=== PATIENT | female | born 1955 | race Caucasian/White ===

== ENCOUNTER 2016-08-13 11:53 | Inpatient (IN) | payer MEDICARE ==
[~2016-08-13] VITALS: Ht 160 cm; Wt 49.9 kg
[~2016-08-13 11:53] MED LIST: ASPI325T4 PO; AZIT250T PO; BUPR100T11 PO; BUPR150T15 PO; CARV3.12 PO; CHLO25TA PO; CLOR3.75 PO; FENT1PAT17 TD; HYDR-971 PO; HYDR50CA2 PO; HYDR50TA PO; LISI-338 PO; LISI40TA PO; METO25TA2 PO; METO50TA10 PO; OLAN20TA3 PO; OLAN20TA7 PO; PRED50TA PO; PROAIR HFA8.5 GM INH; SIMV20TA3 PO; SIMV5TAB5 PO; ZOLP10TA PO
--- NOTE | 2016-08-13 12:55 | PHYS DOC ---
Past Medical History Past Medical History: Anxiety, Asthma, COPD, Depression, High Cholesterol, Hypertension, Stroke Past Surgical History: Hysterectomy, Tonsillectomy, Other Additional Past Surgical Histo: bilat. breast surgery, removed fibroids Additional Information: 1 PPD Alcohol Use: None Drug Use: None Adult General Chief Complaint Chief Complaint: BACK INJURY HPI HPI Patient is a 61 year old female who presents with back pain following a fall. Patient states she was going upstairs with her oxygen and got tripped up by the oxygen tubing and fell down the stairs backwards. Patient states she fell down approximately 2 steps and struck a door with her back. She denies striking her head or losing consciousness. Denies pain anywhere other than her back. She does have a superficial skin scrape of her right distal elbow. states he heard the fall and went to check on the patient immediately. She's been acting normal neurologically since the fall per . Patient does have a history of a stroke causing left sided facial droop. Patient is not on any other blood thinners other than aspirin at this time. Patient denies any neck pain or weakness or numbness in her hands. Patient denies any new weakness or numbness in her legs or pain going into her legs. Patient is not currently on steroids. Review of Systems Review of Systems Constitutional: Denies fever or chills Eyes: Denies change in visual acuity, redness, or eye pain HENT: Denies nasal congestion or sore throat Respiratory: Denies cough or shortness of breath Cardiovascular: No chest pain or palpitations GI: Denies abdominal pain, nausea, vomiting, bloody stools or diarrhea : Denies dysuria or hematuria Musculoskeletal: Lumbar back pain in the midline from L1-L5. Integument: Denies rash or skin lesions other than abrasions right elbow Neurologic: Denies headache, focal weakness or sensory changes Endocrine: Denies polyuria or polydipsia Current Medications Current Medications Current Medications Medications (Trade) Dose Ordered Sig/Marianne Start Time Stop Time Status Last Admin Dose Admin Acetaminophen/ Hydrocodone Bitart (Lortab 5/325) 1 tab 1X ONCE 08/13/16 13:00 08/13/16 13:01 DC 08/13/16 13:32 1 TAB Allergies Allergies Allergies Coded Allergies Type Severity Reaction Last Updated Verified Haloperidol Lactate Allergy Intermediate makes neck tighten so she can't move head 02/05/14 Yes haloperidol Allergy Intermediate makes neck tighten so she can't move head Yes Physical Exam Physical Exam Constitutional: Well developed, well nourished, mild acute distress, non-toxic appearance. HENT: Normocephalic, atraumatic, oropharynx moist, no oral exudates, nose normal. Eyes: PERRLA, EOMI, conjunctiva normal, no discharge. Neck: Normal range of motion, no tenderness, supple, no stridor. Cardiovascular:Heart rate regular rhythm, no murmur Lungs & Thorax: Bilateral breath sounds clear to auscultation Abdomen: Bowel sounds normal, soft, no tenderness, no masses, no pulsatile masses. Skin: Warm, dry, no erythema, no rash. Abrasion left distal elbow Back: No thoracic spine discomfort with palpation. No obvious step-offs with palpation of the spines. Pelvis is stable to rocking and compression. Right elbow joint normal to exam. Extremities: No tenderness, no cyanosis, no clubbing, no edema. Neurologic: Alert and oriented X 3, normal sensory function, no new focal deficits noted(patient had prior stroke affecting left side). Psychologic: Affect normal, judgement normal, mood normal. Current Patient Data Vital Signs Vital Signs Date Time Temp Pulse Resp B/P Pulse Ox O2 Delivery O2 Flow Rate FiO2 08/13/16 13:32 18 94 Room Air 2.0 08/13/16 12:03 98.6 80 89/57 98.6 EKG EKG [] Radiology/Procedures Radiology/Procedures [] Course & Med Decision Making Course & Med Decision Making Pertinent Labs and Imaging studies reviewed. (See chart for details) Dr. Key came to emergency department to evaluate patient agrees to accept patient is an patient. Dragon Disclaimer Dragon Disclaimer This electronic medical record was generated, in whole or in part, using a voice recognition dictation system. Departure Departure Impression: Primary Impression: Lumbar compression fracture Disposition: ADMITTED INPATIENT Admitting Physician: Ariana Key Condition: STABLE Referrals: MALLIKA HOLLY (PCP) Problem Qualifiers Primary Impression: Lumbar compression fracture Encounter type: initial encounter Fracture type: closed Qualified Code: S32.000A - Wedge compression fracture of unspecified lumbar vertebra, initial encounter for closed fracture KYRIE WILLIS MD Aug 13, 2016 12:55
[2016-08-13] MEDS ORDERED: HYDROCODONE/APAP 5/325MG TABLET. PO ONE (13:00)
--- NOTE | 2016-08-13 13:18 | RAD ---
Lumbar spine, 3 views, 08/13/2016: History: Fall, pain The bony structures are demineralized. There is a moderate vertebral compression fracture at L3. This was not present on a CT abdomen study from 07/04/2012. The other lumbar vertebral heights are well-maintained. The intervertebral disc spaces are fairly well preserved. There are mild scattered marginal spurs. There is a mild thoracolumbar scoliosis. Moderate aortoiliac calcific plaquing is present. IMPRESSION: 1. Demineralization. 2. Moderate L3 vertebral compression fracture which has developed since 2012. 3. Mild scattered degenerative change.
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
[2016-08-13] MEDS: CHLORTHALIDONE 25 MG TABLET. PO SCH (16:00)
[2016-08-13] MEDS ORDERED: METOPROLOL SUCC 24HR ER 50 MG TAB.ER.24H. PO SCH (16:00)
[2016-08-13] MEDS ORDERED: OLANZAPINE 5 MG TABLET. PO SCH (16:00)
[2016-08-13 16:25] VITALS: BP 123/84
[2016-08-13] MEDS: NICOTINE 21MG PATCH. TD SCH (16:45)
[2016-08-13] MEDS: MORPHINE SULFATE 2 MG/ML DISP.SYRIN. IV PRN ×3 (16:46→22:42)
--- NOTE | 2016-08-13 18:28 | ACF ---
Admission Forms Criteria MUSCULOSKELETAL DISEASE GRG Clinical Indications for Admission to Inpatient Care (Place 'X' for any and all applicable criteria): Hospital admission is needed for appropriate care of the patient because of ANY ONE of the following: [X]I. Fracture, dislocation, or other musculoskeletal injury requiring inpatient care(medical) as indicated by ANY ONE of the following(4)(5)(6)(7) [ ]a) Vertebral fracture requiring observation for instability or neurologic compromise (8) [ ]b) Compartment syndrome (proven or cannot be ruled out during observation level of care) (9) [ ]c) Limb-threatening injury [ ]d) Major injury requiring inpatient stabilization such as traction initiation or external fixation before internal fixation or closure of complex or open fracture [ ]e) Major injury requiring inpatient treatment after emergency or observation level care (as appropriate) [X]f) Severe pain requiring acute inpatient management [ ]II. Newly diagnosed or suspected bone, joint, or orthopedic device infection (e.g., osteomyelitis, septic arthritis) needing ANY ONE of the following(1)(2)(3) [ ]a) IV antibiotics that cannot be initiated in other than inpatient setting (e.g., patient too unstable or home infusion not available) [ ]b) Device removal or replacement [ ]c) Bone or soft tissue debridement [ ]d) Joint drainage (drain placement or repetitive aspirations) [ ]III. Severe rheumatologic disease (e.g., systemic lupus erythematosus, rheumatoid arthritis) with complications or comorbidities (Also use Optimal Recovery Care Criteria or General Recovery Criteria as appropriate on the basis of predominant condition), including ANY ONE of the following(10 )(11)(12)(13) [ ]a) Severe infection (e.g., FIRST AID DIRECTOR infection, sepsis) (14) [ ]b) Respiratory complications, including ANY ONE of the following: [ ]i) Pleural effusion with respiratory compromise [ ]ii) Pulmonary hypertension with congestive failure [ ]iii) Respiratory failure [ ]iv) Pulmonary hemorrhage (15) [ ]c) Hematologic disease, including ANY ONE of the following: [ ]i) Coagulopathy with bleeding [ ]ii) Thrombosis with hypercoagulable state [ ]iii) Thrombotic thrombocytopenic purpura [ ]d) Cerebritis with seizures, psychosis, or other severe abnormalities [ ]e) Vertebral destruction with monitoring needed for cervical myelopathy& possible respiratory compromise [ ]f) Exacerbation that requires inpatient treatment (e.g., intravenous immunosuppression) (16) [ ]g) Acute renal failure [ ]IV. Severe vasculitis with complications or comorbidities (Also use Optimal Recovery Care Criteria or General Recovery Criteria as appropriate on the basis of predominant condition), including ANY ONE of the following(11)(12)(17)(18)(19)(20) [ ]a) FIRST AID DIRECTOR vasculitis with seizures, psychosis, or other severe abnormalities (22) [ ]b) Renal failure (16) [ ]c) Pulmonary hemorrhage (15) [ ]d) Cerebral infarction [ ]e) Gastrointestinal ischemia [ ]f) Gangrene or threatened amputation [ ]g) Exacerbation that requires inpatient treatment (e.g., intravenous immunosuppression) (19)(21) [ ]V. Severe myopathy as indicated by ANY ONE of the following (28)(29) [ ]a) New onset of airway compromise or inability to swallow [ ]b) Respiratory deterioration with observation needed for impending respiratory failure [ ]c) Exacerbation that requires inpatient treatment (e.g., intravenous immunosuppression) [ ]. Severe gout (crystal arthropathy) as indicated by ANY ONE of the following (23)(24) [ ]a) Severe pain requiring acute inpatient management [ ]b) Exacerbation that requires inpatient treatment (e.g., intravenous treatment) [ ]VII.Rhabdomyolysis and ANY ONE of the following (25)(26)(27) [ ]a) Acute renal failure [ ]b) Need for intravenous hydration after emergency or observation level care (as appropriate) [ ]c) Inability to maintain oral hydration [ ]d) Change in mental status [ ]e) Electrolyte abnormality that remains after emergency or observation level care (as appropriate) [ ]VIII Post amputation complication, as indicated by ANY ONE of the following [ ]a) Infection [ ]b) Dehiscence [ ]c) Myodesis failure [ ]IX. Severe pain requiring acute inpatient management as indicated by ALL of the following (30)(31)(32) [ ]a) Continuous or frequent (e.g., every 2 to 4 hrs) parenteral analgesics required [A] [ ]b) Rapid improvement expected from treatment or acute intervention ( e.g., surgery, anesthesia procedure[B] [ ]X. Musculoskeletal Disease and ALL of the following: [ ]a) Symptom or finding for which emergency and observation care have failed or are not considered appropriate (Use General Criteria: Observation Care as appropriate) [ ]b) Presence of ANY ONE of the following [ ]i) A General Admission Criteria [ ]ii) A Pediatric General Admission Criteria The original [facility] content created by [facility] has been revised. The portions of the content which have been revised are identified through the use of italic text or in bold, and [facility] has neither reviewed nor approved the modified material. All other unmodified content is copyright [facility]. Please see references footnoted in the original [facility] edition 2016 Admission Criteria Met?: Yes MONCHO MOTA Aug 13, 2016 18:28
[2016-08-13 19:00] VITALS: BP 93/63
[2016-08-13] MEDS: LISINOPRIL 40 MG TABLET. PO SCH (21:00)
[2016-08-13] MEDS: HYDROXYZINE PAMOATE 25 MG CAPSULE PO SCH (21:00)
[2016-08-13] MEDS: LORAZEPAM 0.5 MG TABLET. PO SCH (21:00)
[2016-08-13] MEDS: SIMVASTATIN 20 MG TABLET PO SCH (22:03)
[2016-08-13] MEDS: buPROPion 100 MG TABLET PO SCH (22:03)
[2016-08-13] MEDS: OLANZAPINE 5 MG TABLET. PO SCH (22:03)
[2016-08-13 23:00] VITALS: BP 97/61
[2016-08-14 01:30] LABS: BILIRUBIN,URINE NEGATIVE (NEG); GLUCOSE,URINE NEGATIVE (NEG); NITRITE,URINE NEGATIVE (NEG); PROTEIN,URINE NEGATIVE (NEG-TRACE); UROBILINOGEN,URINE 0.2 mg/dL (0.2 mg/dL)
[2016-08-14 01:44] LABS: BACTERIA,URINE FEW /HPF (0-FEW); RBC,URINE OCC /HPF (0-2); SQUAMOUS EPITHELIAL CELL,UR MOD /LPF
[2016-08-14 03:00] VITALS: BP 90/58
[2016-08-14] MEDS: MORPHINE SULFATE 2 MG/ML DISP.SYRIN. IV PRN ×6 (05:57→22:17)
[2016-08-14 07:00] VITALS: BP 93/56
[2016-08-14] MEDS: METOPROLOL SUCC 24HR ER 100 MG TAB.ER.24H. PO SCH (09:00)
[2016-08-14] MEDS: CHLORTHALIDONE 25 MG TABLET. PO SCH (09:00)
[2016-08-14] MEDS: LISINOPRIL 40 MG TABLET. PO SCH ×2 (09:00→21:00)
[2016-08-14] MEDS: NICOTINE 21MG PATCH. TD SCH (09:27)
[2016-08-14] MEDS: HYDROXYZINE PAMOATE 25 MG CAPSULE PO SCH ×3 (09:27→21:00)
[2016-08-14] MEDS: buPROPion 100 MG TABLET PO SCH ×2 (09:27→22:16)
[2016-08-14] MEDS: LORAZEPAM 0.5 MG TABLET. PO SCH ×2 (09:27→21:00)
[2016-08-14 11:00] VITALS: BP 104/64
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
--- NOTE | 2016-08-14 11:40 | PDOC ---
SUBJECTIVE Subjective Pt seen and examined. S/p fall yesterday with new onset low back pain. Denies leg pain/paresthesias, focal weakness, or bowel/bladder changes. Low back pain is isolated and began immediately after the fall. Full strength and sensation on exam. Plain films with new L3 compression deformity compared to prior imaging. Recommend MRI lumbar spine to better characterize. TLSO brace for now. May potentially benefit from vertebral augmentation pending MR findings. OBJECTIVE Vital Signs Vital Signs Date Time Temp Pulse Resp B/P Pulse Ox O2 Delivery O2 Flow Rate FiO2 08/14/16 11:00 98.3 78 16 104/64 92 Nasal Cannula 2.0 98.3 08/14/16 09:58 Nasal Cannula 2.0 08/14/16 09:27 Nasal Cannula 2.0 08/14/16 07:55 Nasal Cannula 2.0 08/14/16 07:00 98.2 100 20 93/56 92 Nasal Cannula 2.0 98.2 08/14/16 05:57 20 93 Nasal Cannula 2.0 08/14/16 03:00 99.5 78 18 90/58 93 Nasal Cannula 2.0 99.5 08/13/16 23:12 20 96 08/13/16 23:00 98.1 76 18 97/61 94 Nasal Cannula 2.0 98.1 08/13/16 22:42 18 98 Nasal Cannula 2.0 08/13/16 21:00 76 93/63 08/13/16 20:00 Nasal Cannula 2.0 08/13/16 19:34 20 98 Nasal Cannula 2.0 08/13/16 19:00 99.0 76 18 93/63 97 Nasal Cannula 2.0 99.0 08/13/16 17:22 Nasal Cannula 2.0 08/13/16 16:25 97.9 73 20 123/84 98 Nasal Cannula 2.0 97.9 08/13/16 15:10 72 22 130/74 98 Nasal Cannula 2 08/13/16 13:32 18 94 Room Air 2.0 08/13/16 12:03 98.6 80 22 89/57 99 Nasal Cannula 2 98.6 I & O Intake and Output 08/14/16 07:00 Output Total 400 ml Balance -400 ml Output Urine Total 400 ml # Voids 1 COMMENT Lab Laboratory Tests Test 08/14/16 01:10 Urine Collection Type Unknown Urine Color Yellow Urine Clarity Cloudy Urine pH 7.0 Urine Specific [place] 1.010 Urine Protein Negativemg/dL (NEG-TRACE) Urine Glucose (UA) Negativemg/dL (NEG) Urine Ketones (Stick) Negativemg/dL (NEG) Urine Blood Negative (NEG) Urine Nitrite Negative (NEG) Urine Bilirubin Negative (NEG) Urine Urobilinogen Dipstick 0.2mg/dL (0.2 mg/dL) Urine Leukocyte Esterase Moderate (NEG) Urine RBC Occ/HPF (0-2) Urine WBC 5-10/HPF (0-4) Urine Squamous Epithelial Cells Mod/LPF Urine Amorphous Sediment Present/HPF Urine Bacteria Few/HPF (0-FEW) Urine Hyaline Casts Moderate/HPF Urine Mucus Mod/LPF DAMIAN YANCEY MD Aug 14, 2016 11:40
--- NOTE | 2016-08-14 13:45 | RAD ---
PROCEDURE MRI lumbar spine without contrast. HISTORY New compression fracture. Back pain. TECHNIQUE Sagittal T1, sagittal T2, sagittal STIR, axial T1, and axial T2 sequences are provided. COMPARISON March 24, 2012. FINDINGS New compression deformity is noted at L3 with edema. Collapse is 40 percent. Retropulsion measures 5 millimeters. Minimal edema in the anterior inferior corner of L2 is noted, may be reactive. There is a Schmorl's node in the superior endplate of L5. There is no worrisome marrow lesion. There is no malalignment. Conus medullaris is normal in signal intensity and in position. There is no epidural hematoma. There is subcutaneous edema. Numbering system assumes 5 lumbar type vertebral bodies. Findings by individual level are as follows: L1-L2: There is no canal or foraminal compromise. L2-L3: There is minimal facet and ligamentum flavum hypertrophy. There is no canal or foraminal compromise at the level of retropulsion of L3, thecal sac is mildly narrowed, midline AP diameter of the thecal sac 10 millimeters. This is compared to a midline AP diameter of the thecal sac measurement of 13 millimeters at the level of L2-L3. L3-L4: Minimal disc bulge and mild facet and ligamentum flavum hypertrophy are noted. There is a shallow left paracentral protrusion. There is no canal stenosis or foraminal compromise. L4-L5: Mild disc bulge and minimal facet and ligamentum flavum hypertrophy are noted. There is a shallow left paracentral protrusion as well. This does not result in canal stenosis. There is minimal left foraminal narrowing. L5-S1: There is no canal or foraminal compromise. IMPRESSION - Acute L3 compression fracture with retropulsion and collapse. - Mild degenerative changes in the lumbar spine, no high-grade canal stenosis. Electronically signed by: Luis Spangler MD (Aug 14, 2016 13:44:24)
[2016-08-14 15:00] VITALS: BP 105/75
[2016-08-14 19:00] VITALS: BP 114/82
[2016-08-14] MEDS: SIMVASTATIN 20 MG TABLET PO SCH (22:14)
[2016-08-14] MEDS: OLANZAPINE 5 MG TABLET. PO SCH (22:14)
[2016-08-14 23:00] VITALS: BP 109/79
[2016-08-15 03:00] VITALS: BP 100/75
--- NOTE | 2016-08-15 04:19 | CONS ---
DATE OF CONSULTATION: LOCATION: She is in room 408. ATTENDING PHYSICIAN: Dr. Key. The patient was seen at the request of Dr. Key for rehab evaluation. HISTORY OF PRESENT ILLNESS: This is a 61-year-old female who has been using oxygen by nasal cannula at home. She fell tripped over oxygen tank on 08/13/2016 and she complained of back pain, admitted through the Emergency Room where x-rays revealed L3 vertebral body compression fractures. She had MRI scan of her lumbar vertebrae done this afternoon which revealed acute L3 vertebral body compression fracture with retropulsion and collapse, mild degenerative changes in the lumbar spine without any high grade canal stenosis. The patient denies any radiation of pain to the extremities or any numbness, tingling sensation in the extremities. The patient denies any trouble with her bowel or bladder control. The patient lives at home with her . She does not use any assistive device yet to get around prior to the present hospitalization. The patient lives in [facility]. PHYSICAL EXAMINATION: Today revealed a middle-aged female. She is alert, oriented to time, place, person and circumstance and follows commands appropriately, moves all 4 extremities voluntarily where she had 4+/5 grade muscle strength, deep tendon reflexes are decreased over all with absent ankle and right knee jerk. She had equal perception of touch and pinprick sensation bilaterally. She had thoracolumbar corset in place. I have not tested her transfers or ambulation skills at present time as neurosurgeon wants her to have vertebral body augmentation before getting up, she had overgrown toenails. ASSESSMENT: A middle-aged female with chronic obstructive pulmonary disease, chronic tobacco abuse, posttraumatic stress disorder, anxiety, asthmatic bronchitis, depression, hyperlipidemia, hypertension, stroke, hysterectomy, tonsillectomy, fibrocystic breast disease with surgery, known allergic to Haldol. The patient with recent fall and L3 vertebral body compression fracture with associated degenerative disk disease and degenerative joint disease of lumbar vertebrae without any clinical evidence of ongoing lumbar radiculopathy and clinical evidence of peripheral neuropathy. RECOMMENDATIONS: Agree with the plans for kyphoplasty lumbar spine fusion, whatever the neurosurgeon feel comfortable to get her up afterwards as she can tolerate. Dr. Key, I appreciate asking me to participate in the care of this interesting patient. I will be glad to follow her with you as needed for her rehabilitation. MONIQUE COLE MD DR: Yumiko JOB#: [id number] / [id number]
[2016-08-15 04:49] LABS: BASO % 0 % (0-3); EOS % 1 % (0-3); HEMOGLOBIN 13.1 g/dL (12.0-15.5); LYMPH # 1.6 x10^3/uL (1.0-4.8); LYMPH % 13 % (24-48); MEAN CORPUSCULAR HEMOGLOBIN 30 pg (25-35); MEAN CORPUSCULAR HGB CONC 33 g/dL (31-37); MEAN CORPUSCULAR VOLUME 90 fL (79-100); MONO % 12 % (0-9); NEUT % 74 % (31-73); PLATELET COUNT 270 x10^3/uL (140-400); RED BLOOD COUNT 4.43 x10^6/uL (3.50-5.40); RED CELL DISTRIBUTION WIDTH 14.3 % (11.5-14.5); WHITE BLOOD COUNT 12.9 x10^3/uL (4.0-11.0)
[2016-08-15 05:08] LABS: CALCIUM 9.2 mg/dL (8.5-10.1); CREATININE 0.6 mg/dL (0.6-1.0); GFR 101.6; POTASSIUM 3.2 mmol/L (3.5-5.1)
[2016-08-15 07:00] VITALS: BP 108/75
[2016-08-15] MEDS: MORPHINE SULFATE 2 MG/ML DISP.SYRIN. IV PRN ×5 (07:52→20:41)
[2016-08-15] MEDS: ALBUTEROL SULFATE 2.5 MG/3 ML NEBU. NEB PRN (08:51)
[2016-08-15] MEDS: CHLORTHALIDONE 25 MG TABLET. PO SCH (09:00)
[2016-08-15] MEDS: LISINOPRIL 40 MG TABLET. PO SCH ×2 (09:00→20:40)
[2016-08-15] MEDS: METOPROLOL SUCC 24HR ER 100 MG TAB.ER.24H. PO SCH (09:00)
[2016-08-15] MEDS ORDERED: LORAZEPAM 0.5 MG TABLET. ONE (09:13)
[2016-08-15] MEDS: NICOTINE 21MG PATCH. TD SCH (10:08)
[2016-08-15] MEDS: LORAZEPAM 0.5 MG TABLET. PO SCH ×2 (10:09→20:40)
[2016-08-15] MEDS: HYDROXYZINE PAMOATE 25 MG CAPSULE PO SCH ×3 (10:09→20:40)
[2016-08-15] MEDS: buPROPion 100 MG TABLET PO SCH ×2 (10:09→20:39)
[2016-08-15 11:00] VITALS: BP 105/69
--- NOTE | 2016-08-15 11:29 | PDOC ---
PROGRESS NOTES Subjective Subjective She admits continued low back pain. Objective Objective Vital Signs Date Time Temp Pulse Resp B/P Pulse Ox O2 Delivery O2 Flow Rate FiO2 08/15/16 11:00 99.0 94 20 105/69 93 Nasal Cannula 2.0 99.0 Intake and Output 08/15/16 06:59 Intake Total 200 ml Balance 200 ml Intake Oral 200 ml # Voids 4 Physical Exam Physical Exam She is supine in bed and had TL brace in place and her at bedside. Assessment Assessment Problems Medical Problems: (1) Lumbar compression fracture Status: Acute Plan Plan of Care Awaiting kyphoplasty. Comment Review of Relevant I have reviewed the following items luis angel (where applicable) has been applied. Labs Laboratory Tests Test 08/14/16 01:10 08/15/16 03:40 Urine Collection Type Unknown Urine Color Yellow Urine Clarity Cloudy Urine pH 7.0 Urine Specific [place] 1.010 Urine Protein Negativemg/dL (NEG-TRACE) Urine Glucose (UA) Negativemg/dL (NEG) Urine Ketones (Stick) Negativemg/dL (NEG) Urine Blood Negative (NEG) Urine Nitrite Negative (NEG) Urine Bilirubin Negative (NEG) Urine Urobilinogen Dipstick 0.2mg/dL (0.2 mg/dL) Urine Leukocyte Esterase Moderate (NEG) Urine RBC Occ/HPF (0-2) Urine WBC 5-10/HPF (0-4) Urine Squamous Epithelial Cells Mod/LPF Urine Amorphous Sediment Present/HPF Urine Bacteria Few/HPF (0-FEW) Urine Hyaline Casts Moderate/HPF Urine Mucus Mod/LPF White Blood Count 12.9x10^3/uL (4.0-11.0) Red Blood Count 4.43x10^6/uL (3.50-5.40) Hemoglobin 13.1g/dL (12.0-15.5) Hematocrit 40.0% (36.0-47.0) Mean Corpuscular Volume 90fL (79-100) Mean Corpuscular Hemoglobin 30pg (25-35) Mean Corpuscular Hemoglobin Concent 33g/dL (31-37) Red Cell Distribution Width 14.3% (11.5-14.5) Platelet Count 270x10^3/uL (140-400) Neutrophils (%) (Auto) 74% (31-73) Lymphocytes (%) (Auto) 13% (24-48) Monocytes (%) (Auto) 12% (0-9) Eosinophils (%) (Auto) 1% (0-3) Basophils (%) (Auto) 0% (0-3) Neutrophils # (Auto) 9.6x10^3uL (1.8-7.7) Lymphocytes # (Auto) 1.6x10^3/uL (1.0-4.8) Monocytes # (Auto) 1.6x10^3/uL (0.0-1.1) Eosinophils # (Auto) 0.1x10^3/uL (0.0-0.7) Basophils # (Auto) 0.0x10^3/uL (0.0-0.2) Sodium Level 130mmol/L (136-145) Potassium Level 3.2mmol/L (3.5-5.1) Chloride Level 90mmol/L (98-107) Carbon Dioxide Level 29mmol/L (21-32) Anion Gap 11 (6-14) Blood Urea Nitrogen 6mg/dL (7-20) Creatinine 0.6mg/dL (0.6-1.0) Estimated GFR (Cockcroft-Gault) 101.6 Glucose Level 124mg/dL (70-99) Calcium Level 9.2mg/dL (8.5-10.1) Laboratory Tests Test 08/15/16 03:40 White Blood Count 12.9x10^3/uL (4.0-11.0) Red Blood Count 4.43x10^6/uL (3.50-5.40) Hemoglobin 13.1g/dL (12.0-15.5) Hematocrit 40.0% (36.0-47.0) Mean Corpuscular Volume 90fL (79-100) Mean Corpuscular Hemoglobin 30pg (25-35) Mean Corpuscular Hemoglobin Concent 33g/dL (31-37) Red Cell Distribution Width 14.3% (11.5-14.5) Platelet Count 270x10^3/uL (140-400) Neutrophils (%) (Auto) 74% (31-73) Lymphocytes (%) (Auto) 13% (24-48) Monocytes (%) (Auto) 12% (0-9) Eosinophils (%) (Auto) 1% (0-3) Basophils (%) (Auto) 0% (0-3) Neutrophils # (Auto) 9.6x10^3uL (1.8-7.7) Lymphocytes # (Auto) 1.6x10^3/uL (1.0-4.8) Monocytes # (Auto) 1.6x10^3/uL (0.0-1.1) Eosinophils # (Auto) 0.1x10^3/uL (0.0-0.7) Basophils # (Auto) 0.0x10^3/uL (0.0-0.2) Sodium Level 130mmol/L (136-145) Potassium Level 3.2mmol/L (3.5-5.1) Chloride Level 90mmol/L (98-107) Carbon Dioxide Level 29mmol/L (21-32) Anion Gap 11 (6-14) Blood Urea Nitrogen 6mg/dL (7-20) Creatinine 0.6mg/dL (0.6-1.0) Estimated GFR (Cockcroft-Gault) 101.6 Glucose Level 124mg/dL (70-99) Calcium Level 9.2mg/dL (8.5-10.1) Medications Current Medications Acetaminophen/ Hydrocodone Bitart (Lortab 5/325) 1 tab 1X ONCE PO Last administered on 08/13/16 13:32; Start 08/13/16 at 13:00; Stop 08/13/16 at 13:01 ; Status DC Bupropion HCl (Wellbutrin) 100 mg BID PO Last administered on 08/15/16 10:09; Start 08/13/16 at 21:00 Chlorthalidone (Thalitone) 25 mg DAILY PO ; Start 08/13/16 at 16:00 Lisinopril (Prinivil) 40 mg BID PO ; Start 08/13/16 at 21:00 Metoprolol Succinate (Toprol Xl) 200 mg DAILY PO ; Start 08/13/16 at 16:00; Stop 08/14/16 at 05:07; Status DC Simvastatin (Zocor) 20 mg QHS PO Last administered on 08/14/16 22:14; Start at 21:00 Lorazepam (Ativan) 0.5 mg BID PO Last administered on 08/15/16 10:09; Start at 21:00 Hydroxyzine Pamoate (Vistaril) 50 mg TID PO Last administered on 08/15/16 10:09 ; Start 08/13/16 at 21:00 Olanzapine (Zyprexa) 20 mg DAILY PO ; Start 08/13/16 at 16:00; Stop 08/13/16 at 17:09; Status DC Morphine Sulfate 2 mg PRN Q2HR PRN IV PAIN Last administered on 08/15/16 10:21 ; Start 08/13/16 at 16:45 Nicotine (Nicoderm Cq 21mg) 1 patch DAILY TD Last administered on 08/15/16 10: 08; Start 08/13/16 at 17:00 Olanzapine (Zyprexa) 20 mg QHS PO Last administered on 08/14/16 22:14; Start 08/13/16 at 21:00 Metoprolol Succinate (Toprol Xl) 200 mg DAILY PO ; Start 08/14/16 at 09:00 Albuterol Sulfate (Ventolin Neb Soln) 2.5 mg PRN Q4HRS PRN NEB SOA Last administered on 08/15/16 08:51; Start 08/15/16 at 08:45 Lorazepam (Ativan) 0.5 mg STK-MED ONCE .ROUTE ; Start 08/15/16 at 09:13; Stop 08/15/16 at 09:14; Status DC Active Scripts Active Reported Clorazepate Dipotassium 3.75 Mg Tablet 3.75 Mg PO BID Simvastatin 20 Mg Tablet 20 Mg PO DAILY Olanzapine 20 Mg Tablet 20 Mg PO DAILY Bupropion Hcl 100 Mg Tablet 100 Mg PO BID Metoprolol Succinate 50 Mg Tab.er.24h 200 Mg PO Lisinopril 40 Mg Tablet 1 Tab PO BID Vitals/I & O Vital Sign - Last 24 Hours 08/14/16 08/14/16 08/14/16 08/14/16 13:43 15:00 16:13 18:46 Temp 98.5 98.5 Pulse 80 Resp 16 B/P 105/75 Pulse Ox 93 O2 Delivery Nasal Cannula Nasal Cannula Nasal Cannula Nasal Cannula O2 Flow Rate 2.0 2.0 2.0 2.0 08/14/16 08/14/16 08/14/16 08/14/16 19:00 20:00 21:00 22:17 Temp 100.2 100.2 Pulse 85 85 Resp 16 20 B/P 114/82 114/82 Pulse Ox 90 90 O2 Delivery Nasal Cannula Nasal Cannula Nasal Cannula O2 Flow Rate 2.0 2.0 2.0 08/14/16 08/14/16 08/15/16 08/15/16 22:47 23:00 03:00 07:00 Temp 98.0 98.8 98.6 98.0 98.8 98.6 Pulse 89 101 94 Resp 20 16 16 16 B/P 109/79 100/75 108/75 Pulse Ox 90 90 90 88 O2 Delivery Nasal Cannula Nasal Cannula Nasal Cannula Nasal Cannula O2 Flow Rate 2.0 2.0 2.0 2.0 08/15/16 08/15/16 08/15/16 08/15/16 08:00 08:58 09:00 09:00 Pulse 94 94 B/P 108/75 108/75 Pulse Ox 96 O2 Delivery Nasal Cannula Nasal Cannula O2 Flow Rate 2.0 2.0 08/15/16 11:00 Temp 99.0 99.0 Pulse 94 Resp 20 B/P 105/69 Pulse Ox 93 O2 Delivery Nasal Cannula O2 Flow Rate 2.0 Intake and Output 08/14/16 08/14/16 08/15/16 14:59 22:59 06:59 Intake Total 200 ml Balance 200 ml MONIQUE COLE MD Aug 15, 2016 11:29
--- NOTE | 2016-08-15 11:40 | PDOC ---
SUBJECTIVE Subjective Reports back pain slightly improved with brace on. Denies lower extremity symptoms. Denies acute complaints otherwise this AM. OBJECTIVE Objective MRI lumbar shows acute L3 compression fracture with approx 40% height loss, no significant angulation, there is some minimal retropulsion without significant stenosis, no hemorrhage Vital Signs Vital Signs Date Time Temp Pulse Resp B/P Pulse Ox O2 Delivery O2 Flow Rate FiO2 08/15/16 11:00 99.0 94 20 105/69 93 Nasal Cannula 2.0 99.0 08/15/16 09:00 94 108/75 08/15/16 09:00 94 108/75 08/15/16 08:58 96 Nasal Cannula 2.0 08/15/16 08:00 Nasal Cannula 2.0 08/15/16 07:00 98.6 94 16 108/75 88 Nasal Cannula 2.0 98.6 08/15/16 03:00 98.8 101 16 100/75 90 Nasal Cannula 2.0 98.8 08/14/16 23:00 98.0 89 16 109/79 90 Nasal Cannula 2.0 98.0 08/14/16 22:47 20 90 Nasal Cannula 2.0 08/14/16 22:17 20 90 Nasal Cannula 2.0 08/14/16 21:00 85 114/82 08/14/16 20:00 Nasal Cannula 2.0 08/14/16 19:00 100.2 85 16 114/82 90 Nasal Cannula 2.0 100.2 08/14/16 18:46 Nasal Cannula 2.0 08/14/16 16:13 Nasal Cannula 2.0 08/14/16 15:00 98.5 80 16 105/75 93 Nasal Cannula 2.0 98.5 08/14/16 13:43 Nasal Cannula 2.0 I & O Intake and Output 08/15/16 06:59 Intake Total 200 ml Balance 200 ml Intake Oral 200 ml # Voids 4 PHYSICAL EXAM Physical Exam AAOx4, NAD, RICO 5/5, sensation intact LT, TLSO brace on ASSESSMENT/PLAN Assessment/Plan 61 F with L3 compression fracture s/p fall -neuro intact with back pain -brace on when upright 30 degrees or more at this time -IR consulted for vertebral augmentation -monitor for changes otherwise Problems: COMMENT Lab Laboratory Tests Test 08/15/16 03:40 White Blood Count 12.9x10^3/uL (4.0-11.0) Red Blood Count 4.43x10^6/uL (3.50-5.40) Hemoglobin 13.1g/dL (12.0-15.5) Hematocrit 40.0% (36.0-47.0) Mean Corpuscular Volume 90fL (79-100) Mean Corpuscular Hemoglobin 30pg (25-35) Mean Corpuscular Hemoglobin Concent 33g/dL (31-37) Red Cell Distribution Width 14.3% (11.5-14.5) Platelet Count 270x10^3/uL (140-400) Neutrophils (%) (Auto) 74% (31-73) Lymphocytes (%) (Auto) 13% (24-48) Monocytes (%) (Auto) 12% (0-9) Eosinophils (%) (Auto) 1% (0-3) Basophils (%) (Auto) 0% (0-3) Neutrophils # (Auto) 9.6x10^3uL (1.8-7.7) Lymphocytes # (Auto) 1.6x10^3/uL (1.0-4.8) Monocytes # (Auto) 1.6x10^3/uL (0.0-1.1) Eosinophils # (Auto) 0.1x10^3/uL (0.0-0.7) Basophils # (Auto) 0.0x10^3/uL (0.0-0.2) Sodium Level 130mmol/L (136-145) Potassium Level 3.2mmol/L (3.5-5.1) Chloride Level 90mmol/L (98-107) Carbon Dioxide Level 29mmol/L (21-32) Anion Gap 11 (6-14) Blood Urea Nitrogen 6mg/dL (7-20) Creatinine 0.6mg/dL (0.6-1.0) Estimated GFR (Cockcroft-Gault) 101.6 Glucose Level 124mg/dL (70-99) Calcium Level 9.2mg/dL (8.5-10.1) DAMIAN YANCEY MD Aug 15, 2016 11:40
[2016-08-15 15:00] VITALS: BP 114/74
--- NOTE | 2016-08-15 15:05 | PDOC ---
Provider Note Provider Note IR Note: IR asked to consider vertebral augmentation---thank you. Sonali is a pleasant 61 YO female smoker with O2 dependent COPD. She reports she has been diagnosed with osteoporosis in the past. She has bee admitted with severe LBP, precipitated by a recent fall. Her pain is centered midline low back, without radiculopathy or myelopathy. Sonali is tender to palpation over mid L-spine. PMC MRI from 08/14/16 revealed acute L3 compression, with mild retropulsion, but without epidural hematoma and without significant spinal stenosis. By history, imaging and physical exam, I would consider Sonali a good candidate for L3 vertebral augmentation. That procedure, with benefits and risks, was discussed at length with her. She understood and is anxious to proceed. She has been tentatively scheduled for L3 kyphoplasty in IR Wednesday. Due to respiratory insufficiency, I will ask anesthesia for assistance. Will check INR. NPO post MN Wednesday. Thanks again---call for questions. MARA RAYMOND MD Aug 15, 2016 15:05
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
[2016-08-15 16:56] LABS: INR 1.1 (0.8-1.1); PROTHROMBIN TIME PATIENT 13.8 SEC (11.7-14.0)
[2016-08-15 19:15] VITALS: BP 116/78
[2016-08-15] MEDS: OLANZAPINE 5 MG TABLET. PO SCH (20:40)
[2016-08-15] MEDS: SIMVASTATIN 20 MG TABLET PO SCH (20:40)
[2016-08-15 23:09] VITALS: BP 91/58
[2016-08-16] MEDS: MORPHINE SULFATE 2 MG/ML DISP.SYRIN. IV PRN ×5 (03:03→23:01)
[2016-08-16 03:18] VITALS: BP 86/52
[2016-08-16 05:40] LABS: BASO # 0.1 x10^3/uL (0.0-0.2); BASO % 1 % (0-3); EOS % 1 % (0-3); HEMATOCRIT 35.3 % (36.0-47.0); LYMPH # 1.4 x10^3/uL (1.0-4.8); LYMPH % 9 % (24-48); MEAN CORPUSCULAR HEMOGLOBIN 30 pg (25-35); MEAN CORPUSCULAR HGB CONC 34 g/dL (31-37); MEAN CORPUSCULAR VOLUME 88 fL (79-100); MONO % 14 % (0-9); NEUT % 76 % (31-73); PLATELET COUNT 255 x10^3/uL (140-400); RED BLOOD COUNT 4.03 x10^6/uL (3.50-5.40); RED CELL DISTRIBUTION WIDTH 13.8 % (11.5-14.5); WHITE BLOOD COUNT 14.9 x10^3/uL (4.0-11.0)
[2016-08-16 05:53] LABS: CALCIUM 9.2 mg/dL (8.5-10.1); CREATININE 0.7 mg/dL (0.6-1.0); GFR 85.1; POTASSIUM 3.5 mmol/L (3.5-5.1)
[2016-08-16 06:36] LABS: % BASOS 3 % (0-3)
[2016-08-16 06:37] LABS: PLT ESTIMATE ADEQUATE (ADEQUATE); TOXIC GRANULATION PRESENT
[2016-08-16 07:00] VITALS: BP 82/56
[2016-08-16] MEDS: buPROPion 100 MG TABLET PO SCH ×2 (08:33→21:03)
[2016-08-16] MEDS: LORAZEPAM 0.5 MG TABLET. PO SCH ×2 (08:34→21:00)
[2016-08-16] MEDS: HYDROXYZINE PAMOATE 25 MG CAPSULE PO SCH ×3 (08:34→21:04)
[2016-08-16] MEDS: NICOTINE 21MG PATCH. TD SCH (08:35)
[2016-08-16] MEDS: LISINOPRIL 40 MG TABLET. PO SCH ×2 (09:00→21:04)
[2016-08-16] MEDS: METOPROLOL SUCC 24HR ER 100 MG TAB.ER.24H. PO SCH (09:00)
[2016-08-16] MEDS: CHLORTHALIDONE 25 MG TABLET. PO SCH (09:00)
[2016-08-16] MEDS ORDERED: IV NORMAL SALINE 500ML BAG 500 ML IV ONE (10:45)
[2016-08-16 11:00] VITALS: BP 103/64
[2016-08-16] MEDS: IV NORMAL SALINE 1000ML BAG 1,000 ML IV SCH (12:00)
--- NOTE | 2016-08-16 12:16 | PDOC ---
SUBJECTIVE Subjective Denies acute complaints. Denies pain lying in bed. Denies lower extremity pain, weakness, or paresthesias. OBJECTIVE Vital Signs Vital Signs Date Time Temp Pulse Resp B/P Pulse Ox O2 Delivery O2 Flow Rate FiO2 08/16/16 11:00 98.2 104 20 103/64 93 Nasal Cannula 2.0 98.2 08/16/16 09:00 82/56 08/16/16 09:00 82/56 08/16/16 08:00 Nasal Cannula 2.0 08/16/16 07:00 98.1 96 16 82/56 90 Nasal Cannula 2.0 98.1 08/16/16 06:05 18 Nasal Cannula 2.0 08/16/16 05:35 18 Nasal Cannula 2.0 08/16/16 03:18 98.5 109 18 86/52 95 Nasal Cannula 2.0 98.5 08/16/16 03:03 18 Nasal Cannula 2.0 08/15/16 23:09 98.4 62 22 91/58 95 Nasal Cannula 2.0 98.4 08/15/16 20:41 18 Nasal Cannula 2.0 08/15/16 20:40 98 116/78 08/15/16 19:55 Nasal Cannula 2.0 08/15/16 19:15 98.7 98 18 116/78 98 Nasal Cannula 2.0 98.7 08/15/16 15:00 98.8 97 16 114/74 88 Nasal Cannula 2.0 98.8 08/15/16 14:16 16 Nasal Cannula 2.0 I & O Intake and Output 08/16/16 06:59 Intake Total 120 ml Output Total 300 ml Balance -180 ml Intake Oral 120 ml Output Urine Total 300 ml # Voids 3 PHYSICAL EXAM Physical Exam AAOx4, NAD, RICO, sensation intact LT ASSESSMENT/PLAN Assessment/Plan L3 compression fracture -neurologically stable -brace on when >30 degrees for now -tentatively for vertebral augmentation tomorrow by IR Problems: COMMENT Lab Laboratory Tests Test 08/15/16 16:30 08/16/16 04:58 Prothrombin Time 13.8SEC (11.7-14.0) Prothromb Time International Ratio 1.1 (0.8-1.1) White Blood Count 14.9x10^3/uL (4.0-11.0) Red Blood Count 4.03x10^6/uL (3.50-5.40) Hemoglobin 12.0g/dL (12.0-15.5) Hematocrit 35.3% (36.0-47.0) Mean Corpuscular Volume 88fL (79-100) Mean Corpuscular Hemoglobin 30pg (25-35) Mean Corpuscular Hemoglobin Concent 34g/dL (31-37) Red Cell Distribution Width 13.8% (11.5-14.5) Platelet Count 255x10^3/uL (140-400) Neutrophils (%) (Auto) 76% (31-73) Lymphocytes (%) (Auto) 9% (24-48) Monocytes (%) (Auto) 14% (0-9) Eosinophils (%) (Auto) 1% (0-3) Basophils (%) (Auto) 1% (0-3) Neutrophils # (Auto) 11.2x10^3uL (1.8-7.7) Lymphocytes # (Auto) 1.4x10^3/uL (1.0-4.8) Monocytes # (Auto) 2.0x10^3/uL (0.0-1.1) Eosinophils # (Auto) 0.1x10^3/uL (0.0-0.7) Basophils # (Auto) 0.1x10^3/uL (0.0-0.2) Segmented Neutrophils % 71% (35-66) Band Neutrophils % 3% (0-9) Lymphocytes % 9% (24-48) Monocytes % 14% (0-10) Basophils % 3% (0-3) Toxic Granulation Present Platelet Estimate Adequate (ADEQUATE) Sodium Level 130mmol/L (136-145) Potassium Level 3.5mmol/L (3.5-5.1) Chloride Level 92mmol/L (98-107) Carbon Dioxide Level 29mmol/L (21-32) Anion Gap 9 (6-14) Blood Urea Nitrogen 13mg/dL (7-20) Creatinine 0.7mg/dL (0.6-1.0) Estimated GFR (Cockcroft-Gault) 85.1 Glucose Level 116mg/dL (70-99) Calcium Level 9.2mg/dL (8.5-10.1) DAMIAN YANCEY MD Aug 16, 2016 12:16
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
[2016-08-16 15:00] VITALS: BP 93/61
[2016-08-16 19:15] VITALS: BP 104/68
[2016-08-16] MEDS: SIMVASTATIN 20 MG TABLET PO SCH (21:04)
[2016-08-16] MEDS: OLANZAPINE 5 MG TABLET. PO SCH (21:04)
[2016-08-16 22:50] VITALS: BP 92/54
[2016-08-17] VITALS (9 sets, daily range): BP systolic 88–175; BP diastolic 55–95
[2016-08-17] MEDS: IV NORMAL SALINE 1000ML BAG 1,000 ML IV SCH ×2 (02:50→14:40)
[2016-08-17 03:56] LABS: BASO % 0 % (0-3); EOS % 1 % (0-3); HEMATOCRIT 34.6 % (36.0-47.0); HEMOGLOBIN 11.4 g/dL (12.0-15.5); LYMPH % 6 % (24-48); MEAN CORPUSCULAR HEMOGLOBIN 30 pg (25-35); MEAN CORPUSCULAR HGB CONC 33 g/dL (31-37); MEAN CORPUSCULAR VOLUME 91 fL (79-100); MONO % 10 % (0-9); NEUT % 82 % (31-73); PLATELET COUNT 248 x10^3/uL (140-400); RED BLOOD COUNT 3.79 x10^6/uL (3.50-5.40); RED CELL DISTRIBUTION WIDTH 13.7 % (11.5-14.5); WHITE BLOOD COUNT 15.6 x10^3/uL (4.0-11.0)
[2016-08-17 04:13] LABS: CALCIUM 8.6 mg/dL (8.5-10.1); CREATININE 0.5 mg/dL (0.6-1.0); GFR 125.4
[2016-08-17 04:33] LABS: POTASSIUM 2.8 mmol/L (3.5-5.1)
[2016-08-17] MEDS: POTASSIUM CHLORIDE 10MEQ 100 ML IV SCH ×4 (05:44→16:59)
[2016-08-17] MEDS ORDERED: PROPOFOL 80 ML IV ONE (08:42)
[2016-08-17] MEDS ORDERED: LIDOCAINE 2% 100 MG/5 ML DISP.SYRIN. ONE (08:42)
[2016-08-17] MEDS ORDERED: MIDAZOLAM HCL/PF 2 MG/2 ML VIAL. ONE (08:44)
[2016-08-17] MEDS ORDERED: KETAMINE HCL 500 MG/10 ML VIAL. ONE (08:45)
[2016-08-17] MEDS ORDERED: PROPOFOL 100 ML IV ONE (08:47)
[2016-08-17] MEDS: buPROPion 100 MG TABLET PO SCH ×2 (09:00→22:07)
[2016-08-17] MEDS: HYDROXYZINE PAMOATE 25 MG CAPSULE PO SCH ×3 (09:00→22:07)
[2016-08-17] MEDS: CHLORTHALIDONE 25 MG TABLET. PO SCH (09:00)
[2016-08-17] MEDS: METOPROLOL SUCC 24HR ER 100 MG TAB.ER.24H. PO SCH (09:00)
[2016-08-17] MEDS: LORAZEPAM 0.5 MG TABLET. PO SCH ×2 (09:00→22:07)
[2016-08-17] MEDS: LISINOPRIL 40 MG TABLET. PO SCH ×2 (09:00→21:00)
[2016-08-17] MEDS: NICOTINE 21MG PATCH. TD SCH (09:00)
[2016-08-17] MEDS: MORPHINE SULFATE 2 MG/ML DISP.SYRIN. IV PRN ×2 (09:30→16:59)
--- NOTE | 2016-08-17 09:30 | PDOC ---
PULMONARY PROGRESS NOTES Vitals Vital Signs Date Time Temp Pulse Resp B/P Pulse Ox O2 Delivery O2 Flow Rate FiO2 08/17/16 07:50 Nasal Cannula 2.0 08/17/16 07:00 98.6 121 20 132/85 91 98.6 Lungs: Other (Symmetrical chest excursion, coarse breath sounds bilaterally, negative accessory muscle use) Cardiovascular: S1 Abdomen: Soft Extremities: No Edema Labs Laboratory Tests Test 08/15/16 16:30 08/16/16 04:58 08/17/16 03:00 Prothrombin Time 13.8SEC (11.7-14.0) Prothromb Time International Ratio 1.1 (0.8-1.1) White Blood Count 14.9x10^3/uL (4.0-11.0) 15.6x10^3/uL (4.0-11.0) Red Blood Count 4.03x10^6/uL (3.50-5.40) 3.79x10^6/uL (3.50-5.40) Hemoglobin 12.0g/dL (12.0-15.5) 11.4g/dL (12.0-15.5) Hematocrit 35.3% (36.0-47.0) 34.6% (36.0-47.0) Mean Corpuscular Volume 88fL (79-100) 91fL (79-100) Mean Corpuscular Hemoglobin 30pg (25-35) 30pg (25-35) Mean Corpuscular Hemoglobin Concent 34g/dL (31-37) 33g/dL (31-37) Red Cell Distribution Width 13.8% (11.5-14.5) 13.7% (11.5-14.5) Platelet Count 255x10^3/uL (140-400) 248x10^3/uL (140-400) Neutrophils (%) (Auto) 76% (31-73) 82% (31-73) Lymphocytes (%) (Auto) 9% (24-48) 6% (24-48) Monocytes (%) (Auto) 14% (0-9) 10% (0-9) Eosinophils (%) (Auto) 1% (0-3) 1% (0-3) Basophils (%) (Auto) 1% (0-3) 0% (0-3) Neutrophils # (Auto) 11.2x10^3uL (1.8-7.7) 12.7x10^3uL (1.8-7.7) Lymphocytes # (Auto) 1.4x10^3/uL (1.0-4.8) 1.0x10^3/uL (1.0-4.8) Monocytes # (Auto) 2.0x10^3/uL (0.0-1.1) 1.6x10^3/uL (0.0-1.1) Eosinophils # (Auto) 0.1x10^3/uL (0.0-0.7) 0.2x10^3/uL (0.0-0.7) Basophils # (Auto) 0.1x10^3/uL (0.0-0.2) 0.0x10^3/uL (0.0-0.2) Segmented Neutrophils % 71% (35-66) Band Neutrophils % 3% (0-9) Lymphocytes % 9% (24-48) Monocytes % 14% (0-10) Basophils % 3% (0-3) Toxic Granulation Present Platelet Estimate Adequate (ADEQUATE) Sodium Level 130mmol/L (136-145) 137mmol/L (136-145) Potassium Level 3.5mmol/L (3.5-5.1) 2.8mmol/L (3.5-5.1) Chloride Level 92mmol/L (98-107) 100mmol/L (98-107) Carbon Dioxide Level 29mmol/L (21-32) 30mmol/L (21-32) Anion Gap 9 (6-14) 7 (6-14) Blood Urea Nitrogen 13mg/dL (7-20) 9mg/dL (7-20) Creatinine 0.7mg/dL (0.6-1.0) 0.5mg/dL (0.6-1.0) Estimated GFR (Cockcroft-Gault) 85.1 125.4 Glucose Level 116mg/dL (70-99) 113mg/dL (70-99) Calcium Level 9.2mg/dL (8.5-10.1) 8.6mg/dL (8.5-10.1) Laboratory Tests Test 08/17/16 03:00 White Blood Count 15.6x10^3/uL (4.0-11.0) Red Blood Count 3.79x10^6/uL (3.50-5.40) Hemoglobin 11.4g/dL (12.0-15.5) Hematocrit 34.6% (36.0-47.0) Mean Corpuscular Volume 91fL (79-100) Mean Corpuscular Hemoglobin 30pg (25-35) Mean Corpuscular Hemoglobin Concent 33g/dL (31-37) Red Cell Distribution Width 13.7% (11.5-14.5) Platelet Count 248x10^3/uL (140-400) Neutrophils (%) (Auto) 82% (31-73) Lymphocytes (%) (Auto) 6% (24-48) Monocytes (%) (Auto) 10% (0-9) Eosinophils (%) (Auto) 1% (0-3) Basophils (%) (Auto) 0% (0-3) Neutrophils # (Auto) 12.7x10^3uL (1.8-7.7) Lymphocytes # (Auto) 1.0x10^3/uL (1.0-4.8) Monocytes # (Auto) 1.6x10^3/uL (0.0-1.1) Eosinophils # (Auto) 0.2x10^3/uL (0.0-0.7) Basophils # (Auto) 0.0x10^3/uL (0.0-0.2) Sodium Level 137mmol/L (136-145) Potassium Level 2.8mmol/L (3.5-5.1) Chloride Level 100mmol/L (98-107) Carbon Dioxide Level 30mmol/L (21-32) Anion Gap 7 (6-14) Blood Urea Nitrogen 9mg/dL (7-20) Creatinine 0.5mg/dL (0.6-1.0) Estimated GFR (Cockcroft-Gault) 125.4 Glucose Level 113mg/dL (70-99) Calcium Level 8.6mg/dL (8.5-10.1) Medications Active Scripts Medications Dose Route/Sig Days Date Category Clorazepate Dipotassium 3.75 Mg Tablet 3.75 Mg PO BID 05/19/16 Reported Simvastatin 20 Mg Tablet 20 Mg PO DAILY 05/19/16 Reported Olanzapine 20 Mg Tablet 20 Mg PO DAILY 05/19/16 Reported Bupropion Hcl 100 Mg Tablet 100 Mg PO BID 05/19/16 Reported Metoprolol Succinate 50 Mg Tab.er.24h 200 Mg PO 05/19/16 Reported Lisinopril 40 Mg Tablet 1 Tab PO BID 05/19/16 Reported Impression . AECOPD CHECK XRAY AND ADD PULMICORT JEWEL FLANAGAN MD Aug 17, 2016 09:30
[2016-08-17] MEDS: ALBUTEROL SULFATE 2.5 MG/3 ML NEBU. NEB PRN (09:40)
[2016-08-17] MEDS ORDERED: LIDOCAINE 1% / SOD BICARB 8.4% 20 ML VIAL. IJ ONE ×2 (10:39→11:45)
[2016-08-17] MEDS ORDERED: IOHEXOL 300 MG/ML 50 ML VIAL. ONE (10:39)
[2016-08-17] MEDS ORDERED: CEFAZOLIN 1GM IVPB FOR OMNI 50 ML IV ONE ×2 (11:08→11:45)
[2016-08-17] MEDS ORDERED: IOHEXOL 300 MG/ML 50 ML VIAL. IJ ONE (11:45)
--- NOTE | 2016-08-17 12:26 | PDOC ---
Exam Weather Forcaster Weather Forcaster Juan J Credit And Collections Analyst Credit And Collections Analyst Ketan Jarrett Pre-Procedure Diagnosis Pre-Procedure Diagnosis Acute osteoporotic L3 fracture with severe LBP. Post-Procedure Diagnosis Post-Procedure Diagnosis Same Procedure Performed Procedure Performed Fluoro guided L3 Kyphoplasty Type of Anesthesia Type of Anesthesia MAC by anesthesia Estimated Blood Loss EBL: Minimal Condition of Patient Condition of Patient Hemodynamically stable. No apparent complication. Disposition Disposition From IR to PACU for recovery, then return to 408 if no problems. F/u with [facility] , NS, and Dr Aldridge. Full report to follow. MARA RAYMOND MD Aug 17, 2016 12:26
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
[2016-08-17] MEDS ORDERED: IV RINGERS,LACTATED 1000ML 1,000 ML IV SCH (12:44)
[2016-08-17] MEDS ORDERED: PROCHLORPERAZINE 10 MG/2 ML VIAL. IV PRN (12:45)
[2016-08-17] MEDS ORDERED: MORPHINE SULFATE 2 MG/ML DISP.SYRIN. IV PRN (12:45)
[2016-08-17] MEDS ORDERED: ONDANSETRON PF 4 MG/2 ML VIAL. IV PRN (12:45)
[2016-08-17] MEDS ORDERED: LIDOCAINE 1% 1 ML SYRINGE. ID PRN (12:45)
[2016-08-17] MEDS ORDERED: HYDROMORPHONE 2 MG/ML VIAL. IV PRN (12:45)
[2016-08-17] MEDS ORDERED: FENTANYL PF 100 MCG/2 ML VIAL. IV PRN ×2 (12:45)
--- NOTE | 2016-08-17 14:30 | PDOC ---
SUBJECTIVE Subjective Received vertebral augmentation today. Denies significant back pain. Reports some right groin pain. Denies radicular type pain, paresthesias, or focal weakness. OBJECTIVE Vital Signs Vital Signs Date Time Temp Pulse Resp B/P Pulse Ox O2 Delivery O2 Flow Rate FiO2 08/17/16 13:52 98.8 110 22 124/74 92 Nasal Cannula 2.0 98.8 08/17/16 13:20 Nasal Cannula 3 08/17/16 13:05 98 110 19 117/64 93 Nasal Cannula 3 98.0 08/17/16 12:53 22 95 Nasal Cannula 2.0 08/17/16 12:50 97.8 110 22 131/75 92 Nasal Cannula 3 97.8 08/17/16 12:35 97.8 113 20 131/79 95 Nasal Cannula 2 97.8 08/17/16 12:20 98.6 112 24 138/80 96 Nasal Cannula 2 98.6 08/17/16 12:05 Nasal Cannula 2 08/17/16 12:05 97.8 124 20 135/85 96 Nasal Cannula 2 97.8 08/17/16 11:55 112 14 Nasal Cannula 3.0 08/17/16 09:40 92 Nasal Cannula 2.0 08/17/16 09:30 16 Nasal Cannula 1.5 08/17/16 07:50 Nasal Cannula 2.0 08/17/16 07:00 98.6 121 20 132/85 91 Nasal Cannula 2.0 98.6 08/17/16 03:17 98.4 111 20 143/95 92 Nasal Cannula 2.0 98.4 08/16/16 23:31 18 Nasal Cannula 2.0 08/16/16 23:01 18 Nasal Cannula 2.0 08/16/16 22:50 98.0 92 18 92/54 92 Nasal Cannula 2.0 98.0 08/16/16 21:04 96 104/68 08/16/16 19:35 Nasal Cannula 2.0 08/16/16 19:15 98.0 96 18 104/68 91 Room Air 98.0 08/16/16 18:10 Nasal Cannula 2.0 08/16/16 15:00 98.1 99 20 93/61 90 Nasal Cannula 2.0 98.1 I & O Intake and Output 08/17/16 07:00 Intake Total 1890 ml Output Total 400 ml Balance 1490 ml Intake Oral 240 ml IV Total 825 ml Other 825 ml Output Urine Total 400 ml # Voids 6 PHYSICAL EXAM Physical Exam AA, NAD, RICO 5/5, sensation intact LT ASSESSMENT/PLAN Assessment/Plan L3 compression fracture s/p kyphoplasty -brace on when OOB -if groin pain persists, may need further evaluation of right hip -upon d/c, recommend repeat upright lumbar AP/LAT plain films with brace on in couple weeks with follow-up appointment [phone] Problems: COMMENT Lab Laboratory Tests Test 08/17/16 03:00 White Blood Count 15.6x10^3/uL (4.0-11.0) Red Blood Count 3.79x10^6/uL (3.50-5.40) Hemoglobin 11.4g/dL (12.0-15.5) Hematocrit 34.6% (36.0-47.0) Mean Corpuscular Volume 91fL (79-100) Mean Corpuscular Hemoglobin 30pg (25-35) Mean Corpuscular Hemoglobin Concent 33g/dL (31-37) Red Cell Distribution Width 13.7% (11.5-14.5) Platelet Count 248x10^3/uL (140-400) Neutrophils (%) (Auto) 82% (31-73) Lymphocytes (%) (Auto) 6% (24-48) Monocytes (%) (Auto) 10% (0-9) Eosinophils (%) (Auto) 1% (0-3) Basophils (%) (Auto) 0% (0-3) Neutrophils # (Auto) 12.7x10^3uL (1.8-7.7) Lymphocytes # (Auto) 1.0x10^3/uL (1.0-4.8) Monocytes # (Auto) 1.6x10^3/uL (0.0-1.1) Eosinophils # (Auto) 0.2x10^3/uL (0.0-0.7) Basophils # (Auto) 0.0x10^3/uL (0.0-0.2) Sodium Level 137mmol/L (136-145) Potassium Level 2.8mmol/L (3.5-5.1) Chloride Level 100mmol/L (98-107) Carbon Dioxide Level 30mmol/L (21-32) Anion Gap 7 (6-14) Blood Urea Nitrogen 9mg/dL (7-20) Creatinine 0.5mg/dL (0.6-1.0) Estimated GFR (Cockcroft-Gault) 125.4 Glucose Level 113mg/dL (70-99) Calcium Level 8.6mg/dL (8.5-10.1) DAMIAN YANCEY MD Aug 17, 2016 14:30
--- NOTE | 2016-08-17 16:03 | RAD ---
Pelvis and right hip radiographs History: Right groin pain. Recent fall. Comparison: None. Findings: AP view of the pelvis. AP and frog-leg views of the right hip. No acute fracture or dislocation is identified. No hip degeneration is seen. Impression: No acute osseous abnormality identified.
[2016-08-17] MEDS ORDERED: BUDESONIDE 0.5 MG/2 ML NEBU. NEB SCH (20:00)
[2016-08-17] MEDS: OLANZAPINE 5 MG TABLET. PO SCH (22:06)
[2016-08-17] MEDS: SIMVASTATIN 20 MG TABLET PO SCH (22:07)
[2016-08-17] MEDS: OXYCODONE/APAP 5/325 TABLET. PO PRN (22:07)
[2016-08-18 03:00] VITALS: BP 87/58
[2016-08-18] MEDS: IV NORMAL SALINE 1000ML BAG 1,000 ML IV SCH (03:25)
--- NOTE | 2016-08-18 03:41 | CONS ---
DATE OF CONSULTATION: 08/16/2016 ATTENDING PHYSICIAN: Dr. Key. REASON FOR CONSULTATION: The patient is seen in pulmonary consultation at the request of Dr. Key for hypoxemia. HISTORY OF PRESENT ILLNESS: The patient is a 61-year-old female that was initially admitted with back pain. She had compression fracture after a fall. She since then has undergone evaluation and treated with vertebral augmentation. The patient was slightly more short of breath. I was asked to see her in consultation for further evaluation and management. She has a prior history of COPD. She normally uses oxygen at home. She has a cough, mostly nonproductive. She states that she smoked right until the day of admission. She denies fever, chills or hemoptysis. PAST MEDICAL HISTORY: Tobacco abuse, COPD, coronary artery disease, previous catheterization with no stenting, CVA, anxiety. PAST SURGICAL HISTORY: Status post hysterectomy, breast biopsy. FAMILY HISTORY: No history of early lung disorder. SOCIAL HISTORY: She smokes up to 2 packs of cigarettes a day. ALLERGIES: ALLOPURINOL. REVIEW OF SYSTEMS: As indicated above, otherwise, a 10-point system was reviewed and negative. PHYSICAL EXAMINATION: VITAL SIGNS: Stable. O2 saturation was greater than 92%. HEENT: Eyes, the sclerae were nonicteric. NECK: Jugular venous distention was not elevated. No lymphadenopathy. CHEST: Full expansion. LUNGS: She had poor airway flow with no wheezes. CARDIOVASCULAR: Regular rate and rhythm with S1, S2, no S3. ABDOMEN: Soft, nontender, nondistended. EXTREMITIES: No clubbing, cyanosis or edema. NEUROLOGIC: The patient was awake, alert, following commands. A detailed neuro exam was not performed. LABORATORY DATA: White count was elevated. Electrolytes were noted. Potassium is low. INR was noted. UA was noted. Chest x-ray was not performed during this admission. IMPRESSION: 1. Acute exacerbation of chronic obstructive pulmonary disease. 2. Acute respiratory failure secondary to above, present upon admission. 3. Status post fall requiring kyphoplasty to the L3 fracture. 4. Ongoing tobacco use. 5. Fever, suspect secondary to kyphoplasty. PLAN: 1. Continue current nebulizer treatments, oxygen supplementation. We will add nebulized steroids. Avoid oral steroids. 2. Chest x-ray. 3. The patient instructed on the importance of discontinuing her tobacco use. JEWEL FLANAGAN MD DR: [place]o JOB#: [id number] / [id number]
[2016-08-18] MEDS: OXYCODONE/APAP 5/325 TABLET. PO PRN (06:34)
--- NOTE | 2016-08-18 06:55 | RAD ---
Fluoro guided L3 kyphoplasty Indication: 61-year-old female with osteoporotic L3 vertebral body compression fracture, precipitated by a fall. She has severe associated low back pain. Vertebral augmentation has been requested. Fluoro time: 19.6 minutes Kerma-Area Product: 35 Gycm2 Anesthesia: Mac anesthesia was provided by the department of anesthesiology. Antibiotic: A single dose of Ancef was administered within 1 hour of the procedure start time. Consent: The procedure was explained in its entirety to the patient and/or the patient's designated in store marketing representative by a member of the treatment team. This included a discussion of risks and benefits and commonly accepted alternatives to the procedure, as well as expected consequences of no treatment at all. Discussion of risks included, but was not limited to, those that are most frequent and those that are rare, but possibly severe or life-threatening, as well as the possibility of unforeseen complications. Sterility: All elements of maximal sterile barrier technique, including the use of a cap, mask, sterile gown, sterile gloves, large sterile sheet, appropriate hand hygiene, and 2% chlorhexidine for cutaneous antisepsis (or acceptable alternative antiseptic per current guidelines) were utilized. Procedure: Informed was obtained from the patient. She was placed prone on the angiography table. Midline low back was prepped and draped in the usual sterile fashion, utilizing all elements of maximal sterile barrier technique, as described above. Mac anesthesia was provided by the department of anesthesiology. 1 gram Ancef was given IV, prophylactically. Using aseptic technique, local anesthesia, and direct fluoroscopic guidance a 10 gauge vertebral augmentation needle was successfully introduced into anterior midline of the L3 vertebral body, via unilateral right transpedicular approach. A 15 mm vertebral augmentation balloon was then coaxially introduced through the needle, and was gently inflated under fluoroscopic control, creating a pocket suitable to accept vertebral augmentation cement. The balloon was then deflated and removed. Contrast opacified polymethylmethacrylate was then very slowly and carefully introduced through the vertebral augmentation needle, using strict fluoroscopic control. There was resulting good filling of the L3 vertebral body, without significant extraosseous extravasation of opacified cement. The needle was then removed and a sterile dressing was applied. Patient tolerated the procedure well, without apparent complication. Impression: Successful, uneventful fluoro guided L3 kyphoplasty , performed via unilateral right transpedicular approach, as described.
[2016-08-18 07:00] VITALS: BP 99/69
--- NOTE | 2016-08-18 07:18 | RAD ---
Portable chest, 08/17/2016: History: Shortness of breath Comparison is made to a study from 05/18/2016. The heart size and pulmonary vascularity are within normal limits. There is calcific plaquing and tortuosity of the thoracic aorta. There is mild parenchymal scarring. Mild streaky basilar opacities have developed, left greater than right, compatible with atelectasis. There is obscuration of the left lateral costophrenic angle. A tiny amount pleural fluid cannot be excluded. There is a mild thoracolumbar scoliosis. IMPRESSION: Mild bibasilar atelectasis. A component of pneumonia cannot be excluded.
[2016-08-18 07:40] LABS: BASO # 0.1 x10^3/uL (0.0-0.2); BASO % 1 % (0-3); EOS % 2 % (0-3); HEMATOCRIT 32.9 % (36.0-47.0); HEMOGLOBIN 10.9 g/dL (12.0-15.5); LYMPH # 1.7 x10^3/uL (1.0-4.8); LYMPH % 20 % (24-48); MEAN CORPUSCULAR HEMOGLOBIN 30 pg (25-35); MEAN CORPUSCULAR HGB CONC 33 g/dL (31-37); MEAN CORPUSCULAR VOLUME 91 fL (79-100); MONO % 14 % (0-9); NEUT % 63 % (31-73); PLATELET COUNT 213 x10^3/uL (140-400); RED BLOOD COUNT 3.61 x10^6/uL (3.50-5.40); RED CELL DISTRIBUTION WIDTH 14.1 % (11.5-14.5); WHITE BLOOD COUNT 8.6 x10^3/uL (4.0-11.0)
[2016-08-18 08:00] LABS: CALCIUM 8.7 mg/dL (8.5-10.1); CREATININE 0.5 mg/dL (0.6-1.0); GFR 125.4; POTASSIUM 3.2 mmol/L (3.5-5.1)
[2016-08-18] MEDS: LISINOPRIL 40 MG TABLET. PO SCH (09:00)
[2016-08-18] MEDS: METOPROLOL SUCC 24HR ER 100 MG TAB.ER.24H. PO SCH (09:00)
[2016-08-18] MEDS: CHLORTHALIDONE 25 MG TABLET. PO SCH (09:00)
[2016-08-18] MEDS: HYDROXYZINE PAMOATE 25 MG CAPSULE PO SCH ×2 (09:16→14:29)
[2016-08-18] MEDS: LORAZEPAM 0.5 MG TABLET. PO SCH (09:16)
[2016-08-18] MEDS: NICOTINE 21MG PATCH. TD SCH (09:16)
[2016-08-18] MEDS: buPROPion 100 MG TABLET PO SCH (09:16)
[2016-08-18 11:00] VITALS: BP 96/65
[2016-08-18] MEDS: OXYCODONE/APAP 10/325 TABLET. PO PRN ×2 (11:10→15:20)
[2016-08-18] MEDS ORDERED: GUAIFENESIN ER 600 MG TABLET.ER PO SCH (13:00)
--- NOTE | 2016-08-18 13:57 | PDOC ---
SUBJECTIVE Subjective Reports improvement of low back pain and groin pain. Sitting in chair. Denies acute complaints at this time. OBJECTIVE Vital Signs Vital Signs Date Time Temp Pulse Resp B/P Pulse Ox O2 Delivery O2 Flow Rate FiO2 08/18/16 12:30 16 Room Air 08/18/16 11:10 16 Nasal Cannula 2.0 08/18/16 11:00 99.4 95 14 96/65 97 Nasal Cannula 2.0 99.4 08/18/16 09:00 85/64 08/18/16 09:00 85/64 08/18/16 08:00 Nasal Cannula 2.0 08/18/16 07:40 18 Nasal Cannula 2.0 08/18/16 07:00 97.4 91 14 99/69 98 Nasal Cannula 2.0 97.4 08/18/16 06:34 Nasal Cannula 2.0 08/18/16 03:00 98.0 84 18 87/58 95 Nasal Cannula 2.0 98.0 08/17/16 23:00 98.5 90 18 88/55 90 Nasal Cannula 2.0 98.5 08/17/16 22:07 Nasal Cannula 3.0 08/17/16 20:00 Nasal Cannula 2.0 08/17/16 19:00 98.4 104 18 105/64 91 Nasal Cannula 2.0 98.4 08/17/16 17:30 18 Nasal Cannula 1.5 08/17/16 17:02 94 2.0 08/17/16 16:59 16 Nasal Cannula 2.0 08/17/16 15:00 100.2 120 20 109/76 95 Nasal Cannula 2.0 100.2 08/17/16 14:19 113 22 123/77 Nasal Cannula 2.0 08/17/16 14:04 112 22 126/77 Nasal Cannula 2.0 I & O Intake and Output 08/18/16 07:00 Intake Total 0 ml Output Total 200 ml Balance -200 ml Intake Oral 0 ml Output Urine Total 200 ml Estimated Blood Loss 0 ml # Voids 2 PHYSICAL EXAM Physical Exam AA, NAD, RICO 5/5, sensation intact LT ASSESSMENT/PLAN Assessment/Plan s/p vertebral augmentation for L3 comp fxr -neuro stable/intact -TLSO brace on when OOB -follow-up couple weeks with upright AP/LAT plain films lumbar spine just prior to appt [phone] Problems: COMMENT Lab Laboratory Tests Test 08/18/16 07:20 White Blood Count 8.6x10^3/uL (4.0-11.0) Red Blood Count 3.61x10^6/uL (3.50-5.40) Hemoglobin 10.9g/dL (12.0-15.5) Hematocrit 32.9% (36.0-47.0) Mean Corpuscular Volume 91fL (79-100) Mean Corpuscular Hemoglobin 30pg (25-35) Mean Corpuscular Hemoglobin Concent 33g/dL (31-37) Red Cell Distribution Width 14.1% (11.5-14.5) Platelet Count 213x10^3/uL (140-400) Neutrophils (%) (Auto) 63% (31-73) Lymphocytes (%) (Auto) 20% (24-48) Monocytes (%) (Auto) 14% (0-9) Eosinophils (%) (Auto) 2% (0-3) Basophils (%) (Auto) 1% (0-3) Neutrophils # (Auto) 5.4x10^3uL (1.8-7.7) Lymphocytes # (Auto) 1.7x10^3/uL (1.0-4.8) Monocytes # (Auto) 1.2x10^3/uL (0.0-1.1) Eosinophils # (Auto) 0.2x10^3/uL (0.0-0.7) Basophils # (Auto) 0.1x10^3/uL (0.0-0.2) Sodium Level 139mmol/L (136-145) Potassium Level 3.2mmol/L (3.5-5.1) Chloride Level 102mmol/L (98-107) Carbon Dioxide Level 28mmol/L (21-32) Anion Gap 9 (6-14) Blood Urea Nitrogen 8mg/dL (7-20) Creatinine 0.5mg/dL (0.6-1.0) Estimated GFR (Cockcroft-Gault) 125.4 Glucose Level 98mg/dL (70-99) Calcium Level 8.7mg/dL (8.5-10.1) DAMIAN YANCEY MD Aug 18, 2016 13:57
[2016-08-18] MEDS ORDERED: ALBU8.5H5 IH (14:11)
[2016-08-18] MEDS ORDERED: BUDE180A IH (14:11)
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
[2016-08-18 15:00] VITALS: BP 99/68
--- NOTE | 2016-08-18 18:33 | PDOC ---
PROGRESS NOTES Subjective Subjective She feels better. Objective Objective Vital Signs Date Time Temp Pulse Resp B/P Pulse Ox O2 Delivery O2 Flow Rate FiO2 08/18/16 15:20 18 Nasal Cannula 2.0 08/18/16 15:00 97.4 97 99/68 98 97.4 Intake and Output 08/18/16 07:00 Intake Total 0 ml Output Total 200 ml Balance -200 ml Intake Oral 0 ml Output Urine Total 200 ml Estimated Blood Loss 0 ml # Voids 2 Physical Exam Physical Exam She is feeling less pain after kyphoplasty and eager to go home. Assessment Assessment Problems Medical Problems: (1) Lumbar compression fracture Status: Acute Plan Plan of Care Agree with home with home health follow up. Comment Review of Relevant I have reviewed the following items luis angel (where applicable) has been applied. Labs Laboratory Tests Test 08/17/16 03:00 08/18/16 07:20 White Blood Count 15.6x10^3/uL (4.0-11.0) 8.6x10^3/uL (4.0-11.0) Red Blood Count 3.79x10^6/uL (3.50-5.40) 3.61x10^6/uL (3.50-5.40) Hemoglobin 11.4g/dL (12.0-15.5) 10.9g/dL (12.0-15.5) Hematocrit 34.6% (36.0-47.0) 32.9% (36.0-47.0) Mean Corpuscular Volume 91fL (79-100) 91fL (79-100) Mean Corpuscular Hemoglobin 30pg (25-35) 30pg (25-35) Mean Corpuscular Hemoglobin Concent 33g/dL (31-37) 33g/dL (31-37) Red Cell Distribution Width 13.7% (11.5-14.5) 14.1% (11.5-14.5) Platelet Count 248x10^3/uL (140-400) 213x10^3/uL (140-400) Neutrophils (%) (Auto) 82% (31-73) 63% (31-73) Lymphocytes (%) (Auto) 6% (24-48) 20% (24-48) Monocytes (%) (Auto) 10% (0-9) 14% (0-9) Eosinophils (%) (Auto) 1% (0-3) 2% (0-3) Basophils (%) (Auto) 0% (0-3) 1% (0-3) Neutrophils # (Auto) 12.7x10^3uL (1.8-7.7) 5.4x10^3uL (1.8-7.7) Lymphocytes # (Auto) 1.0x10^3/uL (1.0-4.8) 1.7x10^3/uL (1.0-4.8) Monocytes # (Auto) 1.6x10^3/uL (0.0-1.1) 1.2x10^3/uL (0.0-1.1) Eosinophils # (Auto) 0.2x10^3/uL (0.0-0.7) 0.2x10^3/uL (0.0-0.7) Basophils # (Auto) 0.0x10^3/uL (0.0-0.2) 0.1x10^3/uL (0.0-0.2) Sodium Level 137mmol/L (136-145) 139mmol/L (136-145) Potassium Level 2.8mmol/L (3.5-5.1) 3.2mmol/L (3.5-5.1) Chloride Level 100mmol/L (98-107) 102mmol/L (98-107) Carbon Dioxide Level 30mmol/L (21-32) 28mmol/L (21-32) Anion Gap 7 (6-14) 9 (6-14) Blood Urea Nitrogen 9mg/dL (7-20) 8mg/dL (7-20) Creatinine 0.5mg/dL (0.6-1.0) 0.5mg/dL (0.6-1.0) Estimated GFR (Cockcroft-Gault) 125.4 125.4 Glucose Level 113mg/dL (70-99) 98mg/dL (70-99) Calcium Level 8.6mg/dL (8.5-10.1) 8.7mg/dL (8.5-10.1) Laboratory Tests Test 08/18/16 07:20 White Blood Count 8.6x10^3/uL (4.0-11.0) Red Blood Count 3.61x10^6/uL (3.50-5.40) Hemoglobin 10.9g/dL (12.0-15.5) Hematocrit 32.9% (36.0-47.0) Mean Corpuscular Volume 91fL (79-100) Mean Corpuscular Hemoglobin 30pg (25-35) Mean Corpuscular Hemoglobin Concent 33g/dL (31-37) Red Cell Distribution Width 14.1% (11.5-14.5) Platelet Count 213x10^3/uL (140-400) Neutrophils (%) (Auto) 63% (31-73) Lymphocytes (%) (Auto) 20% (24-48) Monocytes (%) (Auto) 14% (0-9) Eosinophils (%) (Auto) 2% (0-3) Basophils (%) (Auto) 1% (0-3) Neutrophils # (Auto) 5.4x10^3uL (1.8-7.7) Lymphocytes # (Auto) 1.7x10^3/uL (1.0-4.8) Monocytes # (Auto) 1.2x10^3/uL (0.0-1.1) Eosinophils # (Auto) 0.2x10^3/uL (0.0-0.7) Basophils # (Auto) 0.1x10^3/uL (0.0-0.2) Sodium Level 139mmol/L (136-145) Potassium Level 3.2mmol/L (3.5-5.1) Chloride Level 102mmol/L (98-107) Carbon Dioxide Level 28mmol/L (21-32) Anion Gap 9 (6-14) Blood Urea Nitrogen 8mg/dL (7-20) Creatinine 0.5mg/dL (0.6-1.0) Estimated GFR (Cockcroft-Gault) 125.4 Glucose Level 98mg/dL (70-99) Calcium Level 8.7mg/dL (8.5-10.1) Microbiology 08/14/16 Urine Culture - Final, Complete 08/14/16 Urine Culture Result 1 (HIRA) - Final, Complete Medications Current Medications Acetaminophen/ Hydrocodone Bitart (Lortab 5/325) 1 tab 1X ONCE PO Last administered on 3/30/17at 13:32; Start 08/13/16 at 13:00; Stop 08/13/16 at 13:01 ; Status DC Bupropion HCl (Wellbutrin) 100 mg BID PO Last administered on 08/18/16 09:16; Start 08/13/16 at 21:00; Stop 08/18/16 at 15:43; Status DC Chlorthalidone (Thalitone) 25 mg DAILY PO ; Start 08/13/16 at 16:00; Stop at 12:31; Status DC Lisinopril (Prinivil) 40 mg BID PO Last administered on 08/16/16 21:04; Start 08/13/16 at 21:00; Stop 08/18/16 at 12:31; Status DC Metoprolol Succinate (Toprol Xl) 200 mg DAILY PO ; Start 08/13/16 at 16:00; Stop 08/14/16 at 05:07; Status DC Simvastatin (Zocor) 20 mg QHS PO Last administered on 08/17/16 22:07; Start at 21:00; Stop 08/18/16 at 15:43; Status DC Lorazepam (Ativan) 0.5 mg BID PO Last administered on 08/15/16 10:09; Start at 21:00; Stop 08/15/16 at 13:23; Status DC Hydroxyzine Pamoate (Vistaril) 50 mg TID PO Last administered on 08/18/16 14:29 ; Start 08/13/16 at 21:00; Stop 08/18/16 at 15:44; Status DC Olanzapine (Zyprexa) 20 mg DAILY PO ; Start 08/13/16 at 16:00; Stop 08/13/16 at 17:09; Status DC Morphine Sulfate 2 mg PRN Q2HR PRN IV PAIN Last administered on 08/17/16 16:59 ; Start 08/13/16 at 16:45; Stop 08/18/16 at 15:44; Status DC Nicotine (Nicoderm Cq 21mg) 1 patch DAILY TD Last administered on 08/18/16 09: 16; Start 08/13/16 at 17:00; Stop 08/18/16 at 15:44; Status DC Olanzapine (Zyprexa) 20 mg QHS PO Last administered on 08/17/16 22:06; Start at 21:00; Stop 08/18/16 at 15:44; Status DC Metoprolol Succinate (Toprol Xl) 200 mg DAILY PO ; Start 08/14/16 at 09:00; Stop 08/18/16 at 12:31; Status DC Albuterol Sulfate (Ventolin Neb Soln) 2.5 mg PRN Q4HRS PRN NEB SOA Last administered on 08/17/16 09:40; Start 08/15/16 at 08:45; Stop 08/18/16 at 15:44; Status DC Lorazepam (Ativan) 0.5 mg STK-MED ONCE .ROUTE ; Start 08/15/16 at 09:13; Stop 08/15/16 at 09:14; Status DC Lorazepam 0.5 mg 0.5 mg BID PO Last administered on 08/18/16 09:16; Start at 21:00; Stop 08/18/16 at 15:44; Status DC Sodium Chloride 500 ml @ 500 mls/hr 1X ONCE IV Last administered on 08/16/16 10:59; Start 08/16/16 at 10:45; Stop 08/16/16 at 11:44; Status DC Sodium Chloride 1,000 ml @ 100 mls/hr Q10H IV Last administered on 08/18/16 03 :25; Start 08/16/16 at 12:00; Stop 08/18/16 at 15:44; Status DC Potassium Chloride 100 ml @ 100 mls/hr Q1H IV Last administered on 08/17/16 16 :59; Start 08/17/16 at 06:00; Stop 08/17/16 at 09:59; Status DC Propofol (Diprivan) 80 ml @ As Directed STK-MED ONCE IV ; Start 08/17/16 at 08:42 ; Stop 08/17/16 at 08:43; Status DC Lidocaine HCl 100 mg STK-MED ONCE .ROUTE ; Start 08/17/16 at 08:42; Stop 08/17/16 at 08:43; Status DC Midazolam HCl (Versed) 2 mg STK-MED ONCE .ROUTE ; Start 08/17/16 at 08:44; Stop 08/17/16 at 08:45; Status DC Ketamine HCl 500 mg 500 mg STK-MED ONCE .ROUTE ; Start 08/17/16 at 08:45; Stop at 08:46; Status DC Propofol (Diprivan) 100 ml @ As Directed STK-MED ONCE IV ; Start 08/17/16 at 08: 47; Stop 08/17/16 at 08:48; Status Cancel Iohexol (Omnipaque 300 Mg/ml) 50 ml STK-MED ONCE .ROUTE ; Start 08/17/16 at 10:39 ; Stop 08/17/16 at 10:40; Status DC Lidocaine/Sodium Bicarbonate 20 ml 20 ml STK-MED ONCE IJ ; Start 08/17/16 at 10: 39; Stop 08/17/16 at 10:40; Status DC Cefazolin Sodium (Ancef 1gm Ivpb For Omni) 50 ml @ As Directed STK-MED ONCE IV ; Start 08/17/16 at 11:08; Stop 08/17/16 at 11:09; Status DC Lidocaine/Sodium Bicarbonate (Buffered Lidocaine 1%) 20 ml 1X ONCE IJ Last administered on 08/17/16 11:52; Start 08/17/16 at 11:45; Stop 08/17/16 at 11:46; Status DC Iohexol 50 ml 50 ml 1X ONCE IJ Last administered on 08/17/16 11:52; Start 08/17 at 11:45; Stop 08/17/16 at 11:46; Status DC Cefazolin Sodium (Ancef 1gm Ivpb For Omni) 50 ml @ 100 mls/hr 1X ONCE IV Last administered on 08/17/16 11:19; Start 08/17/16 at 11:45; Stop 08/17/16 at 12: 14; Status DC Oxycodone/ Acetaminophen (Percocet 5/325) 1 tab PRN Q4HRS PRN PO PAIN Last administered on 08/18/16 06:34; Start 08/17/16 at 12:15; Stop 08/18/16 at 15:44; Status DC Oxycodone/ Acetaminophen (Percocet 10/325) 1 tab PRN Q4HRS PRN PO pain Last administered on 08/18/16 15:20; Start 08/17/16 at 12:15; Stop 08/18/16 at 15:44; Status DC Ondansetron HCl (Zofran) 0.4 mg PRN Q6HRS PRN IV NAUSEA/VOMITING; Start at 12:45; Stop 08/17/16 at 16:35; Status DC Fentanyl Citrate (Fentanyl 2ml Vial) 25 mcg PRN Q5MIN PRN IV MILD PAIN Last administered on 08/17/16 12:53; Start 08/17/16 at 12:45; Stop 08/17/16 at 16:36; Status DC Fentanyl Citrate (Fentanyl 2ml Vial) 50 mcg PRN Q5MIN PRN IV MODERATE PAIN; Start 08/17/16 at 12:45; Stop 08/18/16 at 12:44; Status DC Morphine Sulfate 1 mg 1 mg PRN Q10MIN PRN IV SEVERE PAIN; Start 08/17/16 at 12: 45; Stop 08/17/16 at 16:36; Status DC Lactated Ringer's (Iv Lactated Ringers) 1,000 ml @ 0 mls/hr Q0M IV ; Start 08/17 at 12:44; Stop 08/17/16 at 16:37; Status DC Lidocaine HCl 2 ml PRN 1X PRN ID PRIOR TO IV START; Start 08/17/16 at 12:45; Stop 08/17/16 at 16:37; Status DC Hydromorphone HCl (Dilaudid) 0.5 mg PRN Q10MIN PRN IV SEV PAIN, Second choice; Start 08/17/16 at 12:45; Stop 08/17/16 at 16:37; Status DC Prochlorperazine Edisylate (Compazine) 5 mg PACU PRN PRN IV NAUSEA, MRX1; Start 08/17/16 at 12:45; Stop 08/17/16 at 16:37; Status DC Budesonide (Pulmicort) 0.5 mg RTBID NEB ; Start 08/17/16 at 20:00; Stop 08/18/16 at 15:44; Status DC Guaifenesin (Mucinex) 600 mg BID PO Last administered on 08/18/16 14:29; Start 08/18/16 at 13:00; Stop 08/18/16 at 15:44; Status DC Active Scripts Active Proair Hfa (Albuterol Sulfate) 8.5 Gm Hfa.aer.ad 8.5 Gm IH [id number] Pulmicort Flexhaler (Budesonide) 180 Mcg Aer.pow.ba 2 Puff IH BID Reported Clorazepate Dipotassium 3.75 Mg Tablet 3.75 Mg PO BID Simvastatin 20 Mg Tablet 20 Mg PO DAILY Olanzapine 20 Mg Tablet 20 Mg PO DAILY Bupropion Hcl 100 Mg Tablet 100 Mg PO BID Vitals/I & O Vital Sign - Last 24 Hours 08/17/16 08/17/16 08/17/16 08/17/16 19:00 20:00 22:07 23:00 Temp 98.4 98.5 98.4 98.5 Pulse 104 90 Resp 18 B/P 105/64 88/55 Pulse Ox 91 90 O2 Delivery Nasal Cannula Nasal Cannula Nasal Cannula Nasal Cannula O2 Flow Rate 2.0 2.0 3.0 2.0 08/18/16 08/18/16 08/18/16 08/18/16 03:00 06:34 07:00 07:40 Temp 98.0 97.4 98.0 97.4 Pulse 84 91 Resp B/P 87/58 99/69 Pulse Ox 95 98 O2 Delivery Nasal Cannula Nasal Cannula Nasal Cannula Nasal Cannula O2 Flow Rate 2.0 2.0 2.0 2.0 08/18/16 08/18/16 08/18/16 08/18/16 08:00 09:00 09:00 11:00 Temp 99.4 99.4 Pulse 95 Resp 14 B/P 85/64 85/64 96/65 Pulse Ox 97 O2 Delivery Nasal Cannula Nasal Cannula O2 Flow Rate 2.0 2.0 08/18/16 08/18/16 08/18/16 08/18/16 11:10 12:30 15:00 15:20 Temp 97.4 97.4 Pulse 97 Resp 16 18 B/P 99/68 Pulse Ox 98 O2 Delivery Nasal Cannula Room Air Nasal Cannula Nasal Cannula O2 Flow Rate 2.0 2.0 2.0 Intake and Output 08/17/16 08/17/16 08/18/16 15:00 23:00 07:00 Intake Total 0 ml Output Total 0 ml 200 ml Balance 0 ml -200 ml MONIQUE COLE MD Aug 18, 2016 18:33
== END 2016-08-18 15:43 | disposition home health service (06) | DRG 515 ==
LOC: ER 11:53 → 4 NORTH 13:33
PROVIDERS: ADMIT Internal Medicine; ATTEND Internal Medicine
PROC: 0QU03JZ Supplement Lumbar Vertebra with Synthetic Substitute, Percutaneous Approach (ICD-10-PCS; 2016-08-17)
PROC: 0QS03ZZ Reposition Lumbar Vertebra, Percutaneous Approach (ICD-10-PCS; principal; 2016-08-17 11:00)
DX: S32.039A Unspecified fracture of third lumbar vertebra, initial encounter for closed fracture (principal); J96.01 Acute respiratory failure with hypoxia; Z68.1 Body mass index [BMI] 19.9 or less, adult; J44.1 Chronic obstructive pulmonary disease with (acute) exacerbation; N39.0 Urinary tract infection, site not specified; E78.00 Pure hypercholesterolemia, unspecified; E78.5 Hyperlipidemia, unspecified; F17.210 Nicotine dependence, cigarettes, uncomplicated; F32.9 Major depressive disorder, single episode, unspecified; F43.10 Post-traumatic stress disorder, unspecified; I10 Essential (primary) hypertension; I25.10 Atherosclerotic heart disease of native coronary artery without angina pectoris; J45.909 Unspecified asthma, uncomplicated; M81.0 Age-related osteoporosis without current pathological fracture; W10.9XXA Fall (on) (from) unspecified stairs and steps, initial encounter; W22.09XA Striking against other stationary object, initial encounter; Z82.49 Family history of ischemic heart disease and other diseases of the circulatory system; Z86.73 Personal history of transient ischemic attack (TIA), and cerebral infarction without residual deficits; Z88.8 Allergy status to other drugs, medicaments and biological substances; Z90.710 Acquired absence of both cervix and uterus; Z99.81 Dependence on supplemental oxygen; Z79.899 Other long term (current) drug therapy; Y93.89 Activity, other specified; Y92.89 Other specified places as the place of occurrence of the external cause
CPT/HCPCS: 22514; 36415; 71010; 72100; 72148; 73502; 80048; 81001; 85007; 85027; 85610; 87086; 94250; 94640; 94760; C1758; C1892; J0690; J2250; J2270; J2704; J3010; J3480; J3490; J7030; J7040; Q0177; Q9967; 99285-25

== ENCOUNTER → 2016-09-03 | Outpatient (CLI) | payer MEDICARE ==
[2016-08-18 15:00] VITALS: BP 99/68
[~2016-09-03] MED LIST changes: +ALBU8.5H5 IH; +BUDE180A IH
--- NOTE | 2016-09-03 11:44 | RAD ---
Indication compression fracture. Pain. AP and lateral views of the lumbar spine were obtained. Note is made of a previous exam 08/13/2016. There has been interval kyphoplasty at L3. There is probable bony demineralization. An acute or unexpected finding is not seen. IMPRESSION: Interval kyphoplasty at L3. No acute finding. Bony demineralization
== END | disposition home or self-care (01) ==
LOC: LAB 11:06
PROVIDERS: ATTEND Neurological Surgery
DX: T14.8 Other injury of unspecified body region (principal)
CPT/HCPCS: 72100

== ENCOUNTER 2016-09-18 12:05 | Inpatient (IN) | payer MEDICARE ==
[~2016-09-18] VITALS: Ht 157.5 cm; Wt 57.7 kg
[2016-09-18] VITALS (11 sets, daily range): BP systolic 85–133; BP diastolic 55–88
[2016-09-18] MEDS ORDERED: ONDANSETRON PF 4 MG/2 ML VIAL. IV ONE (12:45)
[2016-09-18] MEDS ORDERED: fentaNYL PF VIAL 100 MCG/2 ML VIAL IV PRN ×3 (12:45→13:30)
[2016-09-18] MEDS ORDERED: IV NORMAL SALINE 500ML BAG 500 ML IV ONE (12:45)
--- NOTE | 2016-09-18 12:45 | PHYS DOC ---
Past Medical History Past Medical History: Anxiety, Asthma, COPD, Depression, High Cholesterol, Hypertension, Stroke Past Surgical History: Hysterectomy, Tonsillectomy, Other Additional Past Surgical Histo: bilat. breast surgery, removed fibroids; concrete on spine Alcohol Use: None Additional Information: sober for 23 years Drug Use: None Adult General Chief Complaint Chief Complaint: MECHANICAL FALL HPI HPI 61-year-old female with a history of COPD status post lumbar kyphoplasty of the third lumbar spine on 08.17.16 presenting to the emergency department after sustaining a mechanical fall and injuring her right hip. She was walking on some rocks today when she slipped and had a mechanical fall and fell. She also hit her head and sustained a bruise to the right back part of her head. Her right hip pain is sharp moderate worse with movement and without alleviating factors. She denies any other injuries. review of systems is negative for chest pain shortness of breath abdominal pain nausea vomiting. All other review of systems is negative unless otherwise noted in history of present illness. Review of Systems Review of Systems SEE ABOVE. Current Medications Current Medications Current Medications Medications (Trade) Dose Ordered Sig/Marianne Start Time Stop Time Status Last Admin Dose Admin Fentanyl Citrate (Fentanyl 2ml Vial) 50 mcg PRN Q5MIN PRN 09/18/16 13:30 09/19/16 13:29 Hydromorphone HCl (Dilaudid) 0.5 mg PRN Q10MIN PRN 09/18/16 13:30 09/19/16 13:29 Lidocaine HCl 2 ml PRN 1X PRN 09/18/16 13:30 09/19/16 13:29 Morphine Sulfate 1 mg PRN Q10MIN PRN 09/18/16 13:30 09/19/16 13:29 Ondansetron HCl (Zofran) 4 mg PRN Q6HRS PRN 09/18/16 13:30 09/19/16 13:29 Prochlorperazine Edisylate (Compazine) 5 mg PACU PRN PRN 09/18/16 13:30 09/19/16 13:29 Ringer's Solution 1,000 ml @ 0 mls/hr Q0M 09/18/16 13:22 09/19/16 01:21 Sodium Chloride 1,000 ml @ 100 mls/hr 1X ONCE 09/18/16 13:15 09/18/16 23:14 Allergies Allergies Allergies Coded Allergies Type Severity Reaction Last Updated Verified Haloperidol Lactate Allergy Intermediate makes neck tighten so she can't move head 02/05/14 Yes haloperidol Allergy Intermediate makes neck tighten so she can't move head Yes Physical Exam Physical Exam Constitutional: Well developed, well nourished, no acute distress, non-toxic appearance. HENT: Normocephalic, hematoma to the right occiput, bilateral external ears normal, oropharynx moist, no oral exudates, nose normal. [] Eyes: PERRLA, EOMI, conjunctiva normal, no discharge. Neck: Normal range of motion, no tenderness, supple, no stridor. [] Cardiovascular:Heart rate regular rhythm, no murmur [] Lungs & Thorax: Bilateral breath sounds clear to auscultation Abdomen: Bowel sounds normal, soft, no tenderness, no masses, no pulsatile masses. [] Skin: Warm, dry, no erythema, no rash. Back: No tenderness, no CVA tenderness. [] Extremities: The patient has pain in her right hip on passive range of motion of the hip. She is able to wiggle her toes. Capillary refill is 3 seconds. Neurologic: Alert and oriented X 3, normal motor function, normal sensory function, no focal deficits noted. Psychologic: Affect normal, judgement normal, mood normal. [] Current Patient Data Vital Signs Vital Signs Date Time Temp Pulse Resp B/P (MAP) Pulse Ox O2 Delivery O2 Flow Rate FiO2 09/18/16 13:10 Room Air 09/18/16 12:08 98.1 77 18 153/90 (111) 98 98.1 Lab Values Laboratory Tests Test 09/18/16 13:05 09/18/16 13:10 White Blood Count 8.5 x10^3/uL (4.0-11.0) Red Blood Count 4.05 x10^6/uL (3.50-5.40) Hemoglobin 12.4 g/dL (12.0-15.5) Hematocrit 35.9 % (36.0-47.0) L Mean Corpuscular Volume 89 fL (79-100) Mean Corpuscular Hemoglobin 31 pg (25-35) Mean Corpuscular Hemoglobin Concent 35 g/dL (31-37) Red Cell Distribution Width 14.1 % (11.5-14.5) Platelet Count 192 x10^3/uL (140-400) Neutrophils (%) (Auto) 59 % (31-73) Lymphocytes (%) (Auto) 25 % (24-48) Monocytes (%) (Auto) 13 % (0-9) H Eosinophils (%) (Auto) 3 % (0-3) Basophils (%) (Auto) 1 % (0-3) Neutrophils # (Auto) 5.0 x10^3uL (1.8-7.7) Lymphocytes # (Auto) 2.1 x10^3/uL (1.0-4.8) Monocytes # (Auto) 1.1 x10^3/uL (0.0-1.1) Eosinophils # (Auto) 0.3 x10^3/uL (0.0-0.7) Basophils # (Auto) 0.1 x10^3/uL (0.0-0.2) Sodium Level 120 mmol/L (136-145) *L Potassium Level 3.7 mmol/L (3.5-5.1) Chloride Level 85 mmol/L (98-107) L Carbon Dioxide Level 28 mmol/L (21-32) Anion Gap 7 (6-14) Blood Urea Nitrogen 8 mg/dL (7-20) Creatinine 0.5 mg/dL (0.6-1.0) L Estimated GFR (Cockcroft-Gault) 125.4 Glucose Level 118 mg/dL (70-99) H Calcium Level 8.0 mg/dL (8.5-10.1) L Total Bilirubin 0.4 mg/dL (0.2-1.0) Direct Bilirubin 0.2 mg/dL (0.0-0.2) Aspartate Amino Transferase (AST) 25 U/L (15-37) Alanine Aminotransferase (ALT) 20 U/L (14-59) Alkaline Phosphatase 75 U/L (46-116) Total Protein 6.6 g/dL (6.4-8.2) Albumin 3.2 g/dL (3.4-5.0) L Lipase 100 U/L (73-393) Prothrombin Time 13.2 SEC (11.7-14.0) Prothrombin Time INR 1.1 (0.8-1.1) PTT 30 SEC (24-38) Laboratory Tests 5/5/17 13:05 Laboratory Tests 09/18/16 13:05 EKG EKG [] Radiology/Procedures Radiology/Procedures [] Course & Med Decision Making Course & Med Decision Making Pertinent Labs and Imaging studies reviewed. (See chart for details) 61-year-old female presenting to the emergency department after sustaining a mechanical fall and injuring her right hip. X-rays were obtained. Patient had right intertrochanteric fracture. The patient had delayed cap refill in both feet. We attempted to get a dopplerable pulse, however unfortunately were unable. I communicated this to Dr. Donaldson. I obtained a vascular duplex study of the patient's right lower extremity which showed normal triphasic flow distal to the injury. CT of the head neck was obtained as well. The patient was given IV pain medications and nausea medications. I discussed the case with Dr. Donaldson our orthopedic surgeon who recommended ORIF. Type and screen along with coags were obtained. The patient was placed nothing by mouth. The patient was then admitted to our hospital for further evaluation workup and care. Dragon Disclaimer Dragon Disclaimer This electronic medical record was generated, in whole or in part, using a voice recognition dictation system. Departure Departure Impression: Primary Impression: Fall Additional Impressions: Right hip pain Head injury Disposition: ADMITTED INPATIENT Admitting Physician: Lynnette Allison Condition: STABLE Referrals: MALLIKA HOLLY (PCP) Problem Qualifiers DRE SAHU MD September 18, 2016 12:45
--- NOTE | 2016-09-18 13:09 | RAD ---
Indication fall, right hip fracture. Anticipated operative intervention. A single view of the chest was obtained. Comparison is made to an examination 08/17/2016. The heart and pulmonary vessels are unremarkable. The lungs are clear of acute infiltrates. Significant pleural fluid is not seen. There is no pneumothorax. . Breast implants are noted. IMPRESSION: No acute finding apparent in the chest
--- NOTE | 2016-09-18 13:11 | RAD ---
Indication fall, pain. An AP view of the pelvis was obtained as well as AP and lateral views targeted to the right hip. There is an acute, traumatic, comminuted right intertrochanteric hip fracture. Mild impaction and angulation is noted at the fracture site. Kyphoplasty changes are noted at L3. IMPRESSION: Right intertrochanteric hip fracture
[2016-09-18 13:14] LABS: BASO # 0.1 x10^3/uL (0.0-0.2); BASO % 1 % (0-3); EOS % 3 % (0-3); HEMATOCRIT 35.9 % (36.0-47.0); HEMOGLOBIN 12.4 g/dL (12.0-15.5); LYMPH # 2.1 x10^3/uL (1.0-4.8); LYMPH % 25 % (24-48); MEAN CORPUSCULAR HEMOGLOBIN 31 pg (25-35); MEAN CORPUSCULAR HGB CONC 35 g/dL (31-37); MEAN CORPUSCULAR VOLUME 89 fL (79-100); MONO % 13 % (0-9); NEUT % 59 % (31-73); PLATELET COUNT 192 x10^3/uL (140-400); RED BLOOD COUNT 4.05 x10^6/uL (3.50-5.40); RED CELL DISTRIBUTION WIDTH 14.1 % (11.5-14.5); WHITE BLOOD COUNT 8.5 x10^3/uL (4.0-11.0)
[2016-09-18] MEDS ORDERED: MORPHINE SULFATE 2 MG/ML DISP.SYRIN. IV PRN ×2 (13:15→13:30)
[2016-09-18] MEDS ORDERED: ONDANSETRON PF 4 MG/2 ML VIAL. IV PRN ×3 (13:15→17:30)
[2016-09-18] MEDS ORDERED: IV NORMAL SALINE 1000ML BAG 1,000 ML IV ONE (13:15)
[2016-09-18] MEDS ORDERED: IV RINGERS,LACTATED 1000ML 1,000 ML IV SCH (13:22)
[2016-09-18] MEDS ORDERED: PROCHLORPERAZINE 10 MG/2 ML VIAL. IV PRN (13:30)
[2016-09-18] MEDS ORDERED: LIDOCAINE 1% 1 ML SYRINGE. ID PRN (13:30)
[2016-09-18 13:34] LABS: ALBUMIN 3.2 g/dL (3.4-5.0); CREATININE 0.5 mg/dL (0.6-1.0); DIRECT BILIRUBIN 0.2 mg/dL (0.0-0.2); GFR 125.4; POTASSIUM 3.7 mmol/L (3.5-5.1); TOTAL BILIRUBIN 0.4 mg/dL (0.2-1.0); TOTAL PROTEIN 6.6 g/dL (6.4-8.2)
[2016-09-18 13:34] LABS: INR 1.1 (0.8-1.1); PROTHROMBIN TIME PATIENT 13.2 SEC (11.7-14.0)
--- NOTE | 2016-09-18 13:53 | RAD ---
Indication delayed capillary refill. Suspect underlying arterial disease. Grayscale color Doppler and spectral imaging was performed. Examination was targeted to the arteries of the right lower extremity. Some plaquing was noted associated with the superficial femoral artery. The common femoral artery has a normal triphasic waveform. A biphasic to triphasic waveform is seen in the deep femoral. A normal triphasic waveform is seen throughout the course of the superficial femoral artery. A biphasic waveform is seen in the popliteal artery. The posterior tibial artery, peroneal artery, anterior tibial and dorsal pedal arteries demonstrate biphasic to triphasic waveforms. IMPRESSION: No evidence of high-grade arterial stenosis in the major vessels of the right lower extremity
--- NOTE | 2016-09-18 14:04 | RAD ---
Indication fall. Head trauma. Injury to the neck. Neck pain. The head and cervical spine were evaluated. The cervical spine images were reformatted in the coronal and sagittal planes. The head is compared to an examination [address] head: Findings Known ossified mass in the left posterior fossa, compatible with a meningioma, is reproduced. It measures approximately 2.1 x 1.3 cm representing no significant change relative to the previous exam. An additional finding in the posterior fossa is not seen. An acute or significant calvarial finding is not seen. Soft tissue swelling over the right posterior calvarium is noted. The visualized paranasal sinuses appear normal. There is no subdural or epidural hematoma. There are occasional lucencies in the basal ganglia compatible with prior microvascular disease similar to the previous exam. There is no hemorrhage. Acute finding in the head is not seen. A significant change, intracranially, relative to the previous study is not seen. CT cervical spine: Findings. In acute finding in the visualized lung apices is not seen. There are some underlying emphysematous changes. There are occasional calcified nodules seen associated with the thyroid. If clinically warranted additional evaluation of the thyroid could be obtained with ultrasound. A definite significant soft tissue finding in the neck is not seen. Review of axial images shows no acute finding. Best demonstrated on the reformatted images are mild spondylitic changes. No acute finding is seen. IMPRESSION: Mild spondylitic changes in the cervical spine. No acute finding seen. Chronic changes in the head. No acute finding seen PQRS Compliance Statement: One or more of the following individualized dose reduction techniques were utilized for this examination: 1. Automated exposure control 2. Adjustment of the mA and/or kV according to patient size 3. Use of iterative reconstruction technique
[2016-09-18] MEDS: HYDROmorphone 2 MG/ML VIAL IV PRN ×2 (14:10→14:35)
--- NOTE | 2016-09-18 14:43 | RAD ---
CT of the lumbar spine without contrast, 09/18/2016: History: Fall, lumbar pain Noncontrast scans were obtained. Comparison is made to lumbar spine radiographs from 09/03/2016. There is a moderate vertebral compression fracture at L3 which appears to be unchanged. Cement is present within that vertebral body from a kyphoplasty. There is moderate posterior protrusion of the posterior superior corner of the L3 vertebral body into the anterior aspect of the spinal canal, similar to that seen on the MR exam of 08/14/2016. This results in mild narrowing of the AP dimension of the thecal sac at this level which measures 8-9 mm. No significant disc protrusion is evident at L2-3. The neural foramina are well maintained at that level. No other fracture or dislocation is identified. A small Schmorl's node is noted along the superior endplate at L5. At L1-2 there is no significant disc bulge. The central spinal canal and neural foramina are well maintained. At L3-4 there is minimal posterior disc bulging. There are mild degenerative changes involving the facet joints with posterior ligamentous thickening. There is no significant central spinal or foraminal stenosis. At L4-5 there there is moderate posterior disc bulging and marginal spurring, centered just left of midline. There is mild posterior ligamentous thickening due to facet joint arthropathy. No significant central spinal stenosis is evident. There is mild inferior foraminal encroachment on the left. At L5-S1 there is mild posterior disc bulging. There are mild degenerative changes involving the facet joints the central spinal canal and neural foramina are well maintained. Moderate aortic calcific plaquing is present. IMPRESSION: 1. Old moderate L3 vertebral compression fracture with kyphoplasty change, with mild unchanged retropulsion of a fracture fragment and mild associated central spinal stenosis. 2. Mild scattered degenerative changes at the other levels as described above. 3. No acute bony abnormality is detected. PQRS Compliance Statement: One or more of the following individualized dose reduction techniques were utilized for this examination: 1. Automated exposure control 2. Adjustment of the mA and/or kV according to patient size 3. Use of iterative reconstruction technique
[2016-09-18 14:57] LABS: BILIRUBIN,URINE NEGATIVE (NEG); GLUCOSE,URINE NEGATIVE (NEG); NITRITE,URINE NEGATIVE (NEG); PH,URINE 7.5; PROTEIN,URINE NEGATIVE (NEG-TRACE); UROBILINOGEN,URINE 0.2 mg/dL (0.2 mg/dL)
[2016-09-18 15:03] LABS: BACTERIA,URINE 0 /HPF (0-FEW); RBC,URINE OCC /HPF (0-2); SQUAMOUS EPITHELIAL CELL,UR FEW /LPF; WBC,URINE OCC /HPF (0-4)
--- NOTE | 2016-09-18 15:09 | ACF ---
Admission Forms Criteria MUSCULOSKELETAL DISEASE GRG Clinical Indications for Admission to Inpatient Care (Place 'X' for any and all applicable criteria): Hospital admission is needed for appropriate care of the patient because of 1 or more of the following: [X]I. Fracture, dislocation, or other musculoskeletal injury requiring inpatient care(medical) as indicated by 1 or more of the following(4)(5)(6)(7) [ ]a) Vertebral fracture requiring observation for instability or neurologic compromise (8) [ ]b) Compartment syndrome (proven or cannot be ruled out during observation level of care) (9) [ ]c) Limb-threatening injury [ ]d) Major injury requiring inpatient stabilization such as traction initiation or external fixation before internal fixation or closure of complex or open fracture [X]e) Major injury requiring inpatient treatment after emergency or observation level care (as appropriate) [ ]f) Severe pain requiring acute inpatient management [ ]g) Injury with suspicion of abuse or neglect (eg., child, dependent elderly) [ ]II. Newly diagnosed or suspected bone, joint, or orthopedic device infection (e.g., osteomyelitis, septic arthritis) needing 1 or more of the following(1)(2)(3) [ ]a) IV antibiotics that cannot be initiated in other than inpatient setting (e.g., patient too unstable or home infusion not available) [ ]b) Device removal or replacement [ ]c) Bone or soft tissue debridement [ ]d) Joint drainage (drain placement or repetitive aspirations) [ ]III. Severe rheumatologic disease (e.g., systemic lupus erythematosus, rheumatoid arthritis) with complications or comorbidities (Also use Optimal Recovery Care Criteria or General Recovery Criteria as appropriate on the basis of predominant condition), including 1 or more of the following( 10)(11)(12)(13) [ ]a) Severe infection (e.g., OPERATIONS ASSISTANT infection, sepsis) (14) [ ]b) Respiratory complications, including 1 or more of the following : [ ]i) Pleural effusion with respiratory compromise [ ]ii) Pulmonary hypertension with congestive failure [ ]iii) Respiratory failure [ ]iv) Pulmonary hemorrhage (15) [ ]c) Hematologic disease, including 1 or more of the following: [ ]i) Coagulopathy with bleeding [ ]ii) Thrombosis with hypercoagulable state [ ]iii) Thrombotic thrombocytopenic purpura [ ]d) Cerebritis with seizures, psychosis, or other severe abnormalities [ ]e) Vertebral destruction with monitoring needed for cervical myelopathy& possible respiratory compromise [ ]f) Exacerbation that requires inpatient treatment (e.g., intravenous immunosuppression) (16) [ ]g) Acute renal failure [ ]h) Cerebritis with seizures, psychosis, Altered mental status, or other neurologic abnormalities [ ]i) Pericardial effusion with tamponade [ ]j) Vertebral destruction, with monitoring needed for cervical myelopathy and possible respiratory compromise [ ]IV. Severe vasculitis with complications or comorbidities (Also use Optimal Recovery Care Criteria General Recovery Criteria as appropriate on the basis of predominant condition), including 1 or more of the following(11)(12)(17)(18)(19)(20) [ ]a) Exacerbation that requires inpatient treatment (e.g., intravenous immunosuppression) (19)(21) [ ]b) Pulmonary hemorrhage (15) [ ]c) OPERATIONS ASSISTANT vasculitis with seizures, psychosis, Altered mental status that is severe or persistent, or other severe abnormalities (22) [ ]d) Cerebral infarction [ ]e) Gastrointestinal ischemia [ ]f) Gangrene or threatened amputation [ ]g) Renal failure (16) [ ]h) Other significant complications of vasculitis ( eg., tissue or organ ischemia, organ dysfunction ) [ ]V. Severe myopathy as indicated by 1 or more of the following (28)(29) [ ]a) New onset of airway compromise or inability to swallow [ ]b) Respiratory deterioration with observation needed for impending respiratory failure [ ]c) Exacerbation that requires inpatient treatment (e.g., intravenous immunosuppression) [ ]. Severe crystal gout (arthropathy) indicated by 1 or more of the following (23)(24) [ ]a) Severe pain requiring acute inpatient management [ ]b) Exacerbation that requires inpatient treatment (e.g., intravenous treatment) [ ]VII.Rhabdomyolysis and 1 or more of the following (25)(26)(27) [ ]a) Acute renal failure [ ]b) Need for intravenous hydration after emergency or observation level care (as appropriate) [ ]c) Inability to maintain oral hydration [ ]d) Change in mental status [ ]e) Electrolyte abnormality that remains after emergency or observation level care (as appropriate) [ ]VIII Post amputation complication, as indicated by ANY ONE of the following [ ]a) Infection [ ]b) Dehiscence [ ]c) Myodesis failure [ ]IX. Severe pain requiring acute inpatient management due to musculoskeletal condition [ ]X. Musculoskeletal Disease and ALL of the following: [ ]a) Symptom or finding for which emergency and observation care have failed or are not considered appropriate (Use General Criteria: Observation Care as appropriate) [ ]b) Presence of ANY ONE of the following [ ]i) A General Admission Criteria [ ]ii) A Pediatric General Admission Criteria The original [facility] [employer] content created by [facility] has been revised. The portions of the content which have been revised are identified through the use of italic text or in bold, and [facility] has neither reviewed nor approved the modified material. All other unmodified content is copyright [facility]. Please see references footnoted in the original [facility] edition 2016 Admission Criteria Met?: Yes NELLIE KIRBY September 18, 2016 15:08
[2016-09-18] MEDS ORDERED: LIDOCAINE 2% 100 MG/5 ML SYRINGE. ONE ×2 (15:10→16:06)
[2016-09-18] MEDS ORDERED: PROPOFOL 20 ML IV ONE (15:10)
[2016-09-18] MEDS ORDERED: MIDAZOLAM HCL/PF 2 MG/2 ML VIAL. ONE (15:10)
--- NOTE | 2016-09-18 15:18 | PDOC1 ---
History and Physical Date of Admission Date of Admission DATE: 09/18/16 TIME: 15:12 Identification/Chief Complaint Chief Complaint fall today Problems: Source Source: Caregiver, Chart review, Patient History of Present Illness History of Present Illness 61 y.o female, COPD, continues to smoke, sees our pulmo group as OP, bent over today to smell haddad and she fell hitting her R side and now sustained a R intertrochanteric fx and is for OR tonight, NO known coronary dse or heart probs, but does smoke, 1 ppday, O2 2 LNC /, can still climb a flight of stairs though without SOA. Sats ok, non wheezy. Seen by ortho now, I am seeing at ER, for OR tonight - dw pt and \ past medical: htn, copd, emphysema, HTN Fam Hx HTNSocial 1 ppday smoking, no etoh, street drugs PAst surgical, tonsillectomy, kyphoplasty, hsterrectomy,breast sx augmentation, cholecystiectomy Allergies: to haldol ROS: all 14 pt reviewed, neg she is comfortable today Na 120- on labs - incidental Past Medical History Cardiovascular: HTN, Hyperlipidemia Pulmonary: Asthma, COPD CENTRAL NERVOUS SYSTEM: CVA Psych: Depression Past Surgical History Past Surgical History: Tonsillectomy, Hysterectomy, Other Current Problem List Problem List Problems Medical Problems: (1) Fall Status: Acute (2) Head injury Status: Acute (3) Right hip pain Status: Acute Problems: Current Medications Current Medications Current Medications Sodium Chloride 500 ml @ 500 mls/hr 1X ONCE IV Last administered on 09/18/16 13:56; Start 09/18/16 at 12:45; Stop 09/18/16 at 13:44; Status DC Fentanyl Citrate (Fentanyl 2ml Vial) 25 mcg 1X PRN PRN IV SEVERE PAIN Last administered on 09/18/16 13:10; Start 09/18/16 at 12:45 Ondansetron HCl (Zofran) 4 mg 1X ONCE IV Last administered on 09/18/16 13:10; Start 09/18/16 at 12:45; Stop 09/18/16 at 12:54; Status DC Sodium Chloride 1,000 ml @ 100 mls/hr 1X ONCE IV Last administered on 14:35; Start 09/18/16 at 13:15; Stop 09/18/16 at 23:14 Ondansetron HCl (Zofran) 4 mg PRN Q8HRS PRN IV NAUSEA/VOMITING; Start 09/18/16 at 13:15; Stop 09/19/16 at 13:14 Morphine Sulfate 2 mg PRN Q2HR PRN IV PAIN; Start 09/18/16 at 13:15; Stop at 13:14 Ondansetron HCl (Zofran) 4 mg PRN Q6HRS PRN IV NAUSEA/VOMITING; Start 09/18/16 at 13:30; Stop 09/19/16 at 13:29 Fentanyl Citrate (Fentanyl 2ml Vial) 25 mcg PRN Q5MIN PRN IV MILD PAIN; Start 09/18/16 at 13:30; Stop 09/19/16 at 13:29 Fentanyl Citrate (Fentanyl 2ml Vial) 50 mcg PRN Q5MIN PRN IV MODERATE PAIN; Start 09/18/16 at 13:30; Stop 09/19/16 at 13:29 Morphine Sulfate 1 mg PRN Q10MIN PRN IV SEVERE PAIN; Start 09/18/16 at 13:30; Stop 09/19/16 at 13:29 Ringer's Solution 1,000 ml @ 0 mls/hr Q0M IV ; Start 09/18/16 at 13:22; Stop 09/19/16 at 01:21 Lidocaine HCl 2 ml PRN 1X PRN ID PRIOR TO IV START; Start 09/18/16 at 13:30; Stop 09/19/16 at 13:29 Hydromorphone HCl (Dilaudid) 0.5 mg PRN Q10MIN PRN IV SEV PAIN, Second choice Last administered on 09/18/16t 14:35; Start 09/18/16 at 13:30; Stop 09/19/16 at 13: 29 Prochlorperazine Edisylate (Compazine) 5 mg PACU PRN PRN IV NAUSEA, MRX1; Start 09/18/16 at 13:30; Stop 09/19/16 at 13:29 Propofol 20 ml @ As Directed STK-MED ONCE IV ; Start 09/18/16 at 15:10; Stop 09/18 at 15:11; Status DC Lidocaine HCl (Lidocaine HCl 2% Abboject) 100 mg STK-MED ONCE .ROUTE ; Start 09/18/16 at 15:10; Stop 09/18/16 at 15:11; Status DC Midazolam HCl (Versed) 2 mg STK-MED ONCE .ROUTE ; Start 09/18/16 at 15:10; Stop 09/18/16 at 15:11; Status DC Active Scripts Active Proair Hfa (Albuterol Sulfate) 8.5 Gm Hfa.aer.ad 8.5 Gm IH [id number] Pulmicort Flexhaler (Budesonide) 180 Mcg Aer.pow.ba 2 Puff IH BID Reported Clorazepate Dipotassium 3.75 Mg Tablet 3.75 Mg PO BID Simvastatin 20 Mg Tablet 20 Mg PO DAILY Olanzapine 20 Mg Tablet 20 Mg PO DAILY Bupropion Hcl 100 Mg Tablet 100 Mg PO BID Allergies Allergies: Coded Allergies: Haloperidol Lactate (Verified Allergy, Intermediate, makes neck tighten so she can't move head, 02/05/14) haloperidol (Verified Allergy, Intermediate, makes neck tighten so she can 't move head, 02/05/14) Physical Exam General: Alert, Oriented X3, Cooperative, No acute distress HEENT: Atraumatic, PERRLA Lungs: Clear to auscultation, Normal air movement Heart: S1S2, RRR, no thrills, no rubs, no gallops, no murmurs Cardiovascular: S1, S2 Breasts: Normal Abdomen: Normal bowel sounds, Soft, No tenderness, No hepatosplenomegaly, No masses Rectal Exam: not examined PELVIC: Nml ext genitalia Extremities: No clubbing, No cyanosis, No edema, Normal pulses, No tenderness/ swelling Skin: No rashes, No breakdown, No significant lesion Neuro: Normal gait, Normal speech, Strength at 09/18 X4 ext, Normal tone, Sensation intact, Cranial nerves 3-12 NL, Reflexes 2+ Psych/Mental Status: Mental status NL, Mood NL Vitals Vitals Vital Signs Date Time Temp Pulse Resp B/P (MAP) Pulse Ox O2 Delivery O2 Flow Rate FiO2 09/18/16 14:35 Room Air 09/18/16 12:08 98.1 77 18 153/90 (111) 98 98.1 Labs Labs Laboratory Tests Test 09/18/16 13:05 09/18/16 13:10 09/18/16 14:50 White Blood Count 8.5 x10^3/uL (4.0-11.0) Red Blood Count 4.05 x10^6/uL (3.50-5.40) Hemoglobin 12.4 g/dL (12.0-15.5) Hematocrit 35.9 % (36.0-47.0) Mean Corpuscular Volume 89 fL (79-100) Mean Corpuscular Hemoglobin 31 pg (25-35) Mean Corpuscular Hemoglobin Concent 35 g/dL (31-37) Red Cell Distribution Width 14.1 % (11.5-14.5) Platelet Count 192 x10^3/uL (140-400) Neutrophils (%) (Auto) 59 % (31-73) Lymphocytes (%) (Auto) 25 % (24-48) Monocytes (%) (Auto) 13 % (0-9) Eosinophils (%) (Auto) 3 % (0-3) Basophils (%) (Auto) 1 % (0-3) Neutrophils # (Auto) 5.0 x10^3uL (1.8-7.7) Lymphocytes # (Auto) 2.1 x10^3/uL (1.0-4.8) Monocytes # (Auto) 1.1 x10^3/uL (0.0-1.1) Eosinophils # (Auto) 0.3 x10^3/uL (0.0-0.7) Basophils # (Auto) 0.1 x10^3/uL (0.0-0.2) Sodium Level 120 mmol/L (136-145) Potassium Level 3.7 mmol/L (3.5-5.1) Chloride Level 85 mmol/L (98-107) Carbon Dioxide Level 28 mmol/L (21-32) Anion Gap 7 (6-14) Blood Urea Nitrogen 8 mg/dL (7-20) Creatinine 0.5 mg/dL (0.6-1.0) Estimated GFR (Cockcroft-Gault) 125.4 Glucose Level 118 mg/dL (70-99) Calcium Level 8.0 mg/dL (8.5-10.1) Total Bilirubin 0.4 mg/dL (0.2-1.0) Direct Bilirubin 0.2 mg/dL (0.0-0.2) Aspartate Amino Transf (AST/SGOT) 25 U/L (15-37) Alanine Aminotransferase (ALT/SGPT) 20 U/L (14-59) Alkaline Phosphatase 75 U/L (46-116) Total Protein 6.6 g/dL (6.4-8.2) Albumin 3.2 g/dL (3.4-5.0) Lipase 100 U/L (73-393) Prothrombin Time 13.2 SEC (11.7-14.0) Prothromb Time International Ratio 1.1 (0.8-1.1) Activated Partial Thromboplast Time 30 SEC (24-38) Urine Collection Type Unknown Urine Color Yellow Urine Clarity Clear Urine pH 7.5 Urine Specific [place] <=1.005 Urine Protein Negative mg/dL (NEG-TRACE) Urine Glucose (UA) Negative mg/dL (NEG) Urine Ketones (Stick) Negative mg/dL (NEG) Urine Blood Trace (NEG) Urine Nitrite Negative (NEG) Urine Bilirubin Negative (NEG) Urine Urobilinogen Dipstick 0.2 mg/dL (0.2 mg/dL) Urine Leukocyte Esterase Trace (NEG) Urine RBC Occ /HPF (0-2) Urine WBC Occ /HPF (0-4) Urine Squamous Epithelial Cells Few /LPF Urine Bacteria 0 /HPF (0-FEW) Urine Hyaline Casts Few /HPF Laboratory Tests Test 09/18/16 13:05 09/18/16 13:10 09/18/16 14:50 White Blood Count 8.5 x10^3/uL (4.0-11.0) Red Blood Count 4.05 x10^6/uL (3.50-5.40) Hemoglobin 12.4 g/dL (12.0-15.5) Hematocrit 35.9 % (36.0-47.0) Mean Corpuscular Volume 89 fL (79-100) Mean Corpuscular Hemoglobin 31 pg (25-35) Mean Corpuscular Hemoglobin Concent 35 g/dL (31-37) Red Cell Distribution Width 14.1 % (11.5-14.5) Platelet Count 192 x10^3/uL (140-400) Neutrophils (%) (Auto) 59 % (31-73) Lymphocytes (%) (Auto) 25 % (24-48) Monocytes (%) (Auto) 13 % (0-9) Eosinophils (%) (Auto) 3 % (0-3) Basophils (%) (Auto) 1 % (0-3) Neutrophils # (Auto) 5.0 x10^3uL (1.8-7.7) Lymphocytes # (Auto) 2.1 x10^3/uL (1.0-4.8) Monocytes # (Auto) 1.1 x10^3/uL (0.0-1.1) Eosinophils # (Auto) 0.3 x10^3/uL (0.0-0.7) Basophils # (Auto) 0.1 x10^3/uL (0.0-0.2) Sodium Level 120 mmol/L (136-145) Potassium Level 3.7 mmol/L (3.5-5.1) Chloride Level 85 mmol/L (98-107) Carbon Dioxide Level 28 mmol/L (21-32) Anion Gap 7 (6-14) Blood Urea Nitrogen 8 mg/dL (7-20) Creatinine 0.5 mg/dL (0.6-1.0) Estimated GFR (Cockcroft-Gault) 125.4 Glucose Level 118 mg/dL (70-99) Calcium Level 8.0 mg/dL (8.5-10.1) Total Bilirubin 0.4 mg/dL (0.2-1.0) Direct Bilirubin 0.2 mg/dL (0.0-0.2) Aspartate Amino Transf (AST/SGOT) 25 U/L (15-37) Alanine Aminotransferase (ALT/SGPT) 20 U/L (14-59) Alkaline Phosphatase 75 U/L (46-116) Total Protein 6.6 g/dL (6.4-8.2) Albumin 3.2 g/dL (3.4-5.0) Lipase 100 U/L (73-393) Prothrombin Time 13.2 SEC (11.7-14.0) Prothromb Time International Ratio 1.1 (0.8-1.1) Activated Partial Thromboplast Time 30 SEC (24-38) Urine Collection Type Unknown Urine Color Yellow Urine Clarity Clear Urine pH 7.5 Urine Specific [place] <=1.005 Urine Protein Negative mg/dL (NEG-TRACE) Urine Glucose (UA) Negative mg/dL (NEG) Urine Ketones (Stick) Negative mg/dL (NEG) Urine Blood Trace (NEG) Urine Nitrite Negative (NEG) Urine Bilirubin Negative (NEG) Urine Urobilinogen Dipstick 0.2 mg/dL (0.2 mg/dL) Urine Leukocyte Esterase Trace (NEG) Urine RBC Occ /HPF (0-2) Urine WBC Occ /HPF (0-4) Urine Squamous Epithelial Cells Few /LPF Urine Bacteria 0 /HPF (0-FEW) Urine Hyaline Casts Few /HPF VTE Prophylaxis Ordered VTE Prophylaxis Devices: Yes VTE Pharmacological Prophylaxi: Yes Assessment/Plan Assessment/Plan 1. R intertrochanteric fx after a mechanical fall 2. Hx COPD (emphysematous type), O2 dependent, active smoker 3. HTN, stable 4. Critical Hyponatremia 120 - NS 100cc.cont, check TSH - sometimes not unusual in a chronic smoker get an SIADH picture hence the hyponatremia PLAn: OR NPO IVF NEbs Labs post op\Check vit D levels BMp ambika for Na levels Dw UDAY BROWN MD September 18, 2016 15:18
[2016-09-18] MEDS ORDERED: WARFARIN 7.5 MG TABLET. PO ONE (16:00)
[2016-09-18] MEDS ORDERED: PHENYLEPHRINE in 0.9% NACL PF 1 MG/10 ML DISP.SYRIN. IV ONE ×2 (16:06→17:15)
[2016-09-18] MEDS ORDERED: ePHEDrine PF IN SALINE 50 MG/5 ML DISP.SYRIN IV ONE (16:07)
[2016-09-18] MEDS ORDERED: DEXAMETHASONE SOD PHOS 20 MG/5 ML VIAL. ONE (16:36)
[2016-09-18] MEDS ORDERED: ONDANSETRON PF 4 MG/2 ML VIAL. ONE (16:36)
[2016-09-18] MEDS ORDERED: SEVOFLURANE 31 TO 60 MINUTES. IH ONE (17:01)
[2016-09-18] MEDS ORDERED: SEVOFLURANE 61 TO 120 MINUTES. IH ONE (17:01)
[2016-09-18] MEDS ORDERED: fentaNYL PF VIAL 100 MCG/2 ML VIAL ONE (17:02)
--- NOTE | 2016-09-18 17:21 | PDOC ---
BRIEF OPERATIVE NOTE Date: September 18, 2016 Pre-Op Diagnosis right intertroch hip fx Post-Op Diagnosis same Procedure Performed ORIF right intertrochanteric hip fx Surgeon Anika Anesthesia Type: General Blood Loss 100cc Findings above Complications none ALFONZO PAUL MD September 18, 2016 17:21
[2016-09-18] MEDS ORDERED: HYDROcodone/APAP 7.5/325MG 1 TAB TABLET PO PRN (17:30)
[2016-09-18] MEDS ORDERED: POLYETHYLENE GLYCOL 3350 17 GM PACKET. PO PRN (17:30)
[2016-09-18] MEDS ORDERED: DEXTROSE 50% 25 GM / 50ML DISP.SYRIN. IV PRN (17:30)
[2016-09-18] MEDS: IV NORMAL SALINE 1000ML BAG 1,000 ML IV SCH (18:00)
[2016-09-18] MEDS ORDERED: WARFARIN 5 MG TABLET. PO ONE (18:00)
[2016-09-18] MEDS ORDERED: NICOTINE 21MG PATCH. TD PRN (18:00)
[2016-09-18] MEDS ORDERED: ALBUTEROL SULFATE 8GM INHALER. IH SCH (18:00)
[2016-09-18] MEDS: ALBUTEROL SULFATE 2.5 MG/3 ML NEBU. NEB SCH (18:17)
[2016-09-18] MEDS: MORPHINE SULFATE 4 MG/ML DISP.SYRIN. IV PRN (18:53)
--- NOTE | 2016-09-18 19:14 | OP ---
DATE OF SURGERY: 09/18/2016 PREOPERATIVE DIAGNOSIS: Displaced right intertrochanteric hip fracture. POSTOPERATIVE DIAGNOSIS: Displaced right intertrochanteric hip fracture. PROCEDURE: Operative reduction and internal fixation of right intertrochanteric hip fracture with InterTan nail. SURGEON: Rufino Donaldson MD. ANESTHESIA: General endotracheal. ESTIMATED BLOOD LOSS: 100 mL. COMPLICATIONS: None. OPERATIVE INDICATIONS: The patient is a 61-year-old female who had a fall on her right hip, sustaining the above injury. We had previously gone over the risks, benefits, postoperative course of the recommended operative treatment, nonoperative treatment. All options less desirable due to immobility related complications. All her questions were answered. Consent was obtained and she agrees to proceed with operative evaluation and treatment. OPERATIVE TECHNIQUE: The patient was identified, procedure verified, patient placed in the supine position on the Protem fracture table and all bony prominences were well padded. The right lower extremity was placed in traction and evaluated by x-ray under fluoroscopy with reduction. After timeout was performed, the patient and procedure identified and verified, the right hip was prepped and draped in the standard sterile fashion. Incision was made just proximal to the greater trochanteric entry point. Guidewire was placed, the entry drill bit was carried out, reaming carried out to a size 14 and a size 13 x 130 x 18 mm long nail was placed. Guidewire was advanced up to the center of the femoral neck. The compression screw hole was drilled and anti-rotation bar placed and lag screw was then drilled for to size 100. A size 95 lag screw was then placed and excellent compression was carried out with near anatomic reduction with compression of the compression screw. Solid fixation was obtained throughout. Distal locking screw was placed to control rotation. Irrigation carried out with normal saline solution. The reduction was evaluated through using fluoroscopic guidance. Fascia was closed with #1 Vicryl suture, subcutaneous closure with buried 2-0 Vicryl and skin closure with laz. Sterile dressings were applied. The patient was extubated and transferred to postop holding in stable condition having tolerated the procedure well. RUFINO DONALDSON MD DR: [id number]/blu JOB#: [id number] / [id number] MALLIKA Mckinney
[2016-09-18] MEDS: BUDESONIDE 0.5 MG/2 ML NEBU. NEB SCH (20:00)
[2016-09-18] MEDS ORDERED: NON FORMULARY ITEM (Budesonide (Pulmicort Flexhaler) 2 PUFF) IH SCH (21:00)
[2016-09-18] MEDS: LORazepam 0.5 MG TABLET PO SCH (21:12)
[2016-09-18] MEDS: SIMVASTATIN 20 MG TABLET PO SCH (21:13)
[2016-09-18] MEDS: buPROPion 100 MG TABLET PO SCH (21:13)
[2016-09-19] MEDS: IV NORMAL SALINE 1000ML BAG 1,000 ML IV SCH ×3 (00:30→16:08)
[2016-09-19] MEDS: MORPHINE SULFATE 4 MG/ML DISP.SYRIN. IV PRN (02:56)
[2016-09-19 03:08] VITALS: BP 108/65
--- NOTE | 2016-09-19 03:50 | CONS ---
DATE OF CONSULTATION: 09/18/2016 REQUESTING PHYSICIAN: Dr. Sanchez. REASON FOR CONSULTATION: Right hip fracture. HISTORY OF PRESENT ILLNESS: The patient is a 61-year-old female who lost her balance when she bent over to smell some [place]. She landed on her right side and had immediate onset of pain, inability to bear weight and deformity in her right hip. She indicates that she does have some breathing problems and has had recent kyphoplasty surgery on her back for which she is still wearing a back brace and was recommended by Dr. Car that she really does not do significant twisting. PAST MEDICAL HISTORY: Significant for some emphysema, COPD, hypertension, hyperlipidemia, also some asthma, previous stroke and some depression. PAST SURGICAL HISTORY: Significant for the kyphoplasty mentioned above as well as tonsillectomy and hysterectomy. Additional past surgical history including tonsillectomy, hysterectomy, breast augmentation, and cholecystectomy. ALLERGIES: INCLUDE HALDOL. MEDICATIONS: List is reviewed. REVIEW OF SYSTEMS: She indicates that her pulmonary problems are followed and pretty much stable. She continues long smoking history. Denies any chest pain and although she is on oxygen, can climb stairs and other activities without significant limiting difficulties. She denies any current chest pain, abnormal shortness of breath, change in bowel or bladder habits. She did hit her head. She said her droopy eye on the left side is due to a chronic condition from medication. No neck pain or other extremity pain or weakness, change in bowel or bladder. SOCIAL HISTORY: She is accompanied by her today. She is a 1 pack per day smoker. Denies alcohol or drug use. FAMILY HISTORY: Noncontributory. PHYSICAL EXAMINATION: VITAL SIGNS: Temperature 98.1, pulse 77, respirations 18, blood pressure 153/90, 98% saturation on room air. HEENT: Atraumatic, normocephalic. EXTREMITIES: She can raise both shoulders. She has good stability of the shoulder, elbow and wrists bilaterally. Right hip is very painful on any palpation or movement. The right lower extremity is short and internally rotated. She has good knee alignment, stability bilaterally. Normal examination of the contralateral hip and bilateral ankles with overall intact motor function, distal pulses, sensation, reflexes, skin in both upper and lower extremities throughout. IMAGING: X-rays show a comminuted displaced intertrochanteric right hip fracture. TREATMENT PLAN: I went over with the patient and her family the typical operative treatment of the hip fracture and the possibility of nonoperative treatment, but the immobility related problems with that, especially related to her pulmonary disease. I talked about surgical risks, possibility of infection, nonhealing, nerve or blood vessel damage, medical or other anesthetic complications among others and the advantages of surgical treatment of getting her up and around and more mobile to minimize immobility related complications. I described the surgery, reviewed the x-rays with the patient and family. All their questions were answered, consent was obtained and they want to proceed with operative evaluation and treatment, which will occur today following medical workup as she appears stable. ALFONZO PAUL MD DR: [id number]/blu JOB#: [id number] / [id number]
[2016-09-19] MEDS ORDERED: MAGNESIUM HYDROXIDE 2,400 MG/30 ML ORAL.SUSP. PO PRN (06:00)
[2016-09-19 06:15] LABS: BASO % 0 % (0-3); EOS % 0 % (0-3); HEMATOCRIT 26.2 % (36.0-47.0); HEMOGLOBIN 8.6 g/dL (12.0-15.5); LYMPH # 0.6 x10^3/uL (1.0-4.8); LYMPH % 5 % (24-48); MEAN CORPUSCULAR HEMOGLOBIN 30 pg (25-35); MEAN CORPUSCULAR HGB CONC 33 g/dL (31-37); MEAN CORPUSCULAR VOLUME 91 fL (79-100); MONO % 8 % (0-9); NEUT % 87 % (31-73); PLATELET COUNT 123 x10^3/uL (140-400); RED CELL DISTRIBUTION WIDTH 14.1 % (11.5-14.5); WHITE BLOOD COUNT 13.9 x10^3/uL (4.0-11.0)
[2016-09-19 06:35] LABS: CALCIUM 7.9 mg/dL (8.5-10.1); CREATININE 0.6 mg/dL (0.6-1.0); GFR 101.6; POTASSIUM 4.2 mmol/L (3.5-5.1)
[2016-09-19 06:42] LABS: INR 1.2 (0.8-1.1)
[2016-09-19 07:00] VITALS: BP 84/48
[2016-09-19] MEDS: ALBUTEROL SULFATE 2.5 MG/3 ML NEBU. NEB SCH ×2 (07:34→20:00)
[2016-09-19] MEDS: BUDESONIDE 0.5 MG/2 ML NEBU. NEB SCH ×2 (07:34→20:00)
[2016-09-19] MEDS: fentaNYL PF VIAL 100 MCG/2 ML VIAL IV PRN ×2 (08:28→11:55)
[2016-09-19] MEDS: SENNOSIDES/DOCUSATE 8.6/50MG TABLET. PO SCH (08:30)
[2016-09-19] MEDS: LORazepam 0.5 MG TABLET PO SCH ×2 (08:30→22:06)
[2016-09-19] MEDS: buPROPion 100 MG TABLET PO SCH ×2 (08:30→22:06)
[2016-09-19] MEDS ORDERED: OLANZapine 5 MG TABLET PO SCH (09:00)
[2016-09-19 09:24] LABS: PLT ESTIMATE ADEQUATE (ADEQUATE)
[2016-09-19] MEDS: HYDROcodone/APAP 7.5/325MG 1 TAB TABLET PO PRN ×4 (09:39→22:05)
[2016-09-19 11:00] VITALS: BP 94/61
[2016-09-19] MEDS ORDERED: POLYETHYLENE GLYCOL 3350 17 GM PACKET. PO PRN (13:45)
--- NOTE | 2016-09-19 13:47 | PDOC ---
PROGRESS NOTES Chief Complaint Chief Complaint 1. R intertrochanteric fx after a mechanical fall 2. Hx COPD (emphysematous type), O2 dependent, smoker 3. HTN, stable 4. Hyponatremia 120 - improved with fluid 5. vit D def, osteoporosis 6, Post-op anemia, dilutional and expected, 100ml loss reported intraop History of Present Illness History of Present Illness post op day 1 up to chair, feels OK, pain 8/10, right hip no event Vitals Vitals Vital Signs Date Time Temp Pulse Resp B/P (MAP) Pulse Ox O2 Delivery O2 Flow Rate FiO2 09/19/16 13:39 18 Nasal Cannula 09/19/16 11:00 98.2 70 94/61 (72) 97 2.0 98.2 Physical Exam General: Alert, Oriented X3, Cooperative, No acute distress Heart: Regular rate, No murmurs Lungs: Clear, Other Abdomen: Normal bowel sounds, Soft, No tenderness, No hepatosplenomegaly, No masses Extremities: No clubbing, No cyanosis, No edema, Normal pulses, No tenderness/ swelling Skin: No rashes, No breakdown, No significant lesion Labs LABS Laboratory Tests Test 09/18/16 14:50 09/19/16 05:40 Urine Collection Type Unknown Urine Color Yellow Urine Clarity Clear Urine pH 7.5 Urine Specific [place] <=1.005 Urine Protein Negative mg/dL (NEG-TRACE) Urine Glucose (UA) Negative mg/dL (NEG) Urine Ketones (Stick) Negative mg/dL (NEG) Urine Blood Trace (NEG) Urine Nitrite Negative (NEG) Urine Bilirubin Negative (NEG) Urine Urobilinogen Dipstick 0.2 mg/dL (0.2 mg/dL) Urine Leukocyte Esterase Trace (NEG) Urine RBC Occ /HPF (0-2) Urine WBC Occ /HPF (0-4) Urine Squamous Epithelial Cells Few /LPF Urine Bacteria 0 /HPF (0-FEW) Urine Hyaline Casts Few /HPF White Blood Count 13.9 x10^3/uL (4.0-11.0) Red Blood Count 2.90 x10^6/uL (3.50-5.40) Hemoglobin 8.6 g/dL (12.0-15.5) Hematocrit 26.2 % (36.0-47.0) Mean Corpuscular Volume 91 fL (79-100) Mean Corpuscular Hemoglobin 30 pg (25-35) Mean Corpuscular Hemoglobin Concent 33 g/dL (31-37) Red Cell Distribution Width 14.1 % (11.5-14.5) Platelet Count 123 x10^3/uL (140-400) Neutrophils (%) (Auto) 87 % (31-73) Lymphocytes (%) (Auto) 5 % (24-48) Monocytes (%) (Auto) 8 % (0-9) Eosinophils (%) (Auto) 0 % (0-3) Basophils (%) (Auto) 0 % (0-3) Neutrophils # (Auto) 12.1 x10^3uL (1.8-7.7) Lymphocytes # (Auto) 0.6 x10^3/uL (1.0-4.8) Monocytes # (Auto) 1.1 x10^3/uL (0.0-1.1) Eosinophils # (Auto) 0.0 x10^3/uL (0.0-0.7) Basophils # (Auto) 0.0 x10^3/uL (0.0-0.2) Segmented Neutrophils % 82 % (35-66) Band Neutrophils % 7 % (0-9) Lymphocytes % 6 % (24-48) Monocytes % 5 % (0-10) Platelet Estimate Adequate (ADEQUATE) Prothrombin Time 14.0 SEC (11.7-14.0) Prothromb Time International Ratio 1.2 (0.8-1.1) Sodium Level 128 mmol/L (136-145) Potassium Level 4.2 mmol/L (3.5-5.1) Chloride Level 96 mmol/L (98-107) Carbon Dioxide Level 26 mmol/L (21-32) Anion Gap 6 (6-14) Blood Urea Nitrogen 9 mg/dL (7-20) Creatinine 0.6 mg/dL (0.6-1.0) Estimated GFR (Cockcroft-Gault) 101.6 Glucose Level 138 mg/dL (70-99) Calcium Level 7.9 mg/dL (8.5-10.1) Review of Systems Review of Systems no stool no n//.v Assessment and Plan Assessmemt and Plan Problems Medical Problems: (1) Fall Status: Acute (2) Head injury Status: Acute (3) Right hip pain Status: Acute Problems: Comment Review of Relevant I have reviewed the following items luis angel (where applicable) has been applied. Labs Laboratory Tests Test 09/18/16 13:05 09/18/16 13:10 09/18/16 14:50 09/19/16 05:40 White Blood Count 8.5 x10^3/uL (4.0-11.0) 13.9 x10^3/uL (4.0-11.0) Red Blood Count 4.05 x10^6/uL (3.50-5.40) 2.90 x10^6/uL (3.50-5.40) Hemoglobin 12.4 g/dL (12.0-15.5) 8.6 g/dL (12.0-15.5) Hematocrit 35.9 % (36.0-47.0) 26.2 % (36.0-47.0) Mean Corpuscular Volume 89 fL (79-100) 91 fL (79-100) Mean Corpuscular Hemoglobin 31 pg (25-35) 30 pg (25-35) Mean Corpuscular Hemoglobin Concent 35 g/dL (31-37) 33 g/dL (31-37) Red Cell Distribution Width 14.1 % (11.5-14.5) 14.1 % (11.5-14.5) Platelet Count 192 x10^3/uL (140-400) 123 x10^3/uL (140-400) Neutrophils (%) (Auto) 59 % (31-73) 87 % (31-73) Lymphocytes (%) (Auto) 25 % (24-48) 5 % (24-48) Monocytes (%) (Auto) 13 % (0-9) 8 % (0-9) Eosinophils (%) (Auto) 3 % (0-3) 0 % (0-3) Basophils (%) (Auto) 1 % (0-3) 0 % (0-3) Neutrophils # (Auto) 5.0 x10^3uL (1.8-7.7) 12.1 x10^3uL (1.8-7.7) Lymphocytes # (Auto) 2.1 x10^3/uL (1.0-4.8) 0.6 x10^3/uL (1.0-4.8) Monocytes # (Auto) 1.1 x10^3/uL (0.0-1.1) 1.1 x10^3/uL (0.0-1.1) Eosinophils # (Auto) 0.3 x10^3/uL (0.0-0.7) 0.0 x10^3/uL (0.0-0.7) Basophils # (Auto) 0.1 x10^3/uL (0.0-0.2) 0.0 x10^3/uL (0.0-0.2) Sodium Level 120 mmol/L (136-145) 128 mmol/L (136-145) Potassium Level 3.7 mmol/L (3.5-5.1) 4.2 mmol/L (3.5-5.1) Chloride Level 85 mmol/L (98-107) 96 mmol/L (98-107) Carbon Dioxide Level 28 mmol/L (21-32) 26 mmol/L (21-32) Anion Gap 7 (6-14) 6 (6-14) Blood Urea Nitrogen 8 mg/dL (7-20) 9 mg/dL (7-20) Creatinine 0.5 mg/dL (0.6-1.0) 0.6 mg/dL (0.6-1.0) Estimated GFR (Cockcroft-Gault) 125.4 101.6 Glucose Level 118 mg/dL (70-99) 138 mg/dL (70-99) Calcium Level 8.0 mg/dL (8.5-10.1) 7.9 mg/dL (8.5-10.1) Total Bilirubin 0.4 mg/dL (0.2-1.0) Direct Bilirubin 0.2 mg/dL (0.0-0.2) Aspartate Amino Transf (AST/SGOT) 25 U/L (15-37) Alanine Aminotransferase (ALT/SGPT) 20 U/L (14-59) Alkaline Phosphatase 75 U/L (46-116) Total Protein 6.6 g/dL (6.4-8.2) Albumin 3.2 g/dL (3.4-5.0) Lipase 100 U/L (73-393) Thyroid Stimulating Hormone (TSH) 3.787 uIU/mL (0.358-3.74) Prothrombin Time 13.2 SEC (11.7-14.0) 14.0 SEC (11.7-14.0) Prothromb Time International Ratio 1.1 (0.8-1.1) 1.2 (0.8-1.1) Activated Partial Thromboplast Time 30 SEC (24-38) Urine Collection Type Unknown Urine Color Yellow Urine Clarity Clear Urine pH 7.5 Urine Specific [place] <=1.005 Urine Protein Negative mg/dL (NEG-TRACE) Urine Glucose (UA) Negative mg/dL (NEG) Urine Ketones (Stick) Negative mg/dL (NEG) Urine Blood Trace (NEG) Urine Nitrite Negative (NEG) Urine Bilirubin Negative (NEG) Urine Urobilinogen Dipstick 0.2 mg/dL (0.2 mg/dL) Urine Leukocyte Esterase Trace (NEG) Urine RBC Occ /HPF (0-2) Urine WBC Occ /HPF (0-4) Urine Squamous Epithelial Cells Few /LPF Urine Bacteria 0 /HPF (0-FEW) Urine Hyaline Casts Few /HPF Segmented Neutrophils % 82 % (35-66) Band Neutrophils % 7 % (0-9) Lymphocytes % 6 % (24-48) Monocytes % 5 % (0-10) Platelet Estimate Adequate (ADEQUATE) Laboratory Tests Test 09/18/16 14:50 09/19/16 05:40 Urine Collection Type Unknown Urine Color Yellow Urine Clarity Clear Urine pH 7.5 Urine Specific [place] <=1.005 Urine Protein Negative mg/dL (NEG-TRACE) Urine Glucose (UA) Negative mg/dL (NEG) Urine Ketones (Stick) Negative mg/dL (NEG) Urine Blood Trace (NEG) Urine Nitrite Negative (NEG) Urine Bilirubin Negative (NEG) Urine Urobilinogen Dipstick 0.2 mg/dL (0.2 mg/dL) Urine Leukocyte Esterase Trace (NEG) Urine RBC Occ /HPF (0-2) Urine WBC Occ /HPF (0-4) Urine Squamous Epithelial Cells Few /LPF Urine Bacteria 0 /HPF (0-FEW) Urine Hyaline Casts Few /HPF White Blood Count 13.9 x10^3/uL (4.0-11.0) Red Blood Count 2.90 x10^6/uL (3.50-5.40) Hemoglobin 8.6 g/dL (12.0-15.5) Hematocrit 26.2 % (36.0-47.0) Mean Corpuscular Volume 91 fL (79-100) Mean Corpuscular Hemoglobin 30 pg (25-35) Mean Corpuscular Hemoglobin Concent 33 g/dL (31-37) Red Cell Distribution Width 14.1 % (11.5-14.5) Platelet Count 123 x10^3/uL (140-400) Neutrophils (%) (Auto) 87 % (31-73) Lymphocytes (%) (Auto) 5 % (24-48) Monocytes (%) (Auto) 8 % (0-9) Eosinophils (%) (Auto) 0 % (0-3) Basophils (%) (Auto) 0 % (0-3) Neutrophils # (Auto) 12.1 x10^3uL (1.8-7.7) Lymphocytes # (Auto) 0.6 x10^3/uL (1.0-4.8) Monocytes # (Auto) 1.1 x10^3/uL (0.0-1.1) Eosinophils # (Auto) 0.0 x10^3/uL (0.0-0.7) Basophils # (Auto) 0.0 x10^3/uL (0.0-0.2) Segmented Neutrophils % 82 % (35-66) Band Neutrophils % 7 % (0-9) Lymphocytes % 6 % (24-48) Monocytes % 5 % (0-10) Platelet Estimate Adequate (ADEQUATE) Prothrombin Time 14.0 SEC (11.7-14.0) Prothromb Time International Ratio 1.2 (0.8-1.1) Sodium Level 128 mmol/L (136-145) Potassium Level 4.2 mmol/L (3.5-5.1) Chloride Level 96 mmol/L (98-107) Carbon Dioxide Level 26 mmol/L (21-32) Anion Gap 6 (6-14) Blood Urea Nitrogen 9 mg/dL (7-20) Creatinine 0.6 mg/dL (0.6-1.0) Estimated GFR (Cockcroft-Gault) 101.6 Glucose Level 138 mg/dL (70-99) Calcium Level 7.9 mg/dL (8.5-10.1) Medications Current Medications Sodium Chloride 500 ml @ 500 mls/hr 1X ONCE IV Last administered on 09/18/16t 13:56; Start 09/18/16 at 12:45; Stop 09/18/16 at 13:44; Status DC Fentanyl Citrate (Fentanyl 2ml Vial) 25 mcg 1X PRN PRN IV SEVERE PAIN Last administered on 09/18/16 13:10; Start 09/18/16 at 12:45; Stop 09/19/16 at 11:57; Status DC Ondansetron HCl (Zofran) 4 mg 1X ONCE IV Last administered on 09/18/16 13:10; Start 09/18/16 at 12:45; Stop 09/18/16 at 12:54; Status DC Sodium Chloride 1,000 ml @ 100 mls/hr 1X ONCE IV Last administered on 14:35; Start 09/18/16 at 13:15; Stop 09/18/16 at 23:14; Status DC Ondansetron HCl (Zofran) 4 mg PRN Q8HRS PRN IV NAUSEA/VOMITING; Start 09/18/16 at 13:15; Stop 09/19/16 at 13:14; Status DC Morphine Sulfate 2 mg PRN Q2HR PRN IV PAIN Last administered on 09/18/16 21:12 ; Start 09/18/16 at 13:15; Stop 09/19/16 at 13:14; Status DC Ondansetron HCl (Zofran) 4 mg PRN Q6HRS PRN IV NAUSEA/VOMITING; Start 09/18/16 at 13:30; Stop 09/19/16 at 13:29; Status DC Fentanyl Citrate (Fentanyl 2ml Vial) 25 mcg PRN Q5MIN PRN IV MILD PAIN; Start 09/18/16 at 13:30; Stop 09/19/16 at 13:29; Status DC Fentanyl Citrate (Fentanyl 2ml Vial) 50 mcg PRN Q5MIN PRN IV MODERATE PAIN; Start 09/18/16 at 13:30; Stop 09/19/16 at 13:29; Status DC Morphine Sulfate 1 mg PRN Q10MIN PRN IV SEVERE PAIN Last administered on 18:07; Start 09/18/16 at 13:30; Stop 09/19/16 at 13:29; Status DC Ringer's Solution 1,000 ml @ 0 mls/hr Q0M IV ; Start 09/18/16 at 13:22; Stop 09/19/16 at 01:21; Status DC Lidocaine HCl 2 ml PRN 1X PRN ID PRIOR TO IV START; Start 09/18/16 at 13:30; Stop 09/19/16 at 13:29; Status DC Hydromorphone HCl (Dilaudid) 0.5 mg PRN Q10MIN PRN IV SEV PAIN, Second choice Last administered on 09/18/16 14:35; Start 09/18/16 at 13:30; Stop 09/19/16 at 13: 29; Status DC Prochlorperazine Edisylate (Compazine) 5 mg PACU PRN PRN IV NAUSEA, MRX1; Start 09/18/16 at 13:30; Stop 09/19/16 at 13:29; Status DC Propofol 20 ml @ As Directed STK-MED ONCE IV ; Start 09/18/16 at 15:10; Stop 09/18 at 15:11; Status DC Lidocaine HCl (Lidocaine HCl 2% Abboject) 100 mg STK-MED ONCE .ROUTE ; Start 09/18/16 at 15:10; Stop 09/18/16 at 15:11; Status DC Midazolam HCl (Versed) 2 mg STK-MED ONCE .ROUTE ; Start 09/18/16 at 15:10; Stop 09/18/16 at 15:11; Status DC Albuterol Sulfate (Ventolin Hfa) 1 puff [id number] IH ; Start 09/18/16 at 18:00; Status UNV Bupropion HCl (Wellbutrin) 100 mg BID PO Last administered on 09/19/16 08:30; Start 09/18/16 at 21:00 Simvastatin (Zocor) 20 mg QHS PO Last administered on 09/18/16 21:13; Start 09/18/16 at 21:00 Non-Formulary Medication 2 puff BID IH ; Start 09/18/16 at 21:00; Status UNV Lorazepam (Ativan) 0.5 mg BID PO Last administered on 09/19/16 08:30; Start 09/18/16 at 21:00 Olanzapine (Zyprexa) 20 mg DAILY PO ; Start 09/19/16 at 09:00 Budesonide (Pulmicort) 0.5 mg RTBID NEB Last administered on 09/19/16 07:34; Start 09/18/16 at 20:00 Albuterol Sulfate (Ventolin Neb Soln) 2.5 mg [id number] NEB Last administered on 09/19 07:34; Start 09/18/16 at 18:00 Sodium Chloride 1,000 ml @ 100 mls/hr Q10H IV Last administered on 09/18/16 18 :00; Start 09/18/16 at 15:30 Cefazolin Sodium 50 ml @ As Directed STK-MED ONCE IV ; Start 09/18/16 at 15:20; Stop 09/18/16 at 15:21; Status DC Lidocaine HCl (Lidocaine HCl 2% Abboject) 100 mg STK-MED ONCE .ROUTE ; Start 09/18/16 at 16:06; Stop 09/18/16 at 16:07; Status DC Phenylephrine HCl 1 mg STK-MED ONCE IV ; Start 09/18/16 at 16:06; Stop 09/18/16 at 16:07; Status DC Ephedrine Sulfate 50 mg STK-MED ONCE IV ; Start 09/18/16 at 16:07; Stop 09/18/16 at 16:08; Status DC Dexamethasone Sodium Phosphate (Decadron) 20 mg STK-MED ONCE .ROUTE ; Start 09/18 at 16:36; Stop 09/18/16 at 16:37; Status DC Ondansetron HCl (Zofran) 4 mg STK-MED ONCE .ROUTE ; Start 09/18/16 at 16:36; Stop 09/18/16 at 16:37; Status DC Sevoflurane (Ultane) 30 ml STK-MED ONCE IH ; Start 09/18/16 at 17:01; Stop at 17:02; Status DC Sevoflurane (Ultane) 60 ml STK-MED ONCE IH ; Start 09/18/16 at 17:01; Stop at 17:02; Status DC Fentanyl Citrate (Fentanyl 2ml Vial) 100 mcg STK-MED ONCE .ROUTE ; Start at 17:02; Stop 09/18/16 at 17:03; Status DC Phenylephrine HCl 1 mg STK-MED ONCE IV ; Start 09/18/16 at 17:15; Stop 09/18/16 at 17:16; Status DC Oxycodone HCl (Roxicodone) 5 mg PRN Q3HRS PRN PO PAIN; Start 09/18/16 at 17:30 Morphine Sulfate 2 mg PRN Q1HR PRN IV PAIN; Start 09/18/16 at 17:30 Fentanyl Citrate (Fentanyl 2ml Vial) 25 mcg PRN Q1HR PRN IV PAIN Last administered on 09/19/16 11:55; Start 09/18/16 at 17:30; Stop 09/19/16 at 13:44; Status DC Senna/Docusate Sodium (Senna Plus) 1 tab DAILY PO Last administered on 08:30; Start 09/19/16 at 09:00 Polyethylene Glycol (miraLAX PACKET) 17 gm PRN DAILY PRN PO CONSTIPATION; Start 09/18/16 at 17:30 Ondansetron HCl (Zofran) 4 mg PRN Q4HRS PRN IV NAUSEA/VOMITING; Start 09/18/16 at 17:30 Warfarin Sodium (Coumadin) 7.5 mg 1X ONCE PO ; Start 09/18/16 at 16:00; Stop 09/18/16 at 16:01; Status UNV Warfarin Sodium (Coumadin Per Pharmacy) 1 each PRN DAILY PRN MC SEE COMMENTS Last administered on 09/19/16 12:00; Start 09/19/16 at 17:30 Magnesium Hydroxide (Milk Of Magnesia) 2,400 mg 1X PRN PRN PO CONSTIPATION; Start 09/19/16 at 06:00; Stop 09/20/16 at 05:59 Bisacodyl (Dulcolax Supp) 10 mg 1X PRN PRN [place] CONSTIPATION; Start 09/19/16 at 16 :00; Stop 09/20/16 at 15:59 Acetaminophen/ Hydrocodone Bitart (Lortab 7.5/325) 1 tab PRN Q4HRS PRN PO PAIN Last administered on 09/19/16 06:04; Start 09/18/16 at 17:30 Morphine Sulfate 4 mg PRN Q2HR PRN IV PAIN Last administered on 09/19/16 02:56 ; Start 09/18/16 at 17:30 Acetaminophen/ Hydrocodone Bitart (Lortab 7.5/325) 2 tab PRN Q4HRS PRN PO PAIN Last administered on 09/19/16 13:39; Start 09/18/16 at 17:30 Dextrose (Dextrose 50%-Water Syringe) 12.5 gm PRN Q15MIN PRN IV SEE COMMENTS; Start 09/18/16 at 17:30 Cefazolin Sodium 1 gm/Sodium Chloride 50 ml @ 100 mls/hr Q6H IV Last administered on 09/19/16 09:40; Start 09/18/16 at 22:00; Stop 09/19/16 at 10:29; Status DC Warfarin Sodium (Coumadin) 5 mg 1X WARF ONCE PO Last administered on 09/18/16 18:00; Start 09/18/16 at 18:00; Stop 09/18/16 at 18:01; Status DC Nicotine (Nicoderm Cq 21mg) 1 patch PRN DAILY PRN TD SMOKING CESSATION Last administered on 09/19/16 08:29; Start 09/18/16 at 18:00 Warfarin Sodium (Coumadin) 4 mg 1X WARF ONCE PO ; Start 09/19/16 at 16:00; Stop 09/19/16 at 16:01 Fentanyl Citrate (Fentanyl 2ml Vial) 50 mcg PRN Q2HR PRN IV PAIN; Start at 17:30; Status UNV Active Scripts Active Proair Hfa (Albuterol Sulfate) 8.5 Gm Hfa.aer.ad 8.5 Gm IH [id number] Pulmicort Flexhaler (Budesonide) 180 Mcg Aer.pow.ba 2 Puff IH BID Reported Clorazepate Dipotassium 3.75 Mg Tablet 3.75 Mg PO BID Simvastatin 20 Mg Tablet 20 Mg PO DAILY Olanzapine 20 Mg Tablet 20 Mg PO DAILY Bupropion Hcl 100 Mg Tablet 100 Mg PO BID Vitals/I & O Vital Sign - Last 24 Hours 09/18/16 09/18/16 09/18/16 09/18/16 13:54 14:10 14:10 14:18 Pulse 60 68 B/P (MAP) 182/93 (122) 148/83 (104) Pulse Ox 93 99 O2 Delivery Nasal Cannula Room Air O2 Flow Rate 2.0 09/18/16 09/18/16 09/18/16 09/18/16 14:35 14:45 14:48 15:23 Temp 97.9 97.9 Pulse 64 66 Resp 20 B/P (MAP) 155/89 (111) 138/78 Pulse Ox 2 93 99 O2 Delivery Room Air Nasal Cannula Room Air 09/18/16 09/18/16 09/18/16 09/18/16 17:17 17:17 17:32 17:47 Temp 97.2 97.2 Pulse 92 84 80 Resp 20 20 20 B/P (MAP) 114/76 81/59 84/69 Pulse Ox 100 100 99 O2 Delivery Mask Simple Mask Simple Mask Nasal Cannula O2 Flow Rate 10 10 10 2 09/18/16 09/18/16 09/18/16 09/18/16 18:02 18:07 18:10 18:15 Temp 97.2 97.2 Pulse 81 82 Resp 20 20 B/P (MAP) 84/69 117/78 (91) Pulse Ox 99 96 100 O2 Delivery Nasal Cannula Nasal Cannula Nasal Cannula Room Air O2 Flow Rate 2 2.0 2 09/18/16 09/18/16 09/18/16 09/18/16 18:43 18:53 19:45 20:00 Temp 97.7 97.7 97.7 97.7 Pulse 84 78 73 Resp 18 17 B/P (MAP) 117/78 (91) 108/73 (85) 105/67 (80) Pulse Ox 100 100 99 99 O2 Delivery Nasal Cannula Nasal Cannula Nasal Cannula Nasal Cannula O2 Flow Rate 2.0 2.0 2.0 09/18/16 09/18/16 09/18/16 09/18/16 20:15 20:25 20:25 20:28 Pulse 79 B/P (MAP) 100/64 (76) Pulse Ox 98 99 O2 Delivery Nasal Cannula Nasal Cannula Nasal Cannula Nasal Cannula O2 Flow Rate 2.0 2.0 2.0 09/18/16 09/18/16 09/18/16 09/18/16 20:45 21:12 21:45 21:45 Pulse 81 79 B/P (MAP) 115/88 (97) 97/72 (80) Pulse Ox 95 99 100 95 O2 Delivery Room Air Nasal Cannula Nasal Cannula Nasal Cannula O2 Flow Rate 2.0 2.0 09/18/16 09/18/16 09/19/16 09/19/16 22:15 23:15 02:56 03:08 Temp 97.4 96.7 97.4 96.7 Pulse 75 61 75 Resp 16 18 B/P (MAP) 98/68 (78) 85/55 (65) 108/65 (79) Pulse Ox 97 95 95 96 O2 Delivery Nasal Cannula Nasal Cannula Nasal Cannula Nasal Cannula O2 Flow Rate 2.0 2.0 2.0 2.0 09/19/16 09/19/16 09/19/16 09/19/16 03:30 06:04 07:00 07:36 Temp 98.1 98.1 Pulse 67 Resp 16 B/P (MAP) 84/48 (60) Pulse Ox 96 96 92 98 O2 Delivery Nasal Cannula Nasal Cannula Nasal Cannula Nasal Cannula O2 Flow Rate 2.0 2.0 2.0 2.0 09/19/16 09/19/16 09/19/16 09/19/16 07:39 08:28 09:39 11:00 Temp 98.2 98.2 Pulse 70 Resp 16 18 20 B/P (MAP) 94/61 (72) Pulse Ox 98 97 O2 Delivery Nasal Cannula Nasal Cannula O2 Flow Rate 2.0 2.0 09/19/16 09/19/16 11:55 13:39 Resp 18 O2 Delivery Nasal Cannula Intake and Output 09/18/16 09/18/16 09/19/16 14:59 22:59 06:59 Intake Total 1500 ml 1220 ml Output Total 1100 ml 1950 ml Balance 400 ml -730 ml AIME WALKER MD September 19, 2016 13:47
[2016-09-19 15:00] VITALS: BP 126/61
[2016-09-19] MEDS: MORPHINE SULFATE 2 MG/ML DISP.SYRIN. IV PRN ×2 (15:24→19:51)
[2016-09-19] MEDS ORDERED: BISACODYL 10 MG SUPP.RECT. PR PRN (16:00)
[2016-09-19] MEDS ORDERED: WARFARIN 4 MG TABLET. PO ONE (16:00)
[2016-09-19] MEDS: DOCUSATE SODIUM 100 MG CAPSULE. PO SCH (16:08)
[2016-09-19 17:40] LABS: HEMATOCRIT 22.9 % (36.0-47.0); HEMOGLOBIN 7.9 g/dL (12.0-15.5)
[2016-09-19 19:00] VITALS: BP 108/62
[2016-09-19] MEDS: SIMVASTATIN 20 MG TABLET PO SCH (22:06)
[2016-09-19] MEDS: OLANZapine 5 MG TABLET PO SCH (22:06)
[2016-09-19 23:21] VITALS: BP 99/55
[2016-09-20 03:25] VITALS: BP 90/50
[2016-09-20] MEDS: MORPHINE SULFATE 2 MG/ML DISP.SYRIN. IV PRN (05:28)
[2016-09-20 06:11] LABS: BASO % 0 % (0-3); EOS % 1 % (0-3); HEMOGLOBIN 7.9 g/dL (12.0-15.5); LYMPH # 2.2 x10^3/uL (1.0-4.8); LYMPH % 20 % (24-48); MEAN CORPUSCULAR HEMOGLOBIN 30 pg (25-35); MEAN CORPUSCULAR HGB CONC 34 g/dL (31-37); MEAN CORPUSCULAR VOLUME 89 fL (79-100); MONO % 12 % (0-9); NEUT % 67 % (31-73); PLATELET COUNT 135 x10^3/uL (140-400); RED BLOOD COUNT 2.58 x10^6/uL (3.50-5.40); RED CELL DISTRIBUTION WIDTH 14.5 % (11.5-14.5); WHITE BLOOD COUNT 11.1 x10^3/uL (4.0-11.0)
[2016-09-20] MEDS: HYDROcodone/APAP 7.5/325MG 1 TAB TABLET PO PRN ×4 (06:21→22:15)
[2016-09-20 06:28] LABS: INR 2.1 (0.8-1.1); PROTHROMBIN TIME PATIENT 22.2 SEC (11.7-14.0)
[2016-09-20 06:35] LABS: ALBUMIN 2.6 g/dL (3.4-5.0); ALBUMIN/GLOBULIN RATIO 0.9 (1.0-1.7); CALCIUM 7.6 mg/dL (8.5-10.1); CREATININE 0.4 mg/dL (0.6-1.0); GFR 162.3; POTASSIUM 3.7 mmol/L (3.5-5.1); TOTAL BILIRUBIN 0.3 mg/dL (0.2-1.0); TOTAL PROTEIN 5.6 g/dL (6.4-8.2)
[2016-09-20 07:00] VITALS: BP 111/67
[2016-09-20] MEDS: ALBUTEROL SULFATE 2.5 MG/3 ML NEBU. NEB SCH ×2 (07:14→18:01)
[2016-09-20] MEDS: BUDESONIDE 0.5 MG/2 ML NEBU. NEB SCH ×2 (07:15→18:01)
[2016-09-20] MEDS: SENNOSIDES/DOCUSATE 8.6/50MG TABLET. PO SCH (09:39)
[2016-09-20] MEDS: DOCUSATE SODIUM 100 MG CAPSULE. PO SCH (09:39)
[2016-09-20] MEDS: MORPHINE SULFATE 4 MG/ML DISP.SYRIN. IV PRN ×5 (09:39→21:26)
[2016-09-20] MEDS: buPROPion 100 MG TABLET PO SCH ×2 (09:39→21:06)
[2016-09-20] MEDS: LORazepam 0.5 MG TABLET PO SCH ×2 (09:40→21:06)
[2016-09-20] MEDS: IV NORMAL SALINE 1000ML BAG 1,000 ML IV SCH ×2 (09:43→21:26)
[2016-09-20 10:52] VITALS: BP 125/69
[2016-09-20 14:44] VITALS: BP 113/64
[2016-09-20] MEDS ORDERED: POLYETHYLENE GLYCOL 3350 17 GM PACKET. PO ONE (15:15)
--- NOTE | 2016-09-20 15:21 | PDOC ---
PROGRESS NOTES Chief Complaint Chief Complaint 1. R intertrochanteric fx after a mechanical fall 2. Hx COPD (emphysematous type), O2 dependent, smoker 3. HTN, stable 4. Hyponatremia 120 - improved with fluid 5. vit D def, osteoporosis 6, Post-op anemia, dilutional and expected, 100ml loss reported intraop History of Present Illness History of Present Illness post op day 2 up to chair, feels OK, pain 7/10, right hip no event needs pt and ot skilled placement this week Vitals Vitals Vital Signs Date Time Temp Pulse Resp B/P (MAP) Pulse Ox O2 Delivery O2 Flow Rate FiO2 09/20/16 14:44 98.8 93 20 113/64 (80) 100 Nasal Cannula 2.0 98.8 Physical Exam General: Alert, Oriented X3, Cooperative, No acute distress Heart: Regular rate, No murmurs Lungs: Clear, Other Abdomen: Normal bowel sounds, Soft, No tenderness, No hepatosplenomegaly, No masses Extremities: No clubbing, No cyanosis, No edema, Normal pulses, No tenderness/ swelling Skin: No rashes, No breakdown, No significant lesion Labs LABS Laboratory Tests Test 09/19/16 17:20 09/20/16 05:50 Hemoglobin 7.9 g/dL (12.0-15.5) 7.9 g/dL (12.0-15.5) Hematocrit 22.9 % (36.0-47.0) 23.0 % (36.0-47.0) Mean Corpuscular Hemoglobin Concent 35 g/dL (31-37) 34 g/dL (31-37) White Blood Count 11.1 x10^3/uL (4.0-11.0) Red Blood Count 2.58 x10^6/uL (3.50-5.40) Mean Corpuscular Volume 89 fL (79-100) Mean Corpuscular Hemoglobin 30 pg (25-35) Red Cell Distribution Width 14.5 % (11.5-14.5) Platelet Count 135 x10^3/uL (140-400) Neutrophils (%) (Auto) 67 % (31-73) Lymphocytes (%) (Auto) 20 % (24-48) Monocytes (%) (Auto) 12 % (0-9) Eosinophils (%) (Auto) 1 % (0-3) Basophils (%) (Auto) 0 % (0-3) Neutrophils # (Auto) 7.5 x10^3uL (1.8-7.7) Lymphocytes # (Auto) 2.2 x10^3/uL (1.0-4.8) Monocytes # (Auto) 1.3 x10^3/uL (0.0-1.1) Eosinophils # (Auto) 0.1 x10^3/uL (0.0-0.7) Basophils # (Auto) 0.0 x10^3/uL (0.0-0.2) Prothrombin Time 22.2 SEC (11.7-14.0) Prothromb Time International Ratio 2.1 (0.8-1.1) Sodium Level 136 mmol/L (136-145) Potassium Level 3.7 mmol/L (3.5-5.1) Chloride Level 103 mmol/L (98-107) Carbon Dioxide Level 29 mmol/L (21-32) Anion Gap 4 (6-14) Blood Urea Nitrogen 6 mg/dL (7-20) Creatinine 0.4 mg/dL (0.6-1.0) Estimated GFR (Cockcroft-Gault) 162.3 BUN/Creatinine Ratio 15 (6-20) Glucose Level 90 mg/dL (70-99) Calcium Level 7.6 mg/dL (8.5-10.1) Total Bilirubin 0.3 mg/dL (0.2-1.0) Aspartate Amino Transf (AST/SGOT) 42 U/L (15-37) Alanine Aminotransferase (ALT/SGPT) 55 U/L (14-59) Alkaline Phosphatase 68 U/L (46-116) Total Protein 5.6 g/dL (6.4-8.2) Albumin 2.6 g/dL (3.4-5.0) Albumin/Globulin Ratio 0.9 (1.0-1.7) Review of Systems Review of Systems hip pain, 11/23, still req. IV morphine no n.v.d unable to get to shower today Assessment and Plan Assessmemt and Plan Problems Medical Problems: (1) Fall Status: Acute (2) Head injury Status: Acute (3) Right hip pain Status: Acute Problems: Comment Review of Relevant I have reviewed the following items luis angel (where applicable) has been applied. Labs Laboratory Tests Test 09/19/16 05:40 09/19/16 17:20 09/20/16 05:50 White Blood Count 13.9 x10^3/uL (4.0-11.0) 11.1 x10^3/uL (4.0-11.0) Red Blood Count 2.90 x10^6/uL (3.50-5.40) 2.58 x10^6/uL (3.50-5.40) Hemoglobin 8.6 g/dL (12.0-15.5) 7.9 g/dL (12.0-15.5) 7.9 g/dL (12.0-15.5) Hematocrit 26.2 % (36.0-47.0) 22.9 % (36.0-47.0) 23.0 % (36.0-47.0) Mean Corpuscular Volume 91 fL (79-100) 89 fL (79-100) Mean Corpuscular Hemoglobin 30 pg (25-35) 30 pg (25-35) Mean Corpuscular Hemoglobin Concent 33 g/dL (31-37) 35 g/dL (31-37) 34 g/dL (31-37) Red Cell Distribution Width 14.1 % (11.5-14.5) 14.5 % (11.5-14.5) Platelet Count 123 x10^3/uL (140-400) 135 x10^3/uL (140-400) Neutrophils (%) (Auto) 87 % (31-73) 67 % (31-73) Lymphocytes (%) (Auto) 5 % (24-48) 20 % (24-48) Monocytes (%) (Auto) 8 % (0-9) 12 % (0-9) Eosinophils (%) (Auto) 0 % (0-3) 1 % (0-3) Basophils (%) (Auto) 0 % (0-3) 0 % (0-3) Neutrophils # (Auto) 12.1 x10^3uL (1.8-7.7) 7.5 x10^3uL (1.8-7.7) Lymphocytes # (Auto) 0.6 x10^3/uL (1.0-4.8) 2.2 x10^3/uL (1.0-4.8) Monocytes # (Auto) 1.1 x10^3/uL (0.0-1.1) 1.3 x10^3/uL (0.0-1.1) Eosinophils # (Auto) 0.0 x10^3/uL (0.0-0.7) 0.1 x10^3/uL (0.0-0.7) Basophils # (Auto) 0.0 x10^3/uL (0.0-0.2) 0.0 x10^3/uL (0.0-0.2) Segmented Neutrophils % 82 % (35-66) Band Neutrophils % 7 % (0-9) Lymphocytes % 6 % (24-48) Monocytes % 5 % (0-10) Platelet Estimate Adequate (ADEQUATE) Prothrombin Time 14.0 SEC (11.7-14.0) 22.2 SEC (11.7-14.0) Prothromb Time International Ratio 1.2 (0.8-1.1) 2.1 (0.8-1.1) Sodium Level 128 mmol/L (136-145) 136 mmol/L (136-145) Potassium Level 4.2 mmol/L (3.5-5.1) 3.7 mmol/L (3.5-5.1) Chloride Level 96 mmol/L (98-107) 103 mmol/L (98-107) Carbon Dioxide Level 26 mmol/L (21-32) 29 mmol/L (21-32) Anion Gap 6 (6-14) 4 (6-14) Blood Urea Nitrogen 9 mg/dL (7-20) 6 mg/dL (7-20) Creatinine 0.6 mg/dL (0.6-1.0) 0.4 mg/dL (0.6-1.0) Estimated GFR (Cockcroft-Gault) 101.6 162.3 Glucose Level 138 mg/dL (70-99) 90 mg/dL (70-99) Calcium Level 7.9 mg/dL (8.5-10.1) 7.6 mg/dL (8.5-10.1) BUN/Creatinine Ratio 15 (6-20) Total Bilirubin 0.3 mg/dL (0.2-1.0) Aspartate Amino Transf (AST/SGOT) 42 U/L (15-37) Alanine Aminotransferase (ALT/SGPT) 55 U/L (14-59) Alkaline Phosphatase 68 U/L (46-116) Total Protein 5.6 g/dL (6.4-8.2) Albumin 2.6 g/dL (3.4-5.0) Albumin/Globulin Ratio 0.9 (1.0-1.7) Laboratory Tests Test 09/19/16 17:20 09/20/16 05:50 Hemoglobin 7.9 g/dL (12.0-15.5) 7.9 g/dL (12.0-15.5) Hematocrit 22.9 % (36.0-47.0) 23.0 % (36.0-47.0) Mean Corpuscular Hemoglobin Concent 35 g/dL (31-37) 34 g/dL (31-37) White Blood Count 11.1 x10^3/uL (4.0-11.0) Red Blood Count 2.58 x10^6/uL (3.50-5.40) Mean Corpuscular Volume 89 fL (79-100) Mean Corpuscular Hemoglobin 30 pg (25-35) Red Cell Distribution Width 14.5 % (11.5-14.5) Platelet Count 135 x10^3/uL (140-400) Neutrophils (%) (Auto) 67 % (31-73) Lymphocytes (%) (Auto) 20 % (24-48) Monocytes (%) (Auto) 12 % (0-9) Eosinophils (%) (Auto) 1 % (0-3) Basophils (%) (Auto) 0 % (0-3) Neutrophils # (Auto) 7.5 x10^3uL (1.8-7.7) Lymphocytes # (Auto) 2.2 x10^3/uL (1.0-4.8) Monocytes # (Auto) 1.3 x10^3/uL (0.0-1.1) Eosinophils # (Auto) 0.1 x10^3/uL (0.0-0.7) Basophils # (Auto) 0.0 x10^3/uL (0.0-0.2) Prothrombin Time 22.2 SEC (11.7-14.0) Prothromb Time International Ratio 2.1 (0.8-1.1) Sodium Level 136 mmol/L (136-145) Potassium Level 3.7 mmol/L (3.5-5.1) Chloride Level 103 mmol/L (98-107) Carbon Dioxide Level 29 mmol/L (21-32) Anion Gap 4 (6-14) Blood Urea Nitrogen 6 mg/dL (7-20) Creatinine 0.4 mg/dL (0.6-1.0) Estimated GFR (Cockcroft-Gault) 162.3 BUN/Creatinine Ratio 15 (6-20) Glucose Level 90 mg/dL (70-99) Calcium Level 7.6 mg/dL (8.5-10.1) Total Bilirubin 0.3 mg/dL (0.2-1.0) Aspartate Amino Transf (AST/SGOT) 42 U/L (15-37) Alanine Aminotransferase (ALT/SGPT) 55 U/L (14-59) Alkaline Phosphatase 68 U/L (46-116) Total Protein 5.6 g/dL (6.4-8.2) Albumin 2.6 g/dL (3.4-5.0) Albumin/Globulin Ratio 0.9 (1.0-1.7) Microbiology 09/18/16 Urine Culture - Preliminary, Resulted 09/18/16 Urine Culture Result 1 (HIRA) - Preliminary, Resulted Medications Current Medications Sodium Chloride 500 ml @ 500 mls/hr 1X ONCE IV Last administered on 09/18/16 13:56; Start 09/18/16 at 12:45; Stop 09/18/16 at 13:44; Status DC Fentanyl Citrate (Fentanyl 2ml Vial) 25 mcg 1X PRN PRN IV SEVERE PAIN Last administered on 09/18/16 13:10; Start 09/18/16 at 12:45; Stop 09/19/16 at 11:57; Status DC Ondansetron HCl (Zofran) 4 mg 1X ONCE IV Last administered on 09/18/16 13:10; Start 09/18/16 at 12:45; Stop 09/18/16 at 12:54; Status DC Sodium Chloride 1,000 ml @ 100 mls/hr 1X ONCE IV Last administered on 14:35; Start 09/18/16 at 13:15; Stop 09/18/16 at 23:14; Status DC Ondansetron HCl (Zofran) 4 mg PRN Q8HRS PRN IV NAUSEA/VOMITING; Start 09/18/16 at 13:15; Stop 09/19/16 at 13:14; Status DC Morphine Sulfate 2 mg PRN Q2HR PRN IV PAIN Last administered on 09/18/16 21:12 ; Start 09/18/16 at 13:15; Stop 09/19/16 at 13:14; Status DC Ondansetron HCl (Zofran) 4 mg PRN Q6HRS PRN IV NAUSEA/VOMITING; Start 09/18/16 at 13:30; Stop 09/19/16 at 13:29; Status DC Fentanyl Citrate (Fentanyl 2ml Vial) 25 mcg PRN Q5MIN PRN IV MILD PAIN; Start 09/18/16 at 13:30; Stop 09/19/16 at 13:29; Status DC Fentanyl Citrate (Fentanyl 2ml Vial) 50 mcg PRN Q5MIN PRN IV MODERATE PAIN; Start 09/18/16 at 13:30; Stop 09/19/16 at 13:29; Status DC Morphine Sulfate 1 mg PRN Q10MIN PRN IV SEVERE PAIN Last administered on 18:07; Start 09/18/16 at 13:30; Stop 09/19/16 at 13:29; Status DC Ringer's Solution 1,000 ml @ 0 mls/hr Q0M IV ; Start 09/18/16 at 13:22; Stop 09/19/16 at 01:21; Status DC Lidocaine HCl 2 ml PRN 1X PRN ID PRIOR TO IV START; Start 09/18/16 at 13:30; Stop 09/19/16 at 13:29; Status DC Hydromorphone HCl (Dilaudid) 0.5 mg PRN Q10MIN PRN IV SEV PAIN, Second choice Last administered on 09/18/16 14:35; Start 09/18/16 at 13:30; Stop 09/19/16 at 13: 29; Status DC Prochlorperazine Edisylate (Compazine) 5 mg PACU PRN PRN IV NAUSEA, MRX1; Start 09/18/16 at 13:30; Stop 09/19/16 at 13:29; Status DC Propofol 20 ml @ As Directed STK-MED ONCE IV ; Start 09/18/16 at 15:10; Stop 09/18 at 15:11; Status DC Lidocaine HCl (Lidocaine HCl 2% Abboject) 100 mg STK-MED ONCE .ROUTE ; Start 09/18/16 at 15:10; Stop 09/18/16 at 15:11; Status DC Midazolam HCl (Versed) 2 mg STK-MED ONCE .ROUTE ; Start 09/18/16 at 15:10; Stop 09/18/16 at 15:11; Status DC Albuterol Sulfate (Ventolin Hfa) 1 puff [id number] IH ; Start 09/18/16 at 18:00; Status UNV Bupropion HCl (Wellbutrin) 100 mg BID PO Last administered on 09/20/16 09:39; Start 09/18/16 at 21:00 Simvastatin (Zocor) 20 mg QHS PO Last administered on 09/19/16 22:06; Start 09/18/16 at 21:00 Non-Formulary Medication 2 puff BID IH ; Start 09/18/16 at 21:00; Status UNV Lorazepam (Ativan) 0.5 mg BID PO Last administered on 09/20/16 09:40; Start 09/18/16 at 21:00 Olanzapine (Zyprexa) 20 mg DAILY PO ; Start 09/19/16 at 09:00; Stop 09/19/16 at 19 :50; Status DC Budesonide (Pulmicort) 0.5 mg RTBID NEB Last administered on 09/20/16 07:15; Start 09/18/16 at 20:00 Albuterol Sulfate (Ventolin Neb Soln) 2.5 mg [id number] NEB Last administered on 09/20 07:14; Start 09/18/16 at 18:00 Sodium Chloride 1,000 ml @ 100 mls/hr Q10H IV Last administered on 09/20/16 09 :43; Start 09/18/16 at 15:30 Cefazolin Sodium 50 ml @ As Directed STK-MED ONCE IV ; Start 09/18/16 at 15:20; Stop 09/18/16 at 15:21; Status DC Lidocaine HCl (Lidocaine HCl 2% Abboject) 100 mg STK-MED ONCE .ROUTE ; Start 09/18/16 at 16:06; Stop 09/18/16 at 16:07; Status DC Phenylephrine HCl 1 mg STK-MED ONCE IV ; Start 09/18/16 at 16:06; Stop 09/18/16 at 16:07; Status DC Ephedrine Sulfate 50 mg STK-MED ONCE IV ; Start 09/18/16 at 16:07; Stop 09/18/16 at 16:08; Status DC Dexamethasone Sodium Phosphate (Decadron) 20 mg STK-MED ONCE .ROUTE ; Start 09/18 at 16:36; Stop 09/18/16 at 16:37; Status DC Ondansetron HCl (Zofran) 4 mg STK-MED ONCE .ROUTE ; Start 09/18/16 at 16:36; Stop 09/18/16 at 16:37; Status DC Sevoflurane (Ultane) 30 ml STK-MED ONCE IH ; Start 09/18/16 at 17:01; Stop at 17:02; Status DC Sevoflurane (Ultane) 60 ml STK-MED ONCE IH ; Start 09/18/16 at 17:01; Stop at 17:02; Status DC Fentanyl Citrate (Fentanyl 2ml Vial) 100 mcg STK-MED ONCE .ROUTE ; Start at 17:02; Stop 09/18/16 at 17:03; Status DC Phenylephrine HCl 1 mg STK-MED ONCE IV ; Start 09/18/16 at 17:15; Stop 09/18/16 at 17:16; Status DC Oxycodone HCl (Roxicodone) 5 mg PRN Q3HRS PRN PO PAIN; Start 09/18/16 at 17:30 Morphine Sulfate 2 mg PRN Q1HR PRN IV PAIN Last administered on 09/20/16 05:28 ; Start 09/18/16 at 17:30 Fentanyl Citrate (Fentanyl 2ml Vial) 25 mcg PRN Q1HR PRN IV PAIN Last administered on 09/19/16 11:55; Start 09/18/16 at 17:30; Stop 09/19/16 at 13:44; Status DC Senna/Docusate Sodium (Senna Plus) 1 tab DAILY PO Last administered on 09:39; Start 09/19/16 at 09:00 Polyethylene Glycol (miraLAX PACKET) 17 gm PRN DAILY PRN PO CONSTIPATION; Start 09/18/16 at 17:30 Ondansetron HCl (Zofran) 4 mg PRN Q4HRS PRN IV NAUSEA/VOMITING; Start 09/18/16 at 17:30 Warfarin Sodium (Coumadin) 7.5 mg 1X ONCE PO ; Start 09/18/16 at 16:00; Stop 09/18/16 at 16:01; Status UNV Warfarin Sodium (Coumadin Per Pharmacy) 1 each PRN DAILY PRN MC SEE COMMENTS Last administered on 09/20/16 12:55; Start 09/19/16 at 17:30 Magnesium Hydroxide (Milk Of Magnesia) 2,400 mg 1X PRN PRN PO CONSTIPATION; Start 09/19/16 at 06:00; Stop 09/20/16 at 05:59; Status DC Bisacodyl (Dulcolax Supp) 10 mg 1X PRN PRN IA CONSTIPATION; Start 09/19/16 at 16 :00; Stop 09/20/16 at 15:59 Acetaminophen/ Hydrocodone Bitart (Lortab 7.5/325) 1 tab PRN Q4HRS PRN PO PAIN Last administered on 09/19/16 06:04; Start 09/18/16 at 17:30 Morphine Sulfate 4 mg PRN Q2HR PRN IV PAIN Last administered on 09/20/16 13:50 ; Start 09/18/16 at 17:30 Acetaminophen/ Hydrocodone Bitart (Lortab 7.5/325) 2 tab PRN Q4HRS PRN PO PAIN Last administered on 09/20/16 11:18; Start 09/18/16 at 17:30 Dextrose (Dextrose 50%-Water Syringe) 12.5 gm PRN Q15MIN PRN IV SEE COMMENTS; Start 09/18/16 at 17:30 Cefazolin Sodium 1 gm/Sodium Chloride 50 ml @ 100 mls/hr Q6H IV Last administered on 09/19/16 09:40; Start 09/18/16 at 22:00; Stop 09/19/16 at 10:29; Status DC Warfarin Sodium (Coumadin) 5 mg 1X WARF ONCE PO Last administered on 09/18/16 18:00; Start 09/18/16 at 18:00; Stop 09/18/16 at 18:01; Status DC Nicotine (Nicoderm Cq 21mg) 1 patch PRN DAILY PRN TD SMOKING CESSATION Last administered on 09/19/16 08:29; Start 09/18/16 at 18:00 Warfarin Sodium (Coumadin) 4 mg 1X WARF ONCE PO Last administered on 09/19/16 16:12; Start 09/19/16 at 16:00; Stop 09/19/16 at 16:01; Status DC Fentanyl Citrate (Fentanyl 2ml Vial) 50 mcg PRN Q2HR PRN IV PAIN; Start at 17:30 Docusate Sodium (Colace) 100 mg DAILY PO Last administered on 09/20/16 09:39; Start 09/19/16 at 14:00 Polyethylene Glycol (miraLAX PACKET) 17 gm PRN DAILY PRN PO CONSTIPATION; Start 09/19/16 at 13:45; Stop 09/20/16 at 12:52; Status DC Olanzapine (Zyprexa) 20 mg HS PO Last administered on 09/19/16 22:06; Start 09/19/16 at 21:00 Warfarin Sodium (Coumadin) 1 mg 1X WARF ONCE PO ; Start 09/20/16 at 16:00; Stop 09/20/16 at 16:01 Active Scripts Active Proair Hfa (Albuterol Sulfate) 8.5 Gm Hfa.aer.ad 8.5 Gm IH [id number] Pulmicort Flexhaler (Budesonide) 180 Mcg Aer.pow.ba 2 Puff IH BID Reported Clorazepate Dipotassium 3.75 Mg Tablet 3.75 Mg PO BID Simvastatin 20 Mg Tablet 20 Mg PO DAILY Olanzapine 20 Mg Tablet 20 Mg PO DAILY Bupropion Hcl 100 Mg Tablet 100 Mg PO BID Vitals/I & O Vital Sign - Last 24 Hours 09/19/16 09/19/16 09/19/16 09/19/16 15:24 17:29 19:00 19:50 Temp 98.1 98.1 Pulse 86 Resp 18 18 18 B/P (MAP) 108/62 (77) Pulse Ox 96 96 O2 Delivery Nasal Cannula Nasal Cannula Nasal Cannula O2 Flow Rate 2.0 2.0 09/19/16 09/19/16 09/20/16 09/20/16 20:00 23:21 03:25 07:00 Temp 98.4 98.3 100.4 98.4 98.3 100.4 Pulse 90 84 92 Resp 18 18 18 B/P (MAP) 99/55 (70) 90/50 (63) 111/67 (82) Pulse Ox 97 96 98 O2 Delivery Nasal Cannula Nasal Cannula Nasal Cannula Room Air O2 Flow Rate 2.0 2.0 2.0 09/20/16 09/20/16 09/20/16 09/20/16 07:15 07:30 07:30 07:30 Resp 18 18 Pulse Ox 98 O2 Delivery Nasal Cannula Nasal Cannula Nasal Cannula O2 Flow Rate 2.0 2.0 2.0 2.0 09/20/16 09/20/16 09/20/16 09/20/16 08:10 09:39 10:52 11:18 Temp 98.6 98.6 Pulse 88 Resp 18 20 20 B/P (MAP) 125/69 (87) Pulse Ox 98 98 O2 Delivery Nasal Cannula Nasal Cannula Room Air Nasal Cannula O2 Flow Rate 2.0 2.0 2.0 09/20/16 09/20/16 09/20/16 09/20/16 12:20 13:50 14:30 14:44 Temp 98.8 98.8 Pulse 93 Resp 18 18 18 20 B/P (MAP) 113/64 (80) Pulse Ox 100 O2 Delivery Room Air Nasal Cannula Nasal Cannula Nasal Cannula O2 Flow Rate 2.0 2.0 2.0 Intake and Output 09/19/16 09/19/16 09/20/16 15:00 23:00 07:00 Intake Total 1226 ml 200 ml Output Total 1700 ml 1625 ml Balance -474 ml -1425 ml AIME WALKER MD September 20, 2016 15:21
[2016-09-20] MEDS: CHOLECALCIFEROL (VITAMIN D3) 5,000 UNIT CAPSULE PO SCH (15:52)
[2016-09-20] MEDS ORDERED: WARFARIN 1 MG TABLET. PO ONE (16:00)
[2016-09-20 19:25] VITALS: BP 106/62
[2016-09-20] MEDS: OLANZapine 5 MG TABLET PO SCH (21:06)
[2016-09-20] MEDS: SIMVASTATIN 20 MG TABLET PO SCH (21:06)
[2016-09-20 23:21] VITALS: BP 108/66
[2016-09-21] MEDS: IV NORMAL SALINE 1000ML BAG 1,000 ML IV SCH ×3 (01:40→15:39)
[2016-09-21] MEDS: HYDROcodone/APAP 7.5/325MG 1 TAB TABLET PO PRN ×4 (03:22→21:18)
[2016-09-21 03:30] VITALS: BP 117/72
[2016-09-21 04:35] LABS: BASO % 0 % (0-3); EOS % 2 % (0-3); HEMATOCRIT 21.7 % (36.0-47.0); HEMOGLOBIN 7.3 g/dL (12.0-15.5); LYMPH # 2.2 x10^3/uL (1.0-4.8); LYMPH % 24 % (24-48); MEAN CORPUSCULAR HEMOGLOBIN 31 pg (25-35); MEAN CORPUSCULAR HGB CONC 34 g/dL (31-37); MEAN CORPUSCULAR VOLUME 91 fL (79-100); MONO % 12 % (0-9); NEUT % 62 % (31-73); PLATELET COUNT 150 x10^3/uL (140-400); RED BLOOD COUNT 2.39 x10^6/uL (3.50-5.40); RED CELL DISTRIBUTION WIDTH 14.6 % (11.5-14.5); WHITE BLOOD COUNT 9.3 x10^3/uL (4.0-11.0)
[2016-09-21 04:54] LABS: CALCIUM 8.1 mg/dL (8.5-10.1); CREATININE 0.5 mg/dL (0.6-1.0); GFR 125.4; POTASSIUM 3.4 mmol/L (3.5-5.1)
[2016-09-21 05:18] LABS: PROTHROMBIN TIME PATIENT 21.8 SEC (11.7-14.0)
[2016-09-21] MEDS: MORPHINE SULFATE 4 MG/ML DISP.SYRIN. IV PRN ×4 (06:22→17:59)
[2016-09-21 07:00] VITALS: BP 118/71
[2016-09-21] MEDS: BUDESONIDE 0.5 MG/2 ML NEBU. NEB SCH ×2 (07:32→19:23)
[2016-09-21] MEDS: ALBUTEROL SULFATE 2.5 MG/3 ML NEBU. NEB SCH ×2 (07:32→19:23)
[2016-09-21] MEDS: buPROPion 100 MG TABLET PO SCH ×2 (08:09→21:16)
[2016-09-21] MEDS: DOCUSATE SODIUM 100 MG CAPSULE. PO SCH (08:09)
[2016-09-21] MEDS: SENNOSIDES/DOCUSATE 8.6/50MG TABLET. PO SCH (08:09)
[2016-09-21] MEDS: POLYETHYLENE GLYCOL 3350 17 GM PACKET. PO SCH (08:09)
[2016-09-21] MEDS: LORazepam 0.5 MG TABLET PO SCH ×2 (08:09→21:16)
[2016-09-21] MEDS: CHOLECALCIFEROL (VITAMIN D3) 5,000 UNIT CAPSULE PO SCH (08:34)
--- NOTE | 2016-09-21 09:32 | PDOC ---
PROGRESS NOTES Chief Complaint Chief Complaint 1. R intertrochanteric fx after a mechanical fall, S/P ORIF: On warfarin for DVT prophylaxis, PT/OT, pain not controlled, requiring IV fentanyl, limit narcotics. D/W SW, SNU Placement pending. 2. Hx COPD (emphysematous type), O2 dependent, smoker: sable, continue current management. 3. HTN, stable 4. Hyponatremia resolved, 5. vit D def, osteoporosis 6, Post-op anemia, dilutional and expected: Monitor hemoglobin. stable, no active bleeding, History of Present Illness History of Present Illness no fever. pain not controlled Vitals Vitals Vital Signs Date Time Temp Pulse Resp B/P (MAP) Pulse Ox O2 Delivery O2 Flow Rate FiO2 09/21/16 07:33 Nasal Cannula 2.0 09/21/16 07:00 98.2 97 16 118/71 (87) 97 98.2 Physical Exam General: Alert, Oriented X3, Cooperative, No acute distress Heart: Regular rate, No murmurs Lungs: Clear, Other Abdomen: Normal bowel sounds, Soft, No tenderness, No hepatosplenomegaly, No masses Extremities: No clubbing, No cyanosis, No edema, Normal pulses, No tenderness/ swelling Skin: No rashes, No breakdown, No significant lesion Labs LABS Laboratory Tests Test 09/21/16 04:10 White Blood Count 9.3 x10^3/uL (4.0-11.0) Red Blood Count 2.39 x10^6/uL (3.50-5.40) Hemoglobin 7.3 g/dL (12.0-15.5) Hematocrit 21.7 % (36.0-47.0) Mean Corpuscular Volume 91 fL (79-100) Mean Corpuscular Hemoglobin 31 pg (25-35) Mean Corpuscular Hemoglobin Concent 34 g/dL (31-37) Red Cell Distribution Width 14.6 % (11.5-14.5) Platelet Count 150 x10^3/uL (140-400) Neutrophils (%) (Auto) 62 % (31-73) Lymphocytes (%) (Auto) 24 % (24-48) Monocytes (%) (Auto) 12 % (0-9) Eosinophils (%) (Auto) 2 % (0-3) Basophils (%) (Auto) 0 % (0-3) Neutrophils # (Auto) 5.8 x10^3uL (1.8-7.7) Lymphocytes # (Auto) 2.2 x10^3/uL (1.0-4.8) Monocytes # (Auto) 1.1 x10^3/uL (0.0-1.1) Eosinophils # (Auto) 0.2 x10^3/uL (0.0-0.7) Basophils # (Auto) 0.0 x10^3/uL (0.0-0.2) Prothrombin Time 21.8 SEC (11.7-14.0) Prothromb Time International Ratio 2.0 (0.8-1.1) Sodium Level 138 mmol/L (136-145) Potassium Level 3.4 mmol/L (3.5-5.1) Chloride Level 104 mmol/L (98-107) Carbon Dioxide Level 28 mmol/L (21-32) Anion Gap 6 (6-14) Blood Urea Nitrogen 5 mg/dL (7-20) Creatinine 0.5 mg/dL (0.6-1.0) Estimated GFR (Cockcroft-Gault) 125.4 Glucose Level 94 mg/dL (70-99) Calcium Level 8.1 mg/dL (8.5-10.1) Assessment and Plan Assessmemt and Plan Problems Medical Problems: (1) Fall Status: Acute (2) Head injury Status: Acute (3) Right hip pain Status: Acute Problems: Comment Review of Relevant I have reviewed the following items luis angel (where applicable) has been applied. Labs Laboratory Tests Test 09/19/16 17:20 09/20/16 05:50 09/21/16 04:10 Hemoglobin 7.9 g/dL (12.0-15.5) 7.9 g/dL (12.0-15.5) 7.3 g/dL (12.0-15.5) Hematocrit 22.9 % (36.0-47.0) 23.0 % (36.0-47.0) 21.7 % (36.0-47.0) Mean Corpuscular Hemoglobin Concent 35 g/dL (31-37) 34 g/dL (31-37) 34 g/dL (31-37) White Blood Count 11.1 x10^3/uL (4.0-11.0) 9.3 x10^3/uL (4.0-11.0) Red Blood Count 2.58 x10^6/uL (3.50-5.40) 2.39 x10^6/uL (3.50-5.40) Mean Corpuscular Volume 89 fL (79-100) 91 fL (79-100) Mean Corpuscular Hemoglobin 30 pg (25-35) 31 pg (25-35) Red Cell Distribution Width 14.5 % (11.5-14.5) 14.6 % (11.5-14.5) Platelet Count 135 x10^3/uL (140-400) 150 x10^3/uL (140-400) Neutrophils (%) (Auto) 67 % (31-73) 62 % (31-73) Lymphocytes (%) (Auto) 20 % (24-48) 24 % (24-48) Monocytes (%) (Auto) 12 % (0-9) 12 % (0-9) Eosinophils (%) (Auto) 1 % (0-3) 2 % (0-3) Basophils (%) (Auto) 0 % (0-3) 0 % (0-3) Neutrophils # (Auto) 7.5 x10^3uL (1.8-7.7) 5.8 x10^3uL (1.8-7.7) Lymphocytes # (Auto) 2.2 x10^3/uL (1.0-4.8) 2.2 x10^3/uL (1.0-4.8) Monocytes # (Auto) 1.3 x10^3/uL (0.0-1.1) 1.1 x10^3/uL (0.0-1.1) Eosinophils # (Auto) 0.1 x10^3/uL (0.0-0.7) 0.2 x10^3/uL (0.0-0.7) Basophils # (Auto) 0.0 x10^3/uL (0.0-0.2) 0.0 x10^3/uL (0.0-0.2) Prothrombin Time 22.2 SEC (11.7-14.0) 21.8 SEC (11.7-14.0) Prothromb Time International Ratio 2.1 (0.8-1.1) 2.0 (0.8-1.1) Sodium Level 136 mmol/L (136-145) 138 mmol/L (136-145) Potassium Level 3.7 mmol/L (3.5-5.1) 3.4 mmol/L (3.5-5.1) Chloride Level 103 mmol/L (98-107) 104 mmol/L (98-107) Carbon Dioxide Level 29 mmol/L (21-32) 28 mmol/L (21-32) Anion Gap 4 (6-14) 6 (6-14) Blood Urea Nitrogen 6 mg/dL (7-20) 5 mg/dL (7-20) Creatinine 0.4 mg/dL (0.6-1.0) 0.5 mg/dL (0.6-1.0) Estimated GFR (Cockcroft-Gault) 162.3 125.4 BUN/Creatinine Ratio 15 (6-20) Glucose Level 90 mg/dL (70-99) 94 mg/dL (70-99) Calcium Level 7.6 mg/dL (8.5-10.1) 8.1 mg/dL (8.5-10.1) Total Bilirubin 0.3 mg/dL (0.2-1.0) Aspartate Amino Transf (AST/SGOT) 42 U/L (15-37) Alanine Aminotransferase (ALT/SGPT) 55 U/L (14-59) Alkaline Phosphatase 68 U/L (46-116) Total Protein 5.6 g/dL (6.4-8.2) Albumin 2.6 g/dL (3.4-5.0) Albumin/Globulin Ratio 0.9 (1.0-1.7) Laboratory Tests Test 09/21/16 04:10 White Blood Count 9.3 x10^3/uL (4.0-11.0) Red Blood Count 2.39 x10^6/uL (3.50-5.40) Hemoglobin 7.3 g/dL (12.0-15.5) Hematocrit 21.7 % (36.0-47.0) Mean Corpuscular Volume 91 fL (79-100) Mean Corpuscular Hemoglobin 31 pg (25-35) Mean Corpuscular Hemoglobin Concent 34 g/dL (31-37) Red Cell Distribution Width 14.6 % (11.5-14.5) Platelet Count 150 x10^3/uL (140-400) Neutrophils (%) (Auto) 62 % (31-73) Lymphocytes (%) (Auto) 24 % (24-48) Monocytes (%) (Auto) 12 % (0-9) Eosinophils (%) (Auto) 2 % (0-3) Basophils (%) (Auto) 0 % (0-3) Neutrophils # (Auto) 5.8 x10^3uL (1.8-7.7) Lymphocytes # (Auto) 2.2 x10^3/uL (1.0-4.8) Monocytes # (Auto) 1.1 x10^3/uL (0.0-1.1) Eosinophils # (Auto) 0.2 x10^3/uL (0.0-0.7) Basophils # (Auto) 0.0 x10^3/uL (0.0-0.2) Prothrombin Time 21.8 SEC (11.7-14.0) Prothromb Time International Ratio 2.0 (0.8-1.1) Sodium Level 138 mmol/L (136-145) Potassium Level 3.4 mmol/L (3.5-5.1) Chloride Level 104 mmol/L (98-107) Carbon Dioxide Level 28 mmol/L (21-32) Anion Gap 6 (6-14) Blood Urea Nitrogen 5 mg/dL (7-20) Creatinine 0.5 mg/dL (0.6-1.0) Estimated GFR (Cockcroft-Gault) 125.4 Glucose Level 94 mg/dL (70-99) Calcium Level 8.1 mg/dL (8.5-10.1) Microbiology 09/18/16 Urine Culture - Final, Complete 09/18/16 Urine Culture Result 1 (HIRA) - Final, Complete Medications Current Medications Sodium Chloride 500 ml @ 500 mls/hr 1X ONCE IV Last administered on 09/18/16 13:56; Start 09/18/16 at 12:45; Stop 09/18/16 at 13:44; Status DC Fentanyl Citrate (Fentanyl 2ml Vial) 25 mcg 1X PRN PRN IV SEVERE PAIN Last administered on 09/18/16 13:10; Start 09/18/16 at 12:45; Stop 09/19/16 at 11:57; Status DC Ondansetron HCl (Zofran) 4 mg 1X ONCE IV Last administered on 09/18/16 13:10; Start 09/18/16 at 12:45; Stop 09/18/16 at 12:54; Status DC Sodium Chloride 1,000 ml @ 100 mls/hr 1X ONCE IV Last administered on 14:35; Start 09/18/16 at 13:15; Stop 09/18/16 at 23:14; Status DC Ondansetron HCl (Zofran) 4 mg PRN Q8HRS PRN IV NAUSEA/VOMITING; Start 09/18/16 at 13:15; Stop 09/19/16 at 13:14; Status DC Morphine Sulfate 2 mg PRN Q2HR PRN IV PAIN Last administered on 09/18/16 21:12 ; Start 09/18/16 at 13:15; Stop 09/19/16 at 13:14; Status DC Ondansetron HCl (Zofran) 4 mg PRN Q6HRS PRN IV NAUSEA/VOMITING; Start 09/18/16 at 13:30; Stop 09/19/16 at 13:29; Status DC Fentanyl Citrate (Fentanyl 2ml Vial) 25 mcg PRN Q5MIN PRN IV MILD PAIN; Start 09/18/16 at 13:30; Stop 09/19/16 at 13:29; Status DC Fentanyl Citrate (Fentanyl 2ml Vial) 50 mcg PRN Q5MIN PRN IV MODERATE PAIN; Start 09/18/16 at 13:30; Stop 09/19/16 at 13:29; Status DC Morphine Sulfate 1 mg PRN Q10MIN PRN IV SEVERE PAIN Last administered on 18:07; Start 09/18/16 at 13:30; Stop 09/19/16 at 13:29; Status DC Ringer's Solution 1,000 ml @ 0 mls/hr Q0M IV ; Start 09/18/16 at 13:22; Stop 09/19/16 at 01:21; Status DC Lidocaine HCl 2 ml PRN 1X PRN ID PRIOR TO IV START; Start 09/18/16 at 13:30; Stop 09/19/16 at 13:29; Status DC Hydromorphone HCl (Dilaudid) 0.5 mg PRN Q10MIN PRN IV SEV PAIN, Second choice Last administered on 09/18/16 14:35; Start 09/18/16 at 13:30; Stop 09/19/16 at 13: 29; Status DC Prochlorperazine Edisylate (Compazine) 5 mg PACU PRN PRN IV NAUSEA, MRX1; Start 09/18/16 at 13:30; Stop 09/19/16 at 13:29; Status DC Propofol 20 ml @ As Directed STK-MED ONCE IV ; Start 09/18/16 at 15:10; Stop 09/18 at 15:11; Status DC Lidocaine HCl (Lidocaine HCl 2% Abboject) 100 mg STK-MED ONCE .ROUTE ; Start 09/18/16 at 15:10; Stop 09/18/16 at 15:11; Status DC Midazolam HCl (Versed) 2 mg STK-MED ONCE .ROUTE ; Start 09/18/16 at 15:10; Stop 09/18/16 at 15:11; Status DC Albuterol Sulfate (Ventolin Hfa) 1 puff [id number] IH ; Start 09/18/16 at 18:00; Status UNV Bupropion HCl (Wellbutrin) 100 mg BID PO Last administered on 09/21/16 08:09; Start 09/18/16 at 21:00 Simvastatin (Zocor) 20 mg QHS PO Last administered on 09/20/16 21:06; Start 09/18/16 at 21:00 Non-Formulary Medication 2 puff BID IH ; Start 09/18/16 at 21:00; Status UNV Lorazepam (Ativan) 0.5 mg BID PO Last administered on 09/21/16 08:09; Start 09/18/16 at 21:00 Olanzapine (Zyprexa) 20 mg DAILY PO ; Start 09/19/16 at 09:00; Stop 09/19/16 at 19 :50; Status DC Budesonide (Pulmicort) 0.5 mg RTBID NEB Last administered on 09/21/16 07:32; Start 09/18/16 at 20:00 Albuterol Sulfate (Ventolin Neb Soln) 2.5 mg [id number] NEB Last administered on 09/21 07:32; Start 09/18/16 at 18:00 Sodium Chloride 1,000 ml @ 100 mls/hr Q10H IV Last administered on 09/21/16t 06 :21; Start 09/18/16 at 15:30 Cefazolin Sodium 50 ml @ As Directed STK-MED ONCE IV ; Start 09/18/16 at 15:20; Stop 09/18/16 at 15:21; Status DC Lidocaine HCl (Lidocaine HCl 2% Abboject) 100 mg STK-MED ONCE .ROUTE ; Start 09/18/16 at 16:06; Stop 09/18/16 at 16:07; Status DC Phenylephrine HCl 1 mg STK-MED ONCE IV ; Start 09/18/16 at 16:06; Stop 09/18/16 at 16:07; Status DC Ephedrine Sulfate 50 mg STK-MED ONCE IV ; Start 09/18/16 at 16:07; Stop 09/18/16 at 16:08; Status DC Dexamethasone Sodium Phosphate (Decadron) 20 mg STK-MED ONCE .ROUTE ; Start 09/18 at 16:36; Stop 09/18/16 at 16:37; Status DC Ondansetron HCl (Zofran) 4 mg STK-MED ONCE .ROUTE ; Start 09/18/16 at 16:36; Stop 09/18/16 at 16:37; Status DC Sevoflurane (Ultane) 30 ml STK-MED ONCE IH ; Start 09/18/16 at 17:01; Stop at 17:02; Status DC Sevoflurane (Ultane) 60 ml STK-MED ONCE IH ; Start 09/18/16 at 17:01; Stop at 17:02; Status DC Fentanyl Citrate (Fentanyl 2ml Vial) 100 mcg STK-MED ONCE .ROUTE ; Start at 17:02; Stop 09/18/16 at 17:03; Status DC Phenylephrine HCl 1 mg STK-MED ONCE IV ; Start 09/18/16 at 17:15; Stop 09/18/16 at 17:16; Status DC Oxycodone HCl (Roxicodone) 5 mg PRN Q3HRS PRN PO PAIN; Start 09/18/16 at 17:30 Morphine Sulfate 2 mg PRN Q1HR PRN IV PAIN Last administered on 09/20/16t 05:28 ; Start 09/18/16 at 17:30 Fentanyl Citrate (Fentanyl 2ml Vial) 25 mcg PRN Q1HR PRN IV PAIN Last administered on 09/19/16 11:55; Start 09/18/16 at 17:30; Stop 09/19/16 at 13:44; Status DC Senna/Docusate Sodium (Senna Plus) 1 tab DAILY PO Last administered on 08:09; Start 09/19/16 at 09:00 Polyethylene Glycol (miraLAX PACKET) 17 gm PRN DAILY PRN PO CONSTIPATION; Start 09/18/16 at 17:30 Ondansetron HCl (Zofran) 4 mg PRN Q4HRS PRN IV NAUSEA/VOMITING; Start 09/18/16 at 17:30 Warfarin Sodium (Coumadin) 7.5 mg 1X ONCE PO ; Start 09/18/16 at 16:00; Stop 09/18/16 at 16:01; Status UNV Warfarin Sodium (Coumadin Per Pharmacy) 1 each PRN DAILY PRN MC SEE COMMENTS Last administered on 09/20/16 12:55; Start 09/19/16 at 17:30 Magnesium Hydroxide (Milk Of Magnesia) 2,400 mg 1X PRN PRN PO CONSTIPATION; Start 09/19/16 at 06:00; Stop 09/20/16 at 05:59; Status DC Bisacodyl (Dulcolax Supp) 10 mg 1X PRN PRN NM CONSTIPATION; Start 09/19/16 at 16 :00; Stop 09/20/16 at 15:59; Status DC Acetaminophen/ Hydrocodone Bitart (Lortab 7.5/325) 1 tab PRN Q4HRS PRN PO PAIN Last administered on 09/19/16 06:04; Start 09/18/16 at 17:30 Morphine Sulfate 4 mg PRN Q2HR PRN IV PAIN Last administered on 09/21/16 06:22 ; Start 09/18/16 at 17:30 Acetaminophen/ Hydrocodone Bitart (Lortab 7.5/325) 2 tab PRN Q4HRS PRN PO PAIN Last administered on 09/21/16 08:09; Start 09/18/16 at 17:30 Dextrose (Dextrose 50%-Water Syringe) 12.5 gm PRN Q15MIN PRN IV SEE COMMENTS; Start 09/18/16 at 17:30 Cefazolin Sodium 1 gm/Sodium Chloride 50 ml @ 100 mls/hr Q6H IV Last administered on 09/19/16 09:40; Start 09/18/16 at 22:00; Stop 09/19/16 at 10:29; Status DC Warfarin Sodium (Coumadin) 5 mg 1X WARF ONCE PO Last administered on 09/18/16 18:00; Start 09/18/16 at 18:00; Stop 09/18/16 at 18:01; Status DC Nicotine (Nicoderm Cq 21mg) 1 patch PRN DAILY PRN TD SMOKING CESSATION Last administered on 09/19/16 08:29; Start 09/18/16 at 18:00 Warfarin Sodium (Coumadin) 4 mg 1X WARF ONCE PO Last administered on 09/19/16 16:12; Start 09/19/16 at 16:00; Stop 09/19/16 at 16:01; Status DC Fentanyl Citrate (Fentanyl 2ml Vial) 50 mcg PRN Q2HR PRN IV PAIN; Start at 17:30 Docusate Sodium (Colace) 100 mg DAILY PO Last administered on 09/21/16 08:09; Start 09/19/16 at 14:00 Polyethylene Glycol (miraLAX PACKET) 17 gm PRN DAILY PRN PO CONSTIPATION; Start 09/19/16 at 13:45; Stop 09/20/16 at 12:52; Status DC Olanzapine (Zyprexa) 20 mg HS PO Last administered on 09/20/16 21:06; Start 09/19/16 at 21:00 Warfarin Sodium (Coumadin) 1 mg 1X WARF ONCE PO Last administered on 09/20/16 15:53; Start 09/20/16 at 16:00; Stop 09/20/16 at 16:01; Status DC Polyethylene Glycol (miraLAX PACKET) 17 gm 1X ONCE PO Last administered on 09/20 15:52; Start 09/20/16 at 15:15; Stop 09/20/16 at 15:17; Status DC Polyethylene Glycol (miraLAX PACKET) 17 gm DAILY PO Last administered on 08:09; Start 09/21/16 at 09:00 Vitamin D (Vitamin D3) 5,000 unit DAILY PO Last administered on 5/8/17at 08:34 ; Start 09/20/16 at 15:15 Active Scripts Active Proair Hfa (Albuterol Sulfate) 8.5 Gm Hfa.aer.ad 8.5 Gm IH [id number] Pulmicort Flexhaler (Budesonide) 180 Mcg Aer.pow.ba 2 Puff IH BID Reported Clorazepate Dipotassium 3.75 Mg Tablet 3.75 Mg PO BID Simvastatin 20 Mg Tablet 20 Mg PO DAILY Olanzapine 20 Mg Tablet 20 Mg PO DAILY Bupropion Hcl 100 Mg Tablet 100 Mg PO BID Vitals/I & O Vital Sign - Last 24 Hours 09/20/16 09/20/16 09/20/16 09/20/16 09:39 10:52 11:18 13:50 Temp 98.6 98.6 Pulse 88 Resp 18 20 20 18 B/P (MAP) 125/69 (87) Pulse Ox 98 98 O2 Delivery Nasal Cannula Room Air Nasal Cannula Nasal Cannula O2 Flow Rate 2.0 2.0 2.0 09/20/16 09/20/16 09/20/16 09/20/16 14:44 15:19 16:56 18:02 Temp 98.8 98.8 Pulse 93 Resp 20 20 B/P (MAP) 113/64 (80) Pulse Ox 100 100 O2 Delivery Nasal Cannula Nasal Cannula Nasal Cannula Nasal Cannula O2 Flow Rate 2.0 2.0 2.0 2.0 09/20/16 09/20/16 09/20/16 09/20/16 19:15 19:19 19:25 21:26 Temp 99.5 99.5 Pulse 112 Resp 20 18 20 B/P (MAP) 106/62 (77) Pulse Ox 96 O2 Delivery Nasal Cannula Nasal Cannula Nasal Cannula O2 Flow Rate 2.0 2.0 2.0 09/20/16 09/20/16 09/20/16 09/20/16 22:14 22:15 23:17 23:21 Temp 98.2 98.2 Pulse 107 Resp 20 20 16 B/P (MAP) 108/66 (80) Pulse Ox 97 O2 Delivery Nasal Cannula Nasal Cannula O2 Flow Rate 2.0 2.0 2.0 2.0 09/21/16 09/21/16 09/21/16 09/21/16 03:22 03:30 04:25 06:22 Temp 98.2 98.2 Pulse 93 Resp 20 16 20 20 B/P (MAP) 117/72 (87) Pulse Ox 97 O2 Delivery Nasal Cannula Nasal Cannula Nasal Cannula Nasal Cannula O2 Flow Rate 2.0 2.0 2.0 09/21/16 09/21/16 09/21/16 06:52 07:00 07:33 Temp 98.2 98.2 Pulse 97 Resp 16 B/P (MAP) 118/71 (87) Pulse Ox 97 O2 Delivery Nasal Cannula Nasal Cannula Nasal Cannula O2 Flow Rate 2.0 2.0 Intake and Output 09/20/16 09/20/16 09/21/16 14:59 22:59 06:59 Intake Total 540 ml 560 ml 875 ml Output Total 900 ml 2000 ml 1210 ml Balance -360 ml -1440 ml -335 ml FAHEEM DOUGHERTY MD September 21, 2016 09:32
[2016-09-21 11:00] VITALS: BP 135/75
[2016-09-21] MEDS: fentaNYL PF VIAL 100 MCG/2 ML VIAL IV PRN ×2 (12:04→19:47)
[2016-09-21 15:00] VITALS: BP 128/79
[2016-09-21] MEDS ORDERED: WARFARIN 2 MG TABLET. PO ONE (16:00)
[2016-09-21 19:00] VITALS: BP 106/70
[2016-09-21] MEDS ORDERED: fentaNYL PF VIAL 100 MCG/2 ML VIAL IV PRN (20:00)
[2016-09-21] MEDS: SIMVASTATIN 20 MG TABLET PO SCH (21:16)
[2016-09-21] MEDS: OLANZapine 5 MG TABLET PO SCH (21:16)
[2016-09-21 23:38] VITALS: BP 119/72
[2016-09-22] MEDS: HYDROcodone/APAP 7.5/325MG 1 TAB TABLET PO PRN ×4 (03:07→15:37)
[2016-09-22 03:34] VITALS: BP 149/87
[2016-09-22 04:05] LABS: INR 1.9 (0.8-1.1); PROTHROMBIN TIME PATIENT 20.3 SEC (11.7-14.0)
[2016-09-22] MEDS: MORPHINE SULFATE 4 MG/ML DISP.SYRIN. IV PRN (05:04)
[2016-09-22 07:00] VITALS: BP 147/84
[2016-09-22] MEDS: BUDESONIDE 0.5 MG/2 ML NEBU. NEB SCH (07:22)
[2016-09-22] MEDS: ALBUTEROL SULFATE 2.5 MG/3 ML NEBU. NEB SCH (07:22)
[2016-09-22] MEDS: LORazepam 0.5 MG TABLET PO SCH (09:07)
[2016-09-22] MEDS: DOCUSATE SODIUM 100 MG CAPSULE. PO SCH (09:07)
[2016-09-22] MEDS: buPROPion 100 MG TABLET PO SCH (09:07)
[2016-09-22] MEDS: CHOLECALCIFEROL (VITAMIN D3) 5,000 UNIT CAPSULE PO SCH (09:07)
[2016-09-22] MEDS: SENNOSIDES/DOCUSATE 8.6/50MG TABLET. PO SCH (09:07)
[2016-09-22] MEDS: POLYETHYLENE GLYCOL 3350 17 GM PACKET. PO SCH (09:07)
[2016-09-22] MEDS: IV NORMAL SALINE 1000ML BAG 1,000 ML IV SCH (09:08)
--- NOTE | 2016-09-22 09:28 | PDOC ---
PROGRESS NOTES Chief Complaint Chief Complaint 1. R intertrochanteric fx after a mechanical fall, S/P ORIF: On warfarin for DVT prophylaxis, PT/OT, pain not controlled, requiring IV fentanyl, limit narcotics. D/W SW, SNU Placement today. 2. Hx COPD (emphysematous type), O2 dependent, smoker: sable, continue current management. 3. HTN, stable 4. Hyponatremia resolved, 5. vit D def, osteoporosis 6, Post-op anemia, dilutional and expected: Monitor hemoglobin. stable, no active bleeding, History of Present Illness History of Present Illness no fever. pain not controlled Vitals Vitals Vital Signs Date Time Temp Pulse Resp B/P (MAP) Pulse Ox O2 Delivery O2 Flow Rate FiO2 09/22/16 09:14 Nasal Cannula 2.0 09/22/16 07:29 100 09/22/16 07:00 98.2 92 14 147/84 (105) 98.2 Physical Exam General: Alert, Oriented X3, Cooperative, No acute distress Heart: Regular rate, No murmurs Lungs: Clear, Other Abdomen: Normal bowel sounds, Soft, No tenderness, No hepatosplenomegaly, No masses Extremities: No clubbing, No cyanosis, No edema, Normal pulses, No tenderness/ swelling Skin: No rashes, No breakdown, No significant lesion Labs LABS Laboratory Tests Test 09/22/16 03:30 Prothrombin Time 20.3 SEC (11.7-14.0) Prothromb Time International Ratio 1.9 (0.8-1.1) Assessment and Plan Assessmemt and Plan Problems Medical Problems: (1) Fall Status: Acute (2) Head injury Status: Acute (3) Right hip pain Status: Acute Problems: Comment Review of Relevant I have reviewed the following items luis angel (where applicable) has been applied. Labs Laboratory Tests Test 09/21/16 04:10 09/22/16 03:30 White Blood Count 9.3 x10^3/uL (4.0-11.0) Red Blood Count 2.39 x10^6/uL (3.50-5.40) Hemoglobin 7.3 g/dL (12.0-15.5) Hematocrit 21.7 % (36.0-47.0) Mean Corpuscular Volume 91 fL (79-100) Mean Corpuscular Hemoglobin 31 pg (25-35) Mean Corpuscular Hemoglobin Concent 34 g/dL (31-37) Red Cell Distribution Width 14.6 % (11.5-14.5) Platelet Count 150 x10^3/uL (140-400) Neutrophils (%) (Auto) 62 % (31-73) Lymphocytes (%) (Auto) 24 % (24-48) Monocytes (%) (Auto) 12 % (0-9) Eosinophils (%) (Auto) 2 % (0-3) Basophils (%) (Auto) 0 % (0-3) Neutrophils # (Auto) 5.8 x10^3uL (1.8-7.7) Lymphocytes # (Auto) 2.2 x10^3/uL (1.0-4.8) Monocytes # (Auto) 1.1 x10^3/uL (0.0-1.1) Eosinophils # (Auto) 0.2 x10^3/uL (0.0-0.7) Basophils # (Auto) 0.0 x10^3/uL (0.0-0.2) Prothrombin Time 21.8 SEC (11.7-14.0) 20.3 SEC (11.7-14.0) Prothromb Time International Ratio 2.0 (0.8-1.1) 1.9 (0.8-1.1) Sodium Level 138 mmol/L (136-145) Potassium Level 3.4 mmol/L (3.5-5.1) Chloride Level 104 mmol/L (98-107) Carbon Dioxide Level 28 mmol/L (21-32) Anion Gap 6 (6-14) Blood Urea Nitrogen 5 mg/dL (7-20) Creatinine 0.5 mg/dL (0.6-1.0) Estimated GFR (Cockcroft-Gault) 125.4 Glucose Level 94 mg/dL (70-99) Calcium Level 8.1 mg/dL (8.5-10.1) Laboratory Tests Test 09/22/16 03:30 Prothrombin Time 20.3 SEC (11.7-14.0) Prothromb Time International Ratio 1.9 (0.8-1.1) Microbiology 09/18/16 Urine Culture - Final, Complete 09/18/16 Urine Culture Result 1 (HIRA) - Final, Complete Medications Current Medications Sodium Chloride 500 ml @ 500 mls/hr 1X ONCE IV Last administered on 09/18/16 13:56; Start 09/18/16 at 12:45; Stop 09/18/16 at 13:44; Status DC Fentanyl Citrate (Fentanyl 2ml Vial) 25 mcg 1X PRN PRN IV SEVERE PAIN Last administered on 09/18/16 13:10; Start 09/18/16 at 12:45; Stop 09/19/16 at 11:57; Status DC Ondansetron HCl (Zofran) 4 mg 1X ONCE IV Last administered on 09/18/16 13:10; Start 09/18/16 at 12:45; Stop 09/18/16 at 12:54; Status DC Sodium Chloride 1,000 ml @ 100 mls/hr 1X ONCE IV Last administered on 14:35; Start 09/18/16 at 13:15; Stop 09/18/16 at 23:14; Status DC Ondansetron HCl (Zofran) 4 mg PRN Q8HRS PRN IV NAUSEA/VOMITING; Start 09/18/16 at 13:15; Stop 09/19/16 at 13:14; Status DC Morphine Sulfate 2 mg PRN Q2HR PRN IV PAIN Last administered on 09/18/16 21:12 ; Start 09/18/16 at 13:15; Stop 09/19/16 at 13:14; Status DC Ondansetron HCl (Zofran) 4 mg PRN Q6HRS PRN IV NAUSEA/VOMITING; Start 09/18/16 at 13:30; Stop 09/19/16 at 13:29; Status DC Fentanyl Citrate (Fentanyl 2ml Vial) 25 mcg PRN Q5MIN PRN IV MILD PAIN; Start 09/18/16 at 13:30; Stop 09/19/16 at 13:29; Status DC Fentanyl Citrate (Fentanyl 2ml Vial) 50 mcg PRN Q5MIN PRN IV MODERATE PAIN; Start 09/18/16 at 13:30; Stop 09/19/16 at 13:29; Status DC Morphine Sulfate 1 mg PRN Q10MIN PRN IV SEVERE PAIN Last administered on 18:07; Start 09/18/16 at 13:30; Stop 09/19/16 at 13:29; Status DC Ringer's Solution 1,000 ml @ 0 mls/hr Q0M IV ; Start 09/18/16 at 13:22; Stop 09/19/16 at 01:21; Status DC Lidocaine HCl 2 ml PRN 1X PRN ID PRIOR TO IV START; Start 09/18/16 at 13:30; Stop 09/19/16 at 13:29; Status DC Hydromorphone HCl (Dilaudid) 0.5 mg PRN Q10MIN PRN IV SEV PAIN, Second choice Last administered on 09/18/16 14:35; Start 09/18/16 at 13:30; Stop 09/19/16 at 13: 29; Status DC Prochlorperazine Edisylate (Compazine) 5 mg PACU PRN PRN IV NAUSEA, MRX1; Start 09/18/16 at 13:30; Stop 09/19/16 at 13:29; Status DC Propofol 20 ml @ As Directed STK-MED ONCE IV ; Start 09/18/16 at 15:10; Stop 09/18 at 15:11; Status DC Lidocaine HCl (Lidocaine HCl 2% Abboject) 100 mg STK-MED ONCE .ROUTE ; Start 09/18/16 at 15:10; Stop 09/18/16 at 15:11; Status DC Midazolam HCl (Versed) 2 mg STK-MED ONCE .ROUTE ; Start 09/18/16 at 15:10; Stop 09/18/16 at 15:11; Status DC Albuterol Sulfate (Ventolin Hfa) 1 puff [id number] IH ; Start 09/18/16 at 18:00; Status UNV Bupropion HCl (Wellbutrin) 100 mg BID PO Last administered on 09/22/16 09:07; Start 09/18/16 at 21:00 Simvastatin (Zocor) 20 mg QHS PO Last administered on 09/21/16 21:16; Start 09/18/16 at 21:00 Non-Formulary Medication 2 puff BID IH ; Start 09/18/16 at 21:00; Status UNV Lorazepam (Ativan) 0.5 mg BID PO Last administered on 09/22/16 09:07; Start 09/18/16 at 21:00 Olanzapine (Zyprexa) 20 mg DAILY PO ; Start 09/19/16 at 09:00; Stop 09/19/16 at 19 :50; Status DC Budesonide (Pulmicort) 0.5 mg RTBID NEB Last administered on 09/22/16 07:22; Start 09/18/16 at 20:00 Albuterol Sulfate (Ventolin Neb Soln) 2.5 mg [id number] NEB Last administered on 09/22 07:22; Start 09/18/16 at 18:00 Sodium Chloride 1,000 ml @ 100 mls/hr Q10H IV Last administered on 09/22/16 09 :08; Start 09/18/16 at 15:30 Cefazolin Sodium 50 ml @ As Directed STK-MED ONCE IV ; Start 09/18/16 at 15:20; Stop 09/18/16 at 15:21; Status DC Lidocaine HCl (Lidocaine HCl 2% Abboject) 100 mg STK-MED ONCE .ROUTE ; Start 09/18/16 at 16:06; Stop 09/18/16 at 16:07; Status DC Phenylephrine HCl 1 mg STK-MED ONCE IV ; Start 09/18/16 at 16:06; Stop 09/18/16 at 16:07; Status DC Ephedrine Sulfate 50 mg STK-MED ONCE IV ; Start 09/18/16 at 16:07; Stop 09/18/16 at 16:08; Status DC Dexamethasone Sodium Phosphate (Decadron) 20 mg STK-MED ONCE .ROUTE ; Start 09/18 at 16:36; Stop 09/18/16 at 16:37; Status DC Ondansetron HCl (Zofran) 4 mg STK-MED ONCE .ROUTE ; Start 09/18/16 at 16:36; Stop 09/18/16 at 16:37; Status DC Sevoflurane (Ultane) 30 ml STK-MED ONCE IH ; Start 09/18/16 at 17:01; Stop at 17:02; Status DC Sevoflurane (Ultane) 60 ml STK-MED ONCE IH ; Start 09/18/16 at 17:01; Stop at 17:02; Status DC Fentanyl Citrate (Fentanyl 2ml Vial) 100 mcg STK-MED ONCE .ROUTE ; Start at 17:02; Stop 09/18/16 at 17:03; Status DC Phenylephrine HCl 1 mg STK-MED ONCE IV ; Start 09/18/16 at 17:15; Stop 09/18/16 at 17:16; Status DC Oxycodone HCl (Roxicodone) 5 mg PRN Q3HRS PRN PO PAIN; Start 09/18/16 at 17:30 Morphine Sulfate 2 mg PRN Q1HR PRN IV PAIN Last administered on 09/20/16 05:28 ; Start 09/18/16 at 17:30 Fentanyl Citrate (Fentanyl 2ml Vial) 25 mcg PRN Q1HR PRN IV PAIN Last administered on 09/19/16 11:55; Start 09/18/16 at 17:30; Stop 09/19/16 at 13:44; Status DC Senna/Docusate Sodium (Senna Plus) 1 tab DAILY PO Last administered on 09:07; Start 09/19/16 at 09:00 Polyethylene Glycol (miraLAX PACKET) 17 gm PRN DAILY PRN PO CONSTIPATION; Start 09/18/16 at 17:30 Ondansetron HCl (Zofran) 4 mg PRN Q4HRS PRN IV NAUSEA/VOMITING; Start 09/18/16 at 17:30 Warfarin Sodium (Coumadin) 7.5 mg 1X ONCE PO ; Start 09/18/16 at 16:00; Stop 09/18/16 at 16:01; Status UNV Warfarin Sodium (Coumadin Per Pharmacy) 1 each PRN DAILY PRN MC SEE COMMENTS Last administered on 09/21/16 11:28; Start 09/19/16 at 17:30 Magnesium Hydroxide (Milk Of Magnesia) 2,400 mg 1X PRN PRN PO CONSTIPATION; Start 09/19/16 at 06:00; Stop 09/20/16 at 05:59; Status DC Bisacodyl (Dulcolax Supp) 10 mg 1X PRN PRN GA CONSTIPATION; Start 09/19/16 at 16 :00; Stop 09/20/16 at 15:59; Status DC Acetaminophen/ Hydrocodone Bitart (Lortab 7.5/325) 1 tab PRN Q4HRS PRN PO PAIN Last administered on 09/19/16 06:04; Start 09/18/16 at 17:30 Morphine Sulfate 4 mg PRN Q2HR PRN IV PAIN Last administered on 09/22/16 05:04 ; Start 09/18/16 at 17:30 Acetaminophen/ Hydrocodone Bitart (Lortab 7.5/325) 2 tab PRN Q4HRS PRN PO PAIN Last administered on 09/22/16 07:44; Start 09/18/16 at 17:30 Dextrose (Dextrose 50%-Water Syringe) 12.5 gm PRN Q15MIN PRN IV SEE COMMENTS; Start 09/18/16 at 17:30 Cefazolin Sodium 1 gm/Sodium Chloride 50 ml @ 100 mls/hr Q6H IV Last administered on 09/19/16 09:40; Start 09/18/16 at 22:00; Stop 09/19/16 at 10:29; Status DC Warfarin Sodium (Coumadin) 5 mg 1X WARF ONCE PO Last administered on 09/18/16 18:00; Start 09/18/16 at 18:00; Stop 09/18/16 at 18:01; Status DC Nicotine (Nicoderm Cq 21mg) 1 patch PRN DAILY PRN TD SMOKING CESSATION Last administered on 09/19/16 08:29; Start 09/18/16 at 18:00 Warfarin Sodium (Coumadin) 4 mg 1X WARF ONCE PO Last administered on 09/19/16 16:12; Start 09/19/16 at 16:00; Stop 09/19/16 at 16:01; Status DC Fentanyl Citrate (Fentanyl 2ml Vial) 50 mcg PRN Q2HR PRN IV PAIN Last administered on 09/21/16 19:47; Start 09/19/16 at 17:30; Stop 09/21/16 at 19:57; Status DC Docusate Sodium (Colace) 100 mg DAILY PO Last administered on 09/22/16 09:07; Start 09/19/16 at 14:00 Polyethylene Glycol (miraLAX PACKET) 17 gm PRN DAILY PRN PO CONSTIPATION; Start 09/19/16 at 13:45; Stop 09/20/16 at 12:52; Status DC Olanzapine (Zyprexa) 20 mg HS PO Last administered on 09/21/16 21:16; Start 09/19/16 at 21:00 Warfarin Sodium (Coumadin) 1 mg 1X WARF ONCE PO Last administered on 09/20/16 15:53; Start 09/20/16 at 16:00; Stop 09/20/16 at 16:01; Status DC Polyethylene Glycol (miraLAX PACKET) 17 gm 1X ONCE PO Last administered on 09/20 15:52; Start 09/20/16 at 15:15; Stop 09/20/16 at 15:17; Status DC Polyethylene Glycol (miraLAX PACKET) 17 gm DAILY PO Last administered on 09:07; Start 09/21/16 at 09:00 Vitamin D (Vitamin D3) 5,000 unit DAILY PO Last administered on 09/22/16 09:07 ; Start 09/20/16 at 15:15 Warfarin Sodium (Coumadin) 2 mg 1X WARF ONCE PO Last administered on 09/21/16 15:38; Start 09/21/16 at 16:00; Stop 09/21/16 at 16:01; Status DC Fentanyl Citrate (Fentanyl 2ml Vial) 25 mcg PRN Q2HR PRN IV PAIN; Start at 20:00 Active Scripts Active Proair Hfa (Albuterol Sulfate) 8.5 Gm Hfa.aer.ad 8.5 Gm IH [id number] Pulmicort Flexhaler (Budesonide) 180 Mcg Aer.pow.ba 2 Puff IH BID Reported Clorazepate Dipotassium 3.75 Mg Tablet 3.75 Mg PO BID Simvastatin 20 Mg Tablet 20 Mg PO DAILY Olanzapine 20 Mg Tablet 20 Mg PO DAILY Bupropion Hcl 100 Mg Tablet 100 Mg PO BID Vitals/I & O Vital Sign - Last 24 Hours 09/21/16 09/21/16 09/21/16 09/21/16 10:29 11:00 12:04 12:34 Temp 98.4 98.4 Pulse 96 Resp 16 B/P (MAP) 135/75 (95) Pulse Ox 98 O2 Delivery Nasal Cannula Nasal Cannula Nasal Cannula Nasal Cannula O2 Flow Rate 2.0 09/21/16 09/21/16 09/21/16 09/21/16 14:55 15:00 17:59 19:00 Temp 98.2 98.6 98.2 98.6 Pulse 104 117 Resp 16 18 B/P (MAP) 128/79 (95) 106/70 (82) Pulse Ox 98 98 O2 Delivery Nasal Cannula Nasal Cannula Nasal Cannula Nasal Cannula O2 Flow Rate 2.0 2.0 09/21/16 09/21/16 09/21/16 09/21/16 19:24 19:47 19:50 21:18 Resp 18 O2 Delivery Nasal Cannula Nasal Cannula Nasal Cannula Nasal Cannula O2 Flow Rate 2.0 2.0 2.0 2.0 09/21/16 09/22/16 09/22/16 09/22/16 23:38 03:07 03:34 04:07 Temp 98.8 98.9 98.8 98.9 Pulse 91 96 Resp 18 B/P (MAP) 119/72 (88) 149/87 (107) Pulse Ox 98 96 O2 Delivery Nasal Cannula Nasal Cannula Nasal Cannula O2 Flow Rate 2.0 2.0 09/22/16 09/22/16 09/22/16 09/22/16 05:04 05:34 07:00 07:25 Temp 98.2 98.2 Pulse 92 Resp B/P (MAP) 147/84 (105) Pulse Ox 99 100 O2 Delivery Nasal Cannula Nasal Cannula Nasal Cannula Nasal Cannula O2 Flow Rate 2.0 2.0 2.0 2.0 09/22/16 09/22/16 09/22/16 07:29 07:44 09:14 Pulse Ox 100 O2 Delivery Nasal Cannula Nasal Cannula Nasal Cannula O2 Flow Rate 2.0 2.0 2.0 Intake and Output 09/21/16 09/21/16 09/22/16 15:00 23:00 07:00 Intake Total 2880 ml Output Total 1100 ml Balance 1780 ml FAHEEM DOUGHERTY MD September 22, 2016 09:28
[2016-09-22] MEDS: oxyCODONE IR 5 MG TABLET PO PRN ×2 (10:04→13:49)
[2016-09-22 11:00] VITALS: BP 131/76
[2016-09-22] MEDS ORDERED: WARFARIN 2.5 MG TABLET. PO ONE (16:00)
--- NOTE | 2016-09-23 01:27 | DS ---
DATE OF DISCHARGE: 09/22/2016 DISCHARGE DIAGNOSES: 1. Right intratrochanteric fracture after a mechanical fall, status post open reduction and internal fixation. 2. History of chronic obstructive pulmonary disease, chronic respiratory failure, currently on 2 liters of oxygen. 3. Hypertension, stable. 4. Hyponatremia. 5. Vitamin D deficiency, osteoporosis. 6. Postoperative anemia, likely dilutional; monitor hemoglobin. BRIEF HOSPITAL COURSE: This 61-year-old female patient admitted to the hospital for intertrochanteric fracture. She had an ORIF by Dr. Donaldson on 09/18/2016. Post surgery, the patient tolerated the procedure very well and pain is getting controlled currently on oral medications and she has been working with physical therapy and deemed stable enough to go to assisted facility for continued management. DISCHARGE EXAMINATION: Please see my progress note. DISCHARGE CONDITION: Stable. MEDICATIONS: Reviewed and reconciled. Please see MRAD. DIET: Regular. FOLLOWUP: With Dr. Donaldson in 2 weeks. Total time spent for discharge is 31 minutes for patient education, counseling, and coordination of care. FAHEEM DOUGHERTY MD DR: CORNELL/blu JOB#: [id number] / [id number] BETTYE
== END 2016-09-22 15:45 | DRG 481 ==
LOC: SURG 14:25 → 4 NORTH 14:27
PROVIDERS: ADMIT Internal Medicine; ATTEND Internal Medicine
PROC: 0QS604Z Reposition Right Upper Femur with Internal Fixation Device, Open Approach (ICD-10-PCS; principal; 2016-09-18 15:00)
DX: S72.141A Displaced intertrochanteric fracture of right femur, initial encounter for closed fracture (principal); E87.1 Hypo-osmolality and hyponatremia; J96.10 Chronic respiratory failure, unspecified whether with hypoxia or hypercapnia; D64.9 Anemia, unspecified; E55.9 Vitamin D deficiency, unspecified; E78.00 Pure hypercholesterolemia, unspecified; E78.5 Hyperlipidemia, unspecified; F17.210 Nicotine dependence, cigarettes, uncomplicated; F32.9 Major depressive disorder, single episode, unspecified; F41.9 Anxiety disorder, unspecified; I10 Essential (primary) hypertension; S09.90XA Unspecified injury of head, initial encounter; W01.0XXA Fall on same level from slipping, tripping and stumbling without subsequent striking against object, initial encounter; J44.9 Chronic obstructive pulmonary disease, unspecified; M81.0 Age-related osteoporosis without current pathological fracture; Z86.73 Personal history of transient ischemic attack (TIA), and cerebral infarction without residual deficits; Z90.710 Acquired absence of both cervix and uterus; Z99.81 Dependence on supplemental oxygen; Z88.8 Allergy status to other drugs, medicaments and biological substances; Y93.89 Activity, other specified; Y92.89 Other specified places as the place of occurrence of the external cause; Y99.8 Other external cause status
CPT/HCPCS: 36415; 51702; 70450; 71010; 72125; 72131; 73502; 76000; 80048; 80053; 80076; 81001; 82306; 83690; 84443; 85007; 85014; 85018; 85027; 85610; 85730; 86850; 86900; 86901; 87086; 93926; 94250; 94640; 94760; 96361; 96374; 96375; A4314; C1713; C1887; J0690; J1100; J1170; J2250; J2270; J2370; J2405; J2704; J3010; J7030; 97110; 97116; 97535; 99285-25

== ENCOUNTER 2016-11-11 19:46 | Inpatient (IN) | payer MEDICARE ==
[~2016-11-11] VITALS: Ht 160 cm; Wt 51.3 kg
[~2016-11-11 19:46] MED LIST changes: -ALBU8.5H5 IH; +ALBU8.5H8 IH; -ASPI325T4 PO; +ASPI325T8 PO
[2016-11-11 20:22] LABS: BASO # 0.1 x10^3/uL (0.0-0.2); BASO % 1 % (0-3); EOS % 1 % (0-3); HEMOGLOBIN 12.3 g/dL (12.0-15.5); LYMPH # 2.2 x10^3/uL (1.0-4.8); LYMPH % 16 % (24-48); MEAN CORPUSCULAR HEMOGLOBIN 29 pg (25-35); MEAN CORPUSCULAR HGB CONC 33 g/dL (31-37); MEAN CORPUSCULAR VOLUME 88 fL (79-100); MONO % 9 % (0-9); NEUT % 73 % (31-73); PLATELET COUNT 411 x10^3/uL (140-400); RED CELL DISTRIBUTION WIDTH 14.6 % (11.5-14.5); WHITE BLOOD COUNT 14.3 x10^3/uL (4.0-11.0)
[2016-11-11 20:33] LABS: ALBUMIN 3.9 g/dL (3.4-5.0); ALBUMIN/GLOBULIN RATIO 1.1 (1.0-1.7); CALCIUM 9.4 mg/dL (8.5-10.1); CREATININE 0.8 mg/dL (0.6-1.0); GFR 72.9; POTASSIUM 3.7 mmol/L (3.5-5.1); TOTAL BILIRUBIN 0.5 mg/dL (0.2-1.0); TOTAL PROTEIN 7.6 g/dL (6.4-8.2)
--- NOTE | 2016-11-11 20:50 | PHYS DOC ---
Past Medical History Past Medical History: Anxiety, Asthma, COPD, Depression, High Cholesterol, Hypertension, Stroke, Other Additional Past Medical Histor: R HIP FX Past Surgical History: Hysterectomy, Tonsillectomy, Other Additional Past Surgical Histo: bilat. breast surgery, removed fibroids; concrete on spine Alcohol Use: None Drug Use: None Adult General Chief Complaint Chief Complaint: COUGH HPI HPI Patient is a 61 year old female presents emergency department stating that she has had a one-week history of cough and congestion. She states that she's been coughing up yellow sputum. Patient states that she wears 2 L of oxygen at home for COPD. She states that she does still continue to smoke at home. Family member at the bedside states that they have been seen her primary care physician for slightly low sodium in which she was told to drink Gatorade to help bring that up. Patient denies any lightheadedness dizziness. She denies fever, chills or nausea or vomiting. Review of Systems Review of Systems Constitutional: Denies fever or chills [] Eyes: Denies change in visual acuity, redness, or eye pain [] HENT: Denies nasal congestion or sore throat [] Respiratory: Cough and shortness of air Cardiovascular: No additional information not addressed in HPI [] GI: Denies abdominal pain, nausea, vomiting, bloody stools or diarrhea [] : Denies dysuria or hematuria [] Musculoskeletal: Denies back pain or joint pain [] Integument: Denies rash or skin lesions [] Neurologic: Denies headache, focal weakness or sensory changes [] Endocrine: Denies polyuria or polydipsia [] Allergies Allergies Allergies Coded Allergies Type Severity Reaction Last Updated Verified haloperidol Allergy Intermediate makes neck tighten so she can't move head Yes Physical Exam Physical Exam Constitutional: Well developed, well nourished, no acute distress, non-toxic appearance. [] HENT: Normocephalic, atraumatic, bilateral external ears normal, oropharynx moist, no oral exudates, nose normal. [] Eyes: PERRLA, EOMI, conjunctiva normal, no discharge. [] Neck: Normal range of motion, no tenderness, supple, no stridor. [] Cardiovascular:Heart rate regular rhythm, no murmur [] Lungs & Thorax: Bilateral breath sounds coarse throughout bilateral lower lobes Skin: Warm, dry, no erythema, no rash. [] Back: No tenderness Extremities: No tenderness, no cyanosis, no clubbing, ROM intact, no edema. [] Neurologic: Alert and oriented X 3, normal motor function, normal sensory function, no focal deficits noted. [] Psychologic: Affect normal, judgement normal, mood normal. [] Current Patient Data Vital Signs Vital Signs Date Time Temp Pulse Resp B/P (MAP) Pulse Ox O2 Delivery O2 Flow Rate FiO2 11/11/16 20:47 81 16 184/97 (126) 99 Room Air 11/11/16 19:50 97.8 2.0 97.8 Lab Values Laboratory Tests Test 11/11/16 20:10 White Blood Count 14.3 x10^3/uL (4.0-11.0) H Red Blood Count 4.20 x10^6/uL (3.50-5.40) Hemoglobin 12.3 g/dL (12.0-15.5) Hematocrit 37.0 % (36.0-47.0) Mean Corpuscular Volume 88 fL (79-100) Mean Corpuscular Hemoglobin 29 pg (25-35) Mean Corpuscular Hemoglobin Concent 33 g/dL (31-37) Red Cell Distribution Width 14.6 % (11.5-14.5) H Platelet Count 411 x10^3/uL (140-400) H Neutrophils (%) (Auto) 73 % (31-73) Lymphocytes (%) (Auto) 16 % (24-48) L Monocytes (%) (Auto) 9 % (0-9) Eosinophils (%) (Auto) 1 % (0-3) Basophils (%) (Auto) 1 % (0-3) Neutrophils # (Auto) 10.4 x10^3uL (1.8-7.7) H Lymphocytes # (Auto) 2.2 x10^3/uL (1.0-4.8) Monocytes # (Auto) 1.3 x10^3/uL (0.0-1.1) H Eosinophils # (Auto) 0.2 x10^3/uL (0.0-0.7) Basophils # (Auto) 0.1 x10^3/uL (0.0-0.2) Sodium Level 119 mmol/L (136-145) *L Potassium Level 3.7 mmol/L (3.5-5.1) Chloride Level 82 mmol/L (98-107) L Carbon Dioxide Level 29 mmol/L (21-32) Anion Gap 8 (6-14) Blood Urea Nitrogen 6 mg/dL (7-20) L Creatinine 0.8 mg/dL (0.6-1.0) Estimated GFR (Cockcroft-Gault) 72.9 BUN/Creatinine Ratio 8 (6-20) Glucose Level 133 mg/dL (70-99) H Calcium Level 9.4 mg/dL (8.5-10.1) Total Bilirubin 0.5 mg/dL (0.2-1.0) Aspartate Amino Transferase (AST) 20 U/L (15-37) Alanine Aminotransferase (ALT) 19 U/L (14-59) Alkaline Phosphatase 113 U/L (46-116) ZG-Ter-L-Type Natriuretic Peptide 543 pg/mL (0-124) H Total Protein 7.6 g/dL (6.4-8.2) Albumin 3.9 g/dL (3.4-5.0) Albumin/Globulin Ratio 1.1 (1.0-1.7) Laboratory Tests 11/11/16 20:10 Laboratory Tests 11/11/16 20:10 EKG EKG [] Radiology/Procedures Radiology/Procedures [] Course & Med Decision Making Course & Med Decision Making Pertinent Labs and Imaging studies reviewed. (See chart for details) Patient's sodium was 119. Chest x-ray was read by Dr. Hayes is a possible right lower lobe pneumonia. Patient was informed that she will be admitted into the hospital. The hospitalist was notified for admission. [address] Napoles in regards to admission for this patient. She recommended patient be admitted into admit telemetry with a normal saline IV at 100 mL/h with a regular diet she had also recommended a random urine sodium. so recommendations was needed at this time. orders were completed. [] Dragon Disclaimer Dragon Disclaimer This electronic medical record was generated, in whole or in part, using a voice recognition dictation system. Departure Departure Impression: Primary Impression: Hyponatremia Disposition: ADMITTED INPATIENT Admitting Physician: Other (Dr Napoles) Referrals: MALLIKA HOLLY (PCP) DONTE BARRETO [employer] D[employer] IN Nov 11, 2016 20:50
[2016-11-11] MEDS ORDERED: AZITHROMYCIN 250 MG TABLET. PO ONE (21:00)
[2016-11-11] MEDS: IV NORMAL SALINE 1000ML BAG 1,000 ML IV SCH (21:24)
[2016-11-11 21:51] LABS: BILIRUBIN,URINE NEGATIVE (NEG); GLUCOSE,URINE NEGATIVE (NEG); NITRITE,URINE NEGATIVE (NEG); PH,URINE 7.5; PROTEIN,URINE NEGATIVE (NEG-TRACE); UROBILINOGEN,URINE 0.2 mg/dL (0.2 mg/dL)
[2016-11-11 21:56] LABS: RBC,URINE 0 /HPF (0-2)
[2016-11-11 21:57] LABS: BACTERIA,URINE FEW /HPF (0-FEW); SQUAMOUS EPITHELIAL CELL,UR OCC /LPF
[2016-11-11] MEDS ORDERED: OLAN20TA3 PO (22:23)
[2016-11-11] MEDS ORDERED: HYDR-2758 PO (22:23)
[2016-11-11 22:55] VITALS: BP 111/71
--- NOTE | 2016-11-11 23:16 | PDOC1 ---
History and Physical Date of Admission Date of Admission DATE: 11/11/16 TIME: 23:15 Identification/Chief Complaint Chief Complaint Productive cough SOB Problems: Source Source: Patient History of Present Illness History of Present Illness Patient is a 61 y/o woman with PMH of O2-dependent COPD, who presented o the ER with a one-week history of cough and congestion. She describes the sputum as thick-yellowish. She has some worsening of her respiratory status in form of increased shortness of breath/ dyspnea on exertion. She has not increased her home O2 of 2L. She has significantly cut down on her 1ppd cigarette habit. She denies any dizziness, feveres or chills. no sick contacts. In the ER, she was found with sever hyponatremia. According to family members preent in te ER, she had been found with hyponatremia by her PCP and advised to drink plenty of gatorade Past Medical History Cardiovascular: HTN, Hyperlipidemia Pulmonary: Asthma, COPD CENTRAL NERVOUS SYSTEM: CVA Psych: Depression Past Surgical History Past Surgical History: Tonsillectomy, Hysterectomy, Other (ORIF L hip) Current Problem List Problem List Problems Medical Problems: (1) Hyponatremia Status: Acute Problems: Current Medications Current Medications Current Medications Sodium Chloride 1,000 ml @ 100 mls/hr Q10H IV Last administered on 11/11/16 21:24; Start 11/11/16 at 20:57; Stop 11/12/16 at 20:56 Azithromycin (Zithromax) 500 mg 1X ONCE PO Last administered on 11/11/16 21: 24; Start 11/11/16 at 21:00; Stop 11/11/16 at 21:04; Status DC Azithromycin (Zithromax) 250 mg DAILY PO ; Start 11/12/16 at 09:00; Stop at 21:00 Active Scripts Active Proair Hfa (Albuterol Sulfate) 8.5 Gm Hfa.aer.ad 8.5 Gm IH BID66 Pulmicort Flexhaler (Budesonide) 180 Mcg Aer.pow.ba 2 Puff IH BID Reported Hydrocodone-Apap 5-325 (Hydrocodone Bit/Acetaminophen) 1 Each Tablet 1 Tab PO PRN Q6HRS PRN Zyprexa (Olanzapine) 20 Mg Tablet 1 Tab PO QHS Clorazepate Dipotassium 3.75 Mg Tablet 3.75 Mg PO BID Simvastatin 20 Mg Tablet 20 Mg PO DAILY Olanzapine 20 Mg Tablet 20 Mg PO DAILY Bupropion Hcl 100 Mg Tablet 100 Mg PO BID Allergies Allergies: Coded Allergies: haloperidol (Verified Allergy, Intermediate, makes neck tighten so she can 't move head, 02/05/14) Vitals Vitals Vital Signs Date Time Temp Pulse Resp B/P (MAP) Pulse Ox O2 Delivery O2 Flow Rate FiO2 11/11/16 21:22 70 16 147/81 (103) 100 Nasal Cannula 2.0 11/11/16 19:50 97.8 97.8 Labs Labs Laboratory Tests Test 11/11/16 20:10 11/11/16 21:42 White Blood Count 14.3 x10^3/uL (4.0-11.0) Red Blood Count 4.20 x10^6/uL (3.50-5.40) Hemoglobin 12.3 g/dL (12.0-15.5) Hematocrit 37.0 % (36.0-47.0) Mean Corpuscular Volume 88 fL (79-100) Mean Corpuscular Hemoglobin 29 pg (25-35) Mean Corpuscular Hemoglobin Concent 33 g/dL (31-37) Red Cell Distribution Width 14.6 % (11.5-14.5) Platelet Count 411 x10^3/uL (140-400) Neutrophils (%) (Auto) 73 % (31-73) Lymphocytes (%) (Auto) 16 % (24-48) Monocytes (%) (Auto) 9 % (0-9) Eosinophils (%) (Auto) 1 % (0-3) Basophils (%) (Auto) 1 % (0-3) Neutrophils # (Auto) 10.4 x10^3uL (1.8-7.7) Lymphocytes # (Auto) 2.2 x10^3/uL (1.0-4.8) Monocytes # (Auto) 1.3 x10^3/uL (0.0-1.1) Eosinophils # (Auto) 0.2 x10^3/uL (0.0-0.7) Basophils # (Auto) 0.1 x10^3/uL (0.0-0.2) Sodium Level 119 mmol/L (136-145) Potassium Level 3.7 mmol/L (3.5-5.1) Chloride Level 82 mmol/L (98-107) Carbon Dioxide Level 29 mmol/L (21-32) Anion Gap 8 (6-14) Blood Urea Nitrogen 6 mg/dL (7-20) Creatinine 0.8 mg/dL (0.6-1.0) Estimated GFR (Cockcroft-Gault) 72.9 BUN/Creatinine Ratio 8 (6-20) Glucose Level 133 mg/dL (70-99) Calcium Level 9.4 mg/dL (8.5-10.1) Total Bilirubin 0.5 mg/dL (0.2-1.0) Aspartate Amino Transf (AST/SGOT) 20 U/L (15-37) Alanine Aminotransferase (ALT/SGPT) 19 U/L (14-59) Alkaline Phosphatase 113 U/L (46-116) DJ-Rsq-D-Type Natriuretic Peptide 543 pg/mL (0-124) Total Protein 7.6 g/dL (6.4-8.2) Albumin 3.9 g/dL (3.4-5.0) Albumin/Globulin Ratio 1.1 (1.0-1.7) Urine Collection Type Void Urine Color Yellow Urine Clarity Clear Urine pH 7.5 Urine Specific [place] <=1.005 Urine Protein Negative mg/dL (NEG-TRACE) Urine Glucose (UA) Negative mg/dL (NEG) Urine Ketones (Stick) Negative mg/dL (NEG) Urine Blood Negative (NEG) Urine Nitrite Negative (NEG) Urine Bilirubin Negative (NEG) Urine Urobilinogen Dipstick 0.2 mg/dL (0.2 mg/dL) Urine Leukocyte Esterase Small (NEG) Urine RBC 0 /HPF (0-2) Urine WBC 5-10 /HPF (0-4) Urine Squamous Epithelial Cells Occ /LPF Urine Bacteria Few /HPF (0-FEW) Laboratory Tests Test 11/11/16 20:10 11/11/16 21:42 White Blood Count 14.3 x10^3/uL (4.0-11.0) Red Blood Count 4.20 x10^6/uL (3.50-5.40) Hemoglobin 12.3 g/dL (12.0-15.5) Hematocrit 37.0 % (36.0-47.0) Mean Corpuscular Volume 88 fL (79-100) Mean Corpuscular Hemoglobin 29 pg (25-35) Mean Corpuscular Hemoglobin Concent 33 g/dL (31-37) Red Cell Distribution Width 14.6 % (11.5-14.5) Platelet Count 411 x10^3/uL (140-400) Neutrophils (%) (Auto) 73 % (31-73) Lymphocytes (%) (Auto) 16 % (24-48) Monocytes (%) (Auto) 9 % (0-9) Eosinophils (%) (Auto) 1 % (0-3) Basophils (%) (Auto) 1 % (0-3) Neutrophils # (Auto) 10.4 x10^3uL (1.8-7.7) Lymphocytes # (Auto) 2.2 x10^3/uL (1.0-4.8) Monocytes # (Auto) 1.3 x10^3/uL (0.0-1.1) Eosinophils # (Auto) 0.2 x10^3/uL (0.0-0.7) Basophils # (Auto) 0.1 x10^3/uL (0.0-0.2) Sodium Level 119 mmol/L (136-145) Potassium Level 3.7 mmol/L (3.5-5.1) Chloride Level 82 mmol/L (98-107) Carbon Dioxide Level 29 mmol/L (21-32) Anion Gap 8 (6-14) Blood Urea Nitrogen 6 mg/dL (7-20) Creatinine 0.8 mg/dL (0.6-1.0) Estimated GFR (Cockcroft-Gault) 72.9 BUN/Creatinine Ratio 8 (6-20) Glucose Level 133 mg/dL (70-99) Calcium Level 9.4 mg/dL (8.5-10.1) Total Bilirubin 0.5 mg/dL (0.2-1.0) Aspartate Amino Transf (AST/SGOT) 20 U/L (15-37) Alanine Aminotransferase (ALT/SGPT) 19 U/L (14-59) Alkaline Phosphatase 113 U/L (46-116) SV-Urs-D-Type Natriuretic Peptide 543 pg/mL (0-124) Total Protein 7.6 g/dL (6.4-8.2) Albumin 3.9 g/dL (3.4-5.0) Albumin/Globulin Ratio 1.1 (1.0-1.7) Urine Collection Type Void Urine Color Yellow Urine Clarity Clear Urine pH 7.5 Urine Specific [place] <=1.005 Urine Protein Negative mg/dL (NEG-TRACE) Urine Glucose (UA) Negative mg/dL (NEG) Urine Ketones (Stick) Negative mg/dL (NEG) Urine Blood Negative (NEG) Urine Nitrite Negative (NEG) Urine Bilirubin Negative (NEG) Urine Urobilinogen Dipstick 0.2 mg/dL (0.2 mg/dL) Urine Leukocyte Esterase Small (NEG) Urine RBC 0 /HPF (0-2) Urine WBC 5-10 /HPF (0-4) Urine Squamous Epithelial Cells Occ /LPF Urine Bacteria Few /HPF (0-FEW) Images Images CXR in the ER was reviewed by myself: no infiltrate or effusion noted. normal cardiac silhouette VTE Prophylaxis Ordered VTE Prophylaxis Devices: No VTE Pharmacological Prophylaxi: Yes Assessment/Plan Assessment/Plan Mrs Brandon is a 61 y/o woman with O2 dependent COPD and recent hip ORIF, who presented with 1 week history of cough productive of yellowish sputum. CXR does not indicate pneumonia, but she clearly has acute bronchitis, COPD exacerbation. start her on oral steroids, nebs, continue O2 to keep sats in the low 90s; mucinex for sputum, and azithromycin. Hyponatremia is severe, but she has had same presentation 1 month ago, and she is asymptomatic. She will receive NS IV for now. Reevaluate fluid status in AM. urine sodium pending to evaluate for SIADH. may need formal evaluation. She is now 1 month out from hip fracture. She still requires occasional Stuart, which has been ordered PRN. She is off warferin for post op DVT risk. Prophylaxis will be obtained with lovenox. MILENA LAWRENCE MD Nov 11, 2016 23:16
[2016-11-12] VITALS (7 sets, daily range): BP systolic 108–125; BP diastolic 62–78
[2016-11-12] MEDS: HYDROcodone/APAP 5/325MG 1 TAB TABLET PO PRN ×4 (01:18→20:07)
--- NOTE | 2016-11-12 03:07 | ACF ---
Admission Forms Criteria HYPONATREMIA; HYPERNATREMIA; HYPOKALEMIA; HYPERKALEMIA; HYPOCALCEMIA; HYPERCALCEMIA Clinical Indications for Inpatient Care (Place 'X' for any and all applicable criteria): Ongoing inpatient care may be indicated for ANY ONE of the following [G](1)(2)(3 )(5): [X]I. Hyponatremia with ANY ONE of the following: [X]a) Sodium less than 130 mEq/L (mmol/L) (new) (6)(22) [ ]b) Sodium less than 135 mEq/L (mmol/L) with ANY ONE of the following: [ ]i) Severe medical etiology requiring inpatient management (eg, heart failure, hypovolemia) [ ]ii) Altered mental status [ ]iii) Seizures [ ]II. Hypernatremia with ANY ONE of the following: [ ]a) Sodium greater than 155 mEq/L (mmol/L) [ ]b) Sodium greater than 150 mEq/L (mmol/L) with ANY ONE of the following: [ ] i) Altered mental status [ ]ii) Seizures [ ]iii) Severe medical etiology (eg, hypovolemia, diabetes insipidus) [ ]iv) Severe weakness [ ]v) Severe medical etiology (eg, hemolysis, infection, drug overdose) [ ]III. Hypokalemia with ANY ONE of the following: [ ]a) Potassium less than 2.5 mEq/L (mmol/L) despite outpatient and emergency treatment [ ]b) Potassium less than 3.0 mEq/L (mmol/L) with ANY ONE of the following: [ ]i) Weakness [ ]ii) Cardiac abnormality (eg, arrhythmia, conduction disturbance) [ ]iii) Cardiac ischemia [ ]iv) Ileus [ ]v) Ongoing medical cause requiring inpatient management. ( e.g., acute renal wasting, SIADH) [ ]vi) Other severe symptoms [ ] IV. Hyperkalemia with ANY ONE of the following: [ ]a) Potassium greater than 6.5 mEq/L (mmol/L) [ ]b) Potassium greater than 5 mEq/L (mmol/L) with ANY ONE of the following: [ ]i) Severe ECG findings [H] [ ]ii) Acute worsening of renal failure (creatinine greater than 2.5 mg/dL (221 micromoles/L) or significant elevation for age and size) [ ] V. Hypocalcemia with ANY ONE of the following: [ ]a) Calcium less than 7 mg/dL (1.75 mmol/L) despite outpatient and emergency treatment(19) [ ]b) Calcium less than 8 mg/dL (2 mmol/L) with significant symptoms or findings; examples include: [ ]i) Cardiac abnormality (eg, arrhythmia or conduction disturbance) [ ]ii) Altered mental status [ ]iii) Seizures [ ]iv) Breathing difficulty [ ]v) Muscle spasms [ ]. Hypercalcemia with ANY ONE of the following: [ ]a) Calcium greater than 14 mg/dL (3.5 mmol/L) [ ]b) Calcium greater than 12 mg/dL (3 mmol/L) with ANY ONE of the following: [ ]i) Significant dehydration or hypovolemia as indicated by ANY ONE of the following(2): [ ]1. Clinically significant dehydration as indicated by ANY ONE of the following: [ ]A. Acute loss of weight from baseline (5% of body weight in adults, 9% in pediatric patients) [ ]B. Hemodynamic instability [ ]C. Acute renal failure [ ]D. Serum sodium greater than 150 mEq/L (mmol/L) [ ]2) Dehydration that is persistent indicated by ALL of the following: [ ]A. Oral rehydration therapy not tolerated or insufficient to adequately correct dehydration [ ]B. Appropriate intravenous treatment (eg, fluids ) does not readily correct dehydration ie, after 12 to 24 hours of treatment) [ ]ii) Significant symptoms or findings; examples include: [ ]1) Altered mental status [ ]2) Cardiac abnormality (eg, arrhythmia, conduction disturbance) [ ]3) Cardiac abnormality (eg, arrhythmia, conduction disturbance) The original [facility] content created by [facility] has been revised. The portions of the content which have been revised are identified through the use of italic text or in bold, and [facility] has neither reviewed nor approved the modified material. All other unmodified content is copyright [facility] Please see references footnoted in the original [facility] [employer] edition 2016 Admission Criteria Met?: Yes HALEY ALLEN Nov 12, 2016 03:07
[2016-11-12] MEDS ORDERED: ALBUTEROL SULFATE 8GM INHALER. IH SCH (06:00)
--- NOTE | 2016-11-12 07:35 | RAD ---
2 view CXR: Clinical indications: Shortness of breath today. Productive cough with yellow sputum. Comparison: September 18, 2016.. Findings: No acute lung infiltrate or pleural effusion or pulmonary edema or lung mass or pneumothorax is seen. The heart size, pulmonary vasculature, mediastinum and both amanda are unremarkable. A vertebroplasty of the upper lumbar spine is evident Impression: No acute radiographic abnormality is seen.
[2016-11-12] MEDS: IV NORMAL SALINE 1000ML BAG 1,000 ML IV SCH ×2 (07:39→16:47)
[2016-11-12] MEDS: ALBUTEROL SULFATE 2.5 MG/3 ML NEBU. NEB SCH ×2 (08:11→19:50)
[2016-11-12] MEDS: BUDESONIDE 0.5 MG/2 ML NEBU. NEB SCH ×2 (08:11→19:48)
[2016-11-12] MEDS: OLANZapine 5 MG TABLET PO SCH (08:36)
[2016-11-12] MEDS: NICOTINE 21MG PATCH. TD SCH (08:36)
[2016-11-12] MEDS: predniSONE 20 MG TABLET PO SCH (08:36)
[2016-11-12] MEDS: buPROPion 100 MG TABLET PO SCH ×2 (08:36→20:07)
[2016-11-12] MEDS: AZITHROMYCIN 250 MG TABLET. PO SCH (08:36)
[2016-11-12] MEDS ORDERED: NICOTINE 14MG PATCH. TD PRN (09:00)
[2016-11-12] MEDS ORDERED: NICOTINE POLACRILEX 2MG GUM PACKAGE of 12. BC PRN (09:00)
[2016-11-12] MEDS ORDERED: NON FORMULARY ITEM (Budesonide (Pulmicort Flexhaler) 2 PUFF) IH SCH (09:00)
--- NOTE | 2016-11-12 09:10 | PDOC ---
PROGRESS NOTES Chief Complaint Chief Complaint cough, dyspnea COPD, acute bronchitis, chronic combined respiratory failure Hyponatremia, appears hypovolemic recent hip ORIF, History of Present Illness History of Present Illness on NS 100, labs pending cont current increase nebs she feels better start PT and OT, recent hip surg, mult prior fractures Vitals Vitals Vital Signs Date Time Temp Pulse Resp B/P (MAP) Pulse Ox O2 Delivery O2 Flow Rate FiO2 11/12/16 08:40 16 94 Nasal Cannula 2.0 11/12/16 07:00 98.1 70 125/63 (83) 98.1 Physical Exam Physical Exam poor skin turgor, wrinkled, appears dry General: Alert, Cooperative, No acute distress Heart: Normal S1, No murmurs Lungs: Other (dull bases, minimal rales, no wheeze, vol is limited, ) Abdomen: Normal bowel sounds Extremities: No clubbing, No cyanosis Skin: No breakdown Labs LABS Laboratory Tests Test 11/11/16 20:10 11/11/16 21:42 White Blood Count 14.3 x10^3/uL (4.0-11.0) Red Blood Count 4.20 x10^6/uL (3.50-5.40) Hemoglobin 12.3 g/dL (12.0-15.5) Hematocrit 37.0 % (36.0-47.0) Mean Corpuscular Volume 88 fL (79-100) Mean Corpuscular Hemoglobin 29 pg (25-35) Mean Corpuscular Hemoglobin Concent 33 g/dL (31-37) Red Cell Distribution Width 14.6 % (11.5-14.5) Platelet Count 411 x10^3/uL (140-400) Neutrophils (%) (Auto) 73 % (31-73) Lymphocytes (%) (Auto) 16 % (24-48) Monocytes (%) (Auto) 9 % (0-9) Eosinophils (%) (Auto) 1 % (0-3) Basophils (%) (Auto) 1 % (0-3) Neutrophils # (Auto) 10.4 x10^3uL (1.8-7.7) Lymphocytes # (Auto) 2.2 x10^3/uL (1.0-4.8) Monocytes # (Auto) 1.3 x10^3/uL (0.0-1.1) Eosinophils # (Auto) 0.2 x10^3/uL (0.0-0.7) Basophils # (Auto) 0.1 x10^3/uL (0.0-0.2) Sodium Level 119 mmol/L (136-145) Potassium Level 3.7 mmol/L (3.5-5.1) Chloride Level 82 mmol/L (98-107) Carbon Dioxide Level 29 mmol/L (21-32) Anion Gap 8 (6-14) Blood Urea Nitrogen 6 mg/dL (7-20) Creatinine 0.8 mg/dL (0.6-1.0) Estimated GFR (Cockcroft-Gault) 72.9 BUN/Creatinine Ratio 8 (6-20) Glucose Level 133 mg/dL (70-99) Calcium Level 9.4 mg/dL (8.5-10.1) Total Bilirubin 0.5 mg/dL (0.2-1.0) Aspartate Amino Transf (AST/SGOT) 20 U/L (15-37) Alanine Aminotransferase (ALT/SGPT) 19 U/L (14-59) Alkaline Phosphatase 113 U/L (46-116) FQ-Lmp-E-Type Natriuretic Peptide 543 pg/mL (0-124) Total Protein 7.6 g/dL (6.4-8.2) Albumin 3.9 g/dL (3.4-5.0) Albumin/Globulin Ratio 1.1 (1.0-1.7) Urine Collection Type Void Urine Color Yellow Urine Clarity Clear Urine pH 7.5 Urine Specific [place] <=1.005 Urine Protein Negative mg/dL (NEG-TRACE) Urine Glucose (UA) Negative mg/dL (NEG) Urine Ketones (Stick) Negative mg/dL (NEG) Urine Blood Negative (NEG) Urine Nitrite Negative (NEG) Urine Bilirubin Negative (NEG) Urine Urobilinogen Dipstick 0.2 mg/dL (0.2 mg/dL) Urine Leukocyte Esterase Small (NEG) Urine RBC 0 /HPF (0-2) Urine WBC 5-10 /HPF (0-4) Urine Squamous Epithelial Cells Occ /LPF Urine Bacteria Few /HPF (0-FEW) Review of Systems Review of Systems cough hip pain feels better Assessment and Plan Assessmemt and Plan Problems Medical Problems: (1) Hyponatremia Status: Acute Problems: Comment Review of Relevant I have reviewed the following items luis angel (where applicable) has been applied. Labs Laboratory Tests Test 11/11/16 20:10 11/11/16 21:42 White Blood Count 14.3 x10^3/uL (4.0-11.0) Red Blood Count 4.20 x10^6/uL (3.50-5.40) Hemoglobin 12.3 g/dL (12.0-15.5) Hematocrit 37.0 % (36.0-47.0) Mean Corpuscular Volume 88 fL (79-100) Mean Corpuscular Hemoglobin 29 pg (25-35) Mean Corpuscular Hemoglobin Concent 33 g/dL (31-37) Red Cell Distribution Width 14.6 % (11.5-14.5) Platelet Count 411 x10^3/uL (140-400) Neutrophils (%) (Auto) 73 % (31-73) Lymphocytes (%) (Auto) 16 % (24-48) Monocytes (%) (Auto) 9 % (0-9) Eosinophils (%) (Auto) 1 % (0-3) Basophils (%) (Auto) 1 % (0-3) Neutrophils # (Auto) 10.4 x10^3uL (1.8-7.7) Lymphocytes # (Auto) 2.2 x10^3/uL (1.0-4.8) Monocytes # (Auto) 1.3 x10^3/uL (0.0-1.1) Eosinophils # (Auto) 0.2 x10^3/uL (0.0-0.7) Basophils # (Auto) 0.1 x10^3/uL (0.0-0.2) Sodium Level 119 mmol/L (136-145) Potassium Level 3.7 mmol/L (3.5-5.1) Chloride Level 82 mmol/L (98-107) Carbon Dioxide Level 29 mmol/L (21-32) Anion Gap 8 (6-14) Blood Urea Nitrogen 6 mg/dL (7-20) Creatinine 0.8 mg/dL (0.6-1.0) Estimated GFR (Cockcroft-Gault) 72.9 BUN/Creatinine Ratio 8 (6-20) Glucose Level 133 mg/dL (70-99) Calcium Level 9.4 mg/dL (8.5-10.1) Total Bilirubin 0.5 mg/dL (0.2-1.0) Aspartate Amino Transf (AST/SGOT) 20 U/L (15-37) Alanine Aminotransferase (ALT/SGPT) 19 U/L (14-59) Alkaline Phosphatase 113 U/L (46-116) XG-Yhg-H-Type Natriuretic Peptide 543 pg/mL (0-124) Total Protein 7.6 g/dL (6.4-8.2) Albumin 3.9 g/dL (3.4-5.0) Albumin/Globulin Ratio 1.1 (1.0-1.7) Urine Collection Type Void Urine Color Yellow Urine Clarity Clear Urine pH 7.5 Urine Specific [place] <=1.005 Urine Protein Negative mg/dL (NEG-TRACE) Urine Glucose (UA) Negative mg/dL (NEG) Urine Ketones (Stick) Negative mg/dL (NEG) Urine Blood Negative (NEG) Urine Nitrite Negative (NEG) Urine Bilirubin Negative (NEG) Urine Urobilinogen Dipstick 0.2 mg/dL (0.2 mg/dL) Urine Leukocyte Esterase Small (NEG) Urine RBC 0 /HPF (0-2) Urine WBC 5-10 /HPF (0-4) Urine Squamous Epithelial Cells Occ /LPF Urine Bacteria Few /HPF (0-FEW) Laboratory Tests Test 11/11/16 20:10 11/11/16 21:42 White Blood Count 14.3 x10^3/uL (4.0-11.0) Red Blood Count 4.20 x10^6/uL (3.50-5.40) Hemoglobin 12.3 g/dL (12.0-15.5) Hematocrit 37.0 % (36.0-47.0) Mean Corpuscular Volume 88 fL (79-100) Mean Corpuscular Hemoglobin 29 pg (25-35) Mean Corpuscular Hemoglobin Concent 33 g/dL (31-37) Red Cell Distribution Width 14.6 % (11.5-14.5) Platelet Count 411 x10^3/uL (140-400) Neutrophils (%) (Auto) 73 % (31-73) Lymphocytes (%) (Auto) 16 % (24-48) Monocytes (%) (Auto) 9 % (0-9) Eosinophils (%) (Auto) 1 % (0-3) Basophils (%) (Auto) 1 % (0-3) Neutrophils # (Auto) 10.4 x10^3uL (1.8-7.7) Lymphocytes # (Auto) 2.2 x10^3/uL (1.0-4.8) Monocytes # (Auto) 1.3 x10^3/uL (0.0-1.1) Eosinophils # (Auto) 0.2 x10^3/uL (0.0-0.7) Basophils # (Auto) 0.1 x10^3/uL (0.0-0.2) Sodium Level 119 mmol/L (136-145) Potassium Level 3.7 mmol/L (3.5-5.1) Chloride Level 82 mmol/L (98-107) Carbon Dioxide Level 29 mmol/L (21-32) Anion Gap 8 (6-14) Blood Urea Nitrogen 6 mg/dL (7-20) Creatinine 0.8 mg/dL (0.6-1.0) Estimated GFR (Cockcroft-Gault) 72.9 BUN/Creatinine Ratio 8 (6-20) Glucose Level 133 mg/dL (70-99) Calcium Level 9.4 mg/dL (8.5-10.1) Total Bilirubin 0.5 mg/dL (0.2-1.0) Aspartate Amino Transf (AST/SGOT) 20 U/L (15-37) Alanine Aminotransferase (ALT/SGPT) 19 U/L (14-59) Alkaline Phosphatase 113 U/L (46-116) RG-Ipt-S-Type Natriuretic Peptide 543 pg/mL (0-124) Total Protein 7.6 g/dL (6.4-8.2) Albumin 3.9 g/dL (3.4-5.0) Albumin/Globulin Ratio 1.1 (1.0-1.7) Urine Collection Type Void Urine Color Yellow Urine Clarity Clear Urine pH 7.5 Urine Specific [place] <=1.005 Urine Protein Negative mg/dL (NEG-TRACE) Urine Glucose (UA) Negative mg/dL (NEG) Urine Ketones (Stick) Negative mg/dL (NEG) Urine Blood Negative (NEG) Urine Nitrite Negative (NEG) Urine Bilirubin Negative (NEG) Urine Urobilinogen Dipstick 0.2 mg/dL (0.2 mg/dL) Urine Leukocyte Esterase Small (NEG) Urine RBC 0 /HPF (0-2) Urine WBC 5-10 /HPF (0-4) Urine Squamous Epithelial Cells Occ /LPF Urine Bacteria Few /HPF (0-FEW) Medications Current Medications Sodium Chloride 1,000 ml @ 100 mls/hr Q10H IV Last administered on 11/12/16 07:39; Start 11/11/16 at 20:57; Stop 11/12/16 at 20:56 Azithromycin (Zithromax) 500 mg 1X ONCE PO Last administered on 11/11/16 21: 24; Start 11/11/16 at 21:00; Stop 11/11/16 at 21:04; Status DC Azithromycin (Zithromax) 250 mg DAILY PO Last administered on 11/12/16 08:36; Start 11/12/16 at 09:00; Stop 11/15/16 at 21:00 Albuterol Sulfate (Ventolin Hfa) 2 puff BID66 IH ; Start 11/12/16 at 06:00; Status UNV Bupropion HCl (Wellbutrin) 100 mg BID PO Last administered on 11/12/16 08:36; Start 11/12/16 at 09:00 Acetaminophen/ Hydrocodone Bitart (Lortab 5/325) 1 tab PRN Q6HRS PRN PO PAIN Last administered on 11/12/16 07:39; Start 11/12/16 at 01:15 Simvastatin (Zocor) 20 mg HS PO ; Start 11/12/16 at 21:00 Non-Formulary Medication 2 puff BID IH ; Start 11/12/16 at 09:00; Status UNV Olanzapine (ZyPREXA) 20 mg DAILY PO Last administered on 11/12/16 08:36; Start 11/12/16 at 09:00 Albuterol Sulfate (Ventolin Neb Soln) 2.5 mg BID66 NEB Last administered on 08:11; Start 11/12/16 at 06:00 Budesonide (Pulmicort) 0.5 mg RTBID NEB Last administered on 11/12/16 08:11; Start 11/12/16 at 08:00 Prednisone (Prednisone) 40 mg DAILY PO Last administered on 11/12/16 08:36; Start 11/12/16 at 09:00 Nicotine (Nicoderm Cq 21mg) 1 patch DAILY TD Last administered on 11/12/16t 08: 36; Start 11/12/16 at 09:00 Active Scripts Active Proair Hfa (Albuterol Sulfate) 8.5 Gm Hfa.aer.ad 8.5 Gm IH BID66 Pulmicort Flexhaler (Budesonide) 180 Mcg Aer.pow.ba 2 Puff IH BID Reported Hydrocodone-Apap 5-325 (Hydrocodone Bit/Acetaminophen) 1 Each Tablet 1 Tab PO PRN Q6HRS PRN Zyprexa (Olanzapine) 20 Mg Tablet 1 Tab PO QHS Clorazepate Dipotassium 3.75 Mg Tablet 3.75 Mg PO BID Simvastatin 20 Mg Tablet 20 Mg PO DAILY Olanzapine 20 Mg Tablet 20 Mg PO DAILY Bupropion Hcl 100 Mg Tablet 100 Mg PO BID Vitals/I & O Vital Sign - Last 24 Hours 11/11/16 11/11/16 11/11/16 11/11/16 19:50 20:47 21:22 22:55 Temp 97.8 97.9 97.8 97.9 Pulse 85 81 70 67 Resp 20 16 16 20 B/P (MAP) 194/103 (133) 184/97 (126) 147/81 (103) 111/71 (84) Pulse Ox 99 99 100 96 O2 Delivery Nasal Cannula Room Air Nasal Cannula Room Air O2 Flow Rate 2.0 2.0 11/11/16 11/12/16 11/12/16 11/12/16 23:24 00:09 01:18 03:00 Temp 97.9 98.1 97.9 98.1 Pulse 67 76 Resp 20 20 20 B/P (MAP) 111/71 (84) 108/62 (77) Pulse Ox 96 96 O2 Delivery Nasal Cannula Room Air Room Air O2 Flow Rate 2.0 11/12/16 11/12/16 11/12/16 11/12/16 07:00 07:39 08:13 08:40 Temp 98.1 98.1 Pulse 70 Resp 18 16 16 B/P (MAP) 125/63 (83) Pulse Ox 96 96 94 94 O2 Delivery Room Air Nasal Cannula Nasal Cannula Nasal Cannula O2 Flow Rate 2.0 2.0 2.0 Intake and Output 6/28/17 6/28/17 6/29/17 15:00 23:00 07:00 Intake Total 350 ml Output Total 600 ml 650 ml Balance -600 ml -300 ml AIME WALKER MD Nov 12, 2016 09:10
[2016-11-12 10:24] LABS: CALCIUM 8.4 mg/dL (8.5-10.1); CREATININE 0.5 mg/dL (0.6-1.0); GFR 125.4; POTASSIUM 3.4 mmol/L (3.5-5.1)
[2016-11-12] MEDS: IPRATRPIUM/ALBUTEROL 0.5/2.5MG 3 ML NEBU. NEB SCH ×3 (11:29→19:48)
--- NOTE | 2016-11-12 12:52 | PDOC2 ---
CONSULT Date of Consult Date of Consult DATE: 11/12/16 TIME: 12:48 Reason for Consult Reason for Consult: LOW NA Referring Physician Referring Physician: MELINDA Identification/Chief Complaint Chief Complaint COUGH AND SOB Problems: Source Source: Chart review, Patient History of Present Illness Reason for Visit: THIS IS A 61 YR OLD WITH SOB AND COUGHING FOR ABOUT A WEEK. SHE IS ADMITTED WITH COPD PROBLEMS AND NOTED TO HAVE A NA LEVEL OF 119. SHE HAS HAD IVF'S OVER NIGHT AND HER NA IS 131 THIS AM. STATES THAT SHE HAS HAD PROBLEMS WITH THIS IN THE PAST. STATES THAT HER APPETITE HAS BEEN POOR Past Medical History Cardiovascular: HTN, Hyperlipidemia Pulmonary: Asthma, COPD CENTRAL NERVOUS SYSTEM: CVA Psych: Depression Past Surgical History Past Surgical History: Tonsillectomy, Hysterectomy, Other (ORIF L hip) Family History Family History: No Significant Current Problem List Problem List Problems Medical Problems: (1) Hyponatremia Status: Acute Current Medications Current Medications Current Medications Sodium Chloride 1,000 ml @ 100 mls/hr Q10H IV Last administered on 11/12/16 07:39; Start 11/11/16 at 20:57; Stop 11/12/16 at 20:56 Azithromycin (Zithromax) 500 mg 1X ONCE PO Last administered on 11/11/16 21: 24; Start 11/11/16 at 21:00; Stop 11/11/16 at 21:04; Status DC Azithromycin (Zithromax) 250 mg DAILY PO Last administered on 11/12/16 08:36; Start 11/12/16 at 09:00; Stop 11/15/16 at 21:00 Albuterol Sulfate (Ventolin Hfa) 2 puff BID66 IH ; Start 11/12/16 at 06:00; Status UNV Bupropion HCl (Wellbutrin) 100 mg BID PO Last administered on 11/12/16 08:36; Start 11/12/16 at 09:00 Acetaminophen/ Hydrocodone Bitart (Lortab 5/325) 1 tab PRN Q6HRS PRN PO PAIN Last administered on 11/12/16 07:39; Start 11/12/16 at 01:15 Simvastatin (Zocor) 20 mg HS PO ; Start 11/12/16 at 21:00 Non-Formulary Medication 2 puff BID IH ; Start 11/12/16 at 09:00; Status UNV Olanzapine (ZyPREXA) 20 mg DAILY PO Last administered on 11/12/16 08:36; Start 11/12/16 at 09:00 Albuterol Sulfate (Ventolin Neb Soln) 2.5 mg BID66 NEB Last administered on 08:11; Start 11/12/16 at 06:00 Budesonide (Pulmicort) 0.5 mg RTBID NEB Last administered on 11/12/16 08:11; Start 11/12/16 at 08:00 Prednisone (Prednisone) 40 mg DAILY PO Last administered on 11/12/16 08:36; Start 11/12/16 at 09:00 Nicotine (Nicoderm Cq 21mg) 1 patch DAILY TD Last administered on 11/12/16 08: 36; Start 11/12/16 at 09:00 Nicotine Polacrilex (Nicorette Gum) 1 each PRN Q1HR PRN BC SMOKING CESSATION; Start 11/12/16 at 09:00 Nicotine (Nicoderm Cq 14mg) 1 patch PRN DAILY PRN TD SMOKING CESSATION; Start 11/12/16 at 09:00 Albuterol/ Ipratropium (Duoneb) 3 ml Q4HRS W/A NEB Last administered on 11:29; Start 11/12/16 at 10:00 Active Scripts Active Proair Hfa (Albuterol Sulfate) 8.5 Gm Hfa.aer.ad 8.5 Gm IH BID66 Pulmicort Flexhaler (Budesonide) 180 Mcg Aer.pow.ba 2 Puff IH BID Reported Hydrocodone-Apap 5-325 (Hydrocodone Bit/Acetaminophen) 1 Each Tablet 1 Tab PO PRN Q6HRS PRN Zyprexa (Olanzapine) 20 Mg Tablet 1 Tab PO QHS Clorazepate Dipotassium 3.75 Mg Tablet 3.75 Mg PO BID Simvastatin 20 Mg Tablet 20 Mg PO DAILY Olanzapine 20 Mg Tablet 20 Mg PO DAILY Bupropion Hcl 100 Mg Tablet 100 Mg PO BID Allergies Allergies: Coded Allergies: haloperidol (Verified Allergy, Intermediate, makes neck tighten so she can 't move head, 02/05/14) ROS General: YES: Fatigue PSYCHOLOGICAL ROS: YES: Anxiety Eyes: Yes Decreased vision HEENT: YES: Heacaches Respiratory: YES: Cough, Shortness of breath Gastrointestinal: Yes Constipation Genitourinary: YES Other (NOCTURIA) Musculoskeletal: Yes Muscular Weakness Neurological: Yes Weakness Skin: Yes Dry Skin Physical Exam General: Alert, Oriented X3, Cooperative, No acute distress HEENT: Atraumatic Heart: Regular rate, Normal S1 Abdomen: Soft, No tenderness Extremities: No clubbing Neuro: Normal speech, Cranial nerves 3-12 NL Psych/Mental Status: Mental status NL, Mood NL MUSCULOSKELETAL: No deformity, No swelling Vitals VITALS Vital Signs Date Time Temp Pulse Resp B/P (MAP) Pulse Ox O2 Delivery O2 Flow Rate FiO2 11/12/16 11:29 96 Nasal Cannula 2.0 11/12/16 11:00 98.6 75 114/71 (85) 98.6 11/12/16 08:40 16 Labs Labs Laboratory Tests Test 11/11/16 20:10 11/11/16 21:42 11/12/16 08:40 White Blood Count 14.3 x10^3/uL (4.0-11.0) Red Blood Count 4.20 x10^6/uL (3.50-5.40) Hemoglobin 12.3 g/dL (12.0-15.5) Hematocrit 37.0 % (36.0-47.0) Mean Corpuscular Volume 88 fL (79-100) Mean Corpuscular Hemoglobin 29 pg (25-35) Mean Corpuscular Hemoglobin Concent 33 g/dL (31-37) Red Cell Distribution Width 14.6 % (11.5-14.5) Platelet Count 411 x10^3/uL (140-400) Neutrophils (%) (Auto) 73 % (31-73) Lymphocytes (%) (Auto) 16 % (24-48) Monocytes (%) (Auto) 9 % (0-9) Eosinophils (%) (Auto) 1 % (0-3) Basophils (%) (Auto) 1 % (0-3) Neutrophils # (Auto) 10.4 x10^3uL (1.8-7.7) Lymphocytes # (Auto) 2.2 x10^3/uL (1.0-4.8) Monocytes # (Auto) 1.3 x10^3/uL (0.0-1.1) Eosinophils # (Auto) 0.2 x10^3/uL (0.0-0.7) Basophils # (Auto) 0.1 x10^3/uL (0.0-0.2) Sodium Level 119 mmol/L (136-145) 131 mmol/L (136-145) Potassium Level 3.7 mmol/L (3.5-5.1) 3.4 mmol/L (3.5-5.1) Chloride Level 82 mmol/L (98-107) 97 mmol/L (98-107) Carbon Dioxide Level 29 mmol/L (21-32) 31 mmol/L (21-32) Anion Gap 8 (6-14) 3 (6-14) Blood Urea Nitrogen 6 mg/dL (7-20) 6 mg/dL (7-20) Creatinine 0.8 mg/dL (0.6-1.0) 0.5 mg/dL (0.6-1.0) Estimated GFR (Cockcroft-Gault) 72.9 125.4 BUN/Creatinine Ratio 8 (6-20) Glucose Level 133 mg/dL (70-99) 138 mg/dL (70-99) Calcium Level 9.4 mg/dL (8.5-10.1) 8.4 mg/dL (8.5-10.1) Total Bilirubin 0.5 mg/dL (0.2-1.0) Aspartate Amino Transf (AST/SGOT) 20 U/L (15-37) Alanine Aminotransferase (ALT/SGPT) 19 U/L (14-59) Alkaline Phosphatase 113 U/L (46-116) QZ-Izj-S-Type Natriuretic Peptide 543 pg/mL (0-124) Total Protein 7.6 g/dL (6.4-8.2) Albumin 3.9 g/dL (3.4-5.0) Albumin/Globulin Ratio 1.1 (1.0-1.7) Urine Collection Type Void Urine Color Yellow Urine Clarity Clear Urine pH 7.5 Urine Specific [place] <=1.005 Urine Protein Negative mg/dL (NEG-TRACE) Urine Glucose (UA) Negative mg/dL (NEG) Urine Ketones (Stick) Negative mg/dL (NEG) Urine Blood Negative (NEG) Urine Nitrite Negative (NEG) Urine Bilirubin Negative (NEG) Urine Urobilinogen Dipstick 0.2 mg/dL (0.2 mg/dL) Urine Leukocyte Esterase Small (NEG) Urine RBC 0 /HPF (0-2) Urine WBC 5-10 /HPF (0-4) Urine Squamous Epithelial Cells Occ /LPF Urine Bacteria Few /HPF (0-FEW) Laboratory Tests Test 11/11/16 20:10 11/11/16 21:42 11/12/16 08:40 White Blood Count 14.3 x10^3/uL (4.0-11.0) Red Blood Count 4.20 x10^6/uL (3.50-5.40) Hemoglobin 12.3 g/dL (12.0-15.5) Hematocrit 37.0 % (36.0-47.0) Mean Corpuscular Volume 88 fL (79-100) Mean Corpuscular Hemoglobin 29 pg (25-35) Mean Corpuscular Hemoglobin Concent 33 g/dL (31-37) Red Cell Distribution Width 14.6 % (11.5-14.5) Platelet Count 411 x10^3/uL (140-400) Neutrophils (%) (Auto) 73 % (31-73) Lymphocytes (%) (Auto) 16 % (24-48) Monocytes (%) (Auto) 9 % (0-9) Eosinophils (%) (Auto) 1 % (0-3) Basophils (%) (Auto) 1 % (0-3) Neutrophils # (Auto) 10.4 x10^3uL (1.8-7.7) Lymphocytes # (Auto) 2.2 x10^3/uL (1.0-4.8) Monocytes # (Auto) 1.3 x10^3/uL (0.0-1.1) Eosinophils # (Auto) 0.2 x10^3/uL (0.0-0.7) Basophils # (Auto) 0.1 x10^3/uL (0.0-0.2) Sodium Level 119 mmol/L (136-145) 131 mmol/L (136-145) Potassium Level 3.7 mmol/L (3.5-5.1) 3.4 mmol/L (3.5-5.1) Chloride Level 82 mmol/L (98-107) 97 mmol/L (98-107) Carbon Dioxide Level 29 mmol/L (21-32) 31 mmol/L (21-32) Anion Gap 8 (6-14) 3 (6-14) Blood Urea Nitrogen 6 mg/dL (7-20) 6 mg/dL (7-20) Creatinine 0.8 mg/dL (0.6-1.0) 0.5 mg/dL (0.6-1.0) Estimated GFR (Cockcroft-Gault) 72.9 125.4 BUN/Creatinine Ratio 8 (6-20) Glucose Level 133 mg/dL (70-99) 138 mg/dL (70-99) Calcium Level 9.4 mg/dL (8.5-10.1) 8.4 mg/dL (8.5-10.1) Total Bilirubin 0.5 mg/dL (0.2-1.0) Aspartate Amino Transf (AST/SGOT) 20 U/L (15-37) Alanine Aminotransferase (ALT/SGPT) 19 U/L (14-59) Alkaline Phosphatase 113 U/L (46-116) ZA-Sms-N-Type Natriuretic Peptide 543 pg/mL (0-124) Total Protein 7.6 g/dL (6.4-8.2) Albumin 3.9 g/dL (3.4-5.0) Albumin/Globulin Ratio 1.1 (1.0-1.7) Urine Collection Type Void Urine Color Yellow Urine Clarity Clear Urine pH 7.5 Urine Specific [place] <=1.005 Urine Protein Negative mg/dL (NEG-TRACE) Urine Glucose (UA) Negative mg/dL (NEG) Urine Ketones (Stick) Negative mg/dL (NEG) Urine Blood Negative (NEG) Urine Nitrite Negative (NEG) Urine Bilirubin Negative (NEG) Urine Urobilinogen Dipstick 0.2 mg/dL (0.2 mg/dL) Urine Leukocyte Esterase Small (NEG) Urine RBC 0 /HPF (0-2) Urine WBC 5-10 /HPF (0-4) Urine Squamous Epithelial Cells Occ /LPF Urine Bacteria Few /HPF (0-FEW) Assessment/Plan Assessment/Plan IMP HYPONATREMIA-RAPID CORRECTION WITH JUST ISOTONIC SALINE PLAN CONT SAME MOST LIKELY HYPOVOLEMIC HYPONATREMIA NO OTHER WORK UP NEEDED AT THIS TIME WILL FOLLOW RACHEL LECHUGA MD Nov 12, 2016 12:52
[2016-11-12] MEDS ORDERED: SIMVASTATIN 20 MG TABLET PO SCH (21:00)
[2016-11-13 03:06] VITALS: BP 118/72
[2016-11-13] MEDS: HYDROcodone/APAP 5/325MG 1 TAB TABLET PO PRN ×2 (05:19→09:30)
[2016-11-13] MEDS: ALBUTEROL SULFATE 2.5 MG/3 ML NEBU. NEB SCH (06:00)
[2016-11-13 06:45] LABS: BASO # 0.1 x10^3/uL (0.0-0.2); BASO % 0 % (0-3); EOS % 1 % (0-3); HEMATOCRIT 34.2 % (36.0-47.0); HEMOGLOBIN 11.2 g/dL (12.0-15.5); LYMPH # 2.4 x10^3/uL (1.0-4.8); LYMPH % 19 % (24-48); MEAN CORPUSCULAR HEMOGLOBIN 30 pg (25-35); MEAN CORPUSCULAR HGB CONC 33 g/dL (31-37); MEAN CORPUSCULAR VOLUME 90 fL (79-100); MONO % 11 % (0-9); NEUT % 69 % (31-73); PLATELET COUNT 388 x10^3/uL (140-400); RED CELL DISTRIBUTION WIDTH 14.9 % (11.5-14.5); WHITE BLOOD COUNT 12.4 x10^3/uL (4.0-11.0)
[2016-11-13 07:00] VITALS: BP 110/68
[2016-11-13 07:16] LABS: CALCIUM 8.8 mg/dL (8.5-10.1); CREATININE 0.4 mg/dL (0.6-1.0); GFR 162.3; POTASSIUM 3.3 mmol/L (3.5-5.1)
[2016-11-13] MEDS: IPRATRPIUM/ALBUTEROL 0.5/2.5MG 3 ML NEBU. NEB SCH ×2 (07:28→11:22)
[2016-11-13] MEDS: BUDESONIDE 0.5 MG/2 ML NEBU. NEB SCH (07:28)
[2016-11-13] MEDS: AZITHROMYCIN 250 MG TABLET. PO SCH (08:33)
[2016-11-13] MEDS: NICOTINE 21MG PATCH. TD SCH (08:33)
[2016-11-13] MEDS: buPROPion 100 MG TABLET PO SCH (08:33)
[2016-11-13] MEDS: OLANZapine 5 MG TABLET PO SCH (08:34)
[2016-11-13] MEDS: predniSONE 20 MG TABLET PO SCH (08:34)
[2016-11-13] MEDS ORDERED: AZIT250T6 PO (09:33)
[2016-11-13] MEDS ORDERED: PRED-220 PO (09:33)
--- NOTE | 2016-11-13 09:43 | PDOC3 ---
Discharge Summary Visit Information Date of Admission: Nov 11, 2016 Date of Discharge: Nov 13, 2016 Admitting Diagnosis: hyponatremia Final Diagnosis COPD, acute bronchitis, chronic combined respiratory failure Hyponatremia, hypovolemic recent hip ORIF, hp pain, poor mobility Problems Medical Problems: (1) Hyponatremia Status: Acute Brief Hospital Course Allergies Allergies Coded Allergies Type Severity Reaction Last Updated Verified haloperidol Allergy Intermediate makes neck tighten so she can't move head Yes Vital Signs Vital Signs Date Time Temp Pulse Resp B/P (MAP) Pulse Ox O2 Delivery O2 Flow Rate FiO2 11/13/16 07:35 97 Nasal Cannula 2.0 11/13/16 07:00 99.1 104 20 110/68 (82) 99.1 Lab Results Laboratory Tests Test 11/11/16 20:10 11/11/16 21:42 11/12/16 08:40 11/13/16 05:19 White Blood Count 14.3 x10^3/uL (4.0-11.0) 12.4 x10^3/uL (4.0-11.0) Red Blood Count 4.20 x10^6/uL (3.50-5.40) 3.80 x10^6/uL (3.50-5.40) Hemoglobin 12.3 g/dL (12.0-15.5) 11.2 g/dL (12.0-15.5) Hematocrit 37.0 % (36.0-47.0) 34.2 % (36.0-47.0) Mean Corpuscular Volume 88 fL (79-100) 90 fL (79-100) Mean Corpuscular Hemoglobin 29 pg (25-35) 30 pg (25-35) Mean Corpuscular Hemoglobin Concent 33 g/dL (31-37) 33 g/dL (31-37) Red Cell Distribution Width 14.6 % (11.5-14.5) 14.9 % (11.5-14.5) Platelet Count 411 x10^3/uL (140-400) 388 x10^3/uL (140-400) Neutrophils (%) (Auto) 73 % (31-73) 69 % (31-73) Lymphocytes (%) (Auto) 16 % (24-48) 19 % (24-48) Monocytes (%) (Auto) 9 % (0-9) 11 % (0-9) Eosinophils (%) (Auto) 1 % (0-3) 1 % (0-3) Basophils (%) (Auto) 1 % (0-3) 0 % (0-3) Neutrophils # (Auto) 10.4 x10^3uL (1.8-7.7) 8.5 x10^3uL (1.8-7.7) Lymphocytes # (Auto) 2.2 x10^3/uL (1.0-4.8) 2.4 x10^3/uL (1.0-4.8) Monocytes # (Auto) 1.3 x10^3/uL (0.0-1.1) 1.4 x10^3/uL (0.0-1.1) Eosinophils # (Auto) 0.2 x10^3/uL (0.0-0.7) 0.1 x10^3/uL (0.0-0.7) Basophils # (Auto) 0.1 x10^3/uL (0.0-0.2) 0.1 x10^3/uL (0.0-0.2) Sodium Level 119 mmol/L (136-145) 131 mmol/L (136-145) 137 mmol/L (136-145) Potassium Level 3.7 mmol/L (3.5-5.1) 3.4 mmol/L (3.5-5.1) 3.3 mmol/L (3.5-5.1) Chloride Level 82 mmol/L (98-107) 97 mmol/L (98-107) 101 mmol/L (98-107) Carbon Dioxide Level 29 mmol/L (21-32) 31 mmol/L (21-32) 28 mmol/L (21-32) Anion Gap 8 (6-14) 3 (6-14) 8 (6-14) Blood Urea Nitrogen 6 mg/dL (7-20) 6 mg/dL (7-20) 6 mg/dL (7-20) Creatinine 0.8 mg/dL (0.6-1.0) 0.5 mg/dL (0.6-1.0) 0.4 mg/dL (0.6-1.0) Estimated GFR (Cockcroft-Gault) 72.9 125.4 162.3 BUN/Creatinine Ratio 8 (6-20) Glucose Level 133 mg/dL (70-99) 138 mg/dL (70-99) 88 mg/dL (70-99) Calcium Level 9.4 mg/dL (8.5-10.1) 8.4 mg/dL (8.5-10.1) 8.8 mg/dL (8.5-10.1) Total Bilirubin 0.5 mg/dL (0.2-1.0) Aspartate Amino Transf (AST/SGOT) 20 U/L (15-37) Alanine Aminotransferase (ALT/SGPT) 19 U/L (14-59) Alkaline Phosphatase 113 U/L (46-116) EN-Pye-Z-Type Natriuretic Peptide 543 pg/mL (0-124) Total Protein 7.6 g/dL (6.4-8.2) Albumin 3.9 g/dL (3.4-5.0) Albumin/Globulin Ratio 1.1 (1.0-1.7) Urine Collection Type Void Urine Color Yellow Urine Clarity Clear Urine pH 7.5 Urine Specific [place] <=1.005 Urine Protein Negative mg/dL (NEG-TRACE) Urine Glucose (UA) Negative mg/dL (NEG) Urine Ketones (Stick) Negative mg/dL (NEG) Urine Blood Negative (NEG) Urine Nitrite Negative (NEG) Urine Bilirubin Negative (NEG) Urine Urobilinogen Dipstick 0.2 mg/dL (0.2 mg/dL) Urine Leukocyte Esterase Small (NEG) Urine RBC 0 /HPF (0-2) Urine WBC 5-10 /HPF (0-4) Urine Squamous Epithelial Cells Occ /LPF Urine Bacteria Few /HPF (0-FEW) Urine Random Sodium 33 mmol/L (Not Estab.) Laboratory Tests Test 11/13/16 05:19 White Blood Count 12.4 x10^3/uL (4.0-11.0) Red Blood Count 3.80 x10^6/uL (3.50-5.40) Hemoglobin 11.2 g/dL (12.0-15.5) Hematocrit 34.2 % (36.0-47.0) Mean Corpuscular Volume 90 fL (79-100) Mean Corpuscular Hemoglobin 30 pg (25-35) Mean Corpuscular Hemoglobin Concent 33 g/dL (31-37) Red Cell Distribution Width 14.9 % (11.5-14.5) Platelet Count 388 x10^3/uL (140-400) Neutrophils (%) (Auto) 69 % (31-73) Lymphocytes (%) (Auto) 19 % (24-48) Monocytes (%) (Auto) 11 % (0-9) Eosinophils (%) (Auto) 1 % (0-3) Basophils (%) (Auto) 0 % (0-3) Neutrophils # (Auto) 8.5 x10^3uL (1.8-7.7) Lymphocytes # (Auto) 2.4 x10^3/uL (1.0-4.8) Monocytes # (Auto) 1.4 x10^3/uL (0.0-1.1) Eosinophils # (Auto) 0.1 x10^3/uL (0.0-0.7) Basophils # (Auto) 0.1 x10^3/uL (0.0-0.2) Sodium Level 137 mmol/L (136-145) Potassium Level 3.3 mmol/L (3.5-5.1) Chloride Level 101 mmol/L (98-107) Carbon Dioxide Level 28 mmol/L (21-32) Anion Gap 8 (6-14) Blood Urea Nitrogen 6 mg/dL (7-20) Creatinine 0.4 mg/dL (0.6-1.0) Estimated GFR (Cockcroft-Gault) 162.3 Glucose Level 88 mg/dL (70-99) Calcium Level 8.8 mg/dL (8.5-10.1) Brief Hospital Course Ms. Brandon is a 61 old admit with Na 119, dyspnea and cough, hip pain post surgery recent IV fluid, NS given 100, Na iprovev to normal over 2 days she felt well, req. DC home renal was consulted, hypovol, hyponatremia , no f.u needed Discharge Information Condition at Discharge: Improved Follow Up: Weeks Disposition/Orders: D/C to Home Scheduled Albuterol Sulfate (Proair Hfa), 8.5 GM IH BID66 Azithromycin (Azithromycin Tablet), 250 MG PO DAILY Budesonide (Pulmicort Flexhaler), 2 PUFF IH BID Bupropion Hcl (Bupropion Hcl), 100 MG PO BID, (Reported) Clorazepate Dipotassium (Clorazepate Dipotassium), 3.75 MG PO BID, (Reported) Olanzapine (Olanzapine), 20 MG PO DAILY, (Reported) Olanzapine (Zyprexa), 1 TAB PO QHS, (Reported) Prednisone (Prednisone), 10 MG PO UD Simvastatin (Simvastatin), 20 MG PO DAILY, (Reported) Scheduled PRN Hydrocodone Bit/Acetaminophen (Hydrocodone-Apap 5-325 ), 1 TAB PO PRN Q6HRS PRN for PAIN, (Reported) Patient Instructions Patient Instructions time > 30min AIME WALKER MD Nov 13, 2016 09:43
== END 2016-11-13 11:56 | disposition home or self-care (01) | DRG 202 ==
LOC: ER 19:46 → 4 NORTH 20:47
PROVIDERS: ADMIT Internal Medicine Hematology & Oncology; ATTEND Internal Medicine Hematology & Oncology
DX: J20.9 Acute bronchitis, unspecified (principal); E87.1 Hypo-osmolality and hyponatremia; J44.0 Chronic obstructive pulmonary disease with (acute) lower respiratory infection; J96.10 Chronic respiratory failure, unspecified whether with hypoxia or hypercapnia; J44.1 Chronic obstructive pulmonary disease with (acute) exacerbation; I10 Essential (primary) hypertension; E78.5 Hyperlipidemia, unspecified; E78.00 Pure hypercholesterolemia, unspecified; F17.200 Nicotine dependence, unspecified, uncomplicated; E86.1 Hypovolemia; F32.9 Major depressive disorder, single episode, unspecified; F41.9 Anxiety disorder, unspecified; Z87.81 Personal history of (healed) traumatic fracture; Z90.710 Acquired absence of both cervix and uterus; Z99.81 Dependence on supplemental oxygen; Z86.73 Personal history of transient ischemic attack (TIA), and cerebral infarction without residual deficits; Z90.89 Acquired absence of other organs; Z79.899 Other long term (current) drug therapy; Z79.1 Long term (current) use of non-steroidal anti-inflammatories (NSAID); Z79.2 Long term (current) use of antibiotics; Z71.6 Tobacco abuse counseling; Z88.8 Allergy status to other drugs, medicaments and biological substances
CPT/HCPCS: 36415; 71020; 80048; 80053; 81001; 83880; 84300; 85027; 87086; 94250; 94640; J7030; J7512; J7620; J7626; Q0144; 99285-25

== ENCOUNTER 2017-09-13 13:57 | Emergency (ER) | payer MEDICARE ==
[2017-09-13] MEDS: ACETAMINOPHEN 325 MG TABLET. PO (16:24)
== END 2017-09-13 16:27 | disposition home or self-care (01) ==
LOC: ER 13:57
DX: S00.11XA Contusion of right eyelid and periocular area, initial encounter (principal); E78.00 Pure hypercholesterolemia, unspecified; J44.9 Chronic obstructive pulmonary disease, unspecified; I10 Essential (primary) hypertension; Z86.73 Personal history of transient ischemic attack (TIA), and cerebral infarction without residual deficits; Z88.8 Allergy status to other drugs, medicaments and biological substances; W01.198A Fall on same level from slipping, tripping and stumbling with subsequent striking against other object, initial encounter; Y93.89 Activity, other specified; Y99.8 Other external cause status; Y92.89 Other specified places as the place of occurrence of the external cause
CPT/HCPCS: 99284

== ENCOUNTER → 2018-01-28 | Outpatient (CLI) | payer MEDICARE ==
[2017-09-13 15:30] VITALS: BP 108/81
[~2018-01-28] MED LIST changes: +AZIT250T6 PO; +HYDR-2758 PO; +LISI-130 PO; -LISI40TA PO; -METO50TA10 PO; +METO50TA29 PO; +PRED-220 PO
--- NOTE | 2018-01-28 14:16 | RAD ---
Examination: CT chest without contrast HISTORY: History of COPD, shortness of breath COMPARISON: 05/21/2016 TECHNIQUE: Axial CT images of the chest were performed without contrast. Coronal and sagittal reformats are performed Exposure: One or more of the following individualized dose reduction techniques were utilized for this examination: 1. Automated exposure control 2. Adjustment of the mA and/or kV according to patient size 3. Use of iterative reconstruction technique FINDINGS: The central airways are patent. The ascending aorta measures 3.1 cm in transverse dimension. Diffuse coronary artery calcifications identified. Small mediastinal lymph nodes identified with the largest measuring 1.1 cm in the pretracheal region similar to prior exam. Mild emphysematous changes identified in the bilateral lungs. No evidence of pleural effusion or pneumothorax. Linear airspace opacity identified in the anterior aspect of the left upper lobe of the lung inferiorly likely atelectasis or scarring. The visualized noncontrasted liver, spleen, adrenals grossly appears unremarkable. Bilateral breast prosthesis is identified. Compression change of L3 vertebral body with kyphoplasty changes. Moderate degenerative changes identified in the thoracic spine. There is moderate compression change of T5 vertebral body similar to prior exam. IMPRESSION: 1. Linear airspace opacity identified in the anterior aspect of the left upper lobe of the lung medially likely atelectasis or scarring. 2. Emphysematous changes identified in the lungs. 3. Coronary artery calcifications. Electronically signed by: Silvano Bar MD (01/28/2018 2:14 PM) [id number]
== END | disposition home or self-care (01) ==
LOC: CT 10:02
PROVIDERS: ATTEND Internal Medicine Pulmonary Disease
DX: I25.10 Atherosclerotic heart disease of native coronary artery without angina pectoris (principal); J44.9 Chronic obstructive pulmonary disease, unspecified; E55.9 Vitamin D deficiency, unspecified; I10 Essential (primary) hypertension; E78.00 Pure hypercholesterolemia, unspecified; Z86.2 Personal history of diseases of the blood and blood-forming organs and certain disorders involving the immune mechanism; Z86.73 Personal history of transient ischemic attack (TIA), and cerebral infarction without residual deficits; Z87.81 Personal history of (healed) traumatic fracture; Z90.710 Acquired absence of both cervix and uterus; Z91.011 Allergy to milk products; Z88.8 Allergy status to other drugs, medicaments and biological substances; Z82.49 Family history of ischemic heart disease and other diseases of the circulatory system
CPT/HCPCS: 71250

== ENCOUNTER 2018-05-03 14:37 | Emergency (ER) | payer MEDICARE ==
[~2018-05-03] VITALS: Ht 160 cm; Wt 49.0 kg
[~2018-05-03 14:37] MED LIST changes: -CHLO25TA PO; +CHLO25TA10 PO; -HYDR-2758 PO; +HYDR-2761 PO; +HYDR-3164 PO; -HYDR-971 PO
[2018-05-03 14:47] VITALS: BP 179/103
--- NOTE | 2018-05-03 15:32 | RAD ---
EXAM: AP, oblique and lateral views of the right knee DATE: 05/03/2018 3:14 PM INDICATION: fell today on ceramic tile, pain on outside of lateral knee. COMPARISON: No Prior FINDINGS/ IMPRESSION: Transverse lucency through the patella is consistent with nondisplaced patellar fracture. Decreased bone mineral density. Atherosclerotic vascular calcifications are seen. No knee joint effusion. Electronically signed by: Portillo Rm MD (05/03/2018 3:29 PM) [facility]
--- NOTE | 2018-05-03 15:50 | PHYS DOC ---
Past Medical History Past Medical History: Anxiety, Asthma, COPD, Depression, High Cholesterol, Hypertension, Stroke, Other Additional Past Medical Histor: R HIP FX Past Surgical History: Hysterectomy, Tonsillectomy, Other Additional Past Surgical Histo: bilat. breast surgery, removed fibroids; concrete on spine; right hip Alcohol Use: None Drug Use: None Adult General Chief Complaint Chief Complaint: KNEE INJURY [facility] HPI Patient is a 62 year old female who presents with right knee pain after she fell this morning after tripping on her phone cord. She denies any other injury. She states it is very painful to bear weight on the extremity. Review of Systems Review of Systems Constitutional: Denies fever or chills [] Eyes: Denies change in visual acuity, redness, or eye pain [] HENT: Denies nasal congestion or sore throat [] Respiratory: Denies cough or shortness of breath [] Cardiovascular: No additional information not addressed in HPI [] GI: Denies abdominal pain, nausea, vomiting, bloody stools or diarrhea [] : Denies dysuria or hematuria [] Musculoskeletal: See history of present illness Integument: Denies rash or skin lesions [] Neurologic: Denies headache, focal weakness or sensory changes [] Endocrine: Denies polyuria or polydipsia [] All other systems were reviewed and found to be within normal limits, except as documented in this note. Current Medications Current Medications Current Medications Medications (Trade) Dose Ordered Sig/Marianne Start Time Stop Time Status Last Admin Dose Admin Acetaminophen/ Hydrocodone Bitart (Lortab 5/325) 1 tab 1X ONCE 05/03/18 16:00 05/03/18 16:01 DC 05/03/18 16:01 1 TAB Allergies Allergies Allergies Coded Allergies Type Severity Reaction Last Updated Verified haloperidol Allergy Intermediate makes neck tighten so she can't move head Yes Physical Exam Physical Exam Constitutional: Well developed, well nourished, no acute distress, non-toxic appearance. [] Cardiovascular:Heart rate regular rhythm, no murmur [] Lungs & Thorax: Bilateral breath sounds clear to auscultation [] Abdomen: Bowel sounds normal, soft, no tenderness, no masses, no pulsatile masses. [] Skin: Warm, dry, no erythema, no rash. [] Back: No tenderness, no CVA tenderness. [] Extremities: tenderness to right anterior knee, no cyanosis, no clubbing, ROM decreased due to pain, mild edema, pulses and sensation are intact distal to injury. [] Neurologic: Alert and oriented X 3, normal motor function, normal sensory function, no focal deficits noted. [] Psychologic: Affect normal, judgement normal, mood normal. [] Current Patient Data Vital Signs Vital Signs Date Time Temp Pulse Resp B/P (MAP) Pulse Ox O2 Delivery O2 Flow Rate FiO2 05/03/18 14:47 97.9 86 16 179/103 (128) 97 Room Air 97.9 EKG EKG [] Radiology/Procedures Radiology/Procedures [] PATIENT: DUNG MARIO ACCOUNT: [id number] : 1955 LOCATION: ER AGE: 62 SEX: F EXAM STATUS: REG ER ORD. PHYSICIAN: JIM VANESSA APRN REASON: fell today on ceramic tile, pain on outside of lateral knee. PROCEDURE: KNEE RIGHT 3V EXAM: AP, oblique and lateral views of the right knee DATE: 05/03/2018 3:14 PM INDICATION: fell today on ceramic tile, pain on outside of lateral knee. COMPARISON: No Prior FINDINGS/ IMPRESSION: Transverse lucency through the patella is consistent with nondisplaced patellar fracture. Decreased bone mineral density. Atherosclerotic vascular calcifications are seen. No knee joint effusion. Electronically signed by: Portillo Lacey MD (05/03/2018 3:29 PM) [facility] DICTATED and SIGNED BY: PORTILLO LACEY MD DATE: 05/03/18 1528 Course & Med Decision Making Course & Med Decision Making Pertinent Labs and Imaging studies reviewed. (See chart for details) []The patient was placed in a knee immobilizer and given crutches and crutch training. She is to follow-up with orthopedics. She is in agreement with this plan. Dragon Disclaimer Dragon Disclaimer This electronic medical record was generated, in whole or in part, using a voice recognition dictation system. Departure Departure Impression: Primary Impression: Fracture of right patella Disposition: HOME, SELF-CARE Condition: STABLE Referrals: NO PCP (PCP) ALFONZO PAUL MD Patient Instructions: Patellar Fracture, Adult Additional Instructions: Take the pain medication as directed. Do not drive or operate heavy machinery while taking this medication. Follow-up with orthopedics for treatment of your fracture. If worsening return to the emergency department. Scripts Hydrocodone/Apap 5-325 (NORCO 5-325 TABLET) 1 Each Tablet 1 TAB PO PRN Q6HRS PRN for PAIN, #14 TAB 0 Refills Prov: JIM VANESSA APRN 05/03/18 JIM VANESSA APRN May 03, 2018 15:50
[2018-05-03] MEDS ORDERED: HYDR-3164 PO (15:53)
[2018-05-03] MEDS ORDERED: HYDROcodone/APAP 5/325MG 1 TAB TABLET PO ONE (16:00)
== END 2018-05-03 16:04 | disposition home or self-care (01) ==
LOC: ER 14:37
DX: S82.034A Nondisplaced transverse fracture of right patella, initial encounter for closed fracture (principal); F41.9 Anxiety disorder, unspecified; J44.9 Chronic obstructive pulmonary disease, unspecified; F32.9 Major depressive disorder, single episode, unspecified; E78.00 Pure hypercholesterolemia, unspecified; I10 Essential (primary) hypertension; Z86.73 Personal history of transient ischemic attack (TIA), and cerebral infarction without residual deficits; Z88.8 Allergy status to other drugs, medicaments and biological substances; W01.0XXA Fall on same level from slipping, tripping and stumbling without subsequent striking against object, initial encounter; Y93.89 Activity, other specified; Y92.89 Other specified places as the place of occurrence of the external cause; Y99.8 Other external cause status
CPT/HCPCS: 29505; 73562; 99283

== ENCOUNTER → 2018-10-31 | Outpatient (CLI) | payer MEDICARE ==
[~2018-10-31] MED LIST changes: +ALBU2.5V8 IH; +ALBU2.5V8 INH; -ALBU8.5H8 IH; +OLAN20TA15 PO; -OLAN20TA7 PO; -PROAIR HFA8.5 GM INH; +SIMV5TAB14 PO; -SIMV5TAB5 PO
--- NOTE | 2018-10-31 10:20 | RAD ---
Examination: CT CHEST WO CONTRAST History: Lung nodule Comparison/Correlation: 01/28/2018 CT chest without contrast Findings: Axial images of the chest were obtained without contrast. Sagittal and coronal reformatted images were provided. Bilateral breast implants are noted with surrounding calcification. Marked calcification is significant involving the coronary arteries. Linear scarring involving the lingula is noted. Linear atelectasis is also noted. No focal solid nodule. No pleural or pericardial effusion. No pneumothorax. Borderline sized precarinal lymph node measuring 1 cm short axis diameter is unchanged compared to 01/28/2018 and is decrease in size compared to 05/21/2016. Diffuse centrilobular emphysematous involvement of the lung munguia noted. Bilateral bronchial wall thickening is noted which may represent chronic bronchitis. Mild right middle lobe and lingular bronchiectasis is present. T5 compression deformity is again seen. L3 kyphoplasty noted. Impression: Interval mild increase in right middle lobe medial basilar scarring and/or atelectasis. No sylvian change in lingular scarring or atelectasis. Centrilobular emphysema. Chronic bronchitis. Mild bronchiectasis. PQRS Compliance Statement: One or more of the following individualized dose reduction techniques were utilized for this examination: 1. Automated exposure control 2. Adjustment of the mA and/or kV according to patient size 3. Use of iterative reconstruction technique Electronically signed by: Ancelmo Dc MD (10/31/2018 10:17 AM) [id number]
== END | disposition home or self-care (01) ==
LOC: CT 08:42
PROVIDERS: ATTEND Internal Medicine Pulmonary Disease
DX: J43.2 Centrilobular emphysema (principal); J47.9 Bronchiectasis, uncomplicated; J42 Unspecified chronic bronchitis; J98.4 Other disorders of lung; I25.10 Atherosclerotic heart disease of native coronary artery without angina pectoris; Z98.82 Breast implant status; M43.8X4 Other specified deforming dorsopathies, thoracic region
CPT/HCPCS: 71250

== ENCOUNTER 2019-07-09 09:16 | Emergency (ER) | payer MEDICARE ==
[~2019-07-09] VITALS: Ht 160 cm; Wt 49.0 kg
[~2019-07-09 09:16] MED LIST changes: +SIMV20TA18 PO; -SIMV20TA3 PO
[2019-07-09 09:32] VITALS: BP 139/94
[2019-07-09 09:56] LABS: BASO # 0.1 x10^3/uL (0.0-0.2); BASO % 1 % (0-3); EOS # 0.3 x10^3/uL (0.0-0.7); EOS % 3 % (0-3); HEMATOCRIT 38.8 % (36.0-47.0); LYMPH % 23 % (24-48); MEAN CORPUSCULAR HEMOGLOBIN 30 pg (25-35); MEAN CORPUSCULAR HGB CONC 34 g/dL (31-37); MEAN CORPUSCULAR VOLUME 89 fL (79-100); MONO % 11 % (0-9); NEUT # 5.7 x10^3/uL (1.8-7.7); NEUT % 63 % (31-73); PLATELET COUNT 410 x10^3/uL (140-400); RED BLOOD COUNT 4.35 x10^6/uL (3.50-5.40); RED CELL DISTRIBUTION WIDTH 14.7 % (11.5-14.5)
[2019-07-09] MEDS ORDERED: predniSONE 10 MG TABLET PO ONE (10:00)
[2019-07-09] MEDS ORDERED: IPRATRPIUM/ALBUTEROL 0.5/2.5MG 3 ML NEBU. NEB ONE (10:00)
[2019-07-09 10:04] LABS: CALCIUM 9.1 mg/dL (8.5-10.1); CREATININE 0.6 mg/dL (0.6-1.0); GFR 100.6; POTASSIUM 4.4 mmol/L (3.5-5.1)
--- NOTE | 2019-07-09 10:07 | PHYS DOC ---
Past Medical History Past Medical History: Anxiety, Asthma, COPD, Depression, High Cholesterol, Hypertension, Stroke, Other Additional Past Medical Histor: R HIP FX Past Surgical History: Hysterectomy, Tonsillectomy, Other Additional Past Surgical Histo: bilat. breast surgery, removed fibroids; conc rete on spine; right hip Smoking Status: Current Every Day Smoker Additional Information: 2 packs/days Alcohol Use: None Drug Use: None Adult General Chief Complaint Chief Complaint: SHORTNESS OF BREATH HPI HPI Patient is a 64 year old female history of COPD hyperlipidemia hypertension on home oxygen 3 weeks now of progressive shortness of breath using nebulizers with minimal relief coughing productive of yellow sputum did feel feverish earlier but not normal last few days. Just feeling tired. Has some sharp chest pain with coughing. Symptoms are slowly worsening with time Review of systems was otherwise negative except as noted in the history of present illness. EKG does show normal sinus rhythm with a rate of 91 there are no acute ischemic changes noted this was interpreted by me the time of encounter QTc is 452. Review of Systems Review of Systems Musculoskeletal: Denies back pain or joint pain [] Integument: Denies rash or skin lesions [] Neurologic: Denies headache, focal weakness or sensory changes [] Endocrine: Denies polyuria or polydipsia [] All other systems were reviewed and found to be within normal limits, except as documented in this note. Current Medications Current Medications Current Medications Medications (Trade) Dose Ordered Sig/Marianne Start Time Stop Time Status Last Admin Dose Admin Albuterol/ Ipratropium (Duoneb) 3 ml 1X ONCE 07/09/19 10:00 07/09/19 10:01 DC 07/09/19 09:59 3 ML Prednisone (Prednisone) 50 mg 1X ONCE 07/09/19 10:00 07/09/19 10:01 DC 07/09/19 09:52 50 MG Allergies Allergies Allergies Coded Allergies Type Severity Reaction Last Updated Verified haloperidol Allergy Intermediate makes neck tighten so she can't move head 02/05/14 Yes Physical Exam Physical Exam Constitutional: Well developed, well nourished, no acute distress, non-toxic appearance. [] HENT: Normocephalic, atraumatic, bilateral external ears normal, oropharynx moist, no oral exudates, nose normal. [] Eyes: PERRLA, EOMI, conjunctiva normal, no discharge. [] Neck: Normal range of motion, no tenderness, supple, no stridor. [] Cardiovascular:Heart rate regular rhythm, no murmur [] Lungs & Thorax: Mild increase in respiratory effort there is faint wheezing as well as rhonchi at the left lung base. Abdomen: Bowel sounds normal, soft, no tenderness, no masses, no pulsatile masses. [] Skin: Warm, dry, no erythema, no rash. [] Back: No tenderness, no CVA tenderness. [] Extremities: No tenderness, no cyanosis, no clubbing, ROM intact, trace symmetric edema. [] Trace Neurologic: Alert and oriented X 3, normal motor function, normal sensory function, no focal deficits noted. [] Psychologic: Affect normal, judgement normal, mood normal. [] Current Patient Data Vital Signs Vital Signs Date Time Temp Pulse Resp B/P (MAP) Pulse Ox O2 Delivery O2 Flow Rate FiO2 07/09/19 09:54 92 Nasal Cannula 2.0 07/09/19 09:32 97.9 90 20 139/94 (109) 97.9 Lab Values Laboratory Tests Test 07/09/19 09:30 White Blood Count 9.0 x10^3/uL (4.0-11.0) Red Blood Count 4.35 x10^6/uL (3.50-5.40) Hemoglobin 13.0 g/dL (12.0-15.5) Hematocrit 38.8 % (36.0-47.0) Mean Corpuscular Volume 89 fL (79-100) Mean Corpuscular Hemoglobin 30 pg (25-35) Mean Corpuscular Hemoglobin Concent 34 g/dL (31-37) Red Cell Distribution Width 14.7 % (11.5-14.5) H Platelet Count 410 x10^3/uL (140-400) H Neutrophils (%) (Auto) 63 % (31-73) Lymphocytes (%) (Auto) 23 % (24-48) L Monocytes (%) (Auto) 11 % (0-9) H Eosinophils (%) (Auto) 3 % (0-3) Basophils (%) (Auto) 1 % (0-3) Neutrophils # (Auto) 5.7 x10^3/uL (1.8-7.7) Lymphocytes # (Auto) 2.0 x10^3/uL (1.0-4.8) Monocytes # (Auto) 1.0 x10^3/uL (0.0-1.1) Eosinophils # (Auto) 0.3 x10^3/uL (0.0-0.7) Basophils # (Auto) 0.1 x10^3/uL (0.0-0.2) Sodium Level 141 mmol/L (136-145) Potassium Level 4.4 mmol/L (3.5-5.1) Chloride Level 102 mmol/L (98-107) Carbon Dioxide Level 30 mmol/L (21-32) Anion Gap 9 (6-14) Blood Urea Nitrogen 12 mg/dL (7-20) Creatinine 0.6 mg/dL (0.6-1.0) Estimated GFR (Cockcroft-Gault) 100.6 BUN/Creatinine Ratio 20 (6-20) Glucose Level 89 mg/dL (70-99) Calcium Level 9.1 mg/dL (8.5-10.1) Total Bilirubin 0.5 mg/dL (0.2-1.0) Aspartate Amino Transferase (AST) 20 U/L (15-37) Alanine Aminotransferase (ALT) 17 U/L (14-59) Alkaline Phosphatase 77 U/L (46-116) Troponin I Quantitative < 0.017 ng/mL (0.000-0.055) QD-Dyz-W-Type Natriuretic Peptide 128 pg/mL (0-124) H Total Protein 7.7 g/dL (6.4-8.2) Albumin 3.8 g/dL (3.4-5.0) Albumin/Globulin Ratio 1.0 (1.0-1.7) Laboratory Tests 07/09/19 09:30 Laboratory Tests 07/09/19 09:30 EKG EKG [] Radiology/Procedures Radiology/Procedures [] Impressions: FINDINGS: A frontal view of the chest is obtained. There is no infiltrate, pleural effusion or pneumothorax. There is emphysema and there are chronic interstitial markings. The heart is normal in size. IMPRESSION: 1. Emphysema with chronic interstitial changes. 2. No acute pulmonary finding. Electronically signed by: Riana Watson MD (07/09/2019 10:12 AM) [id number] DICTATED and SIGNED BY: RIANA WATSON MD DATE: 07/09/19 1012 Course & Med Decision Making Course & Med Decision Making Pertinent Labs and Imaging studies reviewed. (See chart for details) 64 yo f with copd exacerbation 3 weeks slowly worsening saturating well in the er improved symptoms after albuterol. here wtih family member comfortable going home has follow up on wednesday ekg/cxr/labs not c/w other acute process. rx pred abx and albuterol return prec discussed Pooja Disclaimer Pooja Disclaimer This electronic medical record was generated, in whole or in part, using a voice recognition dictation system. Departure Departure Impression: Primary Impression: COPD exacerbation Disposition: HOME, SELF-CARE Condition: IMPROVED Referrals: NO PCP (PCP) Scripts Albuterol Sulfate (ALBUTEROL SULFATE CONC NEB SOLN) 2.5 Mg/0.5 Ml Vial.neb 1 VIAL NEB Q4HRS PRN for SHORTNESS OF BREATH, #60 VIAL 1 Refill Prov: DONNA PRICE MD 07/09/19 Doxycycline Hyclate (DOXYCYCLINE HYCLATE) 100 Mg Tablet. 1 TAB PO BID, #20 TAB Prov: DONNA PRICE MD 07/09/19 Prednisone (PREDNISONE) 50 Mg Tablet 1 TAB PO DAILY, #5 TAB Prov: DONNA PRICE MD 07/09/19 DONNA PRICE MD Jul 09, 2019 10:07
[2019-07-09 10:09] LABS: ALBUMIN 3.8 g/dL (3.4-5.0); TOTAL BILIRUBIN 0.5 mg/dL (0.2-1.0); TOTAL PROTEIN 7.7 g/dL (6.4-8.2)
--- NOTE | 2019-07-09 10:15 | RAD ---
EXAM: Chest, single view. HISTORY: Shortness of breath. Cough. COMPARISON: 10/31/2018 FINDINGS: A frontal view of the chest is obtained. There is no infiltrate, pleural effusion or pneumothorax. There is emphysema and there are chronic interstitial markings. The heart is normal in size. IMPRESSION: 1. Emphysema with chronic interstitial changes. 2. No acute pulmonary finding. Electronically signed by: Riana Watson MD (07/09/2019 10:12 AM) [id number]
[2019-07-09] MEDS ORDERED: DOXY-96 PO (10:31)
[2019-07-09] MEDS ORDERED: PRED50TA PO (10:31)
[2019-07-09] MEDS ORDERED: ALBU2.5V14 NEB (10:31)
--- NOTE | 2019-07-09 20:12 | EKG ---
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
== END 2019-07-09 11:05 | disposition home or self-care (01) ==
LOC: ER 09:16
DX: J44.1 Chronic obstructive pulmonary disease with (acute) exacerbation (principal); E78.00 Pure hypercholesterolemia, unspecified; I10 Essential (primary) hypertension; Z86.73 Personal history of transient ischemic attack (TIA), and cerebral infarction without residual deficits; F17.200 Nicotine dependence, unspecified, uncomplicated; Z88.8 Allergy status to other drugs, medicaments and biological substances
CPT/HCPCS: 36415; 71045; 80053; 83880; 84484; 85025; 93005; 94640; 99285; J7512; J7620

== ENCOUNTER 2019-08-02 10:48 | Inpatient (IN) | payer MEDICARE ==
[~2019-08-02] VITALS: Ht 160 cm; Wt 53.7 kg
[~2019-08-02 10:48] MED LIST changes: +ALBU2.5V14 NEB; +DOXY-96 PO
[2019-08-02] MEDS ORDERED: fentaNYL PF VIAL 100 MCG/2 ML VIAL IV ONE (12:15)
[2019-08-02 12:43] LABS: BASO # 0.1 x10^3/uL (0.0-0.2); BASO % 0 % (0-3); EOS # 0.2 x10^3/uL (0.0-0.7); EOS % 1 % (0-3); HEMATOCRIT 39.1 % (36.0-47.0); HEMOGLOBIN 13.2 g/dL (12.0-15.5); LYMPH # 1.7 x10^3/uL (1.0-4.8); LYMPH % 11 % (24-48); MEAN CORPUSCULAR HEMOGLOBIN 30 pg (25-35); MEAN CORPUSCULAR HGB CONC 34 g/dL (31-37); MEAN CORPUSCULAR VOLUME 88 fL (79-100); MONO # 1.7 x10^3/uL (0.0-1.1); MONO % 11 % (0-9); NEUT # 11.6 x10^3/uL (1.8-7.7); NEUT % 76 % (31-73); PLATELET COUNT 258 x10^3/uL (140-400); RED BLOOD COUNT 4.43 x10^6/uL (3.50-5.40); RED CELL DISTRIBUTION WIDTH 14.7 % (11.5-14.5); WHITE BLOOD COUNT 15.2 x10^3/uL (4.0-11.0)
[2019-08-02] MEDS ORDERED: DOXYCYCLINE HYCLATE 100 MG in IV DEXTROSE 5% 100ML 100 ML IV ONE (12:45)
[2019-08-02] MEDS ORDERED: IV NORMAL SALINE 500ML BAG 500 ML IV ONE (12:45)
[2019-08-02] MEDS ORDERED: cefTRIAXone IV Push 1 GM VIAL. IVP ONE (12:45)
--- NOTE | 2019-08-02 12:47 | RAD ---
Single view of the chest. 08/02/2019 12:18 PM Indication: Fever and cough x2 days Comparison: Chest radiograph July 09, 2019 Findings: There is mild, right medial basilar infiltrate or atelectasis. No pneumothorax or effusion is seen. Heart size is stable. Scarring in the right upper lobe is stable. Mild diffuse interstitial thickening is stable. No acute osseous changes are identified. IMPRESSION: Mild right medial basilar infiltrate or atelectasis. Radiographic follow-up to resolution recommended. Electronically signed by: Alex Monroy MD (08/02/2019 12:44 PM) [id number]
[2019-08-02 12:52] LABS: CALCIUM 9.1 mg/dL (8.5-10.1); CREATININE 0.6 mg/dL (0.6-1.0); GFR 100.6; POTASSIUM 3.9 mmol/L (3.5-5.1)
[2019-08-02 12:58] LABS: ALBUMIN 3.8 g/dL (3.4-5.0); ALBUMIN/GLOBULIN RATIO 0.9 (1.0-1.7)
--- NOTE | 2019-08-02 13:04 | PHYS DOC ---
Past Medical History Past Medical History: Anxiety, Asthma, COPD, Depression, High Cholesterol, Hypertension, Stroke, Other Additional Past Medical Histor: R HIP FX Past Surgical History: Hysterectomy, Tonsillectomy, Other Additional Past Surgical Histo: bilat. breast surgery, removed fibroids; conc rete on spine; right hip Smoking Status: Current Every Day Smoker Alcohol Use: None Drug Use: None Adult General Chief Complaint Chief Complaint: COUGH HPI HPI Patient is a 64 year old female presenting with cough shortness of breath and fever. Cough productive of yellow sputum fever to 103 the last couple of nights she has had pneumonia before it feels like this she has right rib pain when she coughs. Symptoms are moderate slowly worsening with time Review of Systems Review of Systems Constitutional: Eyes: Denies change in visual acuity, redness, or eye pain [] HENT: Denies nasal congestion or sore throat [] Musculoskeletal: Denies back pain or joint pain [] Integument: Denies rash or skin lesions [] Neurologic: Denies headache, focal weakness or sensory changes [] All other systems were reviewed and found to be within normal limits, except as documented in this note. Current Medications Current Medications Current Medications Medications (Trade) Dose Ordered Sig/Marianne Start Time Stop Time Status Last Admin Dose Admin Ceftriaxone Sodium (Rocephin) 1 gm 1X ONCE 08/02/19 12:45 08/02/19 12:46 DC 08/02/19 12:59 1 GM Doxycycline Hyclate 100 mg/ Dextrose 100 ml @ 50 mls/hr 1X ONCE 08/02/19 12:45 08/02/19 14:44 08/02/19 14:00 50 MLS/HR Fentanyl Citrate (Fentanyl 2ml Vial) 50 mcg 1X ONCE 08/02/19 12:15 08/02/19 12:16 DC 08/02/19 12:59 50 MCG Sodium Chloride 500 ml @ 500 mls/hr 1X ONCE 08/02/19 12:45 08/02/19 13:44 DC 08/02/19 12:58 500 MLS/HR Allergies Allergies Allergies Coded Allergies Type Severity Reaction Last Updated Verified haloperidol Allergy Intermediate makes neck tighten so she can't move head Yes Physical Exam Physical Exam Constitutional: Well developed, well nourished, no acute distress, non-toxic appearance. [] HENT: Normocephalic, atraumatic, bilateral external ears normal, oropharynx moist, no oral exudates, nose normal. [] Eyes: PERRLA, EOMI, conjunctiva normal, no discharge. [] Neck: Normal range of motion, no tenderness, supple, no stridor. [] Cardiovascular:Heart rate regular rhythm, no murmur [] Lungs & Thorax: Rhonchi at the right lung base Abdomen: Bowel sounds normal, soft, noted no tenderness to palpation Skin: Warm, dry, no erythema, no rash. [] Back: No tenderness, no CVA tenderness. [] Extremities: No tenderness, no cyanosis, no clubbing, ROM intact, no edema. [] Neurologic: Alert and oriented X 3, normal motor function, normal sensory function, no focal deficits noted. [] Psychologic: Affect normal, judgement normal, mood normal. [] Current Patient Data Vital Signs Vital Signs Date Time Temp Pulse Resp B/P (MAP) Pulse Ox O2 Delivery O2 Flow Rate FiO2 08/02/19 12:59 18 08/02/19 11:47 98.3 122 138/92 (107) 94 Room Air 98.3 Lab Values Laboratory Tests Test 08/02/19 11:45 08/02/19 11:46 Influenza Type A Antigen Negative (NEGATIVE) Influenza Type B Antigen Negative (NEGATIVE) White Blood Count 15.2 x10^3/uL (4.0-11.0) H Red Blood Count 4.43 x10^6/uL (3.50-5.40) Hemoglobin 13.2 g/dL (12.0-15.5) Hematocrit 39.1 % (36.0-47.0) Mean Corpuscular Volume 88 fL (79-100) Mean Corpuscular Hemoglobin 30 pg (25-35) Mean Corpuscular Hemoglobin Concent 34 g/dL (31-37) Red Cell Distribution Width 14.7 % (11.5-14.5) H Platelet Count 258 x10^3/uL (140-400) Neutrophils (%) (Auto) 76 % (31-73) H Lymphocytes (%) (Auto) 11 % (24-48) L Monocytes (%) (Auto) 11 % (0-9) H Eosinophils (%) (Auto) 1 % (0-3) Basophils (%) (Auto) 0 % (0-3) Neutrophils # (Auto) 11.6 x10^3/uL (1.8-7.7) H Lymphocytes # (Auto) 1.7 x10^3/uL (1.0-4.8) Monocytes # (Auto) 1.7 x10^3/uL (0.0-1.1) H Eosinophils # (Auto) 0.2 x10^3/uL (0.0-0.7) Basophils # (Auto) 0.1 x10^3/uL (0.0-0.2) Prothrombin Time 13.1 SEC (11.7-14.0) Prothrombin Time INR 1.0 (0.8-1.1) Sodium Level 138 mmol/L (136-145) Potassium Level 3.9 mmol/L (3.5-5.1) Chloride Level 99 mmol/L (98-107) Carbon Dioxide Level 28 mmol/L (21-32) Anion Gap 11 (6-14) Blood Urea Nitrogen 12 mg/dL (7-20) Creatinine 0.6 mg/dL (0.6-1.0) Estimated GFR (Cockcroft-Gault) 100.6 BUN/Creatinine Ratio 20 (6-20) Glucose Level 92 mg/dL (70-99) Lactic Acid Level 1.4 mmol/L (0.4-2.0) Calcium Level 9.1 mg/dL (8.5-10.1) Total Bilirubin 1.0 mg/dL (0.2-1.0) Aspartate Amino Transferase (AST) 21 U/L (15-37) Alanine Aminotransferase (ALT) 19 U/L (14-59) Alkaline Phosphatase 84 U/L (46-116) Troponin I Quantitative < 0.017 ng/mL (0.000-0.055) ZZ-Ctx-Z-Type Natriuretic Peptide 47 pg/mL (0-124) Total Protein 8.0 g/dL (6.4-8.2) Albumin 3.8 g/dL (3.4-5.0) Albumin/Globulin Ratio 0.9 (1.0-1.7) L Laboratory Tests 08/02/19 11:46 Laboratory Tests 08/02/19 11:46 EKG EKG [] EKG shows sinus tach rate 118 no acute ischemic changes noted interpreted by me at the time of encounter. Radiology/Procedures Radiology/Procedures [] Impressions: Findings: There is mild, right medial basilar infiltrate or atelectasis. No pneumothorax or effusion is seen. Heart size is stable. Scarring in the right upper lobe is stable. Mild diffuse interstitial thickening is stable. No acute osseous changes are identified. IMPRESSION: Mild right medial basilar infiltrate or atelectasis. Radiographic follow-up to resolution recommended. Electronically signed by: Alex Monroy MD (08/02/2019 12:44 PM) [id number] DICTATED and SIGNED BY: ALEX MONROY MD DATE: 08/02/19 1244 Course & Med Decision Making Course & Med Decision Making Pertinent Labs and Imaging studies reviewed. (See chart for details) []D/W DR DUONG WHO SAW PT IN ER FOR ADMIT FOR PNEUMONIA SHE HAS LOBAR PNEUMONIA UNDERLYNIG COPD LEUKOCYTOSIS, MILD TO MODERATE SOB IN THE ER WE ARE SENDING COVID TEST DUE TO CLINICAL SYMPTOMS. PT STABLE FOR ADMIT AT THIS TIME Dragrosa Disclaimer Dragon Disclaimer This electronic medical record was generated, in whole or in part, using a voice recognition dictation system. Departure Departure Impression: Primary Impression: Pneumonia Disposition: ADMITTED INPATIENT Admitting Physician: JUSTIN Condition: STABLE Referrals: MELY ALMONTE (PCP) DONNA PRICE MD Aug 02, 2019 13:04
[2019-08-02 13:07] LABS: PROTHROMBIN TIME PATIENT 13.1 SEC (11.7-14.0)
[2019-08-02 13:26] LABS: INFLUENZA A PATIENT NEGATIVE (NEGATIVE); INFLUENZA B PATIENT NEGATIVE (NEGATIVE)
--- NOTE | 2019-08-02 15:13 | EKG ---
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
--- NOTE | 2019-08-02 15:49 | PDOC1 ---
History and Physical Date of Admission Date of Admission DATE: 08/02/19 TIME: 15:48 Identification/Chief Complaint Chief Complaint SEEN IN ER WITH ACUTE PNEUMONIA STILL SMOKES 2 PPD 64 year old female presenting with cough shortness of breath and fever. Cough productive of yellow sputum fever to 103 the last couple of nights she has had pneumonia before it feels like this she has right rib pain when she coughs. Symptoms are moderate worse with time HAS at least 70 pk yr smoking hx cxr c/w rll infiltrate Past Medical History Past Medical History Past Medical History Past Medical History Past Medical History: Anxiety, Asthma, COPD, Depression, High Cholesterol, Hypertension, Stroke, Other Additional Past Medical Histor: R HIP FX Past Surgical History: Hysterectomy, Tonsillectomy, Other Additional Past Surgical Histo: bilat. breast surgery, removed fibroids; concrete on spine; right hip Smoking Status: Current Every Day Smoker Alcohol Use: None Drug Use: None fhx htn Cardiovascular: HTN, Hyperlipidemia Pulmonary: Asthma, COPD CENTRAL NERVOUS SYSTEM: CVA Psych: Depression Past Surgical History Past Surgical History: Tonsillectomy, Hysterectomy, Other Family History Family History Past Medical History Cardiovascular: HTN, Hyperlipidemia Pulmonary: Asthma, COPD CENTRAL NERVOUS SYSTEM: CVA Psych: Depression Past Surgical History Past Surgical History: Tonsillectomy, Hysterectomy, Other (ORIF L hip) Family History Family History: No Significant Current Problem List Family History: No Significant Social History Smoke: 2 packs per day ALCOHOL: occassional Drugs: None Current Problem List Problem List Problems Medical Problems: (1) Pneumonia Status: Acute Current Medications Current Medications Current Medications Fentanyl Citrate (Fentanyl 2ml Vial) 50 mcg 1X ONCE IV Last administered on 08/02/19at 12:59; Start 08/02/19 at 12:15; Stop 08/02/19 at 12:16; Status DC Ceftriaxone Sodium (Rocephin) 1 gm 1X ONCE IVP Last administered on 08/02/19at 12:59; Start 08/02/19 at 12:45; Stop 08/02/19 at 12:46; Status DC Doxycycline Hyclate 100 mg/ Dextrose 100 ml @ 50 mls/hr 1X ONCE IV Last administered on 08/02/19at 14:00; Start 08/02/19 at 12:45; Stop 08/02/19 at 14:44; Status DC Sodium Chloride 500 ml @ 500 mls/hr 1X ONCE IV Last administered on 08/02/19at 12:58; Start 08/02/19 at 12:45; Stop 08/02/19 at 13:44; Status DC Active Scripts Active Albuterol Sulfate Conc Neb Soln (Albuterol Sulfate) 2.5 Mg/0.5 Ml Vial.neb 1 Vial NEB Q4HRS PRN Doxycycline Hyclate 100 Mg Tablet.dr 1 Tab PO BID Prednisone 50 Mg Tablet 1 Tab PO DAILY [place] 5-325 Tablet (Acetaminophen/Hydrocodone Bitart) 1 Each Tablet 1 Tab PO PRN Q6HRS PRN Prednisone (Prednisone) 10 Mg Tablet 10 Mg PO UD Take 3 tablets daily for 3 days, then take 2 tablets daily for 3 days, then take 1 tablet daily for 3 days, then stop. Azithromycin Tablet (Azithromycin) 250 Mg Tablet 250 Mg PO DAILY Proair Hfa (Albuterol Sulfate) 8.5 Gm Hfa.aer.ad 8.5 Gm IH BID66 Pulmicort Flexhaler (Budesonide) 180 Mcg Aer.pow.ba 2 Puff IH BID Reported Hydrocodone-Apap 5-325 (Hydrocodone Bit/Acetaminophen) 1 Each Tablet 1 Tab PO PRN Q6HRS PRN Zyprexa (Olanzapine) 20 Mg Tablet 1 Tab PO QHS Clorazepate Dipotassium 3.75 Mg Tablet 3.75 Mg PO BID Simvastatin 20 Mg Tablet 20 Mg PO DAILY Olanzapine 20 Mg Tablet 20 Mg PO DAILY Bupropion Hcl 100 Mg Tablet 100 Mg PO BID Allergies Allergies: Coded Allergies: haloperidol (Verified Allergy, Intermediate, makes neck tighten so she can't move head, 02/05/14) ROS Review of System Review of Systems Review of Systems Constitutional: Eyes: Denies change in visual acuity, redness, or eye pain [] HENT: Denies nasal congestion or sore throat [] Musculoskeletal: Denies back pain or joint pain [] Integument: Denies rash or skin lesions [] Neurologic: Denies headache, focal weakness or sensory changes [] 14 PT systems were reviewed and found to be within normal limits, except as documented General: YES: Chills, Fatigue Hematological and Lymphatic: No: Bleeding Problems, Blood Clots, Blood Transfusions, Brusing, Night Sweats, Pallor, Swollen Lymph Nodes, Other Respiratory: YES: Cough, Shortness of breath, SOB with excertion, Sputum Changes Cardiovascular: yes Palpitations; No Chest Pain, No Orthopnea, No Paroxysmal Noc. Dyspnea, No Edema, No Lt Headedness, No Other Genitourinary: No Dysuria, No Frequency, No Incontinence, No Hematuria, No Retention, No Discharge, No Urgency, No Pain, No Flank Pain, No Other, No , No , No , No , No , No , No Musculoskeletal: Yes Joint Stiffness Physical Exam Physical Exam Physical Exam Physical Exam Constitutional: Well developed, well nourished, no acute distress, non-toxic appearance. [] HENT: Normocephalic, atraumatic, bilateral external ears normal, oropharynx moist, no oral exudates, nose normal. [] Eyes: PERRLA, EOMI, conjunctiva normal, no discharge. [] Neck: Normal range of motion, no tenderness, supple, no stridor. [] Cardiovascular:Heart rate regular rhythm, no murmur [] Lungs & Thorax: Rhonchi at the right lung base, MOIST CRACKLES Abdomen: Bowel sounds normal, soft, noted no tenderness to palpation Skin: Warm, dry, no erythema, no rash. [] Back: No tenderness, no CVA tenderness. [] Extremities: No tenderness, no cyanosis, no clubbing, ROM intact, no edema. [] Neurologic: Alert and oriented X 3, normal motor function, normal sensory function, no focal deficits noted. [] Psychologic: Affect normal, judgment normal, mood normal. [] General: Alert, Oriented X3, Cooperative, No acute distress HEENT: EOMI, Mucous membr. moist/pink Heart: RRR, no thrills, other (TACHY) Breasts: Not examined Abdomen: Normal bowel sounds, Soft, Other (THIN) Rectal Exam: not examined PELVIC: Examination not indicated Extremities: No cyanosis Skin: No breakdown Neuro: Normal speech, Cranial nerves 3-12 NL Psych/Mental Status: Mental status NL, Mood NL Vitals Vitals Vital Signs Date Time Temp Pulse Resp B/P (MAP) Pulse Ox O2 Delivery O2 Flow Rate FiO2 08/02/19 12:59 18 08/02/19 11:47 98.3 122 138/92 (107) 94 Room Air 98.3 Labs Labs Laboratory Tests Test 08/02/19 11:45 08/02/19 11:46 Influenza Type A Antigen Negative (NEGATIVE) Influenza Type B Antigen Negative (NEGATIVE) White Blood Count 15.2 x10^3/uL (4.0-11.0) Red Blood Count 4.43 x10^6/uL (3.50-5.40) Hemoglobin 13.2 g/dL (12.0-15.5) Hematocrit 39.1 % (36.0-47.0) Mean Corpuscular Volume 88 fL (79-100) Mean Corpuscular Hemoglobin 30 pg (25-35) Mean Corpuscular Hemoglobin Concent 34 g/dL (31-37) Red Cell Distribution Width 14.7 % (11.5-14.5) Platelet Count 258 x10^3/uL (140-400) Neutrophils (%) (Auto) 76 % (31-73) Lymphocytes (%) (Auto) 11 % (24-48) Monocytes (%) (Auto) 11 % (0-9) Eosinophils (%) (Auto) 1 % (0-3) Basophils (%) (Auto) 0 % (0-3) Neutrophils # (Auto) 11.6 x10^3/uL (1.8-7.7) Lymphocytes # (Auto) 1.7 x10^3/uL (1.0-4.8) Monocytes # (Auto) 1.7 x10^3/uL (0.0-1.1) Eosinophils # (Auto) 0.2 x10^3/uL (0.0-0.7) Basophils # (Auto) 0.1 x10^3/uL (0.0-0.2) Prothrombin Time 13.1 SEC (11.7-14.0) Prothromb Time International Ratio 1.0 (0.8-1.1) Sodium Level 138 mmol/L (136-145) Potassium Level 3.9 mmol/L (3.5-5.1) Chloride Level 99 mmol/L (98-107) Carbon Dioxide Level 28 mmol/L (21-32) Anion Gap 11 (6-14) Blood Urea Nitrogen 12 mg/dL (7-20) Creatinine 0.6 mg/dL (0.6-1.0) Estimated GFR (Cockcroft-Gault) 100.6 BUN/Creatinine Ratio 20 (6-20) Glucose Level 92 mg/dL (70-99) Lactic Acid Level 1.4 mmol/L (0.4-2.0) Calcium Level 9.1 mg/dL (8.5-10.1) Total Bilirubin 1.0 mg/dL (0.2-1.0) Aspartate Amino Transf (AST/SGOT) 21 U/L (15-37) Alanine Aminotransferase (ALT/SGPT) 19 U/L (14-59) Alkaline Phosphatase 84 U/L (46-116) Troponin I Quantitative < 0.017 ng/mL (0.000-0.055) IJ-Qjg-D-Type Natriuretic Peptide 47 pg/mL (0-124) Total Protein 8.0 g/dL (6.4-8.2) Albumin 3.8 g/dL (3.4-5.0) Albumin/Globulin Ratio 0.9 (1.0-1.7) Laboratory Tests Test 08/02/19 11:45 08/02/19 11:46 Influenza Type A Antigen Negative (NEGATIVE) Influenza Type B Antigen Negative (NEGATIVE) White Blood Count 15.2 x10^3/uL (4.0-11.0) Red Blood Count 4.43 x10^6/uL (3.50-5.40) Hemoglobin 13.2 g/dL (12.0-15.5) Hematocrit 39.1 % (36.0-47.0) Mean Corpuscular Volume 88 fL (79-100) Mean Corpuscular Hemoglobin 30 pg (25-35) Mean Corpuscular Hemoglobin Concent 34 g/dL (31-37) Red Cell Distribution Width 14.7 % (11.5-14.5) Platelet Count 258 x10^3/uL (140-400) Neutrophils (%) (Auto) 76 % (31-73) Lymphocytes (%) (Auto) 11 % (24-48) Monocytes (%) (Auto) 11 % (0-9) Eosinophils (%) (Auto) 1 % (0-3) Basophils (%) (Auto) 0 % (0-3) Neutrophils # (Auto) 11.6 x10^3/uL (1.8-7.7) Lymphocytes # (Auto) 1.7 x10^3/uL (1.0-4.8) Monocytes # (Auto) 1.7 x10^3/uL (0.0-1.1) Eosinophils # (Auto) 0.2 x10^3/uL (0.0-0.7) Basophils # (Auto) 0.1 x10^3/uL (0.0-0.2) Prothrombin Time 13.1 SEC (11.7-14.0) Prothromb Time International Ratio 1.0 (0.8-1.1) Sodium Level 138 mmol/L (136-145) Potassium Level 3.9 mmol/L (3.5-5.1) Chloride Level 99 mmol/L (98-107) Carbon Dioxide Level 28 mmol/L (21-32) Anion Gap 11 (6-14) Blood Urea Nitrogen 12 mg/dL (7-20) Creatinine 0.6 mg/dL (0.6-1.0) Estimated GFR (Cockcroft-Gault) 100.6 BUN/Creatinine Ratio 20 (6-20) Glucose Level 92 mg/dL (70-99) Lactic Acid Level 1.4 mmol/L (0.4-2.0) Calcium Level 9.1 mg/dL (8.5-10.1) Total Bilirubin 1.0 mg/dL (0.2-1.0) Aspartate Amino Transf (AST/SGOT) 21 U/L (15-37) Alanine Aminotransferase (ALT/SGPT) 19 U/L (14-59) Alkaline Phosphatase 84 U/L (46-116) Troponin I Quantitative < 0.017 ng/mL (0.000-0.055) WU-Kmi-J-Type Natriuretic Peptide 47 pg/mL (0-124) Total Protein 8.0 g/dL (6.4-8.2) Albumin 3.8 g/dL (3.4-5.0) Albumin/Globulin Ratio 0.9 (1.0-1.7) Images Images Examination: CT CHEST WO CONTRAST History: Lung nodule Comparison/Correlation: 01/28/2018 CT chest without contrast Findings: Axial images of the chest were obtained without contrast. Sagittal and coronal reformatted images were provided. Bilateral breast implants are noted with surrounding calcification. Marked calcification is significant involving the coronary arteries. Linear scarring involving the lingula is noted. Linear atelectasis is also noted. No focal solid nodule. No pleural or pericardial effusion. No pneumothorax. Borderline sized precarinal lymph node measuring 1 cm short axis diameter is unchanged compared to 01/28/2018 and is decrease in size compared to 05/21/2016. Diffuse centrilobular emphysematous involvement of the lung munguia noted. Bilateral bronchial wall thickening is noted which may represent chronic bronchitis. Mild right middle lobe and lingular bronchiectasis is present. T5 compression deformity is again seen. L3 kyphoplasty noted. Impression: Interval mild increase in right middle lobe medial basilar scarring and/or atelectasis. No sylvian change in lingular scarring or atelectasis. Centrilobular emphysema. Chronic bronchitis. Mild bronchiectasis. PQRS Compliance Statement: One or more of the following individualized dose reduction techniques were utilized for this examination: 1. Automated exposure control 2. Adjustment of the mA and/or kV according to patient size 3. Use of iterative reconstruction technique Electronically signed by: Ancelmo Garg MD (10/31/2018 10:17 AM) [id number] DICTATED and SIGNED BY: ANCELMO GARG MD DATE: 10/31/18 1017 Single view of the chest. 08/02/2019 12:18 PM Indication: Fever and cough x2 days Comparison: Chest radiograph July 09, 2019 Findings: There is mild, right medial basilar infiltrate or atelectasis. No pneumothorax or effusion is seen. Heart size is stable. Scarring in the right upper lobe is stable. Mild diffuse interstitial thickening is stable. No acute osseous changes are identified. IMPRESSION: Mild right medial basilar infiltrate or atelectasis. Radiographic follow-up to resolution recommended. Electronically signed by: Alex Sanchez MD (08/02/2019 12:44 PM) [id number] DICTATED and SIGNED BY: ALEX SANCHEZ MD DATE: 08/02/19 1244 VTE Prophylaxis Ordered VTE Prophylaxis Devices: Yes VTE Pharmacological Prophylaxi: Yes Assessment/Plan Assessment/Plan IMPRESSION Acute hypoxic resp failure PNEUMONIA SEPSIS HX HTN HX CVA REMOTE ACUTE COPD EXAC Diffuse centrilobular emphysematous involvement of the lung munguia noted. Bilateral bronchial wall thickening is noted which may represent chronic bronchitis. RECENT CT CHEST PLAN ADMIT BLOOD CULT CORNV-19 AG PULM CONSULT O2 SUPPORT EMPERIC IV ANTIBIOTICS, ZOSYN, VANC SPUTUM CULT DVT PROPHYLAXIS NEG PRESSURE ROOM 35 MIN CC TIME CASA DUONG MD Aug 02, 2019 15:48
[2019-08-02] MEDS: fentaNYL PF VIAL 100 MCG/2 ML VIAL IV PRN ×3 (16:07→22:55)
[2019-08-02] MEDS: IV NORMAL SALINE 1000ML BAG 1,000 ML IV SCH (16:07)
[2019-08-02] MEDS ORDERED: MAG HYDROX/ALUMINUM HYD/SIMETH 30 ML ORAL.SUSP PO PRN (16:15)
[2019-08-02] MEDS ORDERED: guaiFENesin ORAL 200 MG/10 ML LIQUID. PO PRN (16:15)
[2019-08-02] MEDS ORDERED: ACETAMINOPHEN 325 MG TABLET. PO PRN (16:15)
[2019-08-02] MEDS ORDERED: ONDANSETRON PF 4 MG/2 ML VIAL. IV PRN (16:15)
[2019-08-02] MEDS ORDERED: ALBUTEROL SULFATE 2.5 MG/3 ML NEBU. NEB PRN (16:15)
[2019-08-02] MEDS ORDERED: DOCUSATE SODIUM 100 MG CAPSULE. PO PRN (16:15)
[2019-08-02] MEDS ORDERED: 0.9 % SODIUM CHLORIDE 10 ML DISP.SYRIN. IV PRN (16:15)
[2019-08-02] MEDS ORDERED: VANCOMYCIN 1GM IVPB FOR OMNI 250 ML IV ONE (16:30)
[2019-08-02] MEDS: ENOXAPARIN 40 MG/0.4 ML SYRINGE. SQ SCH (18:15)
[2019-08-02] MEDS: PIPERACILLIN/TAZOBACTAM 3.375 GM in IV NORMAL SALINE 50ML 50 ML IV SCH ×2 (18:15→22:56)
[2019-08-02 18:25] VITALS: BP 141/82
[2019-08-02] MEDS ORDERED: VANCOMYCIN 1 GM in IV NORMAL SALINE 250ML 250 ML IV ONE (18:30)
[2019-08-02] MEDS: VANCOMYCIN PER PHARMACY MC PRN (19:25)
--- NOTE | 2019-08-02 19:27 | NUR ---
Pharmacy Vancomycin Dosing Note S:Consulted to monitor and dose vancomycin started 08/02/19. O:DUNG MARIO is a 64 year old F with Pneumonia Height: 5 feet, 3 inches Weight: 51.2 kg [place] Body Weight: 52.40 Adjusted Body Weight: 51.92 Dosing Weight: Actual Other Antibiotics: ZOSYN LABS: Last BUN: 12 Last Creatinine: 0.6 Creatinine Clearance: 76 mL/min Last WBC: 15.2 Last Procalcitonin: Tmax (past 24 hours): 99.3 Microbiology: - I/O: - Last dose given 08/02/19 at 1814 Vancomycin Dosing: Loading Dose: 1000 mg x1 Dosing Weight: Actual Target Trough: 15-20 A: Based on: weight and renal function P: 1. Begin Vancomycin 750 mg IV q12hr 2. Follow up Trough level on 08/04/19 at 0530 3. Pharmacy will continue to monitor, follow and adjust therapy as needed. Ene Boyle [facility], 08/02/19 [id number]
[2019-08-02] MEDS: IPRATRPIUM/ALBUTEROL 0.5/2.5MG 3 ML NEBU. NEB SCH ×2 (20:00→23:25)
[2019-08-02] MEDS: BUDESONIDE 0.5 MG/2 ML NEBU. NEB SCH (20:00)
[2019-08-02] MEDS: buPROPion 100 MG TABLET PO SCH (21:16)
[2019-08-02] MEDS: HYDROcodone/APAP 5/325MG 1 TAB TABLET PO PRN (21:16)
[2019-08-02] MEDS: SIMVASTATIN 20 MG TABLET PO SCH (21:16)
[2019-08-02 23:00] VITALS: BP 110/70
[2019-08-03 03:00] VITALS: BP 126/78
[2019-08-03] MEDS: IPRATRPIUM/ALBUTEROL 0.5/2.5MG 3 ML NEBU. NEB SCH ×5 (03:05→20:00)
[2019-08-03] MEDS: IV NORMAL SALINE 1000ML BAG 1,000 ML IV SCH ×3 (04:14→22:56)
[2019-08-03 05:04] LABS: BASO % 1 % (0-3); EOS # 0.4 x10^3/uL (0.0-0.7); EOS % 4 % (0-3); HEMATOCRIT 32.9 % (36.0-47.0); HEMOGLOBIN 10.9 g/dL (12.0-15.5); LYMPH # 2.1 x10^3/uL (1.0-4.8); LYMPH % 26 % (24-48); MEAN CORPUSCULAR HEMOGLOBIN 30 pg (25-35); MEAN CORPUSCULAR HGB CONC 33 g/dL (31-37); MEAN CORPUSCULAR VOLUME 89 fL (79-100); MONO # 1.1 x10^3/uL (0.0-1.1); MONO % 13 % (0-9); NEUT # 4.7 x10^3/uL (1.8-7.7); NEUT % 56 % (31-73); PLATELET COUNT 217 x10^3/uL (140-400); RED BLOOD COUNT 3.68 x10^6/uL (3.50-5.40); RED CELL DISTRIBUTION WIDTH 14.8 % (11.5-14.5); WHITE BLOOD COUNT 8.3 x10^3/uL (4.0-11.0)
[2019-08-03 05:34] LABS: ALBUMIN 2.6 g/dL (3.4-5.0); ALBUMIN/GLOBULIN RATIO 0.8 (1.0-1.7); CREATININE 0.5 mg/dL (0.6-1.0); GFR 124.2; POTASSIUM 3.7 mmol/L (3.5-5.1); TOTAL BILIRUBIN 0.7 mg/dL (0.2-1.0); TOTAL PROTEIN 5.9 g/dL (6.4-8.2)
[2019-08-03] MEDS: HYDROcodone/APAP 5/325MG 1 TAB TABLET PO PRN ×3 (05:40→21:13)
[2019-08-03] MEDS: VANCOMYCIN 750 MG in IV NORMAL SALINE 250ML 250 ML IV SCH ×2 (05:40→17:07)
[2019-08-03] MEDS: PIPERACILLIN/TAZOBACTAM 3.375 GM in IV NORMAL SALINE 50ML 50 ML IV SCH ×3 (05:42→17:06)
[2019-08-03 07:00] VITALS: BP 116/78
--- NOTE | 2019-08-03 07:28 | NUR ---
IP: Pt is being tested for COVID-19. Pt to be in droplet/contact precaution using a face shield until results verified.
[2019-08-03] MEDS: buPROPion 100 MG TABLET PO SCH ×2 (07:49→21:13)
[2019-08-03] MEDS: OLANZapine 5 MG TABLET PO SCH (07:49)
[2019-08-03] MEDS: fentaNYL PF VIAL 100 MCG/2 ML VIAL IV PRN ×4 (07:51→22:57)
[2019-08-03] MEDS: BUDESONIDE 0.5 MG/2 ML NEBU. NEB SCH ×2 (08:47→20:00)
--- NOTE | 2019-08-03 10:22 | PDOC ---
PULMONARY PROGRESS NOTES Vitals Vital Signs Date Time Temp Pulse Resp B/P (MAP) Pulse Ox O2 Delivery O2 Flow Rate FiO2 08/03/19 08:50 97 Room Air 08/03/19 08:21 17 08/03/19 07:00 97.9 96 116/78 (91) 97.9 Lungs: Other Cardiovascular: S1, S2 Abdomen: Soft Extremities: No Edema Labs Laboratory Tests Test 08/02/19 11:45 08/02/19 11:46 08/03/19 04:20 Influenza Type A Antigen Negative (NEGATIVE) Influenza Type B Antigen Negative (NEGATIVE) White Blood Count 15.2 x10^3/uL (4.0-11.0) 8.3 x10^3/uL (4.0-11.0) Red Blood Count 4.43 x10^6/uL (3.50-5.40) 3.68 x10^6/uL (3.50-5.40) Hemoglobin 13.2 g/dL (12.0-15.5) 10.9 g/dL (12.0-15.5) Hematocrit 39.1 % (36.0-47.0) 32.9 % (36.0-47.0) Mean Corpuscular Volume 88 fL (79-100) 89 fL (79-100) Mean Corpuscular Hemoglobin 30 pg (25-35) 30 pg (25-35) Mean Corpuscular Hemoglobin Concent 34 g/dL (31-37) 33 g/dL (31-37) Red Cell Distribution Width 14.7 % (11.5-14.5) 14.8 % (11.5-14.5) Platelet Count 258 x10^3/uL (140-400) 217 x10^3/uL (140-400) Neutrophils (%) (Auto) 76 % (31-73) 56 % (31-73) Lymphocytes (%) (Auto) 11 % (24-48) 26 % (24-48) Monocytes (%) (Auto) 11 % (0-9) 13 % (0-9) Eosinophils (%) (Auto) 1 % (0-3) 4 % (0-3) Basophils (%) (Auto) 0 % (0-3) 1 % (0-3) Neutrophils # (Auto) 11.6 x10^3/uL (1.8-7.7) 4.7 x10^3/uL (1.8-7.7) Lymphocytes # (Auto) 1.7 x10^3/uL (1.0-4.8) 2.1 x10^3/uL (1.0-4.8) Monocytes # (Auto) 1.7 x10^3/uL (0.0-1.1) 1.1 x10^3/uL (0.0-1.1) Eosinophils # (Auto) 0.2 x10^3/uL (0.0-0.7) 0.4 x10^3/uL (0.0-0.7) Basophils # (Auto) 0.1 x10^3/uL (0.0-0.2) 0.0 x10^3/uL (0.0-0.2) Prothrombin Time 13.1 SEC (11.7-14.0) Prothromb Time International Ratio 1.0 (0.8-1.1) Sodium Level 138 mmol/L (136-145) 143 mmol/L (136-145) Potassium Level 3.9 mmol/L (3.5-5.1) 3.7 mmol/L (3.5-5.1) Chloride Level 99 mmol/L (98-107) 110 mmol/L (98-107) Carbon Dioxide Level 28 mmol/L (21-32) 26 mmol/L (21-32) Anion Gap 11 (6-14) 7 (6-14) Blood Urea Nitrogen 12 mg/dL (7-20) 11 mg/dL (7-20) Creatinine 0.6 mg/dL (0.6-1.0) 0.5 mg/dL (0.6-1.0) Estimated GFR (Cockcroft-Gault) 100.6 124.2 BUN/Creatinine Ratio 20 (6-20) 22 (6-20) Glucose Level 92 mg/dL (70-99) 82 mg/dL (70-99) Lactic Acid Level 1.4 mmol/L (0.4-2.0) Calcium Level 9.1 mg/dL (8.5-10.1) 8.0 mg/dL (8.5-10.1) Total Bilirubin 1.0 mg/dL (0.2-1.0) 0.7 mg/dL (0.2-1.0) Aspartate Amino Transf (AST/SGOT) 21 U/L (15-37) 20 U/L (15-37) Alanine Aminotransferase (ALT/SGPT) 19 U/L (14-59) 22 U/L (14-59) Alkaline Phosphatase 84 U/L (46-116) 63 U/L (46-116) Troponin I Quantitative < 0.017 ng/mL (0.000-0.055) EO-Uds-B-Type Natriuretic Peptide 47 pg/mL (0-124) Total Protein 8.0 g/dL (6.4-8.2) 5.9 g/dL (6.4-8.2) Albumin 3.8 g/dL (3.4-5.0) 2.6 g/dL (3.4-5.0) Albumin/Globulin Ratio 0.9 (1.0-1.7) 0.8 (1.0-1.7) Procalcitonin 0.10 ng/mL (0.00-0.10) Laboratory Tests Test 08/02/19 11:45 08/02/19 11:46 08/03/19 04:20 Influenza Type A Antigen Negative (NEGATIVE) Influenza Type B Antigen Negative (NEGATIVE) White Blood Count 15.2 x10^3/uL (4.0-11.0) 8.3 x10^3/uL (4.0-11.0) Red Blood Count 4.43 x10^6/uL (3.50-5.40) 3.68 x10^6/uL (3.50-5.40) Hemoglobin 13.2 g/dL (12.0-15.5) 10.9 g/dL (12.0-15.5) Hematocrit 39.1 % (36.0-47.0) 32.9 % (36.0-47.0) Mean Corpuscular Volume 88 fL (79-100) 89 fL (79-100) Mean Corpuscular Hemoglobin 30 pg (25-35) 30 pg (25-35) Mean Corpuscular Hemoglobin Concent 34 g/dL (31-37) 33 g/dL (31-37) Red Cell Distribution Width 14.7 % (11.5-14.5) 14.8 % (11.5-14.5) Platelet Count 258 x10^3/uL (140-400) 217 x10^3/uL (140-400) Neutrophils (%) (Auto) 76 % (31-73) 56 % (31-73) Lymphocytes (%) (Auto) 11 % (24-48) 26 % (24-48) Monocytes (%) (Auto) 11 % (0-9) 13 % (0-9) Eosinophils (%) (Auto) 1 % (0-3) 4 % (0-3) Basophils (%) (Auto) 0 % (0-3) 1 % (0-3) Neutrophils # (Auto) 11.6 x10^3/uL (1.8-7.7) 4.7 x10^3/uL (1.8-7.7) Lymphocytes # (Auto) 1.7 x10^3/uL (1.0-4.8) 2.1 x10^3/uL (1.0-4.8) Monocytes # (Auto) 1.7 x10^3/uL (0.0-1.1) 1.1 x10^3/uL (0.0-1.1) Eosinophils # (Auto) 0.2 x10^3/uL (0.0-0.7) 0.4 x10^3/uL (0.0-0.7) Basophils # (Auto) 0.1 x10^3/uL (0.0-0.2) 0.0 x10^3/uL (0.0-0.2) Prothrombin Time 13.1 SEC (11.7-14.0) Prothromb Time International Ratio 1.0 (0.8-1.1) Sodium Level 138 mmol/L (136-145) 143 mmol/L (136-145) Potassium Level 3.9 mmol/L (3.5-5.1) 3.7 mmol/L (3.5-5.1) Chloride Level 99 mmol/L (98-107) 110 mmol/L (98-107) Carbon Dioxide Level 28 mmol/L (21-32) 26 mmol/L (21-32) Anion Gap 11 (6-14) 7 (6-14) Blood Urea Nitrogen 12 mg/dL (7-20) 11 mg/dL (7-20) Creatinine 0.6 mg/dL (0.6-1.0) 0.5 mg/dL (0.6-1.0) Estimated GFR (Cockcroft-Gault) 100.6 124.2 BUN/Creatinine Ratio 20 (6-20) 22 (6-20) Glucose Level 92 mg/dL (70-99) 82 mg/dL (70-99) Lactic Acid Level 1.4 mmol/L (0.4-2.0) Calcium Level 9.1 mg/dL (8.5-10.1) 8.0 mg/dL (8.5-10.1) Total Bilirubin 1.0 mg/dL (0.2-1.0) 0.7 mg/dL (0.2-1.0) Aspartate Amino Transf (AST/SGOT) 21 U/L (15-37) 20 U/L (15-37) Alanine Aminotransferase (ALT/SGPT) 19 U/L (14-59) 22 U/L (14-59) Alkaline Phosphatase 84 U/L (46-116) 63 U/L (46-116) Troponin I Quantitative < 0.017 ng/mL (0.000-0.055) VX-Mlm-Q-Type Natriuretic Peptide 47 pg/mL (0-124) Total Protein 8.0 g/dL (6.4-8.2) 5.9 g/dL (6.4-8.2) Albumin 3.8 g/dL (3.4-5.0) 2.6 g/dL (3.4-5.0) Albumin/Globulin Ratio 0.9 (1.0-1.7) 0.8 (1.0-1.7) Procalcitonin 0.10 ng/mL (0.00-0.10) Medications Active Scripts Medications Dose Route/Sig Max Daily Dose Days Date Category Dose Instructions Albuterol Sulfate Conc Neb Soln (Albuterol Sulfate) 2.5 Mg/0.5 Ml Vial.neb 1 Vial NEB Q4HRS PRN 07/09/19 Rx Doxycycline Hyclate 100 Mg Tablet.dr 1 Tab PO BID 07/09/19 Rx Prednisone 50 Mg Tablet 1 Tab PO DAILY 07/09/19 Rx [place] 5-325 Tablet (Acetaminophen/Hydrocodone Bitart) 1 Each Tablet 1 Tab PO PRN Q6HRS PRN 05/03/18 Rx Prednisone (Prednisone) 10 Mg Tablet 10 Mg PO UD 11/13/16 Rx Take 3 tablets daily for 3 days, then take 2 tablets daily for 3 days, then take 1 tablet daily for 3 days, then stop. Azithromycin Tablet (Azithromycin) 250 Mg Tablet 250 Mg PO DAILY 11/13/16 Rx Hydrocodone-Apap 5-325 (Hydrocodone Bit/Acetaminophen) 1 Each Tablet 1 Tab PO PRN Q6HRS PRN 11/11/16 Reported Zyprexa (Olanzapine) 20 Mg Tablet 1 Tab PO QHS 11/11/16 Reported Proair Hfa (Albuterol Sulfate) 8.5 Gm Hfa.aer.ad 8.5 Gm IH BID66 08/18/16 Rx Pulmicort Flexhaler (Budesonide) 180 Mcg Aer.pow.ba 2 Puff IH BID 08/18/16 Rx Clorazepate Dipotassium 3.75 Mg Tablet 3.75 Mg PO BID 05/19/16 Reported Simvastatin 20 Mg Tablet 20 Mg PO DAILY 05/19/16 Reported Olanzapine 20 Mg Tablet 20 Mg PO DAILY 05/19/16 Reported Bupropion Hcl 100 Mg Tablet 100 Mg PO BID 05/19/16 Reported Impression . FULL NOTE DICTATED AECOPD AND PNEUMONIA SEE ORDERS THANKS JEWEL FLANAGAN MD Aug 03, 2019 10:22
[2019-08-03 11:00] VITALS: BP 102/68
--- NOTE | 2019-08-03 11:08 | PDOC ---
PROGRESS NOTES History of Present Illness History of Present Illness VTE Prophylaxis Ordered VTE Prophylaxis Devices: Yes VTE Pharmacological Prophylaxi: Yes Assessment/Plan Assessment/Plan IMPRESSION Acute hypoxic resp failure PNEUMONIA SEPSIS HX HTN HX CVA REMOTE ACUTE COPD EXAC Diffuse centrilobular emphysematous involvement of the lung munguia noted. Bilateral bronchial wall thickening is noted which may represent chronic bronchitis. RECENT CT CHEST PLAN ADMIT BLOOD CULT CORNV-19 AG PULM CONSULT O2 SUPPORT EMPERIC IV ANTIBIOTICS, ZOSYN, VANC SPUTUM CULT DVT PROPHYLAXIS NEG PRESSURE ROOM 32 MIN CC TIME Vitals Vitals Vital Signs Date Time Temp Pulse Resp B/P (MAP) Pulse Ox O2 Delivery O2 Flow Rate FiO2 08/03/19 10:39 17 Room Air 08/03/19 08:50 97 08/03/19 07:00 97.9 96 116/78 (91) 97.9 Physical Exam General: Alert, Oriented X3, Cooperative, No acute distress Heart: Regular rate, Other (TACHY) Lungs: Crackles, Other Abdomen: Normal bowel sounds, Soft, Other (THIN) Extremities: No cyanosis Skin: No breakdown Labs LABS Laboratory Tests Test 08/02/19 11:45 08/02/19 11:46 08/03/19 04:20 Influenza Type A Antigen Negative (NEGATIVE) Influenza Type B Antigen Negative (NEGATIVE) White Blood Count 15.2 x10^3/uL (4.0-11.0) 8.3 x10^3/uL (4.0-11.0) Red Blood Count 4.43 x10^6/uL (3.50-5.40) 3.68 x10^6/uL (3.50-5.40) Hemoglobin 13.2 g/dL (12.0-15.5) 10.9 g/dL (12.0-15.5) Hematocrit 39.1 % (36.0-47.0) 32.9 % (36.0-47.0) Mean Corpuscular Volume 88 fL (79-100) 89 fL (79-100) Mean Corpuscular Hemoglobin 30 pg (25-35) 30 pg (25-35) Mean Corpuscular Hemoglobin Concent 34 g/dL (31-37) 33 g/dL (31-37) Red Cell Distribution Width 14.7 % (11.5-14.5) 14.8 % (11.5-14.5) Platelet Count 258 x10^3/uL (140-400) 217 x10^3/uL (140-400) Neutrophils (%) (Auto) 76 % (31-73) 56 % (31-73) Lymphocytes (%) (Auto) 11 % (24-48) 26 % (24-48) Monocytes (%) (Auto) 11 % (0-9) 13 % (0-9) Eosinophils (%) (Auto) 1 % (0-3) 4 % (0-3) Basophils (%) (Auto) 0 % (0-3) 1 % (0-3) Neutrophils # (Auto) 11.6 x10^3/uL (1.8-7.7) 4.7 x10^3/uL (1.8-7.7) Lymphocytes # (Auto) 1.7 x10^3/uL (1.0-4.8) 2.1 x10^3/uL (1.0-4.8) Monocytes # (Auto) 1.7 x10^3/uL (0.0-1.1) 1.1 x10^3/uL (0.0-1.1) Eosinophils # (Auto) 0.2 x10^3/uL (0.0-0.7) 0.4 x10^3/uL (0.0-0.7) Basophils # (Auto) 0.1 x10^3/uL (0.0-0.2) 0.0 x10^3/uL (0.0-0.2) Prothrombin Time 13.1 SEC (11.7-14.0) Prothromb Time International Ratio 1.0 (0.8-1.1) Sodium Level 138 mmol/L (136-145) 143 mmol/L (136-145) Potassium Level 3.9 mmol/L (3.5-5.1) 3.7 mmol/L (3.5-5.1) Chloride Level 99 mmol/L (98-107) 110 mmol/L (98-107) Carbon Dioxide Level 28 mmol/L (21-32) 26 mmol/L (21-32) Anion Gap 11 (6-14) 7 (6-14) Blood Urea Nitrogen 12 mg/dL (7-20) 11 mg/dL (7-20) Creatinine 0.6 mg/dL (0.6-1.0) 0.5 mg/dL (0.6-1.0) Estimated GFR (Cockcroft-Gault) 100.6 124.2 BUN/Creatinine Ratio 20 (6-20) 22 (6-20) Glucose Level 92 mg/dL (70-99) 82 mg/dL (70-99) Lactic Acid Level 1.4 mmol/L (0.4-2.0) Calcium Level 9.1 mg/dL (8.5-10.1) 8.0 mg/dL (8.5-10.1) Total Bilirubin 1.0 mg/dL (0.2-1.0) 0.7 mg/dL (0.2-1.0) Aspartate Amino Transf (AST/SGOT) 21 U/L (15-37) 20 U/L (15-37) Alanine Aminotransferase (ALT/SGPT) 19 U/L (14-59) 22 U/L (14-59) Alkaline Phosphatase 84 U/L (46-116) 63 U/L (46-116) Troponin I Quantitative < 0.017 ng/mL (0.000-0.055) ZP-Ukw-N-Type Natriuretic Peptide 47 pg/mL (0-124) Total Protein 8.0 g/dL (6.4-8.2) 5.9 g/dL (6.4-8.2) Albumin 3.8 g/dL (3.4-5.0) 2.6 g/dL (3.4-5.0) Albumin/Globulin Ratio 0.9 (1.0-1.7) 0.8 (1.0-1.7) Procalcitonin 0.10 ng/mL (0.00-0.10) Assessment and Plan Assessmemt and Plan Problems Medical Problems: (1) Pneumonia Status: Acute Comment Review of Relevant I have reviewed the following items luis angel (where applicable) has been applied. Labs Laboratory Tests Test 08/02/19 11:45 08/02/19 11:46 08/03/19 04:20 Influenza Type A Antigen Negative (NEGATIVE) Influenza Type B Antigen Negative (NEGATIVE) White Blood Count 15.2 x10^3/uL (4.0-11.0) 8.3 x10^3/uL (4.0-11.0) Red Blood Count 4.43 x10^6/uL (3.50-5.40) 3.68 x10^6/uL (3.50-5.40) Hemoglobin 13.2 g/dL (12.0-15.5) 10.9 g/dL (12.0-15.5) Hematocrit 39.1 % (36.0-47.0) 32.9 % (36.0-47.0) Mean Corpuscular Volume 88 fL (79-100) 89 fL (79-100) Mean Corpuscular Hemoglobin 30 pg (25-35) 30 pg (25-35) Mean Corpuscular Hemoglobin Concent 34 g/dL (31-37) 33 g/dL (31-37) Red Cell Distribution Width 14.7 % (11.5-14.5) 14.8 % (11.5-14.5) Platelet Count 258 x10^3/uL (140-400) 217 x10^3/uL (140-400) Neutrophils (%) (Auto) 76 % (31-73) 56 % (31-73) Lymphocytes (%) (Auto) 11 % (24-48) 26 % (24-48) Monocytes (%) (Auto) 11 % (0-9) 13 % (0-9) Eosinophils (%) (Auto) 1 % (0-3) 4 % (0-3) Basophils (%) (Auto) 0 % (0-3) 1 % (0-3) Neutrophils # (Auto) 11.6 x10^3/uL (1.8-7.7) 4.7 x10^3/uL (1.8-7.7) Lymphocytes # (Auto) 1.7 x10^3/uL (1.0-4.8) 2.1 x10^3/uL (1.0-4.8) Monocytes # (Auto) 1.7 x10^3/uL (0.0-1.1) 1.1 x10^3/uL (0.0-1.1) Eosinophils # (Auto) 0.2 x10^3/uL (0.0-0.7) 0.4 x10^3/uL (0.0-0.7) Basophils # (Auto) 0.1 x10^3/uL (0.0-0.2) 0.0 x10^3/uL (0.0-0.2) Prothrombin Time 13.1 SEC (11.7-14.0) Prothromb Time International Ratio 1.0 (0.8-1.1) Sodium Level 138 mmol/L (136-145) 143 mmol/L (136-145) Potassium Level 3.9 mmol/L (3.5-5.1) 3.7 mmol/L (3.5-5.1) Chloride Level 99 mmol/L (98-107) 110 mmol/L (98-107) Carbon Dioxide Level 28 mmol/L (21-32) 26 mmol/L (21-32) Anion Gap 11 (6-14) 7 (6-14) Blood Urea Nitrogen 12 mg/dL (7-20) 11 mg/dL (7-20) Creatinine 0.6 mg/dL (0.6-1.0) 0.5 mg/dL (0.6-1.0) Estimated GFR (Cockcroft-Gault) 100.6 124.2 BUN/Creatinine Ratio 20 (6-20) 22 (6-20) Glucose Level 92 mg/dL (70-99) 82 mg/dL (70-99) Lactic Acid Level 1.4 mmol/L (0.4-2.0) Calcium Level 9.1 mg/dL (8.5-10.1) 8.0 mg/dL (8.5-10.1) Total Bilirubin 1.0 mg/dL (0.2-1.0) 0.7 mg/dL (0.2-1.0) Aspartate Amino Transf (AST/SGOT) 21 U/L (15-37) 20 U/L (15-37) Alanine Aminotransferase (ALT/SGPT) 19 U/L (14-59) 22 U/L (14-59) Alkaline Phosphatase 84 U/L (46-116) 63 U/L (46-116) Troponin I Quantitative < 0.017 ng/mL (0.000-0.055) JB-Wug-G-Type Natriuretic Peptide 47 pg/mL (0-124) Total Protein 8.0 g/dL (6.4-8.2) 5.9 g/dL (6.4-8.2) Albumin 3.8 g/dL (3.4-5.0) 2.6 g/dL (3.4-5.0) Albumin/Globulin Ratio 0.9 (1.0-1.7) 0.8 (1.0-1.7) Procalcitonin 0.10 ng/mL (0.00-0.10) Laboratory Tests Test 08/02/19 11:45 08/02/19 11:46 08/03/19 04:20 Influenza Type A Antigen Negative (NEGATIVE) Influenza Type B Antigen Negative (NEGATIVE) White Blood Count 15.2 x10^3/uL (4.0-11.0) 8.3 x10^3/uL (4.0-11.0) Red Blood Count 4.43 x10^6/uL (3.50-5.40) 3.68 x10^6/uL (3.50-5.40) Hemoglobin 13.2 g/dL (12.0-15.5) 10.9 g/dL (12.0-15.5) Hematocrit 39.1 % (36.0-47.0) 32.9 % (36.0-47.0) Mean Corpuscular Volume 88 fL (79-100) 89 fL (79-100) Mean Corpuscular Hemoglobin 30 pg (25-35) 30 pg (25-35) Mean Corpuscular Hemoglobin Concent 34 g/dL (31-37) 33 g/dL (31-37) Red Cell Distribution Width 14.7 % (11.5-14.5) 14.8 % (11.5-14.5) Platelet Count 258 x10^3/uL (140-400) 217 x10^3/uL (140-400) Neutrophils (%) (Auto) 76 % (31-73) 56 % (31-73) Lymphocytes (%) (Auto) 11 % (24-48) 26 % (24-48) Monocytes (%) (Auto) 11 % (0-9) 13 % (0-9) Eosinophils (%) (Auto) 1 % (0-3) 4 % (0-3) Basophils (%) (Auto) 0 % (0-3) 1 % (0-3) Neutrophils # (Auto) 11.6 x10^3/uL (1.8-7.7) 4.7 x10^3/uL (1.8-7.7) Lymphocytes # (Auto) 1.7 x10^3/uL (1.0-4.8) 2.1 x10^3/uL (1.0-4.8) Monocytes # (Auto) 1.7 x10^3/uL (0.0-1.1) 1.1 x10^3/uL (0.0-1.1) Eosinophils # (Auto) 0.2 x10^3/uL (0.0-0.7) 0.4 x10^3/uL (0.0-0.7) Basophils # (Auto) 0.1 x10^3/uL (0.0-0.2) 0.0 x10^3/uL (0.0-0.2) Prothrombin Time 13.1 SEC (11.7-14.0) Prothromb Time International Ratio 1.0 (0.8-1.1) Sodium Level 138 mmol/L (136-145) 143 mmol/L (136-145) Potassium Level 3.9 mmol/L (3.5-5.1) 3.7 mmol/L (3.5-5.1) Chloride Level 99 mmol/L (98-107) 110 mmol/L (98-107) Carbon Dioxide Level 28 mmol/L (21-32) 26 mmol/L (21-32) Anion Gap 11 (6-14) 7 (6-14) Blood Urea Nitrogen 12 mg/dL (7-20) 11 mg/dL (7-20) Creatinine 0.6 mg/dL (0.6-1.0) 0.5 mg/dL (0.6-1.0) Estimated GFR (Cockcroft-Gault) 100.6 124.2 BUN/Creatinine Ratio 20 (6-20) 22 (6-20) Glucose Level 92 mg/dL (70-99) 82 mg/dL (70-99) Lactic Acid Level 1.4 mmol/L (0.4-2.0) Calcium Level 9.1 mg/dL (8.5-10.1) 8.0 mg/dL (8.5-10.1) Total Bilirubin 1.0 mg/dL (0.2-1.0) 0.7 mg/dL (0.2-1.0) Aspartate Amino Transf (AST/SGOT) 21 U/L (15-37) 20 U/L (15-37) Alanine Aminotransferase (ALT/SGPT) 19 U/L (14-59) 22 U/L (14-59) Alkaline Phosphatase 84 U/L (46-116) 63 U/L (46-116) Troponin I Quantitative < 0.017 ng/mL (0.000-0.055) PY-Rbu-J-Type Natriuretic Peptide 47 pg/mL (0-124) Total Protein 8.0 g/dL (6.4-8.2) 5.9 g/dL (6.4-8.2) Albumin 3.8 g/dL (3.4-5.0) 2.6 g/dL (3.4-5.0) Albumin/Globulin Ratio 0.9 (1.0-1.7) 0.8 (1.0-1.7) Procalcitonin 0.10 ng/mL (0.00-0.10) Medications Current Medications Fentanyl Citrate (Fentanyl 2ml Vial) 50 mcg 1X ONCE IV Last administered on 08/02/19 12:59; Start 08/02/19 at 12:15; Stop 08/02/19 at 12:16; Status DC Ceftriaxone Sodium (Rocephin) 1 gm 1X ONCE IVP Last administered on 08/02/19at 12:59; Start 08/02/19 at 12:45; Stop 08/02/19 at 12:46; Status DC Doxycycline Hyclate 100 mg/ Dextrose 100 ml @ 50 mls/hr 1X ONCE IV Last administered on 08/02/19at 14:00; Start 08/02/19 at 12:45; Stop 08/02/19 at 14:44; Status DC Sodium Chloride 500 ml @ 500 mls/hr 1X ONCE IV Last administered on 08/02/19at 12:58; Start 08/02/19 at 12:45; Stop 08/02/19 at 13:44; Status DC Fentanyl Citrate (Fentanyl 2ml Vial) 50 mcg PRN Q2HR PRN IV PAIN Last administered on 08/03/19at 10:39; Start 08/02/19 at 16:00 Sodium Chloride (Normal Saline Flush) 3 ml QSHIFT PRN IV AFTER MEDS AND BLOOD DRAWS; Start 08/02/19 at 16:15 Sodium Chloride 1,000 ml @ 100 mls/hr Q10H IV Last administered on 08/03/19at 04:14; Start 08/02/19 at 16:07 Ondansetron HCl (Zofran) 4 mg PRN Q4HRS PRN IV NAUSEA/VOMITING; Start 08/02/19 at 16:15 Acetaminophen (Tylenol) 650 mg PRN Q4HRS PRN PO TEMP OVER 100.4F OR MILD PAIN; Start 08/02/19 at 16:15 Al Hydroxide/Mg Hydroxide (Mylanta Plus Xs) 30 ml PRN DAILY PRN PO HEARTBURN / GAS; Start 08/02/19 at 16:15 Clonidine HCl (Catapres) 0.1 mg PRN Q6HRS PRN PO SBP>160 OR DBP>90; Start 08/02/19 at 16:15 Docusate Sodium (Colace) 100 mg PRN BID PRN PO CONSTIPATION; Start 08/02/19 at 16:15 Albuterol/ Ipratropium (Duoneb) 3 ml Q4HRS NEB Last administered on 08/03/19at 08:47; Start 08/02/19 at 16:30 Guaifenesin (Robitussin) 200 mg PRN Q4HRS PRN PO COUGH; Start 08/02/19 at 16:15 Enoxaparin Sodium (Lovenox 40mg Syringe) 40 mg Q24H SQ Last administered on 08/02/19at 18:15; Start 08/02/19 at 17:00 Vancomycin HCl (Vanco Per Pharmacy) 1 each PRN DAILY PRN MC SEE COMMENTS Last administered on 08/02/19at 19:25; Start 08/02/19 at 16:15 Piperacillin Sod/ Tazobactam Sod 3.375 gm/Sodium Chloride 50 ml @ 100 mls/hr Q6HRS IV Last administered on 08/03/19at 05:42; Start 08/02/19 at 18:00 Vancomycin HCl 250 ml @ 250 mls/hr 1X ONCE IV ; Start 08/02/19 at 16:30; Stop 08/02/19 at 17:29; Status Cancel Albuterol Sulfate (Ventolin Neb Soln) 2.5 mg PRN Q4HRS PRN NEB WHEEZING; Start 08/02/19 at 16:15 Bupropion HCl (Wellbutrin) 100 mg BID PO Last administered on 08/03/19at 07:49; Start 08/02/19 at 21:00 Acetaminophen/ Hydrocodone Bitart (Lortab 5/325) 1 tab PRN Q6HRS PRN PO MODERATE-SEVERE Last administered on 08/03/19at 05:40; Start 08/02/19 at 16:15 Simvastatin (Zocor) 20 mg HS PO Last administered on 08/02/19at 21:16; Start 08/02/19 at 21:00 Budesonide (Pulmicort) 0.5 mg RTBID NEB Last administered on 08/03/19at 08:47; Start 08/02/19 at 20:00 Olanzapine (ZyPREXA) 20 mg DAILY PO Last administered on 08/03/19at 07:49; Start 08/03/19 at 09:00 Vancomycin HCl 1 gm/Sodium Chloride 250 ml @ 250 mls/hr 1X ONCE IV Last administered on 08/02/19at 18:14; Start 08/02/19 at 18:30; Stop 08/02/19 at 19:29; Status DC Vancomycin HCl 750 mg/Sodium Chloride 250 ml @ 250 mls/hr Q12H IV Last administered on 08/03/19at 05:40; Start 08/03/19 at 06:00 Vancomycin HCl (Vancomycin Trough Level) 1 each 1X ONCE MC ; Start 08/04/19 at 05:30; Stop 08/04/19 at 05:31 Active Scripts Active Albuterol Sulfate Conc Neb Soln (Albuterol Sulfate) 2.5 Mg/0.5 Ml Vial.neb 1 Vial NEB Q4HRS PRN Doxycycline Hyclate 100 Mg Tablet.dr 1 Tab PO BID Prednisone 50 Mg Tablet 1 Tab PO DAILY [place] 5-325 Tablet (Acetaminophen/Hydrocodone Bitart) 1 Each Tablet 1 Tab PO PRN Q6HRS PRN Prednisone (Prednisone) 10 Mg Tablet 10 Mg PO UD Take 3 tablets daily for 3 days, then take 2 tablets daily for 3 days, then take 1 tablet daily for 3 days, then stop. Azithromycin Tablet (Azithromycin) 250 Mg Tablet 250 Mg PO DAILY Proair Hfa (Albuterol Sulfate) 8.5 Gm Hfa.aer.ad 8.5 Gm IH BID66 Pulmicort Flexhaler (Budesonide) 180 Mcg Aer.pow.ba 2 Puff IH BID Reported Hydrocodone-Apap 5-325 (Hydrocodone Bit/Acetaminophen) 1 Each Tablet 1 Tab PO PRN Q6HRS PRN Zyprexa (Olanzapine) 20 Mg Tablet 1 Tab PO QHS Clorazepate Dipotassium 3.75 Mg Tablet 3.75 Mg PO BID Simvastatin 20 Mg Tablet 20 Mg PO DAILY Olanzapine 20 Mg Tablet 20 Mg PO DAILY Bupropion Hcl 100 Mg Tablet 100 Mg PO BID Vitals/I & O Vital Sign - Last 24 Hours 08/02/19 08/02/19 08/02/19 08/02/19 11:47 12:42 12:59 13:42 Temp 98.3 98.3 Pulse 122 112 110 Resp 18 28 18 26 B/P (MAP) 138/92 (107) 135/78 (97) 144/84 (104) Pulse Ox 94 93 94 O2 Delivery Room Air Room Air Room Air 08/02/19 08/02/19 08/02/19 08/02/19 14:42 16:07 16:12 16:37 Pulse 108 112 Resp 20 18 22 B/P (MAP) 136/83 (100) 153/101 (118) Pulse Ox 96 93 97 O2 Delivery Room Air Room Air 08/02/19 08/02/19 08/02/19 08/02/19 17:12 18:25 19:44 20:14 Temp 99.3 99.3 Pulse 114 123 Resp 24 B/P (MAP) 158/78 (104) 141/82 (101) Pulse Ox 93 97 97 97 O2 Delivery Room Air Room Air 08/02/19 08/02/19 08/02/19 08/02/19 20:15 20:15 20:16 21:16 Pulse Ox 97 97 97 O2 Delivery Room Air Room Air Room Air 08/02/19 08/02/19 08/02/19 08/02/19 22:16 22:55 23:00 23:25 Temp 99.1 99.1 Pulse 103 Resp 20 B/P (MAP) 110/70 (83) Pulse Ox 97 97 92 92 O2 Delivery Room Air 08/03/19 08/03/19 08/03/1908/02/20 03:00 05:40 06:40 07:00 Temp 98.3 97.9 98.3 97.9 Pulse 97 96 Resp 20 16 20 B/P (MAP) 126/78 (94) 116/78 (91) Pulse Ox 100 100 94 O2 Delivery Room Air Room Air Room Air Room Air 08/03/19 08/03/19 08/03/19 08/03/19 07:51 08:21 08:49 08:50 Resp 18 17 Pulse Ox 97 97 O2 Delivery Room Air Room Air Room Air Room Air 08/03/19 10:39 Resp 17 O2 Delivery Room Air Intake and Output 08/02/19 08/02/19 08/03/19 15:00 23:00 07:00 Intake Total 900 ml 600 ml Balance 900 ml 600 ml CASA DUONG MD Aug 03, 2019 11:08
--- NOTE | 2019-08-03 11:16 | CONS ---
DATE OF CONSULTATION: 08/03/2019 ATTENDING PHYSICIAN: Jacinto Siu M.D. CONSULTING PHYSICIAN: Jewel Flanagan M.D. REASON FOR CONSULTATION: The patient seen in pulmonary consultation at the request of Dr. Siu for increasing shortness of air and fever. HISTORY OF PRESENT ILLNESS: The patient is a 64-year-old well known to me from outpatient visits. She has underlying COPD, continues to smoke, presented with a 2-3 day history of increasing shortness of breath, cough productive of discolored sputum. She also had a temperature at home of 100.3. Night sweats, coughing up some dark sputum. She also had some discomfort while coughing. She presented with the above complaints. She was evaluated in the Emergency Room. I reviewed her x-ray, which revealed the right lower lobe infiltrate. She was admitted. Since her admission, her T-max has been 99.3. She is currently on room air. PAST MEDICAL HISTORY: Remarkable for COPD, tobacco dependent; anxiety, depression, hyperlipidemia, previous stroke, and hypertension. PAST SURGICAL HISTORY: Right hip fracture, bilateral breast surgery, kyphoplasty, tonsillectomy, and hysterectomy. REVIEW OF SYSTEMS: CONSTITUTIONAL: Fever. EYES: No change in visual acuity. HENT: No nasal congestion, no sore throat. PULMONARY: As indicated above. CARDIOVASCULAR: No chest pain. No pressure. GASTROINTESTINAL: No nausea, vomiting, or diarrhea. GENITOURINARY: No dysuria or frequency. MUSCULOSKELETAL: No localized muscle aches or joint pains. SKIN: No new skin rashes. NEUROLOGIC: No headaches, diplopia, or blurred vision. CURRENT MEDICATION: List was reviewed. ALLERGIES: HALOPERIDOL. HOME MEDICATIONS: List was reviewed. SOCIAL HISTORY: She continues to smoke. PHYSICAL EXAMINATION: VITAL SIGNS: Stable. O2 saturation was greater than 92%. HEENT: Eyes, the sclerae were nonicteric. NECK: Jugular venous distention was not elevated. No lymphadenopathy. CHEST: Full expansion. LUNGS: Poor airway flow with rales in the right base and expiratory wheeze. CARDIOVASCULAR: Regular rate and rhythm with S1, S2, no S3. ABDOMEN: Soft, nontender, nondistended. EXTREMITIES: No clubbing, cyanosis, or edema. LABORATORY DATA: White count was elevated. Hemoglobin and hematocrit were noted. Electrolytes were noted. Procalcitonin was not elevated. IMPRESSION: 1. Abnormal x-ray, compatible with pneumonia. 2. Pneumonia, gram negative, possibly gram positive. 3. Acute exacerbation of chronic obstructive pulmonary disease. 4. Leukocytosis. 5. [id number] testing pending. 6. Tobacco dependent. PLAN: The patient required admission as a consequence of her underlying COPD, abnormal x-ray, and increasing symptoms along with fever. We will continue current IV antibiotics. Follow up on COVID testing. She is currently on vancomycin and Zosyn IV along with IV steroids. We will deescalate antibiotics depending on the patient's clinical response. I do appreciate the privilege in sharing in the patient's care. JEWEL FLANAGAN MD DR: WILI/blu JOB#: [id number] / [id number]
[2019-08-03 11:23] LABS: BILIRUBIN,URINE NEGATIVE (NEG); CLARITY,URINE CLEAR; COLOR,URINE YELLOW; NITRITE,URINE NEGATIVE (NEG); PH,URINE 5.5 (<5.0-8.0); PROTEIN,URINE NEGATIVE (NEG-TRACE)
[2019-08-03 11:40] LABS: BACTERIA,URINE 0 /HPF (0-FEW); RBC,URINE 0 /HPF (0-2); SQUAMOUS EPITHELIAL CELL,UR FEW /LPF
--- NOTE | 2019-08-03 13:38 | NUR ---
SS following for discharge planning. SS reviewed pt chart and discussed with RN. Pt is from home with spouse and is currently on room air. Per RN, pt has home oxygen at night. COVID19 test pending at this time. SS will continue to follow for discharge planning.
[2019-08-03] MEDS: VANCOMYCIN PER PHARMACY MC PRN (14:25)
[2019-08-03 15:00] VITALS: BP 99/70
[2019-08-03] MEDS: ENOXAPARIN 40 MG/0.4 ML SYRINGE. SQ SCH (17:06)
[2019-08-03 19:35] VITALS: BP 117/78
[2019-08-03] MEDS: SIMVASTATIN 20 MG TABLET PO SCH (21:13)
[2019-08-03] MEDS: LACTOBACILLUS RHAMNOSUS GG 1 CAPSULE. PO SCH (21:13)
[2019-08-03 23:00] VITALS: BP 118/75
[2019-08-04] MEDS: PIPERACILLIN/TAZOBACTAM 3.375 GM in IV NORMAL SALINE 50ML 50 ML IV SCH ×4 (00:38→17:43)
[2019-08-04 03:00] VITALS: BP 148/90
[2019-08-04] MEDS: IPRATRPIUM/ALBUTEROL 0.5/2.5MG 3 ML NEBU. NEB SCH ×6 (04:00→20:00)
[2019-08-04] MEDS: fentaNYL PF VIAL 100 MCG/2 ML VIAL IV PRN ×5 (04:07→19:33)
[2019-08-04 05:05] LABS: BASO # 0.1 x10^3/uL (0.0-0.2); BASO % 1 % (0-3); EOS # 0.4 x10^3/uL (0.0-0.7); EOS % 7 % (0-3); HEMATOCRIT 33.2 % (36.0-47.0); LYMPH # 2.1 x10^3/uL (1.0-4.8); LYMPH % 32 % (24-48); MEAN CORPUSCULAR HEMOGLOBIN 30 pg (25-35); MEAN CORPUSCULAR HGB CONC 33 g/dL (31-37); MEAN CORPUSCULAR VOLUME 90 fL (79-100); MONO # 0.9 x10^3/uL (0.0-1.1); MONO % 14 % (0-9); NEUT # 3.1 x10^3/uL (1.8-7.7); NEUT % 47 % (31-73); PLATELET COUNT 233 x10^3/uL (140-400); RED BLOOD COUNT 3.71 x10^6/uL (3.50-5.40); RED CELL DISTRIBUTION WIDTH 14.5 % (11.5-14.5); WHITE BLOOD COUNT 6.5 x10^3/uL (4.0-11.0)
[2019-08-04 05:20] LABS: ALBUMIN 2.5 g/dL (3.4-5.0); ALBUMIN/GLOBULIN RATIO 0.9 (1.0-1.7); CREATININE 0.5 mg/dL (0.6-1.0); GFR 124.2; POTASSIUM 3.8 mmol/L (3.5-5.1); TOTAL BILIRUBIN 0.4 mg/dL (0.2-1.0); TOTAL PROTEIN 5.3 g/dL (6.4-8.2)
[2019-08-04] MEDS: VANCOMYCIN 750 MG in IV NORMAL SALINE 250ML 250 ML IV SCH ×3 (06:00→22:47)
[2019-08-04] MEDS: VANCOMYCIN PER PHARMACY MC PRN (06:56)
--- NOTE | 2019-08-04 06:58 | NUR ---
Pharmacy Vancomycin Dosing Note S: Consulted to monitor and dose vancomycin started 08/02/19. O: DUNG MARIO is a 64 year old F with Pneumonia, . Other Antibiotics: ZOSYN LABS: Last BUN: 11 Last Creatinine: 0.5 Creatinine Clearance: 91.9 mL/min Last WBC: 8.3 Last Procalcitonin: 0.1 Tmax (past 24 hours): 99.3 Microbiology: BLOOD: NGTD I/O: 1500/2 VOIDS Drug Levels: Last Trough level: on 08/04/19 at 0530 Last dose given 08/03/19 at 1707 Vancomycin Dosing: Dosing Weight: Actual Target Trough: 15-20 A: Based on: Trough, Actual WT and CrCl P: 1. 08/04/19 0600 Increase Vancomycin 750 mg IV q8h 2. Follow up Trough level on 08/05/19 at 0530 3. Pharmacy will continue to monitor, follow and adjust therapy as needed. LETTY CARLISLE RPH, 08/04/19 0658 Signed: 08/04/19 at 0659 by LETTY CARLISLE RPH PHA
[2019-08-04 07:15] VITALS: BP 146/95
--- NOTE | 2019-08-04 08:01 | PDOC ---
PROGRESS NOTES History of Present Illness History of Present Illness VTE Prophylaxis Ordered VTE Prophylaxis Devices: Yes VTE Pharmacological Prophylaxi: Yes Assessment/Plan Assessment/Plan IMPRESSION Acute hypoxic resp failure PNEUMONIA SEPSIS HX HTN HX CVA REMOTE ACUTE COPD EXAC Diffuse centrilobular emphysematous involvement of the lung munguia noted. Bilateral bronchial wall thickening is noted which may represent chronic bronchitis. RECENT CT CHEST PLAN ADMIT BLOOD CULT CORNV-19 AG PULM CONSULT O2 SUPPORT EMPERIC IV ANTIBIOTICS, ZOSYN, VANC SPUTUM CULT DVT PROPHYLAXIS NEG PRESSURE ROOM in icu 32 MIN CC TIME Vitals Vitals Vital Signs Date Time Temp Pulse Resp B/P (MAP) Pulse Ox O2 Delivery O2 Flow Rate FiO2 08/04/19 07:38 Room Air 08/04/19 06:23 91 08/04/19 03:00 98.3 95 18 148/90 (109) 98.3 Physical Exam General: Alert, Oriented X3, Cooperative, No acute distress Heart: Regular rate, Other (TACHY) Lungs: Crackles, Other Abdomen: Normal bowel sounds, Soft, Other (THIN) Extremities: No cyanosis Skin: No breakdown Labs LABS Laboratory Tests Test 08/03/19 11:00 08/04/19 04:48 Urine Collection Type Unknown Urine Color Yellow Urine Clarity Clear Urine pH 5.5 (<5.0-8.0) Urine Specific [place] 1.015 (1.000-1.030) Urine Protein Negative mg/dL (NEG-TRACE) Urine Glucose (UA) Negative mg/dL (NEG) Urine Ketones (Stick) Negative mg/dL (NEG) Urine Blood Negative (NEG) Urine Nitrite Negative (NEG) Urine Bilirubin Negative (NEG) Urine Urobilinogen Dipstick 1.0 mg/dL (0.2 mg/dL) Urine Leukocyte Esterase Moderate (NEG) Urine RBC 0 /HPF (0-2) Urine WBC 1-4 /HPF (0-4) Urine Squamous Epithelial Cells Few /LPF Urine Bacteria 0 /HPF (0-FEW) Urine Mucus Slight /LPF White Blood Count 6.5 x10^3/uL (4.0-11.0) Red Blood Count 3.71 x10^6/uL (3.50-5.40) Hemoglobin 11.0 g/dL (12.0-15.5) Hematocrit 33.2 % (36.0-47.0) Mean Corpuscular Volume 90 fL (79-100) Mean Corpuscular Hemoglobin 30 pg (25-35) Mean Corpuscular Hemoglobin Concent 33 g/dL (31-37) Red Cell Distribution Width 14.5 % (11.5-14.5) Platelet Count 233 x10^3/uL (140-400) Neutrophils (%) (Auto) 47 % (31-73) Lymphocytes (%) (Auto) 32 % (24-48) Monocytes (%) (Auto) 14 % (0-9) Eosinophils (%) (Auto) 7 % (0-3) Basophils (%) (Auto) 1 % (0-3) Neutrophils # (Auto) 3.1 x10^3/uL (1.8-7.7) Lymphocytes # (Auto) 2.1 x10^3/uL (1.0-4.8) Monocytes # (Auto) 0.9 x10^3/uL (0.0-1.1) Eosinophils # (Auto) 0.4 x10^3/uL (0.0-0.7) Basophils # (Auto) 0.1 x10^3/uL (0.0-0.2) Sodium Level 146 mmol/L (136-145) Potassium Level 3.8 mmol/L (3.5-5.1) Chloride Level 110 mmol/L (98-107) Carbon Dioxide Level 24 mmol/L (21-32) Anion Gap 12 (6-14) Blood Urea Nitrogen 9 mg/dL (7-20) Creatinine 0.5 mg/dL (0.6-1.0) Estimated GFR (Cockcroft-Gault) 124.2 BUN/Creatinine Ratio 18 (6-20) Glucose Level 83 mg/dL (70-99) Calcium Level 8.0 mg/dL (8.5-10.1) Total Bilirubin 0.4 mg/dL (0.2-1.0) Aspartate Amino Transf (AST/SGOT) 48 U/L (15-37) Alanine Aminotransferase (ALT/SGPT) 46 U/L (14-59) Alkaline Phosphatase 81 U/L (46-116) Total Protein 5.3 g/dL (6.4-8.2) Albumin 2.5 g/dL (3.4-5.0) Albumin/Globulin Ratio 0.9 (1.0-1.7) Vancomycin Level Trough 8.0 mcg/mL (10.0-20.0) Vancomycin Last Dose Date 08/03/19 Vancomycin Last Dose Time 1800 Assessment and Plan Assessmemt and Plan Problems Medical Problems: (1) Pneumonia Status: Acute Comment Review of Relevant I have reviewed the following items luis angel (where applicable) has been applied. Labs Laboratory Tests Test 08/02/19 11:45 08/02/19 11:46 08/03/19 04:20 08/03/19 11:00 Influenza Type A Antigen Negative (NEGATIVE) Influenza Type B Antigen Negative (NEGATIVE) White Blood Count 15.2 x10^3/uL (4.0-11.0) 8.3 x10^3/uL (4.0-11.0) Red Blood Count 4.43 x10^6/uL (3.50-5.40) 3.68 x10^6/uL (3.50-5.40) Hemoglobin 13.2 g/dL (12.0-15.5) 10.9 g/dL (12.0-15.5) Hematocrit 39.1 % (36.0-47.0) 32.9 % (36.0-47.0) Mean Corpuscular Volume 88 fL (79-100) 89 fL (79-100) Mean Corpuscular Hemoglobin 30 pg (25-35) 30 pg (25-35) Mean Corpuscular Hemoglobin Concent 34 g/dL (31-37) 33 g/dL (31-37) Red Cell Distribution Width 14.7 % (11.5-14.5) 14.8 % (11.5-14.5) Platelet Count 258 x10^3/uL (140-400) 217 x10^3/uL (140-400) Neutrophils (%) (Auto) 76 % (31-73) 56 % (31-73) Lymphocytes (%) (Auto) 11 % (24-48) 26 % (24-48) Monocytes (%) (Auto) 11 % (0-9) 13 % (0-9) Eosinophils (%) (Auto) 1 % (0-3) 4 % (0-3) Basophils (%) (Auto) 0 % (0-3) 1 % (0-3) Neutrophils # (Auto) 11.6 x10^3/uL (1.8-7.7) 4.7 x10^3/uL (1.8-7.7) Lymphocytes # (Auto) 1.7 x10^3/uL (1.0-4.8) 2.1 x10^3/uL (1.0-4.8) Monocytes # (Auto) 1.7 x10^3/uL (0.0-1.1) 1.1 x10^3/uL (0.0-1.1) Eosinophils # (Auto) 0.2 x10^3/uL (0.0-0.7) 0.4 x10^3/uL (0.0-0.7) Basophils # (Auto) 0.1 x10^3/uL (0.0-0.2) 0.0 x10^3/uL (0.0-0.2) Prothrombin Time 13.1 SEC (11.7-14.0) Prothromb Time International Ratio 1.0 (0.8-1.1) Sodium Level 138 mmol/L (136-145) 143 mmol/L (136-145) Potassium Level 3.9 mmol/L (3.5-5.1) 3.7 mmol/L (3.5-5.1) Chloride Level 99 mmol/L (98-107) 110 mmol/L (98-107) Carbon Dioxide Level 28 mmol/L (21-32) 26 mmol/L (21-32) Anion Gap 11 (6-14) 7 (6-14) Blood Urea Nitrogen 12 mg/dL (7-20) 11 mg/dL (7-20) Creatinine 0.6 mg/dL (0.6-1.0) 0.5 mg/dL (0.6-1.0) Estimated GFR (Cockcroft-Gault) 100.6 124.2 BUN/Creatinine Ratio 20 (6-20) 22 (6-20) Glucose Level 92 mg/dL (70-99) 82 mg/dL (70-99) Lactic Acid Level 1.4 mmol/L (0.4-2.0) Calcium Level 9.1 mg/dL (8.5-10.1) 8.0 mg/dL (8.5-10.1) Total Bilirubin 1.0 mg/dL (0.2-1.0) 0.7 mg/dL (0.2-1.0) Aspartate Amino Transf (AST/SGOT) 21 U/L (15-37) 20 U/L (15-37) Alanine Aminotransferase (ALT/SGPT) 19 U/L (14-59) 22 U/L (14-59) Alkaline Phosphatase 84 U/L (46-116) 63 U/L (46-116) Troponin I Quantitative < 0.017 ng/mL (0.000-0.055) IX-Bmi-S-Type Natriuretic Peptide 47 pg/mL (0-124) Total Protein 8.0 g/dL (6.4-8.2) 5.9 g/dL (6.4-8.2) Albumin 3.8 g/dL (3.4-5.0) 2.6 g/dL (3.4-5.0) Albumin/Globulin Ratio 0.9 (1.0-1.7) 0.8 (1.0-1.7) Procalcitonin 0.10 ng/mL (0.00-0.10) Urine Collection Type Unknown Urine Color Yellow Urine Clarity Clear Urine pH 5.5 (<5.0-8.0) Urine Specific [place] 1.015 (1.000-1.030) Urine Protein Negative mg/dL (NEG-TRACE) Urine Glucose (UA) Negative mg/dL (NEG) Urine Ketones (Stick) Negative mg/dL (NEG) Urine Blood Negative (NEG) Urine Nitrite Negative (NEG) Urine Bilirubin Negative (NEG) Urine Urobilinogen Dipstick 1.0 mg/dL (0.2 mg/dL) Urine Leukocyte Esterase Moderate (NEG) Urine RBC 0 /HPF (0-2) Urine WBC 1-4 /HPF (0-4) Urine Squamous Epithelial Cells Few /LPF Urine Bacteria 0 /HPF (0-FEW) Urine Mucus Slight /LPF Test 08/04/19 04:48 White Blood Count 6.5 x10^3/uL (4.0-11.0) Red Blood Count 3.71 x10^6/uL (3.50-5.40) Hemoglobin 11.0 g/dL (12.0-15.5) Hematocrit 33.2 % (36.0-47.0) Mean Corpuscular Volume 90 fL (79-100) Mean Corpuscular Hemoglobin 30 pg (25-35) Mean Corpuscular Hemoglobin Concent 33 g/dL (31-37) Red Cell Distribution Width 14.5 % (11.5-14.5) Platelet Count 233 x10^3/uL (140-400) Neutrophils (%) (Auto) 47 % (31-73) Lymphocytes (%) (Auto) 32 % (24-48) Monocytes (%) (Auto) 14 % (0-9) Eosinophils (%) (Auto) 7 % (0-3) Basophils (%) (Auto) 1 % (0-3) Neutrophils # (Auto) 3.1 x10^3/uL (1.8-7.7) Lymphocytes # (Auto) 2.1 x10^3/uL (1.0-4.8) Monocytes # (Auto) 0.9 x10^3/uL (0.0-1.1) Eosinophils # (Auto) 0.4 x10^3/uL (0.0-0.7) Basophils # (Auto) 0.1 x10^3/uL (0.0-0.2) Sodium Level 146 mmol/L (136-145) Potassium Level 3.8 mmol/L (3.5-5.1) Chloride Level 110 mmol/L (98-107) Carbon Dioxide Level 24 mmol/L (21-32) Anion Gap 12 (6-14) Blood Urea Nitrogen 9 mg/dL (7-20) Creatinine 0.5 mg/dL (0.6-1.0) Estimated GFR (Cockcroft-Gault) 124.2 BUN/Creatinine Ratio 18 (6-20) Glucose Level 83 mg/dL (70-99) Calcium Level 8.0 mg/dL (8.5-10.1) Total Bilirubin 0.4 mg/dL (0.2-1.0) Aspartate Amino Transf (AST/SGOT) 48 U/L (15-37) Alanine Aminotransferase (ALT/SGPT) 46 U/L (14-59) Alkaline Phosphatase 81 U/L (46-116) Total Protein 5.3 g/dL (6.4-8.2) Albumin 2.5 g/dL (3.4-5.0) Albumin/Globulin Ratio 0.9 (1.0-1.7) Vancomycin Level Trough 8.0 mcg/mL (10.0-20.0) Vancomycin Last Dose Date 08/03/19 Vancomycin Last Dose Time 1800 Laboratory Tests Test 08/03/19 11:00 08/04/19 04:48 Urine Collection Type Unknown Urine Color Yellow Urine Clarity Clear Urine pH 5.5 (<5.0-8.0) Urine Specific [place] 1.015 (1.000-1.030) Urine Protein Negative mg/dL (NEG-TRACE) Urine Glucose (UA) Negative mg/dL (NEG) Urine Ketones (Stick) Negative mg/dL (NEG) Urine Blood Negative (NEG) Urine Nitrite Negative (NEG) Urine Bilirubin Negative (NEG) Urine Urobilinogen Dipstick 1.0 mg/dL (0.2 mg/dL) Urine Leukocyte Esterase Moderate (NEG) Urine RBC 0 /HPF (0-2) Urine WBC 1-4 /HPF (0-4) Urine Squamous Epithelial Cells Few /LPF Urine Bacteria 0 /HPF (0-FEW) Urine Mucus Slight /LPF White Blood Count 6.5 x10^3/uL (4.0-11.0) Red Blood Count 3.71 x10^6/uL (3.50-5.40) Hemoglobin 11.0 g/dL (12.0-15.5) Hematocrit 33.2 % (36.0-47.0) Mean Corpuscular Volume 90 fL (79-100) Mean Corpuscular Hemoglobin 30 pg (25-35) Mean Corpuscular Hemoglobin Concent 33 g/dL (31-37) Red Cell Distribution Width 14.5 % (11.5-14.5) Platelet Count 233 x10^3/uL (140-400) Neutrophils (%) (Auto) 47 % (31-73) Lymphocytes (%) (Auto) 32 % (24-48) Monocytes (%) (Auto) 14 % (0-9) Eosinophils (%) (Auto) 7 % (0-3) Basophils (%) (Auto) 1 % (0-3) Neutrophils # (Auto) 3.1 x10^3/uL (1.8-7.7) Lymphocytes # (Auto) 2.1 x10^3/uL (1.0-4.8) Monocytes # (Auto) 0.9 x10^3/uL (0.0-1.1) Eosinophils # (Auto) 0.4 x10^3/uL (0.0-0.7) Basophils # (Auto) 0.1 x10^3/uL (0.0-0.2) Sodium Level 146 mmol/L (136-145) Potassium Level 3.8 mmol/L (3.5-5.1) Chloride Level 110 mmol/L (98-107) Carbon Dioxide Level 24 mmol/L (21-32) Anion Gap 12 (6-14) Blood Urea Nitrogen 9 mg/dL (7-20) Creatinine 0.5 mg/dL (0.6-1.0) Estimated GFR (Cockcroft-Gault) 124.2 BUN/Creatinine Ratio 18 (6-20) Glucose Level 83 mg/dL (70-99) Calcium Level 8.0 mg/dL (8.5-10.1) Total Bilirubin 0.4 mg/dL (0.2-1.0) Aspartate Amino Transf (AST/SGOT) 48 U/L (15-37) Alanine Aminotransferase (ALT/SGPT) 46 U/L (14-59) Alkaline Phosphatase 81 U/L (46-116) Total Protein 5.3 g/dL (6.4-8.2) Albumin 2.5 g/dL (3.4-5.0) Albumin/Globulin Ratio 0.9 (1.0-1.7) Vancomycin Level Trough 8.0 mcg/mL (10.0-20.0) Vancomycin Last Dose Date 08/03/19 Vancomycin Last Dose Time 1800 Microbiology 08/02/19 Blood Culture - Preliminary, Resulted NO GROWTH AFTER 1 DAY Medications Current Medications Fentanyl Citrate (Fentanyl 2ml Vial) 50 mcg 1X ONCE IV Last administered on 08/02/19at 12:59; Start 08/02/19 at 12:15; Stop 08/02/19 at 12:16; Status DC Ceftriaxone Sodium (Rocephin) 1 gm 1X ONCE IVP Last administered on 08/02/19at 12:59; Start 08/02/19 at 12:45; Stop 08/02/19 at 12:46; Status DC Doxycycline Hyclate 100 mg/ Dextrose 100 ml @ 50 mls/hr 1X ONCE IV Last administered on 08/02/19at 14:00; Start 08/02/19 at 12:45; Stop 08/02/19 at 14:44; Status DC Sodium Chloride 500 ml @ 500 mls/hr 1X ONCE IV Last administered on 08/02/19at 12:58; Start 08/02/19 at 12:45; Stop 08/02/19 at 13:44; Status DC Fentanyl Citrate (Fentanyl 2ml Vial) 50 mcg PRN Q2HR PRN IV PAIN Last administered on 08/04/19at 06:23; Start 08/02/19 at 16:00 Sodium Chloride (Normal Saline Flush) 3 ml QSHIFT PRN IV AFTER MEDS AND BLOOD DRAWS; Start 08/02/19 at 16:15 Sodium Chloride 1,000 ml @ 100 mls/hr Q10H IV Last administered on 08/03/19at 22:56; Start 08/02/19 at 16:07 Ondansetron HCl (Zofran) 4 mg PRN Q4HRS PRN IV NAUSEA/VOMITING; Start 08/02/19 at 16:15 Acetaminophen (Tylenol) 650 mg PRN Q4HRS PRN PO TEMP OVER 100.4F OR MILD PAIN; Start 08/02/19 at 16:15 Al Hydroxide/Mg Hydroxide (Mylanta Plus Xs) 30 ml PRN DAILY PRN PO HEARTBURN / GAS; Start 08/02/19 at 16:15 Clonidine HCl (Catapres) 0.1 mg PRN Q6HRS PRN PO SBP>160 OR DBP>90; Start 08/02/19 at 16:15 Docusate Sodium (Colace) 100 mg PRN BID PRN PO CONSTIPATION; Start 08/02/19 at 16:15 Albuterol/ Ipratropium (Duoneb) 3 ml Q4HRS NEB Last administered on 08/04/19at 00:00; Start 08/02/19 at 16:30 Guaifenesin (Robitussin) 200 mg PRN Q4HRS PRN PO COUGH; Start 08/02/19 at 16:15 Enoxaparin Sodium (Lovenox 40mg Syringe) 40 mg Q24H SQ Last administered on 08/03/19at 17:06; Start 08/02/19 at 17:00 Vancomycin HCl (Vanco Per Pharmacy) 1 each PRN DAILY PRN MC SEE COMMENTS Last administered on 08/04/19at 06:56; Start 08/02/19 at 16:15 Piperacillin Sod/ Tazobactam Sod 3.375 gm/Sodium Chloride 50 ml @ 100 mls/hr Q6HRS IV Last administered on 08/04/19at 06:23; Start 08/02/19 at 18:00 Vancomycin HCl 250 ml @ 250 mls/hr 1X ONCE IV ; Start 08/02/19 at 16:30; Stop 08/02/19 at 17:29; Status Cancel Albuterol Sulfate (Ventolin Neb Soln) 2.5 mg PRN Q4HRS PRN NEB WHEEZING; Start 08/02/19 at 16:15 Bupropion HCl (Wellbutrin) 100 mg BID PO Last administered on 08/03/19at 21:13; Start 08/02/19 at 21:00 Acetaminophen/ Hydrocodone Bitart (Lortab 5/325) 1 tab PRN Q6HRS PRN PO MODERATE-SEVERE Last administered on 08/03/19at 13:56; Start 08/02/19 at 16:15 Simvastatin (Zocor) 20 mg HS PO Last administered on 08/03/19at 21:13; Start at 21:00 Budesonide (Pulmicort) 0.5 mg RTBID NEB Last administered on 08/03/19at 20:00; Start 08/02/19 at 20:00 Olanzapine (ZyPREXA) 20 mg DAILY PO Last administered on 08/03/19at 07:49; Start 08/03/19 at 09:00 Vancomycin HCl 1 gm/Sodium Chloride 250 ml @ 250 mls/hr 1X ONCE IV Last administered on 08/02/19at 18:14; Start 08/02/19 at 18:30; Stop 08/02/19 at 19:29; Status DC Vancomycin HCl 750 mg/Sodium Chloride 250 ml @ 250 mls/hr Q12H IV Last administered on 08/04/19at 06:00; Start 08/03/19 at 06:00; Stop 08/04/19 at 09:00 Vancomycin HCl (Vancomycin Trough Level) 1 each 1X ONCE MC ; Start 08/04/19 at 05:30; Stop 08/04/19 at 05:31; Status DC Lactobacillus Rhamnosus (Culturelle) 1 cap BID PO Last administered on 08/03/19at 21:13; Start 08/03/19 at 21:00 Vancomycin HCl 750 mg/Sodium Chloride 250 ml @ 250 mls/hr Q8H IV ; Start 08/04/19 at 14:00 Vancomycin HCl (Vancomycin Trough Level) 1 each 1X ONCE MC ; Start 08/05/19 at 05:30; Stop 08/05/19 at 05:31 Active Scripts Active Albuterol Sulfate Conc Neb Soln (Albuterol Sulfate) 2.5 Mg/0.5 Ml Vial.neb 1 Vial NEB Q4HRS PRN Doxycycline Hyclate 100 Mg Tablet.dr 1 Tab PO BID Prednisone 50 Mg Tablet 1 Tab PO DAILY [place] 5-325 Tablet (Acetaminophen/Hydrocodone Bitart) 1 Each Tablet 1 Tab PO PRN Q6HRS PRN Prednisone (Prednisone) 10 Mg Tablet 10 Mg PO UD Take 3 tablets daily for 3 days, then take 2 tablets daily for 3 days, then take 1 tablet daily for 3 days, then stop. Azithromycin Tablet (Azithromycin) 250 Mg Tablet 250 Mg PO DAILY Proair Hfa (Albuterol Sulfate) 8.5 Gm Hfa.aer.ad 8.5 Gm IH [id number] Pulmicort Flexhaler (Budesonide) 180 Mcg Aer.pow.ba 2 Puff IH BID Reported Hydrocodone-Apap 5-325 (Hydrocodone Bit/Acetaminophen) 1 Each Tablet 1 Tab PO PRN Q6HRS PRN Zyprexa (Olanzapine) 20 Mg Tablet 1 Tab PO QHS Clorazepate Dipotassium 3.75 Mg Tablet 3.75 Mg PO BID Simvastatin 20 Mg Tablet 20 Mg PO DAILY Olanzapine 20 Mg Tablet 20 Mg PO DAILY Bupropion Hcl 100 Mg Tablet 100 Mg PO BID Vitals/I & O Vital Sign - Last 24 Hours 08/03/19 08/03/19 08/03/19 08/03/19 08:21 08:49 08:50 10:39 Resp 17 17 Pulse Ox 97 97 O2 Delivery Room Air Room Air Room Air Room Air 08/03/19 08/03/19 08/03/19 08/03/19 11:00 11:09 12:21 13:56 Temp 98.6 98.6 Pulse 97 Resp 17 17 17 B/P (MAP) 102/68 (79) Pulse Ox 92 O2 Delivery Room Air Room Air Room Air Room Air 08/03/19 08/03/19 08/03/19 08/03/19 14:56 15:00 16:50 17:20 Temp 98.1 98.1 Pulse 93 Resp 17 18 17 B/P (MAP) 99/70 (80) Pulse Ox 91 O2 Delivery Room Air Room Air Room Air Room Air 08/03/19 08/03/19 08/03/19 08/03/19 17:50 19:35 20:15 20:34 Temp 98.2 98.2 Pulse 84 Resp 17 17 B/P (MAP) 117/78 (91) Pulse Ox 92 O2 Delivery Room Air Room Air Room Air Room Air 08/03/19 08/03/19 08/03/19 08/04/19 22:57 23:00 23:27 01:05 Temp 98.1 98.1 Pulse 92 Resp 19 B/P (MAP) 118/75 (89) Pulse Ox 92 91 O2 Delivery Room Air Room Air Room Air Room Air 08/04/19 08/04/19 08/04/19 08/04/19 03:00 04:07 04:37 06:23 Temp 98.3 98.3 Pulse 95 Resp 18 B/P (MAP) 148/90 (109) Pulse Ox 91 91 91 O2 Delivery Room Air Room Air Room Air 08/04/19 07:38 O2 Delivery Room Air Intake and Output 08/03/19 08/03/19 08/04/19 15:00 23:00 07:00 Intake Total 650 ml 500 ml 500 ml Balance 650 ml 500 ml 500 ml CASA DUONG MD Aug 04, 2019 08:01
[2019-08-04] MEDS: BUDESONIDE 0.5 MG/2 ML NEBU. NEB SCH ×2 (08:24→20:00)
[2019-08-04] MEDS: LACTOBACILLUS RHAMNOSUS GG 1 CAPSULE. PO SCH ×2 (08:54→19:33)
[2019-08-04] MEDS: buPROPion 100 MG TABLET PO SCH ×2 (08:54→19:33)
[2019-08-04] MEDS: IV NORMAL SALINE 1000ML BAG 1,000 ML IV SCH ×2 (08:55→17:55)
[2019-08-04] MEDS: HYDROcodone/APAP 5/325MG 1 TAB TABLET PO PRN ×3 (08:55→22:51)
[2019-08-04] MEDS: OLANZapine 5 MG TABLET PO SCH (08:55)
[2019-08-04 11:15] VITALS: BP 148/88
[2019-08-04 14:55] VITALS: BP 145/87
--- NOTE | 2019-08-04 15:19 | PDOC ---
PULMONARY PROGRESS NOTES Subjective PT STILL SOA NO INCREASE COUGH SOME PAIN FROM COUGHING Vitals Vital Signs Date Time Temp Pulse Resp B/P (MAP) Pulse Ox O2 Delivery O2 Flow Rate FiO2 08/04/19 14:55 98.1 106 17 145/87 (106) 95 Room Air 98.1 ROS: No Nausea, No Chest Pain, No Abdominal Pain, No Increase Cough General: Alert Lungs: Crackles, Other Cardiovascular: S1, S2 Abdomen: Soft Extremities: No Edema Skin: Warm Labs Laboratory Tests Test 08/03/19 04:20 08/03/19 11:00 08/04/19 04:48 White Blood Count 8.3 x10^3/uL (4.0-11.0) 6.5 x10^3/uL (4.0-11.0) Red Blood Count 3.68 x10^6/uL (3.50-5.40) 3.71 x10^6/uL (3.50-5.40) Hemoglobin 10.9 g/dL (12.0-15.5) 11.0 g/dL (12.0-15.5) Hematocrit 32.9 % (36.0-47.0) 33.2 % (36.0-47.0) Mean Corpuscular Volume 89 fL (79-100) 90 fL (79-100) Mean Corpuscular Hemoglobin 30 pg (25-35) 30 pg (25-35) Mean Corpuscular Hemoglobin Concent 33 g/dL (31-37) 33 g/dL (31-37) Red Cell Distribution Width 14.8 % (11.5-14.5) 14.5 % (11.5-14.5) Platelet Count 217 x10^3/uL (140-400) 233 x10^3/uL (140-400) Neutrophils (%) (Auto) 56 % (31-73) 47 % (31-73) Lymphocytes (%) (Auto) 26 % (24-48) 32 % (24-48) Monocytes (%) (Auto) 13 % (0-9) 14 % (0-9) Eosinophils (%) (Auto) 4 % (0-3) 7 % (0-3) Basophils (%) (Auto) 1 % (0-3) 1 % (0-3) Neutrophils # (Auto) 4.7 x10^3/uL (1.8-7.7) 3.1 x10^3/uL (1.8-7.7) Lymphocytes # (Auto) 2.1 x10^3/uL (1.0-4.8) 2.1 x10^3/uL (1.0-4.8) Monocytes # (Auto) 1.1 x10^3/uL (0.0-1.1) 0.9 x10^3/uL (0.0-1.1) Eosinophils # (Auto) 0.4 x10^3/uL (0.0-0.7) 0.4 x10^3/uL (0.0-0.7) Basophils # (Auto) 0.0 x10^3/uL (0.0-0.2) 0.1 x10^3/uL (0.0-0.2) Sodium Level 143 mmol/L (136-145) 146 mmol/L (136-145) Potassium Level 3.7 mmol/L (3.5-5.1) 3.8 mmol/L (3.5-5.1) Chloride Level 110 mmol/L (98-107) 110 mmol/L (98-107) Carbon Dioxide Level 26 mmol/L (21-32) 24 mmol/L (21-32) Anion Gap 7 (6-14) 12 (6-14) Blood Urea Nitrogen 11 mg/dL (7-20) 9 mg/dL (7-20) Creatinine 0.5 mg/dL (0.6-1.0) 0.5 mg/dL (0.6-1.0) Estimated GFR (Cockcroft-Gault) 124.2 124.2 BUN/Creatinine Ratio 22 (6-20) 18 (6-20) Glucose Level 82 mg/dL (70-99) 83 mg/dL (70-99) Calcium Level 8.0 mg/dL (8.5-10.1) 8.0 mg/dL (8.5-10.1) Total Bilirubin 0.7 mg/dL (0.2-1.0) 0.4 mg/dL (0.2-1.0) Aspartate Amino Transf (AST/SGOT) 20 U/L (15-37) 48 U/L (15-37) Alanine Aminotransferase (ALT/SGPT) 22 U/L (14-59) 46 U/L (14-59) Alkaline Phosphatase 63 U/L (46-116) 81 U/L (46-116) Total Protein 5.9 g/dL (6.4-8.2) 5.3 g/dL (6.4-8.2) Albumin 2.6 g/dL (3.4-5.0) 2.5 g/dL (3.4-5.0) Albumin/Globulin Ratio 0.8 (1.0-1.7) 0.9 (1.0-1.7) Procalcitonin 0.10 ng/mL (0.00-0.10) Urine Collection Type Unknown Urine Color Yellow Urine Clarity Clear Urine pH 5.5 (<5.0-8.0) Urine Specific [place] 1.015 (1.000-1.030) Urine Protein Negative mg/dL (NEG-TRACE) Urine Glucose (UA) Negative mg/dL (NEG) Urine Ketones (Stick) Negative mg/dL (NEG) Urine Blood Negative (NEG) Urine Nitrite Negative (NEG) Urine Bilirubin Negative (NEG) Urine Urobilinogen Dipstick 1.0 mg/dL (0.2 mg/dL) Urine Leukocyte Esterase Moderate (NEG) Urine RBC 0 /HPF (0-2) Urine WBC 1-4 /HPF (0-4) Urine Squamous Epithelial Cells Few /LPF Urine Bacteria 0 /HPF (0-FEW) Urine Mucus Slight /LPF Vancomycin Level Trough 8.0 mcg/mL (10.0-20.0) Vancomycin Last Dose Date 08/03/19 Vancomycin Last Dose Time 1800 Laboratory Tests Test 08/04/19 04:48 White Blood Count 6.5 x10^3/uL (4.0-11.0) Red Blood Count 3.71 x10^6/uL (3.50-5.40) Hemoglobin 11.0 g/dL (12.0-15.5) Hematocrit 33.2 % (36.0-47.0) Mean Corpuscular Volume 90 fL (79-100) Mean Corpuscular Hemoglobin 30 pg (25-35) Mean Corpuscular Hemoglobin Concent 33 g/dL (31-37) Red Cell Distribution Width 14.5 % (11.5-14.5) Platelet Count 233 x10^3/uL (140-400) Neutrophils (%) (Auto) 47 % (31-73) Lymphocytes (%) (Auto) 32 % (24-48) Monocytes (%) (Auto) 14 % (0-9) Eosinophils (%) (Auto) 7 % (0-3) Basophils (%) (Auto) 1 % (0-3) Neutrophils # (Auto) 3.1 x10^3/uL (1.8-7.7) Lymphocytes # (Auto) 2.1 x10^3/uL (1.0-4.8) Monocytes # (Auto) 0.9 x10^3/uL (0.0-1.1) Eosinophils # (Auto) 0.4 x10^3/uL (0.0-0.7) Basophils # (Auto) 0.1 x10^3/uL (0.0-0.2) Sodium Level 146 mmol/L (136-145) Potassium Level 3.8 mmol/L (3.5-5.1) Chloride Level 110 mmol/L (98-107) Carbon Dioxide Level 24 mmol/L (21-32) Anion Gap 12 (6-14) Blood Urea Nitrogen 9 mg/dL (7-20) Creatinine 0.5 mg/dL (0.6-1.0) Estimated GFR (Cockcroft-Gault) 124.2 BUN/Creatinine Ratio 18 (6-20) Glucose Level 83 mg/dL (70-99) Calcium Level 8.0 mg/dL (8.5-10.1) Total Bilirubin 0.4 mg/dL (0.2-1.0) Aspartate Amino Transf (AST/SGOT) 48 U/L (15-37) Alanine Aminotransferase (ALT/SGPT) 46 U/L (14-59) Alkaline Phosphatase 81 U/L (46-116) Total Protein 5.3 g/dL (6.4-8.2) Albumin 2.5 g/dL (3.4-5.0) Albumin/Globulin Ratio 0.9 (1.0-1.7) Vancomycin Level Trough 8.0 mcg/mL (10.0-20.0) Vancomycin Last Dose Date 08/03/19 Vancomycin Last Dose Time 1800 Medications Active Scripts Medications Dose Route/Sig Max Daily Dose Days Date Category Dose Instructions Albuterol Sulfate Conc Neb Soln (Albuterol Sulfate) 2.5 Mg/0.5 Ml Vial.neb 1 Vial NEB Q4HRS PRN 07/09/19 Rx Doxycycline Hyclate 100 Mg Tablet. 1 Tab PO BID 07/09/19 Rx Prednisone 50 Mg Tablet 1 Tab PO DAILY 07/09/19 Rx [place] 5-325 Tablet (Acetaminophen/Hydrocodone Bitart) 1 Each Tablet 1 Tab PO PRN Q6HRS PRN 05/03/18 Rx Prednisone (Prednisone) 10 Mg Tablet 10 Mg PO UD 11/13/16 Rx Take 3 tablets daily for 3 days, then take 2 tablets daily for 3 days, then take 1 tablet daily for 3 days, then stop. Azithromycin Tablet (Azithromycin) 250 Mg Tablet 250 Mg PO DAILY 11/13/16 Rx Hydrocodone-Apap 5-325 (Hydrocodone Bit/Acetaminophen) 1 Each Tablet 1 Tab PO PRN Q6HRS PRN 11/11/16 Reported Zyprexa (Olanzapine) 20 Mg Tablet 1 Tab PO QHS 11/11/16 Reported Proair Hfa (Albuterol Sulfate) 8.5 Gm Hfa.aer.ad 8.5 Gm IH [id number] 08/18/16 Rx Pulmicort Flexhaler (Budesonide) 180 Mcg Aer.pow.ba 2 Puff IH BID 08/18/16 Rx Clorazepate Dipotassium 3.75 Mg Tablet 3.75 Mg PO BID 05/19/16 Reported Simvastatin 20 Mg Tablet 20 Mg PO DAILY 05/19/16 Reported Olanzapine 20 Mg Tablet 20 Mg PO DAILY 05/19/16 Reported Bupropion Hcl 100 Mg Tablet 100 Mg PO BID 05/19/16 Reported Impression . IMPRESSION: 1. Abnormal x-ray, compatible with pneumonia. 2. Pneumonia, gram negative, possibly gram positive. 3. Acute exacerbation of chronic obstructive pulmonary disease. 4. Leukocytosis. 5. [id number] testing pending. 6. Tobacco dependent. Plan . 08/03 SEE BELOW PT STILL SOA AND REQUIRES INPATIENT STATUS TO TREAT PNEUMONIA AND AECOPD WILL REPEAT CXR AND FOLLOW UP ON SARS-COV2 RESULTS 08/02 The patient required admission as a consequence of her underlying COPD, abnormal x-ray, and increasing symptoms along with fever. We will continue current IV antibiotics. Follow up on COVID testing. She is currently on vancomycin and Zosyn IV along with IV steroids. We will deescalate antibiotics depending on the patient's clinical response. JEWEL FLANAGAN MD Aug 04, 2019 15:19
[2019-08-04] MEDS: ENOXAPARIN 40 MG/0.4 ML SYRINGE. SQ SCH (17:43)
[2019-08-04] MEDS: SIMVASTATIN 20 MG TABLET PO SCH (19:33)
[2019-08-04 19:40] VITALS: BP 134/70
[2019-08-04 22:45] VITALS: BP 132/71
[2019-08-05] VITALS (7 sets, daily range): BP systolic 129–179; BP diastolic 81–99
[2019-08-05] MEDS: PIPERACILLIN/TAZOBACTAM 3.375 GM in IV NORMAL SALINE 50ML 50 ML IV SCH ×5 (00:27→23:14)
[2019-08-05] MEDS: fentaNYL PF VIAL 100 MCG/2 ML VIAL IV PRN ×6 (02:52→23:20)
[2019-08-05] MEDS: IV NORMAL SALINE 1000ML BAG 1,000 ML IV SCH (04:07)
[2019-08-05] MEDS: IPRATRPIUM/ALBUTEROL 0.5/2.5MG 3 ML NEBU. NEB SCH ×6 (04:51→20:55)
[2019-08-05] MEDS: HYDROcodone/APAP 5/325MG 1 TAB TABLET PO PRN ×3 (05:19→19:59)
[2019-08-05 05:45] LABS: VANC TR 12.2 mcg/mL (10.0-20.0)
--- NOTE | 2019-08-05 05:45 | RAD ---
Chest AP portable at 0508: Reason for examination: Respiratory failure. Comparison is made to previous study dated 08/02/2019. The heart size is normal. Mediastinum is unchanged. Lung munguia show mild diffuse increased interstitial markings. This could reflect some interstitial edema but mild interstitial infiltrates cannot be excluded. No consolidated infiltrates are present. There is slight blunting at the left costophrenic angle suggesting a small pleural effusion. No acute bony abnormalities are present. IMPRESSION: Diffuse increased interstitial markings bilaterally. Blunted left costophrenic angle consistent with a small pleural effusion. These findings could suggest some mild interstitial edema however mild interstitial infiltrates cannot be excluded. Recommend clinical correlation and follow-up. Electronically signed by: Mecca Owen MD (08/05/2019 5:42 AM) [id number]
--- NOTE | 2019-08-05 06:13 | PDOC ---
PULMONARY PROGRESS NOTES Subjective on 02, sob better, has occ cough, on home qhs home 02 3lpm Vitals Vital Signs Date Time Temp Pulse Resp B/P (MAP) Pulse Ox O2 Delivery O2 Flow Rate FiO2 08/05/19 05:19 18 94 Nasal Cannula 2.0 08/05/19 03:22 98.4 105 129/83 (98) 98.4 ROS: No Nausea, No Chest Pain, No Abdominal Pain, No Increase Cough General: Alert Lungs: Crackles, Other Cardiovascular: S1, S2 Abdomen: Soft, Non-tender Neuro Exam: Alert Extremities: No Edema Skin: Warm Labs Laboratory Tests Test 08/03/19 11:00 08/04/19 04:48 08/05/19 05:00 Urine Collection Type Unknown Urine Color Yellow Urine Clarity Clear Urine pH 5.5 (<5.0-8.0) Urine Specific [place] 1.015 (1.000-1.030) Urine Protein Negative mg/dL (NEG-TRACE) Urine Glucose (UA) Negative mg/dL (NEG) Urine Ketones (Stick) Negative mg/dL (NEG) Urine Blood Negative (NEG) Urine Nitrite Negative (NEG) Urine Bilirubin Negative (NEG) Urine Urobilinogen Dipstick 1.0 mg/dL (0.2 mg/dL) Urine Leukocyte Esterase Moderate (NEG) Urine RBC 0 /HPF (0-2) Urine WBC 1-4 /HPF (0-4) Urine Squamous Epithelial Cells Few /LPF Urine Bacteria 0 /HPF (0-FEW) Urine Mucus Slight /LPF White Blood Count 6.5 x10^3/uL (4.0-11.0) Red Blood Count 3.71 x10^6/uL (3.50-5.40) Hemoglobin 11.0 g/dL (12.0-15.5) Hematocrit 33.2 % (36.0-47.0) Mean Corpuscular Volume 90 fL (79-100) Mean Corpuscular Hemoglobin 30 pg (25-35) Mean Corpuscular Hemoglobin Concent 33 g/dL (31-37) Red Cell Distribution Width 14.5 % (11.5-14.5) Platelet Count 233 x10^3/uL (140-400) Neutrophils (%) (Auto) 47 % (31-73) Lymphocytes (%) (Auto) 32 % (24-48) Monocytes (%) (Auto) 14 % (0-9) Eosinophils (%) (Auto) 7 % (0-3) Basophils (%) (Auto) 1 % (0-3) Neutrophils # (Auto) 3.1 x10^3/uL (1.8-7.7) Lymphocytes # (Auto) 2.1 x10^3/uL (1.0-4.8) Monocytes # (Auto) 0.9 x10^3/uL (0.0-1.1) Eosinophils # (Auto) 0.4 x10^3/uL (0.0-0.7) Basophils # (Auto) 0.1 x10^3/uL (0.0-0.2) Sodium Level 146 mmol/L (136-145) Potassium Level 3.8 mmol/L (3.5-5.1) Chloride Level 110 mmol/L (98-107) Carbon Dioxide Level 24 mmol/L (21-32) Anion Gap 12 (6-14) Blood Urea Nitrogen 9 mg/dL (7-20) Creatinine 0.5 mg/dL (0.6-1.0) Estimated GFR (Cockcroft-Gault) 124.2 BUN/Creatinine Ratio 18 (6-20) Glucose Level 83 mg/dL (70-99) Calcium Level 8.0 mg/dL (8.5-10.1) Total Bilirubin 0.4 mg/dL (0.2-1.0) Aspartate Amino Transf (AST/SGOT) 48 U/L (15-37) Alanine Aminotransferase (ALT/SGPT) 46 U/L (14-59) Alkaline Phosphatase 81 U/L (46-116) Total Protein 5.3 g/dL (6.4-8.2) Albumin 2.5 g/dL (3.4-5.0) Albumin/Globulin Ratio 0.9 (1.0-1.7) Vancomycin Level Trough 8.0 mcg/mL (10.0-20.0) 12.2 mcg/mL (10.0-20.0) Vancomycin Last Dose Date 08/03/19 09/04/19 Vancomycin Last Dose Time 1800 2200 Laboratory Tests Test 08/05/19 05:00 Vancomycin Level Trough 12.2 mcg/mL (10.0-20.0) Vancomycin Last Dose Date 09/04/19 Vancomycin Last Dose Time 2200 Medications Active Scripts Medications Dose Route/Sig Max Daily Dose Days Date Category Dose Instructions Albuterol Sulfate Conc Neb Soln (Albuterol Sulfate) 2.5 Mg/0.5 Ml Vial.neb 1 Vial NEB Q4HRS PRN 07/09/19 Rx Doxycycline Hyclate 100 Mg Tablet.dr 1 Tab PO BID 07/09/19 Rx Prednisone 50 Mg Tablet 1 Tab PO DAILY 07/09/19 Rx [place] 5-325 Tablet (Acetaminophen/Hydrocodone Bitart) 1 Each Tablet 1 Tab PO PRN Q6HRS PRN 05/03/18 Rx Prednisone (Prednisone) 10 Mg Tablet 10 Mg PO UD 11/13/16 Rx Take 3 tablets daily for 3 days, then take 2 tablets daily for 3 days, then take 1 tablet daily for 3 days, then stop. Azithromycin Tablet (Azithromycin) 250 Mg Tablet 250 Mg PO DAILY 11/13/16 Rx Hydrocodone-Apap 5-325 (Hydrocodone Bit/Acetaminophen) 1 Each Tablet 1 Tab PO PRN Q6HRS PRN 11/11/16 Reported Zyprexa (Olanzapine) 20 Mg Tablet 1 Tab PO QHS 11/11/16 Reported Proair Hfa (Albuterol Sulfate) 8.5 Gm Hfa.aer.ad 8.5 Gm IH BID66 08/18/16 Rx Pulmicort Flexhaler (Budesonide) 180 Mcg Aer.pow.ba 2 Puff IH BID 08/18/16 Rx Clorazepate Dipotassium 3.75 Mg Tablet 3.75 Mg PO BID 05/19/16 Reported Simvastatin 20 Mg Tablet 20 Mg PO DAILY 05/19/16 Reported Olanzapine 20 Mg Tablet 20 Mg PO DAILY 05/19/16 Reported Bupropion Hcl 100 Mg Tablet 100 Mg PO BID 05/19/16 Reported Impression . IMPRESSION: 1. Abnormal x-ray, compatible with pneumonia. 2. Pneumonia, gram negative, possibly gram positive. 3. Acute exacerbation of chronic obstructive pulmonary disease. 4. Leukocytosis. resolved 5. [id number] testing pending. 6. Tobacco dependent. Plan . 02 titration fu covid 19 cont abx BD quit smoking for ever lovenox for dvt prophylaxis discussed w rn, pt EMMANUEL GREEN MD Aug 05, 2019 06:13
[2019-08-05] MEDS: VANCOMYCIN PER PHARMACY MC PRN (06:14)
--- NOTE | 2019-08-05 06:15 | NUR ---
Pharmacy Vancomycin Dosing Note S: Consulted to monitor and dose vancomycin started 08/02/19. O: DUNG MARIO is a 64 year old F with Pneumonia, . Other Antibiotics: ZOSYN 3.375GM IV Q6H LABS: Last BUN: 9 Last Creatinine: 0.5 Creatinine Clearance: 91.9 mL/min Last WBC: 6.5 Last Procalcitonin: 0.1 Tmax (past 24 hours): 99.3 Microbiology: BLOOD: KIMBERLY 2DAYS I/O: 1650/- 3VOIDS Drug Levels: Last Trough level: 12.2 on 08/04/19 at 0500 Last dose given 08/04/19 at 2200 Vancomycin Dosing: Dosing Weight: Actual Target Trough: 15-20 A: Based on: Trough, Actual Wt and CrCl P: 1. 08/05/19 0600 Increase Vancomycin 1000 mg IV q8h 2. Follow up Trough level on 08/06/19 at 0530 3. Pharmacy will continue to monitor, follow and adjust therapy as needed. LETTY CARLISLE RPH, 08/05/19 0615 Signed: 08/05/19 at 0616 by LETTY CARLISLE RPH PHA
[2019-08-05] MEDS: VANCOMYCIN 1 GM in IV NORMAL SALINE 250ML 250 ML IV SCH ×3 (06:50→21:53)
[2019-08-05] MEDS: BUDESONIDE 0.5 MG/2 ML NEBU. NEB SCH ×2 (07:59→20:00)
[2019-08-05] MEDS: OLANZapine 5 MG TABLET PO SCH (08:45)
[2019-08-05] MEDS: LACTOBACILLUS RHAMNOSUS GG 1 CAPSULE. PO SCH ×2 (08:45→20:00)
[2019-08-05] MEDS: cloNIDine HCL 0.1 MG TABLET PO PRN ×2 (08:45→19:59)
[2019-08-05] MEDS: buPROPion 100 MG TABLET PO SCH ×2 (08:45→20:00)
--- NOTE | 2019-08-05 09:55 | PDOC ---
PROGRESS NOTES Chief Complaint Chief Complaint A/P: Pneumonia, gram negative, possibly gram positive. Acute exacerbation of chronic obstructive pulmonary disease - Diffuse centrilobular emphysematous involvement of the lung munguia noted. Bilateral bronchial wall thickening is noted which may represent chronic bronchitis. RECENT CT CHEST [id number] testing pending. Tobacco dependent. Acute hypoxic resp failure Sepsis - 2/2 pneumonia. HX HTN HX CVA REMOTE Costochondritis - on left, will apply lidoderm patch History of Present Illness History of Present Illness Ms Brandon is a 64 yo F w/ PMHx COPD, smoker, anxiety with depression, HLD, CVA, and HTN who p/w 3 day history of increasing shortness of breath, cough productive of dark sputum and a temperature at home of 100.3 with associated night sweats. Found on CXR with right lower lobe infiltrate. Admitted for further care with pulmonology consultation. 08/02: Currently on vancomycin and Zosyn IV along with IV steroids 08/03: Awaiting SARS-COV2 results, treating pneumonia CXR today with diffuse increased interstitial markings bilaterally. Blunted left costophrenic angle consistent with a small pleural effusion. These findings c ould suggest some mild interstitial edema however mild interstitial infiltrates cannot be excluded. She feels better. Costochondritis. Vitals Vitals Vital Signs Date Time Temp Pulse Resp B/P (MAP) Pulse Ox O2 Delivery O2 Flow Rate FiO2 08/05/19 08:45 91 174/94 08/05/19 07:59 96 Room Air 08/05/19 07:46 17 08/05/19 07:00 97.6 97.6 08/05/19 06:30 2.0 Physical Exam General: Alert, Oriented X3, Cooperative, No acute distress Heart: Regular rate, Other (TACHY) Lungs: Crackles, Other Abdomen: Normal bowel sounds, Soft, Other (THIN) Extremities: No cyanosis Skin: No breakdown Labs LABS Laboratory Tests Test 08/05/19 05:00 Vancomycin Level Trough 12.2 mcg/mL (10.0-20.0) Vancomycin Last Dose Date 09/04/19 Vancomycin Last Dose Time 2200 Assessment and Plan Assessmemt and Plan Problems Medical Problems: (1) Pneumonia Status: Acute Comment Review of Relevant I have reviewed the following items luis angel (where applicable) has been applied. Labs Laboratory Tests Test 3/19/20 11:00 08/04/19 04:48 08/05/19 05:00 Urine Collection Type Unknown Urine Color Yellow Urine Clarity Clear Urine pH 5.5 (<5.0-8.0) Urine Specific [place] 1.015 (1.000-1.030) Urine Protein Negative mg/dL (NEG-TRACE) Urine Glucose (UA) Negative mg/dL (NEG) Urine Ketones (Stick) Negative mg/dL (NEG) Urine Blood Negative (NEG) Urine Nitrite Negative (NEG) Urine Bilirubin Negative (NEG) Urine Urobilinogen Dipstick 1.0 mg/dL (0.2 mg/dL) Urine Leukocyte Esterase Moderate (NEG) Urine RBC 0 /HPF (0-2) Urine WBC 1-4 /HPF (0-4) Urine Squamous Epithelial Cells Few /LPF Urine Bacteria 0 /HPF (0-FEW) Urine Mucus Slight /LPF White Blood Count 6.5 x10^3/uL (4.0-11.0) Red Blood Count 3.71 x10^6/uL (3.50-5.40) Hemoglobin 11.0 g/dL (12.0-15.5) Hematocrit 33.2 % (36.0-47.0) Mean Corpuscular Volume 90 fL (79-100) Mean Corpuscular Hemoglobin 30 pg (25-35) Mean Corpuscular Hemoglobin Concent 33 g/dL (31-37) Red Cell Distribution Width 14.5 % (11.5-14.5) Platelet Count 233 x10^3/uL (140-400) Neutrophils (%) (Auto) 47 % (31-73) Lymphocytes (%) (Auto) 32 % (24-48) Monocytes (%) (Auto) 14 % (0-9) Eosinophils (%) (Auto) 7 % (0-3) Basophils (%) (Auto) 1 % (0-3) Neutrophils # (Auto) 3.1 x10^3/uL (1.8-7.7) Lymphocytes # (Auto) 2.1 x10^3/uL (1.0-4.8) Monocytes # (Auto) 0.9 x10^3/uL (0.0-1.1) Eosinophils # (Auto) 0.4 x10^3/uL (0.0-0.7) Basophils # (Auto) 0.1 x10^3/uL (0.0-0.2) Sodium Level 146 mmol/L (136-145) Potassium Level 3.8 mmol/L (3.5-5.1) Chloride Level 110 mmol/L (98-107) Carbon Dioxide Level 24 mmol/L (21-32) Anion Gap 12 (6-14) Blood Urea Nitrogen 9 mg/dL (7-20) Creatinine 0.5 mg/dL (0.6-1.0) Estimated GFR (Cockcroft-Gault) 124.2 BUN/Creatinine Ratio 18 (6-20) Glucose Level 83 mg/dL (70-99) Calcium Level 8.0 mg/dL (8.5-10.1) Total Bilirubin 0.4 mg/dL (0.2-1.0) Aspartate Amino Transf (AST/SGOT) 48 U/L (15-37) Alanine Aminotransferase (ALT/SGPT) 46 U/L (14-59) Alkaline Phosphatase 81 U/L (46-116) Total Protein 5.3 g/dL (6.4-8.2) Albumin 2.5 g/dL (3.4-5.0) Albumin/Globulin Ratio 0.9 (1.0-1.7) Vancomycin Level Trough 8.0 mcg/mL (10.0-20.0) 12.2 mcg/mL (10.0-20.0) Vancomycin Last Dose Date 08/03/19 09/04/19 Vancomycin Last Dose Time 1800 2200 Laboratory Tests Test 08/05/19 05:00 Vancomycin Level Trough 12.2 mcg/mL (10.0-20.0) Vancomycin Last Dose Date 09/04/19 Vancomycin Last Dose Time 2200 Microbiology 08/03/19 Urine Culture - Final, Complete 08/03/19 Urine Culture Result 1 (HIRA) - Final, Complete 08/02/19 Blood Culture - Preliminary, Resulted NO GROWTH AFTER 2 DAYS Medications Current Medications Fentanyl Citrate (Fentanyl 2ml Vial) 50 mcg 1X ONCE IV Last administered on 08/02/19at 12:59; Start 08/02/19 at 12:15; Stop 08/02/19 at 12:16; Status DC Ceftriaxone Sodium (Rocephin) 1 gm 1X ONCE IVP Last administered on 08/02/19at 12:59; Start 08/02/19 at 12:45; Stop 08/02/19 at 12:46; Status DC Doxycycline Hyclate 100 mg/ Dextrose 100 ml @ 50 mls/hr 1X ONCE IV Last administered on 08/02/19at 14:00; Start 08/02/19 at 12:45; Stop 08/02/19 at 14:44; Status DC Sodium Chloride 500 ml @ 500 mls/hr 1X ONCE IV Last administered on 08/02/19at 12:58; Start 08/02/19 at 12:45; Stop 08/02/19 at 13:44; Status DC Fentanyl Citrate (Fentanyl 2ml Vial) 50 mcg PRN Q2HR PRN IV PAIN Last administered on 08/05/19at 07:46; Start 08/02/19 at 16:00 Sodium Chloride (Normal Saline Flush) 3 ml QSHIFT PRN IV AFTER MEDS AND BLOOD DRAWS; Start 08/02/19 at 16:15 Sodium Chloride 1,000 ml @ 100 mls/hr Q10H IV Last administered on 08/05/19at 04:07; Start 08/02/19 at 16:07 Ondansetron HCl (Zofran) 4 mg PRN Q4HRS PRN IV NAUSEA/VOMITING; Start 08/02/19 at 16:15 Acetaminophen (Tylenol) 650 mg PRN Q4HRS PRN PO TEMP OVER 100.4F OR MILD PAIN; Start 08/02/19 at 16:15 Al Hydroxide/Mg Hydroxide (Mylanta Plus Xs) 30 ml PRN DAILY PRN PO HEARTBURN / GAS; Start 08/02/19 at 16:15 Clonidine HCl (Catapres) 0.1 mg PRN Q6HRS PRN PO SBP>160 OR DBP>90 Last administered on 08/05/19at 08:45; Start 08/02/19 at 16:15 Docusate Sodium (Colace) 100 mg PRN BID PRN PO CONSTIPATION; Start 08/02/19 at 16:15 Albuterol/ Ipratropium (Duoneb) 3 ml Q4HRS NEB Last administered on 08/05/19at 07:59; Start 08/02/19 at 16:30 Guaifenesin (Robitussin) 200 mg PRN Q4HRS PRN PO COUGH; Start 08/02/19 at 16:15 Enoxaparin Sodium (Lovenox 40mg Syringe) 40 mg Q24H SQ Last administered on 08/04/19at 17:43; Start 08/02/19 at 17:00 Vancomycin HCl (Vanco Per Pharmacy) 1 each PRN DAILY PRN MC SEE COMMENTS Last administered on 08/05/19at 06:14; Start 08/02/19 at 16:15 Piperacillin Sod/ Tazobactam Sod 3.375 gm/Sodium Chloride 50 ml @ 100 mls/hr Q6HRS IV Last administered on 08/05/19at 05:19; Start 08/02/19 at 18:00 Vancomycin HCl 250 ml @ 250 mls/hr 1X ONCE IV ; Start 08/02/19 at 16:30; Stop 08/02/19 at 17:29; Status Cancel Albuterol Sulfate (Ventolin Neb Soln) 2.5 mg PRN Q4HRS PRN NEB WHEEZING; Start 08/02/19 at 16:15 Bupropion HCl (Wellbutrin) 100 mg BID PO Last administered on 08/05/19at 08:45; Start 08/02/19 at 21:00 Acetaminophen/ Hydrocodone Bitart (Lortab 5/325) 1 tab PRN Q6HRS PRN PO MODERATE-SEVERE Last administered on 08/05/19at 05:19; Start 08/02/19 at 16:15 Simvastatin (Zocor) 20 mg HS PO Last administered on 08/04/19at 19:33; Start 08/02/19 at 21:00 Budesonide (Pulmicort) 0.5 mg RTBID NEB Last administered on 08/05/19at 07:59; Start 08/02/19 at 20:00 Olanzapine (ZyPREXA) 20 mg DAILY PO Last administered on 08/05/19at 08:45; Start 08/03/19 at 09:00 Vancomycin HCl 1 gm/Sodium Chloride 250 ml @ 250 mls/hr 1X ONCE IV Last administered on 08/02/19at 18:14; Start 08/02/19 at 18:30; Stop 08/02/19 at 19:29; Status DC Vancomycin HCl 750 mg/Sodium Chloride 250 ml @ 250 mls/hr Q12H IV Last administered on 08/04/19at 06:00; Start 08/03/19 at 06:00; Stop 08/04/19 at 09:00; Status DC Vancomycin HCl (Vancomycin Trough Level) 1 each 1X ONCE MC ; Start 08/04/19 at 05:30; Stop 08/04/19 at 05:31; Status DC Lactobacillus Rhamnosus (Culturelle) 1 cap BID PO Last administered on 08/05/19at 08:45; Start 08/03/19 at 21:00 Vancomycin HCl 750 mg/Sodium Chloride 250 ml @ 250 mls/hr Q8H IV Last administered on 08/04/19at 22:47; Start 08/04/19 at 14:00; Stop 08/05/19 at 05:57; Status DC Vancomycin HCl (Vancomycin Trough Level) 1 each 1X ONCE MC ; Start 08/05/19 at 05:30; Stop 08/05/19 at 05:31; Status DC Vancomycin HCl 1 gm/Sodium Chloride 250 ml @ 250 mls/hr Q8H IV Last administered on 08/05/19at 06:50; Start 08/05/19 at 06:00 Vancomycin HCl (Vancomycin Trough Level) 1 each 1X ONCE MC ; Start 08/06/19 at 05:30; Stop 08/06/19 at 05:31 Active Scripts Active Albuterol Sulfate Conc Neb Soln (Albuterol Sulfate) 2.5 Mg/0.5 Ml Vial.neb 1 Vial NEB Q4HRS PRN Doxycycline Hyclate 100 Mg Tablet.dr 1 Tab PO BID Prednisone 50 Mg Tablet 1 Tab PO DAILY [place] 5-325 Tablet (Acetaminophen/Hydrocodone Bitart) 1 Each Tablet 1 Tab PO PRN Q6HRS PRN Prednisone (Prednisone) 10 Mg Tablet 10 Mg PO UD Take 3 tablets daily for 3 days, then take 2 tablets daily for 3 days, then take 1 tablet daily for 3 days, then stop. Azithromycin Tablet (Azithromycin) 250 Mg Tablet 250 Mg PO DAILY Proair Hfa (Albuterol Sulfate) 8.5 Gm Hfa.aer.ad 8.5 Gm IH BID66 Pulmicort Flexhaler (Budesonide) 180 Mcg Aer.pow.ba 2 Puff IH BID Reported Hydrocodone-Apap 5-325 (Hydrocodone Bit/Acetaminophen) 1 Each Tablet 1 Tab PO PRN Q6HRS PRN Zyprexa (Olanzapine) 20 Mg Tablet 1 Tab PO QHS Clorazepate Dipotassium 3.75 Mg Tablet 3.75 Mg PO BID Simvastatin 20 Mg Tablet 20 Mg PO DAILY Olanzapine 20 Mg Tablet 20 Mg PO DAILY Bupropion Hcl 100 Mg Tablet 100 Mg PO BID Vitals/I & O Vital Sign - Last 24 Hours 08/04/19 08/04/19 08/04/19 08/04/19 10:03 10:55 11:15 11:36 Temp 97.9 97.9 Pulse 94 Resp 14 B/P (MAP) 148/88 (108) Pulse Ox 90 O2 Delivery Room Air Room Air Room Air Room Air 08/04/19 08/04/19 08/04/19 08/04/19 12:42 14:09 14:47 14:55 Temp 98.1 98.1 Pulse 106 Resp 17 B/P (MAP) 145/87 (106) Pulse Ox 95 O2 Delivery Room Air Room Air Room Air Room Air 08/04/19 08/04/19 08/04/19 08/04/19 16:01 16:43 17:12 19:33 Resp 18 Pulse Ox 95 O2 Delivery Room Air Room Air Room Air Room Air 08/04/19 08/04/19 08/04/19 08/04/19 19:40 20:00 20:03 20:14 Temp 97.9 97.9 Pulse 94 Resp 18 18 B/P (MAP) 134/70 (91) Pulse Ox 98 98 O2 Delivery Room Air Room Air Room Air Room Air 08/04/19 08/04/19 08/04/19 08/05/19 20:14 22:45 22:51 00:00 Temp 98.3 98.3 Pulse 93 Resp 18 18 B/P (MAP) 132/71 (91) Pulse Ox 98 93 93 O2 Delivery Room Air Room Air Room Air Room Air 08/05/19 08/05/19 08/05/19 08/05/19 00:18 02:52 03:22 03:22 Temp 98.4 98.4 Pulse 105 Resp 16 18 18 18 B/P (MAP) 129/83 (98) Pulse Ox 93 93 94 O2 Delivery Room Air Room Air Nasal Cannula Room Air O2 Flow Rate 2.0 08/05/19 08/05/19 08/05/19 08/05/19 04:05 05:19 06:30 07:00 Temp 97.6 97.6 Pulse 91 Resp 18 18 17 B/P (MAP) 174/94 (120) Pulse Ox 94 94 94 O2 Delivery Room Air Nasal Cannula Nasal Cannula Room Air O2 Flow Rate 2.0 2.0 08/05/19 08/05/19 08/05/19 07:46 07:59 08:45 Pulse 91 Resp 17 B/P (MAP) 174/94 Pulse Ox 94 96 O2 Delivery Room Air Room Air Intake and Output 08/04/19 08/04/19 08/05/19 15:00 23:00 07:00 Intake Total 460 ml 460 ml 300 ml Balance 460 ml 460 ml 300 ml SHARI AVILA MD Aug 05, 2019 09:55
[2019-08-05] MEDS: LIDOCAINE (700MG/PATCH) PATCH. TD SCH (10:52)
[2019-08-05] MEDS: ENOXAPARIN 40 MG/0.4 ML SYRINGE. SQ SCH (17:48)
[2019-08-05] MEDS: SIMVASTATIN 20 MG TABLET PO SCH (20:00)
[2019-08-05] MEDS: PATCH REMOVAL. MC SCH (20:00)
[2019-08-05] MEDS ORDERED: AMLO5TAB10 PO (22:16)
[2019-08-05] MEDS ORDERED: LISI40TA2 PO (22:16)
[2019-08-05] MEDS ORDERED: METO200T46 PO (22:16)
[2019-08-05] MEDS ORDERED: METOPROLOL SUCC 24HR ER 100 MG TAB.ER.24H. PO SCH (23:00)
[2019-08-05] MEDS ORDERED: amLODIPine BESYLATE 5 MG TABLET PO SCH (23:00)
[2019-08-05] MEDS ORDERED: LISINOPRIL 20 MG TABLET PO SCH (23:00)
[2019-08-06] VITALS (7 sets, daily range): BP systolic 110–174; BP diastolic 78–95
[2019-08-06] MEDS: HYDROcodone/APAP 5/325MG 1 TAB TABLET PO PRN ×3 (03:14→17:35)
[2019-08-06] MEDS: IPRATRPIUM/ALBUTEROL 0.5/2.5MG 3 ML NEBU. NEB SCH ×8 (04:00→23:30)
[2019-08-06] MEDS: fentaNYL PF VIAL 100 MCG/2 ML VIAL IV PRN ×4 (05:11→20:15)
[2019-08-06] MEDS: PIPERACILLIN/TAZOBACTAM 3.375 GM in IV NORMAL SALINE 50ML 50 ML IV SCH ×4 (05:11→22:52)
[2019-08-06 05:20] LABS: CREATININE 0.6 mg/dL (0.6-1.0); GFR 100.6
[2019-08-06 05:27] LABS: VANC TR 20.1 mcg/mL (10.0-20.0)
[2019-08-06] MEDS: VANCOMYCIN 1 GM in IV NORMAL SALINE 250ML 250 ML IV SCH ×3 (06:00→22:53)
[2019-08-06] MEDS: VANCOMYCIN PER PHARMACY MC PRN (06:13)
--- NOTE | 2019-08-06 06:14 | NUR ---
Pharmacy Vancomycin Dosing Note S: Consulted to monitor and dose vancomycin started 08/02/19. O: DUNG MARIO is a 64 year old F with Pneumonia, . Other Antibiotics: ZOSYN 3.375GM IV Q6H LABS: Last BUN: 9 Last Creatinine: 0.5 Creatinine Clearance: 91.9 mL/min Last WBC: 6.5 Last Procalcitonin: 0.1 Tmax (past 24 hours): 99.3 Microbiology: BLOOD: KIMBER[place] 2DAYS I/O: 1220/- 5 VOIDS Drug Levels: Last Trough level: 20.1 on 08/06/19 at 0400 Last dose given 08/05/19 at 2153 Vancomycin Dosing: Dosing Weight: Actual Target Trough: 15-20 A: Based on: Trough, Actual WT and CrCl P: 1. 08/05 Continue Vancomycin 1000 mg IV q8h 2. Follow up Trough level in 5 to 7 days as needed 3. Pharmacy will continue to monitor, follow and adjust therapy as needed. LETTY CARLISLE RPH, 08/06/19 0614 Signed: 08/06/19 at 0615 by LETTY CARLISLE RPH PHA
[2019-08-06] MEDS: BUDESONIDE 0.5 MG/2 ML NEBU. NEB SCH ×3 (07:39→20:13)
--- NOTE | 2019-08-06 07:58 | PDOC ---
PULMONARY PROGRESS NOTES Subjective sob better, has occ cough, on home qhs home 02 3lpm Vitals Vital Signs Date Time Temp Pulse Resp B/P (MAP) Pulse Ox O2 Delivery O2 Flow Rate FiO2 08/06/19 07:39 95 Room Air 08/06/19 07:15 20 08/06/19 07:00 97.7 81 174/95 (121) 97.7 08/06/19 05:41 2.0 ROS: No Nausea, No Chest Pain, No Abdominal Pain, No Increase Cough General: Alert, Oriented X4 HEENT: Other (nc at perrl) Lungs: Crackles, Other Cardiovascular: S1, S2 Abdomen: Soft, Non-tender Neuro Exam: Alert Extremities: No Edema Skin: Warm Labs Laboratory Tests Test 08/05/19 05:00 08/06/19 04:00 Vancomycin Level Trough 12.2 mcg/mL (10.0-20.0) 20.1 mcg/mL (10.0-20.0) Vancomycin Last Dose Date 08/04/19 08/05/19 Vancomycin Last Dose Time 2200 2200 Blood Urea Nitrogen 8 mg/dL (7-20) Creatinine 0.6 mg/dL (0.6-1.0) Estimated GFR (Cockcroft-Gault) 100.6 Procalcitonin < 0.10 ng/mL (0.00-0.10) Laboratory Tests Test 08/06/19 04:00 Blood Urea Nitrogen 8 mg/dL (7-20) Creatinine 0.6 mg/dL (0.6-1.0) Estimated GFR (Cockcroft-Gault) 100.6 Procalcitonin < 0.10 ng/mL (0.00-0.10) Vancomycin Level Trough 20.1 mcg/mL (10.0-20.0) Vancomycin Last Dose Date 08/05/19 Vancomycin Last Dose Time 2200 Medications Active Scripts Medications Dose Route/Sig Max Daily Dose Days Date Category Dose Instructions Albuterol Sulfate Conc Neb Soln (Albuterol Sulfate) 2.5 Mg/0.5 Ml Vial.neb 1 Vial NEB Q4HRS PRN 07/09/19 Rx Doxycycline Hyclate 100 Mg Tablet.dr 1 Tab PO BID 07/09/19 Rx Prednisone 50 Mg Tablet 1 Tab PO DAILY 07/09/19 Rx [place] 5-325 Tablet (Acetaminophen/Hydrocodone Bitart) 1 Each Tablet 1 Tab PO PRN Q6HRS PRN 05/03/18 Rx Prednisone (Prednisone) 10 Mg Tablet 10 Mg PO UD 11/13/16 Rx Take 3 tablets daily for 3 days, then take 2 tablets daily for 3 days, then take 1 tablet daily for 3 days, then stop. Azithromycin Tablet (Azithromycin) 250 Mg Tablet 250 Mg PO DAILY 11/13/16 Rx Hydrocodone-Apap 5-325 (Hydrocodone Bit/Acetaminophen) 1 Each Tablet 1 Tab PO PRN Q6HRS PRN 11/11/16 Reported Zyprexa (Olanzapine) 20 Mg Tablet 1 Tab PO QHS 11/11/16 Reported Proair Hfa (Albuterol Sulfate) 8.5 Gm Hfa.aer.ad 8.5 Gm IH BID66 08/18/16 Rx Pulmicort Flexhaler (Budesonide) 180 Mcg Aer.pow.ba 2 Puff IH BID 08/18/16 Rx Clorazepate Dipotassium 3.75 Mg Tablet 3.75 Mg PO BID 05/19/16 Reported Simvastatin 20 Mg Tablet 20 Mg PO DAILY 05/19/16 Reported Olanzapine 20 Mg Tablet 20 Mg PO DAILY 05/19/16 Reported Bupropion Hcl 100 Mg Tablet 100 Mg PO BID 05/19/16 Reported Impression . IMPRESSION: 1. Abnormal x-ray, compatible with pneumonia. 2. Pneumonia, gram negative, possibly gram positive. 3. Acute exacerbation of chronic obstructive pulmonary disease. 4. Leukocytosis. resolved 5. [id number]-4 testing pending. 6. Tobacco dependent. Plan . 02 titration fu covid 19 may change abx to po, for total abx of 7 days BD quit smoking for ever lovenox for dvt prophylaxis ?out of icu or dc discussed w rn, pt EMMANUEL GREEN MD Aug 06, 2019 07:58
[2019-08-06] MEDS: cloNIDine HCL 0.1 MG TABLET PO PRN (09:00)
[2019-08-06] MEDS ORDERED: LISINOPRIL 20 MG TABLET PO SCH (09:00)
[2019-08-06] MEDS: LACTOBACILLUS RHAMNOSUS GG 1 CAPSULE. PO SCH ×2 (09:00→20:14)
[2019-08-06] MEDS ORDERED: amLODIPine BESYLATE 5 MG TABLET PO SCH (09:00)
[2019-08-06] MEDS: LIDOCAINE (700MG/PATCH) PATCH. TD SCH (09:00)
[2019-08-06] MEDS: buPROPion 100 MG TABLET PO SCH ×2 (09:00→20:15)
[2019-08-06] MEDS ORDERED: METOPROLOL SUCC 24HR ER 100 MG TAB.ER.24H. PO SCH (09:00)
--- NOTE | 2019-08-06 10:05 | PDOC ---
PROGRESS NOTES Chief Complaint Chief Complaint A/P: Pneumonia, gram negative, possibly gram positive. Acute exacerbation of chronic obstructive pulmonary disease - Diffuse centrilobular emphysematous involvement of the lung munguia noted. Bilateral bronchial wall thickening is noted which may represent chronic bronchitis. RECENT CT CHEST [id number] testing pending. Tobacco dependent. Acute hypoxic resp failure Sepsis - 2/2 pneumonia. HX HTN HX CVA REMOTE Costochondritis - on left, will apply lidoderm patch History of Present Illness History of Present Illness Ms Brandon is a 64 yo F w/ PMHx COPD, smoker, anxiety with depression, HLD, CVA, and HTN who p/w 3 day history of increasing shortness of breath, cough productive of dark sputum and a temperature at home of 100.3 with associated night sweats. Found on CXR with right lower lobe infiltrate. Admitted for further care with pulmonology consultation. 08/02: Currently on vancomycin and Zosyn IV along with IV steroids 08/03: Awaiting SARS-COV2 results, treating pneumonia 08/04: CXR today with diffuse increased interstitial markings bilaterally. Blunted left costophrenic angle consistent with a small pleural effusion. These findings could suggest some mild interstitial edema however mild interstitial infiltrates cannot be excluded. She feels better. Costochondritis. Still having pain on the right side of her chest. Working on downgrading antibiotics. Vitals Vitals Vital Signs Date Time Temp Pulse Resp B/P (MAP) Pulse Ox O2 Delivery O2 Flow Rate FiO2 08/06/19 09:00 81 174/95 08/06/19 07:45 20 95 Room Air 08/06/19 07:00 97.7 97.7 08/06/19 05:41 2.0 Physical Exam General: Alert, Oriented X3, Cooperative, No acute distress Heart: Regular rate, Other (TACHY) Lungs: Crackles, Other Abdomen: Normal bowel sounds, Soft, Other (THIN) Extremities: No cyanosis Skin: No breakdown Labs LABS Laboratory Tests Test 08/06/19 04:00 Blood Urea Nitrogen 8 mg/dL (7-20) Creatinine 0.6 mg/dL (0.6-1.0) Estimated GFR (Cockcroft-Gault) 100.6 Procalcitonin < 0.10 ng/mL (0.00-0.10) Vancomycin Level Trough 20.1 mcg/mL (10.0-20.0) Vancomycin Last Dose Date 08/05/19 Vancomycin Last Dose Time 2200 Assessment and Plan Assessmemt and Plan Problems Medical Problems: (1) Pneumonia Status: Acute Comment Review of Relevant I have reviewed the following items luis angel (where applicable) has been applied. Labs Laboratory Tests Test 08/05/19 05:00 08/06/19 04:00 Vancomycin Level Trough 12.2 mcg/mL (10.0-20.0) 20.1 mcg/mL (10.0-20.0) Vancomycin Last Dose Date 08/04/19 08/05/19 Vancomycin Last Dose Time 2199 2200 Blood Urea Nitrogen 8 mg/dL (7-20) Creatinine 0.6 mg/dL (0.6-1.0) Estimated GFR (Cockcroft-Gault) 100.6 Procalcitonin < 0.10 ng/mL (0.00-0.10) Laboratory Tests Test 08/06/19 04:00 Blood Urea Nitrogen 8 mg/dL (7-20) Creatinine 0.6 mg/dL (0.6-1.0) Estimated GFR (Cockcroft-Gault) 100.6 Procalcitonin < 0.10 ng/mL (0.00-0.10) Vancomycin Level Trough 20.1 mcg/mL (10.0-20.0) Vancomycin Last Dose Date 08/05/19 Vancomycin Last Dose Time 2199 Microbiology 08/03/19 Urine Culture - Final, Complete 08/03/19 Urine Culture Result 1 (HIRA) - Final, Complete 08/02/19 Blood Culture - Preliminary, Resulted NO GROWTH AFTER 3 DAYS Medications Current Medications Fentanyl Citrate (Fentanyl 2ml Vial) 50 mcg 1X ONCE IV Last administered on 08/02/19at 12:59; Start 08/02/19 at 12:15; Stop 08/02/19 at 12:16; Status DC Ceftriaxone Sodium (Rocephin) 1 gm 1X ONCE IVP Last administered on 08/02/19at 12:59; Start 08/02/19 at 12:45; Stop 08/02/19 at 12:46; Status DC Doxycycline Hyclate 100 mg/ Dextrose 100 ml @ 50 mls/hr 1X ONCE IV Last administered on 08/02/19at 14:00; Start 08/02/19 at 12:45; Stop 08/02/19 at 14:44; Status DC Sodium Chloride 500 ml @ 500 mls/hr 1X ONCE IV Last administered on 08/02/19at 12:58; Start 08/02/19 at 12:45; Stop 08/02/19 at 13:44; Status DC Fentanyl Citrate (Fentanyl 2ml Vial) 50 mcg PRN Q2HR PRN IV PAIN Last administered on 08/06/19at 07:15; Start 08/02/19 at 16:00 Sodium Chloride (Normal Saline Flush) 3 ml QSHIFT PRN IV AFTER MEDS AND BLOOD DRAWS; Start 08/02/19 at 16:15 Sodium Chloride 1,000 ml @ 100 mls/hr Q10H IV Last administered on 08/05/19at 04:07; Start 08/02/19 at 16:07; Stop 08/05/19 at 09:54; Status DC Ondansetron HCl (Zofran) 4 mg PRN Q4HRS PRN IV NAUSEA/VOMITING; Start 08/02/19 at 16:15 Acetaminophen (Tylenol) 650 mg PRN Q4HRS PRN PO TEMP OVER 100.4F OR MILD PAIN; Start 08/02/19 at 16:15 Al Hydroxide/Mg Hydroxide (Mylanta Plus Xs) 30 ml PRN DAILY PRN PO HEARTBURN / GAS; Start 08/02/19 at 16:15 Clonidine HCl (Catapres) 0.1 mg PRN Q6HRS PRN PO SBP>160 OR DBP>90 Last administered on 08/06/19at 09:00; Start 08/02/19 at 16:15 Docusate Sodium (Colace) 100 mg PRN BID PRN PO CONSTIPATION; Start 08/02/19 at 16:15 Albuterol/ Ipratropium (Duoneb) 3 ml Q4HRS NEB Last administered on 08/06/19at 07:39; Start 08/02/19 at 16:30 Guaifenesin (Robitussin) 200 mg PRN Q4HRS PRN PO COUGH; Start 08/02/19 at 16:15 Enoxaparin Sodium (Lovenox 40mg Syringe) 40 mg Q24H SQ Last administered on 08/05/19at 17:48; Start 08/02/19 at 17:00 Vancomycin HCl (Vanco Per Pharmacy) 1 each PRN DAILY PRN MC SEE COMMENTS Last administered on 08/06/19at 06:13; Start 08/02/19 at 16:15 Piperacillin Sod/ Tazobactam Sod 3.375 gm/Sodium Chloride 50 ml @ 100 mls/hr Q6HRS IV Last administered on 08/06/19at 05:11; Start 08/02/19 at 18:00 Vancomycin HCl 250 ml @ 250 mls/hr 1X ONCE IV ; Start 08/02/19 at 16:30; Stop 08/02/19 at 17:29; Status Cancel Albuterol Sulfate (Ventolin Neb Soln) 2.5 mg PRN Q4HRS PRN NEB WHEEZING; Start 08/02/19 at 16:15 Bupropion HCl (Wellbutrin) 100 mg BID PO Last administered on 08/06/19at 09:00; Start 08/02/19 at 21:00 Acetaminophen/ Hydrocodone Bitart (Lortab 5/325) 1 tab PRN Q6HRS PRN PO MODERATE-SEVERE Last administered on 08/06/19at 03:14; Start 08/02/19 at 16:15 Simvastatin (Zocor) 20 mg HS PO Last administered on 08/05/19at 20:00; Start 08/02/19 at 21:00 Budesonide (Pulmicort) 0.5 mg RTBID NEB Last administered on 08/06/19at 07:39; Start 08/02/19 at 20:00 Olanzapine (ZyPREXA) 20 mg DAILY PO Last administered on 08/05/19at 08:45; Start 08/03/19 at 09:00; Stop 08/05/19 at 22:56; Status DC Vancomycin HCl 1 gm/Sodium Chloride 250 ml @ 250 mls/hr 1X ONCE IV Last administered on 08/02/19at 18:14; Start 08/02/19 at 18:30; Stop 08/02/19 at 19:29; Status DC Vancomycin HCl 750 mg/Sodium Chloride 250 ml @ 250 mls/hr Q12H IV Last administered on 08/04/19at 06:00; Start 08/03/19 at 06:00; Stop 08/04/19 at 09:00; Status DC Vancomycin HCl (Vancomycin Trough Level) 1 each 1X ONCE MC ; Start 08/04/19 at 05:30; Stop 08/04/19 at 05:31; Status DC Lactobacillus Rhamnosus (Culturelle) 1 cap BID PO Last administered on 08/06/19at 09:00; Start 08/03/19 at 21:00 Vancomycin HCl 750 mg/Sodium Chloride 250 ml @ 250 mls/hr Q8H IV Last administered on 08/04/19at 22:47; Start 08/04/19 at 14:00; Stop 08/05/19 at 05:57; Status DC Vancomycin HCl (Vancomycin Trough Level) 1 each 1X ONCE MC ; Start 08/05/19 at 05:30; Stop 08/05/19 at 05:31; Status DC Vancomycin HCl 1 gm/Sodium Chloride 250 ml @ 250 mls/hr Q8H IV Last administered on 08/06/19at 06:00; Start 08/05/19 at 06:00 Vancomycin HCl (Vancomycin Trough Level) 1 each 1X ONCE MC ; Start 08/06/19 at 05:30; Stop 08/06/19 at 05:31; Status DC Lidocaine (Lidoderm) 1 patch DAILY TD Last administered on 08/06/19at 09:00; Start 08/05/19 at 10:30 Miscellaneous (Lidoderm Patch Removal) 1 ea QHS MC Last administered on 08/05/19at 20:00; Start 08/05/19 at 21:00 Amlodipine Besylate (Norvasc) 5 mg DAILY PO ; Start 08/06/19 at 09:00; Stop 08/05/19 at 22:58; Status DC Lisinopril (Prinivil) 40 mg DAILY PO ; Start 08/06/19 at 09:00; Stop 08/05/19 at 22:59; Status DC Metoprolol Succinate (Toprol Xl) 200 mg DAILY PO ; Start 08/06/19 at 09:00; Stop 08/05/19 at 22:59; Status DC Olanzapine (ZyPREXA) 20 mg HS PO ; Start 08/06/19 at 21:00 Amlodipine Besylate (Norvasc) 5 mg HS PO Last administered on 08/05/19at 23:18; Start 08/05/19 at 23:00 Lisinopril (Prinivil) 40 mg HS PO Last administered on 08/05/19at 23:19; Start 08/05/19 at 23:00 Metoprolol Succinate (Toprol Xl) 200 mg HS PO ; Start 08/05/19 at 23:00 Active Scripts Active Albuterol Sulfate Conc Neb Soln (Albuterol Sulfate) 2.5 Mg/0.5 Ml Vial.neb 1 Vial NEB Q4HRS PRN Doxycycline Hyclate 100 Mg Tablet.dr 1 Tab PO BID Prednisone 50 Mg Tablet 1 Tab PO DAILY [place] 5-325 Tablet (Acetaminophen/Hydrocodone Bitart) 1 Each Tablet 1 Tab PO PRN Q6HRS PRN Prednisone (Prednisone) 10 Mg Tablet 10 Mg PO UD Take 3 tablets daily for 3 days, then take 2 tablets daily for 3 days, then take 1 tablet daily for 3 days, then stop. Azithromycin Tablet (Azithromycin) 250 Mg Tablet 250 Mg PO DAILY Proair Hfa (Albuterol Sulfate) 8.5 Gm Hfa.aer.ad 8.5 Gm IH [id number] Pulmicort Flexhaler (Budesonide) 180 Mcg Aer.pow.ba 2 Puff IH BID Reported Lisinopril 40 Mg Tablet 40 Mg PO DAILY Amlodipine Besylate 5 Mg Tablet 5 Mg PO DAILY Metoprolol Succinate ( Xl ) (Metoprolol Succinate) 200 Mg Tab.er.24h 1 Tab PO DAILY Hydrocodone-Apap 5-325 (Hydrocodone Bit/Acetaminophen) 1 Each Tablet 1 Tab PO PRN Q6HRS PRN Zyprexa (Olanzapine) 20 Mg Tablet 1 Tab PO QHS Clorazepate Dipotassium 3.75 Mg Tablet 3.75 Mg PO BID Simvastatin 20 Mg Tablet 20 Mg PO DAILY Olanzapine 20 Mg Tablet 20 Mg PO DAILY Bupropion Hcl 100 Mg Tablet 100 Mg PO BID Vitals/I & O Vital Sign - Last 24 Hours 08/05/19 08/05/19 08/05/19 08/05/19 10:50 10:56 11:20 11:34 Temp 97.4 97.4 Pulse 88 Resp 17 15 18 B/P (MAP) 129/81 (97) Pulse Ox 96 92 97 97 O2 Delivery Room Air Room Air Room Air Room Air 08/05/19 08/05/19 08/05/19 08/05/19 13:01 14:05 14:51 15:55 Temp 97.8 97.8 Pulse 87 Resp 20 19 15 18 B/P (MAP) 134/81 (98) Pulse Ox 97 97 95 95 O2 Delivery Room Air Room Air Room Air Room Air 08/05/19 08/05/19 08/05/19 08/05/19 16:25 18:16 18:47 19:13 Temp 97.9 97.9 Pulse 95 Resp 18 24 19 18 B/P (MAP) 179/95 (123) Pulse Ox 95 95 95 93 O2 Delivery Room Air Room Air Room Air Room Air 08/05/19 08/05/19 08/05/19 08/05/19 19:59 19:59 20:00 21:08 Pulse 95 Resp 18 18 B/P (MAP) 179/95 Pulse Ox 93 93 O2 Delivery Room Air Room Air Room Air O2 Flow Rate 2.0 08/05/19 08/05/19 08/05/19 08/05/19 22:23 23:00 23:15 23:18 Temp 98.1 98.1 Pulse 78 86 86 86 Resp 18 B/P (MAP) 163/94 (117) 150/99 150/99 (116) 150/99 Pulse Ox 98 O2 Delivery Nasal Cannula O2 Flow Rate 2.0 08/05/19 08/05/19 08/06/19 08/06/19 23:19 23:20 00:01 00:02 Pulse 86 81 Resp 18 B/P (MAP) 150/99 136/79 (98) Pulse Ox 98 98 O2 Delivery Room Air Nasal Cannula O2 Flow Rate 2.0 2.0 08/06/19 08/06/19 08/06/19 08/06/19 03:09 03:14 04:15 05:11 Temp 97.9 97.9 Pulse 91 Resp 18 B/P (MAP) 148/91 (110) Pulse Ox 96 96 96 96 O2 Delivery Nasal Cannula Room Air Nasal Cannula Nasal Cannula O2 Flow Rate 2.0 2.0 2.0 2.0 08/06/19 08/06/19 08/06/19 08/06/19 05:41 07:00 07:15 07:39 Temp 97.7 97.7 Pulse 81 Resp 18 20 B/P (MAP) 174/95 (121) Pulse Ox 96 94 96 95 O2 Delivery Nasal Cannula Room Air Room Air Room Air O2 Flow Rate 2.0 08/06/19 08/06/19 07:45 09:00 Pulse 81 Resp 20 B/P (MAP) 174/95 Pulse Ox 95 O2 Delivery Room Air Intake and Output 08/05/19 08/05/19 08/06/19 15:00 23:00 07:00 Intake Total 480 ml 480 ml 400 ml Balance 480 ml 480 ml 400 ml SHARI AVILA MD Aug 06, 2019 10:05
[2019-08-06] MEDS: ENOXAPARIN 40 MG/0.4 ML SYRINGE. SQ SCH (17:35)
[2019-08-06] MEDS: OLANZapine 5 MG TABLET PO SCH (20:14)
[2019-08-06] MEDS: SIMVASTATIN 20 MG TABLET PO SCH (20:15)
[2019-08-06] MEDS: PATCH REMOVAL. MC SCH (21:00)
[2019-08-07 03:41] VITALS: BP 141/81
[2019-08-07] MEDS: fentaNYL PF VIAL 100 MCG/2 ML VIAL IV PRN ×4 (05:40→19:45)
[2019-08-07] MEDS: VANCOMYCIN 1 GM in IV NORMAL SALINE 250ML 250 ML IV SCH ×3 (05:40→21:02)
[2019-08-07] MEDS: PIPERACILLIN/TAZOBACTAM 3.375 GM in IV NORMAL SALINE 50ML 50 ML IV SCH ×4 (05:40→22:50)
[2019-08-07 07:00] VITALS: BP 176/87
[2019-08-07] MEDS: IPRATRPIUM/ALBUTEROL 0.5/2.5MG 3 ML NEBU. NEB SCH ×4 (08:00→20:00)
[2019-08-07] MEDS: LACTOBACILLUS RHAMNOSUS GG 1 CAPSULE. PO SCH ×2 (08:07→21:02)
[2019-08-07] MEDS: buPROPion 100 MG TABLET PO SCH ×2 (08:07→21:02)
[2019-08-07] MEDS: HYDROcodone/APAP 5/325MG 1 TAB TABLET PO PRN ×3 (08:08→22:51)
[2019-08-07] MEDS: METOPROLOL SUCC 24HR ER 100 MG TAB.ER.24H. PO SCH (08:08)
[2019-08-07] MEDS: amLODIPine BESYLATE 5 MG TABLET PO SCH (08:09)
[2019-08-07] MEDS: LISINOPRIL 20 MG TABLET PO SCH (08:11)
--- NOTE | 2019-08-07 08:22 | PDOC ---
PULMONARY PROGRESS NOTES Subjective PT BACK TO BASE LINE FEELS BETTER NO INCREASE SOA Vitals Vital Signs Date Time Temp Pulse Resp B/P (MAP) Pulse Ox O2 Delivery O2 Flow Rate FiO2 08/07/19 08:11 81 176/87 08/07/19 07:00 97.8 17 97 Nasal Cannula 2.0 97.8 ROS: No Nausea, No Chest Pain, No Abdominal Pain, No Increase Cough General: Alert, Oriented X4 HEENT: Other (nc at [facility]) Lungs: Crackles, Other Cardiovascular: S1, S2 Abdomen: Soft, Non-tender Neuro Exam: Alert Extremities: No Edema Skin: Warm Labs Laboratory Tests Test 08/06/19 04:00 Blood Urea Nitrogen 8 mg/dL (7-20) Creatinine 0.6 mg/dL (0.6-1.0) Estimated GFR (Cockcroft-Gault) 100.6 Procalcitonin < 0.10 ng/mL (0.00-0.10) Vancomycin Level Trough 20.1 mcg/mL (10.0-20.0) Vancomycin Last Dose Date 08/05/19 Vancomycin Last Dose Time 2200 Medications Active Scripts Medications Dose Route/Sig Max Daily Dose Days Date Category Dose Instructions Albuterol Sulfate Conc Neb Soln (Albuterol Sulfate) 2.5 Mg/0.5 Ml Vial.neb 1 Vial NEB Q4HRS PRN 07/09/19 Rx Doxycycline Hyclate 100 Mg Tablet.dr 1 Tab PO BID 07/09/19 Rx Prednisone 50 Mg Tablet 1 Tab PO DAILY 07/09/19 Rx [place] 5-325 Tablet (Acetaminophen/Hydrocodone Bitart) 1 Each Tablet 1 Tab PO PRN Q6HRS PRN 05/03/18 Rx Prednisone (Prednisone) 10 Mg Tablet 10 Mg PO UD 11/13/16 Rx Take 3 tablets daily for 3 days, then take 2 tablets daily for 3 days, then take 1 tablet daily for 3 days, then stop. Azithromycin Tablet (Azithromycin) 250 Mg Tablet 250 Mg PO DAILY 11/13/16 Rx Hydrocodone-Apap 5-325 (Hydrocodone Bit/Acetaminophen) 1 Each Tablet 1 Tab PO PRN Q6HRS PRN 11/11/16 Reported Zyprexa (Olanzapine) 20 Mg Tablet 1 Tab PO QHS 11/11/16 Reported Proair Hfa (Albuterol Sulfate) 8.5 Gm Hfa.aer.ad 8.5 Gm IH [id number] 08/18/16 Rx Pulmicort Flexhaler (Budesonide) 180 Mcg Aer.pow.ba 2 Puff IH BID 08/18/16 Rx Clorazepate Dipotassium 3.75 Mg Tablet 3.75 Mg PO BID 05/19/16 Reported Simvastatin 20 Mg Tablet 20 Mg PO DAILY 05/19/16 Reported Olanzapine 20 Mg Tablet 20 Mg PO DAILY 05/19/16 Reported Bupropion Hcl 100 Mg Tablet 100 Mg PO BID 05/19/16 Reported Impression . IMPRESSION: 1. Abnormal x-ray, compatible with pneumonia. 2. Pneumonia, gram negative, possibly gram positive. 3. Acute exacerbation of chronic obstructive pulmonary disease. 4. Leukocytosis. resolved 5. [id number] testing pending. 6. Tobacco dependent. Plan . WILL DC IN AM 0N CONTINUE SUPPORT 02 titration fu covid 19 JEWEL FLANAGAN MD Aug 07, 2019 08:22
[2019-08-07] MEDS: LIDOCAINE (700MG/PATCH) PATCH. TD SCH (10:02)
[2019-08-07 10:05] VITALS: BP 153/89
[2019-08-07] MEDS: BUDESONIDE 0.5 MG/2 ML NEBU. NEB SCH ×3 (10:22→20:52)
--- NOTE | 2019-08-07 11:43 | PDOC ---
[facility] [facility] PROGRESS NOTE Chief Complaint Chief Complaint Pneumonia COPD Possible Covid 19 Tobacco abuse Respiratory failure Sepsis Costochondritis Hypertension Stroke History of Present Illness History of Present Illness [id number] Patient seen and examined in the ICU I dressed in full contact isolation gear Chart reviewed Discussed with RN Ms Brandon is a 64 yo F w/ PMHx COPD, smoker, anxiety with depression, HLD, CVA, and HTN who p/w 3 day history of increasing shortness of breath, cough productive of dark sputum and a temperature at home of 100.3 with associated night sweats. Found on CXR with right lower lobe infiltrate. Admitted for further care with pulmonology consultation. 08/02: Currently on vancomycin and Zosyn IV along with IV steroids 08/03: Awaiting SARS-COV2 results, treating pneumonia 08/04: CXR today with diffuse increased interstitial markings bilaterally. Blunted left costophrenic angle consistent with a small pleural effusion. These findings could suggest some mild interstitial edema however mild interstitial infiltrates cannot be excluded. She feels better. Costochondritis. Still having pain on the right side of her chest. Working on downgrading antibio tics. Vitals/I&O Vitals/I&O: Vital Signs Date Time Temp Pulse Resp B/P (MAP) Pulse Ox O2 Delivery O2 Flow Rate FiO2 08/07/19 10:23 Nasal Cannula 2.0 08/07/19 10:05 97.9 65 21 153/89 (110) 100 97.9 I & O 08/06/19 08/06/19 08/07/19 15:00 23:00 07:00 Intake Total 880 ml 860 ml 500 ml Balance 880 ml 860 ml 500 ml Physical Exam General: Alert, Oriented X3, Cooperative, No acute distress Heart: Regular rate, Other (TACHY) Lungs: Crackles, Other Abdomen: Normal bowel sounds, Soft, Other (THIN) Extremities: No cyanosis Skin: No breakdown Assessment and Plan Assessmemt and Plan Problems Medical Problems: (1) Pneumonia Status: Acute Pneumonia, gram negative, possibly gram positive. Acute exacerbation of chronic obstructive pulmonary disease - Diffuse centrilobular emphysematous involvement of the lung munguia noted. Bilateral bronchial wall thickening is noted which may represent chronic bronchitis. RECENT CT CHEST [id number] testing pending. Tobacco dependent. Acute hypoxic resp failure Sepsis - 2/2 pneumonia. HX HTN HX CVA REMOTE Costochondritis - on left, will apply lidoderm patch ICU monitoring Comment Review of Relevant I have reviewed the following items luis angel (where applicable) has been applied. Medications: Current Medications Medications (Trade) Dose Ordered Sig/Marianne Route PRN Reason Start Time Stop Time Status Last Admin Dose Admin Olanzapine (ZyPREXA) 20 mg HS PO 08/06/19 21:00 08/06/19 20:14 Amlodipine Besylate (Norvasc) 5 mg DAILY PO 08/07/19 09:00 08/07/19 08:09 Lisinopril (Prinivil) 40 mg DAILY PO 08/07/19 09:00 08/07/19 08:11 Metoprolol Succinate (Toprol Xl) 200 mg DAILY PO 08/07/19 09:00 08/07/19 08:08 FRANKO KIM III DO Aug 07, 2019 11:43
[2019-08-07 14:31] VITALS: BP 131/81
--- NOTE | 2019-08-07 15:33 | NUR ---
SS following up with discharge planning. COVID19 test pending results at this time. SS will continue to follow for discharge planning.
[2019-08-07] MEDS: ENOXAPARIN 40 MG/0.4 ML SYRINGE. SQ SCH (18:16)
[2019-08-07 19:00] VITALS: BP 135/72
[2019-08-07] MEDS: PATCH REMOVAL. MC SCH (21:00)
[2019-08-07] MEDS: SIMVASTATIN 20 MG TABLET PO SCH (21:02)
[2019-08-07] MEDS: OLANZapine 5 MG TABLET PO SCH (21:02)
[2019-08-07 23:00] VITALS: BP 131/75
[2019-08-08] MEDS: fentaNYL PF VIAL 100 MCG/2 ML VIAL IV PRN ×2 (02:52→08:49)
[2019-08-08 03:00] VITALS: BP 128/71
[2019-08-08] MEDS: IPRATRPIUM/ALBUTEROL 0.5/2.5MG 3 ML NEBU. NEB SCH ×4 (04:00→12:13)
[2019-08-08] MEDS: PIPERACILLIN/TAZOBACTAM 3.375 GM in IV NORMAL SALINE 50ML 50 ML IV SCH ×2 (05:30→11:21)
[2019-08-08] MEDS: HYDROcodone/APAP 5/325MG 1 TAB TABLET PO PRN ×2 (05:30→11:20)
[2019-08-08] MEDS: VANCOMYCIN 1 GM in IV NORMAL SALINE 250ML 250 ML IV SCH (06:20)
[2019-08-08 07:00] VITALS: BP 153/92
[2019-08-08] MEDS: BUDESONIDE 0.5 MG/2 ML NEBU. NEB SCH (08:23)
[2019-08-08] MEDS: amLODIPine BESYLATE 5 MG TABLET PO SCH (08:50)
[2019-08-08] MEDS: METOPROLOL SUCC 24HR ER 100 MG TAB.ER.24H. PO SCH (08:50)
[2019-08-08] MEDS: LISINOPRIL 20 MG TABLET PO SCH (08:51)
[2019-08-08] MEDS: LACTOBACILLUS RHAMNOSUS GG 1 CAPSULE. PO SCH (08:51)
[2019-08-08] MEDS: buPROPion 100 MG TABLET PO SCH (08:51)
[2019-08-08] MEDS: LIDOCAINE (700MG/PATCH) PATCH. TD SCH (08:54)
--- NOTE | 2019-08-08 09:24 | PDOC ---
PULMONARY PROGRESS NOTES Subjective Patient feels better Back to baseline Vitals Vital Signs Date Time Temp Pulse Resp B/P (MAP) Pulse Ox O2 Delivery O2 Flow Rate FiO2 08/08/19 08:51 80 153/92 08/08/19 08:49 Nasal Cannula 2.0 08/08/19 08:28 95 08/08/19 07:00 98.1 20 98.1 ROS: No Nausea, No Chest Pain, No Abdominal Pain, No Increase Cough General: Alert, Oriented X4 HEENT: Other (nc at [facility]) Lungs: Crackles, Other Cardiovascular: S1, S2 Abdomen: Soft, Non-tender Neuro Exam: Alert Extremities: No Edema Skin: Warm Medications Active Scripts Medications Dose Route/Sig Max Daily Dose Days Date Category Dose Instructions Albuterol Sulfate Conc Neb Soln (Albuterol Sulfate) 2.5 Mg/0.5 Ml Vial.neb 1 Vial NEB Q4HRS PRN 07/09/19 Rx Doxycycline Hyclate 100 Mg Tablet.dr 1 Tab PO BID 07/09/19 Rx Prednisone 50 Mg Tablet 1 Tab PO DAILY 07/09/19 Rx [place] 5-325 Tablet (Acetaminophen/Hydrocodone Bitart) 1 Each Tablet 1 Tab PO PRN Q6HRS PRN 05/03/18 Rx Prednisone (Prednisone) 10 Mg Tablet 10 Mg PO UD 11/13/16 Rx Take 3 tablets daily for 3 days, then take 2 tablets daily for 3 days, then take 1 tablet daily for 3 days, then stop. Azithromycin Tablet (Azithromycin) 250 Mg Tablet 250 Mg PO DAILY 11/13/16 Rx Hydrocodone-Apap 5-325 (Hydrocodone Bit/Acetaminophen) 1 Each Tablet 1 Tab PO PRN Q6HRS PRN 11/11/16 Reported Zyprexa (Olanzapine) 20 Mg Tablet 1 Tab PO QHS 11/11/16 Reported Proair Hfa (Albuterol Sulfate) 8.5 Gm Hfa.aer.ad 8.5 Gm IH [id number] 08/18/16 Rx Pulmicort Flexhaler (Budesonide) 180 Mcg Aer.pow.ba 2 Puff IH BID 08/18/16 Rx Clorazepate Dipotassium 3.75 Mg Tablet 3.75 Mg PO BID 05/19/16 Reported Simvastatin 20 Mg Tablet 20 Mg PO DAILY 05/19/16 Reported Olanzapine 20 Mg Tablet 20 Mg PO DAILY 05/19/16 Reported Bupropion Hcl 100 Mg Tablet 100 Mg PO BID 05/19/16 Reported Impression . IMPRESSION: 1. Abnormal x-ray, compatible with pneumonia. 2. Pneumonia, gram negative, possibly gram positive. 3. Acute exacerbation of chronic obstructive pulmonary disease. 4. Leukocytosis. resolved 5. [id number] testing pending. 6. Tobacco dependent. Plan . Patient feels better, back to baseline, Covid19 virus pending JEWEL FLANAGAN MD Aug 08, 2019 09:24
[2019-08-08 10:48] VITALS: BP 134/76
--- NOTE | 2019-08-08 23:36 | DS ---
DATE OF DISCHARGE: 08/08/2019 ADMISSION DIAGNOSIS: Pneumonia. DISCHARGE DIAGNOSIS: Resolving atypical pneumonia. HOSPITAL COURSE: The patient is a pleasant 64-year-old female presented with pneumonia. She was admitted. We checked her for mycoplasma and she came back mycoplasma positive. Today, she is doing well. PHYSICAL EXAMINATION: HEART: Tones are normal. LUNGS: Clear. ABDOMEN: Soft. EXTREMITIES: No edema. We plan to discharge on a Z-SARI. DISPOSITION: Home. ACTIVITY: As tolerated. DIET: Low sodium. MEDICATIONS: Please see MRAD. TOTAL TIME: 34 minutes. ANAHIL Ibis KIM DO DR: HEATHER/blu JOB#: [id number] / [id number]
== END 2019-08-08 14:17 | disposition home or self-care (01) | DRG 871 ==
LOC: ER 10:48 → ED HOLD 14:08 → 6 SOUTH 18:06 → 1 WEST ICU 08-04 12:57 → 2 SOUTH 08-07 16:50
PROVIDERS: ADMIT Family Medicine; ATTEND Family Medicine
DX: A41.9 Sepsis, unspecified organism (principal); J18.9 Pneumonia, unspecified organism; J96.01 Acute respiratory failure with hypoxia; J98.11 Atelectasis; J44.0 Chronic obstructive pulmonary disease with (acute) lower respiratory infection; J44.1 Chronic obstructive pulmonary disease with (acute) exacerbation; E78.00 Pure hypercholesterolemia, unspecified; E78.5 Hyperlipidemia, unspecified; F17.210 Nicotine dependence, cigarettes, uncomplicated; I10 Essential (primary) hypertension; M94.0 Chondrocostal junction syndrome [Tietze]; Z78.9 Other specified health status; Z82.49 Family history of ischemic heart disease and other diseases of the circulatory system; Z86.73 Personal history of transient ischemic attack (TIA), and cerebral infarction without residual deficits; Z87.01 Personal history of pneumonia (recurrent); Z90.710 Acquired absence of both cervix and uterus; Z98.82 Breast implant status; Z90.49 Acquired absence of other specified parts of digestive tract; Z79.899 Other long term (current) drug therapy
CPT/HCPCS: 36415; 71045; 80053; 80202; 81001; 82565; 83605; 83880; 84145; 84484; 84520; 85025; 85610; 87040; 87086; 87635; 87804; 93005; 94640; 94760; 96361; 96365; 96366; 96375; J0696; J1650; J2543; J3010; J3370; J3490; J7030; J7040; J7050; J7060; 99285-25; G0378; J7626; U0002

== ENCOUNTER 2020-01-07 20:29 | Inpatient (IN) | payer MEDICARE ==
[~2020-01-07] VITALS: Ht 160 cm; Wt 59.3 kg
[~2020-01-07 20:29] MED LIST changes: +AMLO5TAB10 PO; +LISI40TA2 PO; +METO200T46 PO
[2020-01-07 21:09] LABS: BASO % 0 % (0-3); EOS # 0.2 x10^3/uL (0.0-0.7); EOS % 2 % (0-3); HEMATOCRIT 34.4 % (36.0-47.0); HEMOGLOBIN 11.9 g/dL (12.0-15.5); LYMPH # 1.4 x10^3/uL (1.0-4.8); LYMPH % 15 % (24-48); MEAN CORPUSCULAR HEMOGLOBIN 31 pg (25-35); MEAN CORPUSCULAR HGB CONC 35 g/dL (31-37); MEAN CORPUSCULAR VOLUME 89 fL (79-100); MONO # 1.3 x10^3/uL (0.0-1.1); MONO % 13 % (0-9); NEUT # 6.7 x10^3/uL (1.8-7.7); NEUT % 70 % (31-73); PLATELET COUNT 281 x10^3/uL (140-400); RED BLOOD COUNT 3.87 x10^6/uL (3.50-5.40); RED CELL DISTRIBUTION WIDTH 13.5 % (11.5-14.5); WHITE BLOOD COUNT 9.5 x10^3/uL (4.0-11.0)
[2020-01-07] MEDS ORDERED: MORPHINE SULFATE 4 MG/ML VIAL. IV ONE ×2 (21:15→22:30)
[2020-01-07] MEDS ORDERED: ONDANSETRON PF 4 MG/2 ML VIAL. IV ONE (21:15)
[2020-01-07] MEDS ORDERED: IV NORMAL SALINE 1000ML BAG 1,000 ML IV ONE (21:15)
--- NOTE | 2020-01-07 21:27 | RAD ---
Left shoulder 2 views 01/07/2020. Reason for exam: Pain after falling. There is a fracture the proximal humeral neck with mild impaction and no significant angulation. No dislocation is seen. IMPRESSION: Proximal humerus fracture. Right clavicle 2 views: There is a fracture of the lateral clavicle with minimal displacement. There is probably some comminution, but the AC joint appears aligned. IMPRESSION: Right clavicular fracture. Left humerus 2 views: Proximal humerus fracture is again demonstrated. The more distal humerus shows no fracture or dislocation. IMPRESSION: Proximal humerus fracture. Electronically signed by: Pop Oleary Jr., MD (01/07/2020 9:24 PM) KARYN
--- NOTE | 2020-01-07 21:52 | PHYS DOC ---
Past Medical History Past Medical History: Anxiety, Asthma, COPD, Depression, High Cholesterol, Hypertension, Stroke, Other Additional Past Medical Histor: R HIP FX Past Surgical History: Hysterectomy, Tonsillectomy, Other Additional Past Surgical Histo: bilat. breast surgery, removed fibroids; conc rete on spine; right hip Smoking Status: Current Every Day Smoker Alcohol Use: None Drug Use: None General Adult EDM: Chief Complaint: TRAUMA ALERT HPI: HPI: Patient is a 64 year old female who presents to the emergency department with complaints of left upper arm and right lateral clavicle pain after a fall suffered this evening. Patient states she was going downstairs to do some laundry when she accidentally tripped on an untied shoestring and rolled down 6 steps. She denies any loss of consciousness, dizziness, syncope, numbness, tingling, vision changes, nausea, vomiting, abdominal pain, or weakness. Patient states that she did hit the back of her head, she denies any pain to the back of her head, neck, or her back. She denies taking any blood thinners. The patient reports that she does smoke a pack and a half of cigarettes daily. She currently reports the pain in her bilateral arms a 8 out of 10 on the pain scale, she denies taking anything for pain prior to arrival. Patient is unsure when her last tetanus shot was. She reports multiple skin tears to her left arm and hand and a few skin tears to her right elbow. Review of Systems: Review of Systems: Constitutional: Denies fever or chills. [] Eyes: Denies change in visual acuity. [] Respiratory: Denies shortness of breath. [] Cardiovascular: Denies chest pain or dizziness GI: Denies abdominal pain, nausea, or vomiting Musculoskeletal: Denies back pain; see HPI Integument: See HPI Neurologic: Denies headache, focal weakness or sensory changes. [] Psychiatric: Denies depression or anxiety. [] Heart Score: Risk Factors: Risk Factors: DM, Current or recent (<one month) smoker, HTN, HLP, family history of CAD, obesity. Risk Scores: Score 0 - 3: 2.5% MACE over next 6 weeks - Discharge Home Score 4 - 6: 20.3% MACE over next 6 weeks - Admit for Clinical Observation Score 7 - 10: 72.7% MACE over next 6 weeks - Early Invasive Strategies Current Medications: Current Medications Medications (Trade) Dose Ordered Sig/Marianne Start Time Stop Time Status Last Admin Dose Admin Morphine Sulfate (Morphine Sulfate) 4 mg 1X ONCE 01/07/20 21:15 01/07/20 21:16 DC 01/07/20 21:40 4 MG Ondansetron HCl (Zofran) 4 mg 1X ONCE 01/07/20 21:15 01/07/20 21:16 DC 01/07/20 21:39 4 MG Sodium Chloride 1,000 ml @ 1,000 mls/hr 1X ONCE 01/07/20 21:15 01/07/20 22:14 01/07/20 21:15 1,000 MLS/HR Allergies: Allergies: Allergies Coded Allergies Type Severity Reaction Last Updated Verified haloperidol Allergy Intermediate makes neck tighten so she can't move head 02/05/14 Yes Physical Exam: PE: Constitutional: Well developed, no acute distress, non-toxic appearance, appears older than stated age, strong odor of tobacco HENT: Normocephalic, atraumatic, bilateral external ears normal, nose normal [] Eyes: PERRLA, EOMI, conjunctiva normal, no discharge. [] Neck: Normal range of motion, no stridor. [] Cardiovascular:Heart rate regular rhythm Lungs & Thorax: Bilateral breath sounds coarse, diminished posterior, no retractions Abdomen: soft, no tenderness Skin: Warm, dry; multiple skin tears noted to left hand, forearm, and upper arm without active bleeding; there are a few skin tears to the right lateral elbow with no active bleeding Back: No tenderness Extremities: Left humerus: Proximal tenderness to palpation with obvious deformity, patient does not tolerate range of motion, 2+ radial pulse, cap refill less than 2 seconds, no cyanosis Right lateral clavicle: Tenderness to palpation with obvious deformity, no subcutaneous emphysema, no tenting, no cyanosis Neurologic: Alert and oriented X 3, normal motor function, normal sensory function, no focal deficits noted. [] Psychologic: Affect normal, judgement normal, mood normal. [] Current Patient Data: Labs: Laboratory Tests Test 01/07/20 21:00 White Blood Count 9.5 x10^3/uL (4.0-11.0) Red Blood Count 3.87 x10^6/uL (3.50-5.40) Hemoglobin 11.9 g/dL (12.0-15.5) L Hematocrit 34.4 % (36.0-47.0) L Mean Corpuscular Volume 89 fL (79-100) Mean Corpuscular Hemoglobin 31 pg (25-35) Mean Corpuscular Hemoglobin Concent 35 g/dL (31-37) Red Cell Distribution Width 13.5 % (11.5-14.5) Platelet Count 281 x10^3/uL (140-400) Neutrophils (%) (Auto) 70 % (31-73) Lymphocytes (%) (Auto) 15 % (24-48) L Monocytes (%) (Auto) 13 % (0-9) H Eosinophils (%) (Auto) 2 % (0-3) Basophils (%) (Auto) 0 % (0-3) Neutrophils # (Auto) 6.7 x10^3/uL (1.8-7.7) Lymphocytes # (Auto) 1.4 x10^3/uL (1.0-4.8) Monocytes # (Auto) 1.3 x10^3/uL (0.0-1.1) H Eosinophils # (Auto) 0.2 x10^3/uL (0.0-0.7) Basophils # (Auto) 0.0 x10^3/uL (0.0-0.2) Laboratory Tests 01/07/20 21:00 Vital Signs: Vital Signs Date Time Temp Pulse Resp B/P (MAP) Pulse Ox O2 Delivery O2 Flow Rate FiO2 01/07/20 21:40 24 93 Room Air 01/07/20 20:42 98.5 91 142/93 (109) 98.5 EKG: EKG: [] Radiology/Procedures: Radiology/Procedures: PROCEDURE: CLAVICLE RIGHT Left shoulder 2 views 01/07/2020. Reason for exam: Pain after falling. There is a fracture the proximal humeral neck with mild impaction and no significant angulation. No dislocation is seen. IMPRESSION: Proximal humerus fracture. Right clavicle 2 views: There is a fracture of the lateral clavicle with minimal displacement. There is probably some comminution, but the AC joint appears aligned. IMPRESSION: Right clavicular fracture. Left humerus 2 views: Proximal humerus fracture is again demonstrated. The more distal humerus shows no fracture or dislocation. IMPRESSION: Proximal humerus fracture. [] Course & Med Decision Making: Course & Med Decision Making Pertinent Labs and Imaging studies reviewed. (See chart for details) [id number] with Dr. Donaldson, will put patient in bilateral slings and admit to hospitalist. 2212-spoke with Dr. Recinos who is the admitting physician, and care was assumed following discussion of patient. Will admit patient for right clavicle fracture, left humerus fracture, and fall. I advised him that Dr. Donaldson had been consulted by myself. Patient's vital signs stable. Patient remains afebrile, appears nontoxic, respirations even and unlabored. Patient will be admitted to the med/surg floor. Patient's case and plan of care also discussed with Dr. Francois [] Pooja Disclaimer: Pooja Disclaimer: This electronic medical record was generated, in whole or in part, using a voice recognition dictation system. Departure Departure Impression: Primary Impression: Fall down stairs Qualified Codes: W10.8XXA - Fall (on) (from) other stairs and steps, initial encounter Additional Impressions: Closed left humeral fracture Qualified Codes: S42.292A - Other displaced fracture of upper end of left humerus, initial encounter for closed fracture Right clavicle fracture Qualified Codes: S42.031A - Displaced fracture of lateral end of right clavicle, initial encounter for closed fracture Need for Tdap vaccination Disposition: 09 ADMITTED INPATIENT Admitting Physician: JUSTIN jones) Condition: STABLE Referrals: MELY ALMONTE (PCP) Justicifation of Admission Dx: Justifications for Admission: Justification of Admission Dx: Yes Fracture: Fracture JANE SWARTZ [employer] Jan 07, 2020 21:52
[2020-01-07] MEDS ORDERED: DIPH,PERTUSS(ACELL),TET VAC/PF 0.5 ML SYRINGE. VAX IM ONE (22:00)
[2020-01-07] MEDS ORDERED: MORPHINE SULFATE 4 MG/ML VIAL. IV PRN (22:15)
[2020-01-07] MEDS ORDERED: ONDANSETRON PF 4 MG/2 ML VIAL. IV PRN ×2 (22:15→22:30)
[2020-01-07] MEDS ORDERED: HYDROcodone/APAP 5/325MG 1 TAB TABLET PO PRN ×2 (22:30)
[2020-01-07] MEDS ORDERED: LORazepam 0.5 MG TABLET PO PRN (22:30)
[2020-01-07] MEDS ORDERED: guaiFENesin ORAL 200 MG/10 ML LIQUID. PO PRN (22:30)
[2020-01-07] MEDS ORDERED: ALBUTEROL SULFATE 2.5 MG/3 ML NEBU. NEB PRN (22:30)
[2020-01-07] MEDS ORDERED: NON FORMULARY ITEM (Albuterol Sulfate (Albuterol Sulfate Conc Neb Soln) 1 VIAL) NEB PRN (22:30)
[2020-01-07] MEDS ORDERED: ZOLPIDEM 5 MG TABLET. PO PRN (22:30)
[2020-01-07 23:25] VITALS: BP 91/43
[2020-01-08] VITALS (7 sets, daily range): BP systolic 90–113; BP diastolic 56–74
[2020-01-08] MEDS ORDERED: ALBUTEROL SULFATE 2.5 MG/3 ML NEBU. NEB PRN (00:15)
[2020-01-08] MEDS: ENOXAPARIN 40 MG/0.4 ML SYRINGE. SQ SCH (01:40)
--- NOTE | 2020-01-08 06:25 | NUR ---
Received report from [facility] ER nurse, patient transported to the unit via bed, but ambulated to room bed at arrival. Patient currently has a complaint of 8 out of 10 pain rating. Patient orientated to the room and unit policies and procedures. Ortho was already consulted by ER physician and patient NPO at midnight in case of possibly surgical intervention. Patient resting comfortably in bed at this time. Admission paperwork completed and entered into computer. Patient bed placed in the lowest position and call light placed within reach at this time.
[2020-01-08] MEDS: BUDESONIDE 0.5 MG/2 ML NEBU. NEB SCH ×2 (07:41→19:33)
[2020-01-08] MEDS: amLODIPine BESYLATE 5 MG TABLET PO SCH (09:00)
[2020-01-08] MEDS ORDERED: NON FORMULARY ITEM (Budesonide (Pulmicort Flexhaler) 2 PUFF) IH SCH (09:00)
[2020-01-08] MEDS: LISINOPRIL 20 MG TABLET PO SCH (09:00)
[2020-01-08] MEDS: DOXYCYCLINE HYCLATE 100 MG TABLET PO SCH ×2 (09:00→21:13)
[2020-01-08] MEDS: SIMVASTATIN 20 MG TABLET PO SCH ×2 (09:00→21:13)
[2020-01-08] MEDS: METOPROLOL SUCC 24HR ER 100 MG TAB.ER.24H. PO SCH (09:00)
[2020-01-08] MEDS: predniSONE 10 MG TABLET PO SCH (09:00)
[2020-01-08] MEDS ORDERED: NON FORMULARY ITEM (Prednisone 1 TAB) PO SCH (09:00)
[2020-01-08] MEDS ORDERED: OLANZapine 5 MG TABLET PO SCH ×2 (09:00→21:00)
[2020-01-08] MEDS: LORazepam 0.5 MG TABLET PO SCH ×2 (09:00→21:13)
[2020-01-08 09:02] LABS: CALCIUM 7.5 mg/dL (8.5-10.1); CREATININE 0.5 mg/dL (0.6-1.0); GFR 124.2; POTASSIUM 4.2 mmol/L (3.5-5.1)
[2020-01-08 09:05] LABS: BASO % 1 % (0-3); EOS # 0.1 x10^3/uL (0.0-0.7); EOS % 1 % (0-3); HEMATOCRIT 33.6 % (36.0-47.0); HEMOGLOBIN 11.3 g/dL (12.0-15.5); LYMPH # 1.2 x10^3/uL (1.0-4.8); LYMPH % 16 % (24-48); MEAN CORPUSCULAR HEMOGLOBIN 31 pg (25-35); MEAN CORPUSCULAR HGB CONC 34 g/dL (31-37); MEAN CORPUSCULAR VOLUME 92 fL (79-100); MONO # 1.4 x10^3/uL (0.0-1.1); MONO % 18 % (0-9); NEUT # 4.9 x10^3/uL (1.8-7.7); NEUT % 64 % (31-73); PLATELET COUNT 247 x10^3/uL (140-400); RED BLOOD COUNT 3.65 x10^6/uL (3.50-5.40); RED CELL DISTRIBUTION WIDTH 13.6 % (11.5-14.5); WHITE BLOOD COUNT 7.7 x10^3/uL (4.0-11.0)
--- NOTE | 2020-01-08 09:16 | PDOC2 ---
CONSULT Date of Consult Date of Consult DATE: 01/08/20 TIME: 08:41 Reason for Consult Reason for Consult: 64-year-old female with a fall downstairs last evening while going down to do laundry. States that she rolled down approximately 6 steps and did hit the posterior aspect of her head. Denies loss of consciousness or dizziness. She does have significant pain over both shoulders. Referring Physician Referring Physician: Dr. Recinos Identification/Chief Complaint Chief Complaint Bilateral shoulder pain left greater than right Source Source: Caregiver, Chart review, Patient History of Present Illness Reason for Visit: Patient with fall and fractured right clavicle and left proximal humerus Past Medical History Cardiovascular: HTN, Hyperlipidemia Pulmonary: Asthma, COPD CENTRAL NERVOUS SYSTEM: CVA Psych: Depression Past Surgical History Past Surgical History: Tonsillectomy, Hysterectomy, Other Family History Family History: No Significant Social History 1 pack per day (1-1/2 packs/day) ALCOHOL: occassional Drugs: None Current Problem List Problem List Problems Medical Problems: (1) Closed left humeral fracture Status: Acute (2) Fall down stairs Status: Acute (3) Need for Tdap vaccination Status: Acute Current Medications Current Medications Current Medications Morphine Sulfate (Morphine Sulfate) 4 mg 1X ONCE IV Last administered on 01/07/20at 21:40; Start 01/07/20 at 21:15; Stop 01/07/20 at 21:16; Status DC Sodium Chloride 1,000 ml @ 1,000 mls/hr 1X ONCE IV Last administered on 01/07/20at 21:15; Start 01/07/20 at 21:15; Stop 01/07/20 at 22:14; Status DC Ondansetron HCl (Zofran) 4 mg 1X ONCE IV Last administered on 01/07/20at 21:39; Start 01/07/20 at 21:15; Stop 01/07/20 at 21:16; Status DC Diphtheria/ Tetanus/Acell Pertussis (ADACEL TDap SYRINGE) 0.5 ml ONCE ONCE VAX IM Last administered on 01/07/20at 22:11; Start 01/07/20 at 22:00; Stop 01/07/20 at 22:01; Status DC Ondansetron HCl (Zofran) 4 mg PRN Q8HRS PRN IV NAUSEA/VOMITING; Start 01/07/20 at 22:15; Stop 01/07/20 at 22:32; Status DC Morphine Sulfate (Morphine Sulfate) 4 mg PRN Q3HRS PRN IV PAIN Last administered on 01/08/20at 07:01; Start 01/07/20 at 22:15; Stop 01/08/20 at 22:14 Ondansetron HCl (Zofran) 4 mg PRN Q4HRS PRN IV NAUSEA/VOMITING; Start 01/07/20 at 22:30 Zolpidem Tartrate (Ambien) 5 mg PRN QHS PRN PO INSOMNIA; Start 01/07/20 at 22:30 Albuterol Sulfate (Ventolin Neb Soln) 2.5 mg PRN Q4HRS PRN NEB SHORTNESS OF BREATH; Start 01/07/20 at 22:30; Stop 01/08/20 at 00:12; Status DC Guaifenesin (Robitussin) 200 mg PRN Q4HRS PRN PO COUGH; Start 01/07/20 at 22:30 Lorazepam (Ativan) 0.5 mg PRN Q4HRS PRN PO ANXIETY / AGITATION; Start 01/07/20 at 22:30 Enoxaparin Sodium (Lovenox 40mg Syringe) 40 mg Q24H SQ Last administered on 01/08/20at 01:40; Start 01/07/20 at 22:30 Amlodipine Besylate (Norvasc) 5 mg DAILY PO ; Start 01/08/20 at 09:00 Bupropion HCl (Wellbutrin) 100 mg BID PO ; Start 01/08/20 at 09:00 Acetaminophen/ Hydrocodone Bitart (Lortab 5/325) 1 tab PRN Q6HRS PRN PO PAIN; Start 01/07/20 at 22:30; Status UNV Acetaminophen/ Hydrocodone Bitart (Lortab 5/325) 1 tab PRN Q6HRS PRN PO PAIN; Start 01/07/20 at 22:30 Prednisone (Prednisone) 10 mg DAILY PO ; Start 01/08/20 at 09:00 Simvastatin (Zocor) 20 mg HS PO ; Start 01/08/20 at 09:00 Non-Formulary Medication (Albuterol Sulfate (Albuterol Sulfate Conc Neb Soln)) 1 vial Q4HRS PRN NEB SHORTNESS OF BREATH; Start 01/07/20 at 22:30; Status UNV Non-Formulary Medication (Budesonide (Pulmicort Flexhaler)) 2 puff BID IH ; Start 01/08/20 at 09:00; Status UNV Lorazepam (Ativan) 0.5 mg BID PO ; Start 01/08/20 at 09:00 Doxycycline Hyclate (Vibra-Tab) 100 mg BID PO ; Start 01/08/20 at 09:00 Lisinopril (Prinivil) 40 mg DAILY PO ; Start 01/08/20 at 09:00 Metoprolol Succinate (Toprol Xl) 200 mg DAILY PO ; Start 01/08/20 at 09:00 Olanzapine (ZyPREXA) 20 mg DAILY PO ; Start 01/08/20 at 09:00 Olanzapine (ZyPREXA) 20 mg QHS PO ; Start 01/08/20 at 21:00 Non-Formulary Medication (Prednisone ) 1 tab DAILY PO ; Start 01/08/20 at 09:00; Status UNV Morphine Sulfate (Morphine Sulfate) 4 mg 1X ONCE IV Last administered on 01/07/20at 22:31; Start 01/07/20 at 22:30; Stop 01/07/20 at 22:31; Status DC Budesonide (Pulmicort) 0.5 mg RTBID NEB Last administered on 01/08/20at 07:41; Start 01/08/20 at 08:00 Albuterol Sulfate (Ventolin Neb Soln) 2.5 mg PRN Q4HRS PRN NEB SHORTNESS OF BREATH; Start 01/08/20 at 00:15 Active Scripts Active Albuterol Sulfate Conc Neb Soln (Albuterol Sulfate) 2.5 Mg/0.5 Ml Vial.neb 1 Vial NEB Q4HRS PRN Doxycycline Hyclate 100 Mg Tablet.dr 1 Tab PO BID Prednisone 50 Mg Tablet 1 Tab PO DAILY [place] 5-325 Tablet (Acetaminophen/Hydrocodone Bitart) 1 Each Tablet 1 Tab PO PRN Q6HRS PRN Prednisone (Prednisone) 10 Mg Tablet 10 Mg PO UD Take 3 tablets daily for 3 days, then take 2 tablets daily for 3 days, then take 1 tablet daily for 3 days, then stop. Azithromycin Tablet (Azithromycin) 250 Mg Tablet 250 Mg PO DAILY Proair Hfa (Albuterol Sulfate) 8.5 Gm Hfa.aer.ad 8.5 Gm IH [id number] Pulmicort Flexhaler (Budesonide) 180 Mcg Aer.pow.ba 2 Puff IH BID Reported Lisinopril 40 Mg Tablet 40 Mg PO DAILY Amlodipine Besylate 5 Mg Tablet 5 Mg PO DAILY Metoprolol Succinate ( Xl ) (Metoprolol Succinate) 200 Mg Tab.er.24h 1 Tab PO DAILY Hydrocodone-Apap 5-325 (Hydrocodone Bit/Acetaminophen) 1 Each Tablet 1 Tab PO PRN Q6HRS PRN Zyprexa (Olanzapine) 20 Mg Tablet 1 Tab PO QHS Clorazepate Dipotassium 3.75 Mg Tablet 3.75 Mg PO BID Simvastatin 20 Mg Tablet 20 Mg PO DAILY Olanzapine 20 Mg Tablet 20 Mg PO DAILY Bupropion Hcl 100 Mg Tablet 100 Mg PO BID Allergies Allergies: Coded Allergies: haloperidol (Verified Allergy, Intermediate, makes neck tighten so she can't move head, 02/05/14) Physical Exam General: Alert, Oriented X3, Cooperative, moderate distress Extremities: No clubbing, No cyanosis, Normal pulses Skin: Other (Multiple skin tears over the left forearm.) MUSCULOSKELETAL: Abnormal exam of left (Pain over bilateral shoulders left greater than right. She is able to move her fingers wrist and elbows without restriction. She is in a great deal of pain and asking for more pain medicine at this time. There is no pain with moving either leg. Full range of motion with flexion and extension at the hip, knee and ankle bilaterally.) Vitals VITALS Vital Signs Date Time Temp Pulse Resp B/P (MAP) Pulse Ox O2 Delivery O2 Flow Rate FiO2 01/08/20 07:41 88 Room Air 01/08/20 07:01 16 01/08/20 03:00 98.7 75 94/56 (69) 98.7 01/08/20 01:56 2.0 Labs Labs Laboratory Tests Test 01/07/20 21:00 White Blood Count 9.5 x10^3/uL (4.0-11.0) Red Blood Count 3.87 x10^6/uL (3.50-5.40) Hemoglobin 11.9 g/dL (12.0-15.5) Hematocrit 34.4 % (36.0-47.0) Mean Corpuscular Volume 89 fL (79-100) Mean Corpuscular Hemoglobin 31 pg (25-35) Mean Corpuscular Hemoglobin Concent 35 g/dL (31-37) Red Cell Distribution Width 13.5 % (11.5-14.5) Platelet Count 281 x10^3/uL (140-400) Neutrophils (%) (Auto) 70 % (31-73) Lymphocytes (%) (Auto) 15 % (24-48) Monocytes (%) (Auto) 13 % (0-9) Eosinophils (%) (Auto) 2 % (0-3) Basophils (%) (Auto) 0 % (0-3) Neutrophils # (Auto) 6.7 x10^3/uL (1.8-7.7) Lymphocytes # (Auto) 1.4 x10^3/uL (1.0-4.8) Monocytes # (Auto) 1.3 x10^3/uL (0.0-1.1) Eosinophils # (Auto) 0.2 x10^3/uL (0.0-0.7) Basophils # (Auto) 0.0 x10^3/uL (0.0-0.2) Laboratory Tests Test 01/07/20 21:00 White Blood Count 9.5 x10^3/uL (4.0-11.0) Red Blood Count 3.87 x10^6/uL (3.50-5.40) Hemoglobin 11.9 g/dL (12.0-15.5) Hematocrit 34.4 % (36.0-47.0) Mean Corpuscular Volume 89 fL (79-100) Mean Corpuscular Hemoglobin 31 pg (25-35) Mean Corpuscular Hemoglobin Concent 35 g/dL (31-37) Red Cell Distribution Width 13.5 % (11.5-14.5) Platelet Count 281 x10^3/uL (140-400) Neutrophils (%) (Auto) 70 % (31-73) Lymphocytes (%) (Auto) 15 % (24-48) Monocytes (%) (Auto) 13 % (0-9) Eosinophils (%) (Auto) 2 % (0-3) Basophils (%) (Auto) 0 % (0-3) Neutrophils # (Auto) 6.7 x10^3/uL (1.8-7.7) Lymphocytes # (Auto) 1.4 x10^3/uL (1.0-4.8) Monocytes # (Auto) 1.3 x10^3/uL (0.0-1.1) Eosinophils # (Auto) 0.2 x10^3/uL (0.0-0.7) Basophils # (Auto) 0.0 x10^3/uL (0.0-0.2) Images Images IMAGING REPORT Signed PATIENT: DUNG MARIO ACCOUNT: [id number] : 1955 LOCATION: ER AGE: 64 SEX: F EXAM STATUS: REG ER ORD. PHYSICIAN: JANE SWARTZ APRN REASON: left humerus, right lateral clavicle pain after fall PROCEDURE: SHOULDER 2+V LEFT Left shoulder 2 views 01/07/2020. Reason for exam: Pain after falling. There is a fracture the proximal humeral neck with mild impaction and no significant angulation. No dislocation is seen. IMPRESSION: Proximal humerus fracture. Right clavicle 2 views: There is a fracture of the lateral clavicle with minimal displacement. There is probably some comminution, but the AC joint appears aligned. IMPRESSION: Right clavicular fracture. Left humerus 2 views: Proximal humerus fracture is again demonstrated. The more distal humerus shows no fracture or dislocation. IMPRESSION: Proximal humerus fracture. Electronically signed by: Josue Oleary Jr., MD (01/07/2020 9:24 PM) [facility] DICTATED and SIGNED BY: JOSUE OLEARY Jr, MD Assessment/Plan Assessment/Plan 64-year-old female patient with fall down stairs at home and receiving a right distal clavicle fracture as well as a left proximal humerus fracture. Motor and sensation intact distally on bilateral upper extremities. Multiple skin tears along her forearms from the fall. We will discuss with Dr. Vick the on-call surgeon for planning. Discussed with Dr. Donaldson and reviewed the x-rays and conservative treatment is recommended at this time with no surgical repair. Patient may have diet per admitting physician. NATHAN SAWANT APRN Jan 08, 2020 09:16
--- NOTE | 2020-01-08 10:24 | NUR ---
SW following. Discussed with RN, pt from home with . Pt on 2L oxygen which she uses at home. NPO, COVID-19 pending for possible surgery. SW will continue to follow.
--- NOTE | 2020-01-08 11:49 | PDOC1 ---
History and Physical Date of Service: DOS: DATE: 01/08/20 TIME: 11:48 Chief Complaint: Problems: (1) Cellulitis (2) Pleurisy (3) Multiple rib fractures (4) Fracture of 5th metatarsal (5) Rib pain on right side (6) Hypokalemia (7) Syncope (8) Lumbar compression fracture (9) Hyponatremia (10) COPD exacerbation (11) Fall (12) Left humeral fracture (13) Fall down stairs (14) Need for Tdap vaccination (15) Closed left humeral fracture (16) Right clavicle fracture Chief Complain: Fall with left shoulder pain and right clavicle pain History of Present Illness: HPI: This is a 64-year-old female who smokes 1/2 packs/day She was going down some stairs to do her laundry and tripped on untied shoelace She rolled down 6 stairs She now has severe pain rated at 7 out of 10 It is worse with moving better with sitting still She now presents to the ER complaining of left shoulder and right clavicle pain We did some imaging and indeed she does have a shoulder fracture and a clavicular fracture I discussed the case with the ER physician we have admitted the patient for consulting orthopedics Past Medical/Surgical History: PMH/PSH: Past Medical History: Anxiety, Asthma, COPD, Depression, High Cholesterol, Hypertension, Stroke, Other Additional Past Medical Histor: R HIP FX Past Surgical History: Hysterectomy, Tonsillectomy, Other Additional Past Surgical Histo: bilat. breast surgery, removed fibroids; concrete on spine; right hip Smoking Status: Current Every Day Smoker Allergies: Allergies: Coded Allergies: haloperidol (Verified Allergy, Intermediate, makes neck tighten so she can't move head, 02/05/14) Family History: Family History: COPD and hypertension Social History: Social History: She smokes a pack and half per day no drinking or drugs Current Medications: Current Medications Current Medications Morphine Sulfate (Morphine Sulfate) 4 mg 1X ONCE IV Last administered on 01/07/20at 21:40; Start 01/07/20 at 21:15; Stop 01/07/20 at 21:16; Status DC Sodium Chloride 1,000 ml @ 1,000 mls/hr 1X ONCE IV Last administered on 01/07/20at 21:15; Start 01/07/20 at 21:15; Stop 01/07/20 at 22:14; Status DC Ondansetron HCl (Zofran) 4 mg 1X ONCE IV Last administered on 01/07/20at 21:39; Start 01/07/20 at 21:15; Stop 01/07/20 at 21:16; Status DC Diphtheria/ Tetanus/Acell Pertussis (ADACEL TDap SYRINGE) 0.5 ml ONCE ONCE VAX IM Last administered on 01/07/20at 22:11; Start 01/07/20 at 22:00; Stop 01/07/20 at 22:01; Status DC Ondansetron HCl (Zofran) 4 mg PRN Q8HRS PRN IV NAUSEA/VOMITING; Start 01/07/20 at 22:15; Stop 01/07/20 at 22:32; Status DC Morphine Sulfate (Morphine Sulfate) 4 mg PRN Q3HRS PRN IV PAIN Last administered on 01/08/20at 07:01; Start 01/07/20 at 22:15; Stop 01/08/20 at 22:14 Ondansetron HCl (Zofran) 4 mg PRN Q4HRS PRN IV NAUSEA/VOMITING; Start 01/07/20 at 22:30 Zolpidem Tartrate (Ambien) 5 mg PRN QHS PRN PO INSOMNIA; Start 01/07/20 at 22:30 Albuterol Sulfate (Ventolin Neb Soln) 2.5 mg PRN Q4HRS PRN NEB SHORTNESS OF BREATH; Start 01/07/20 at 22:30; Stop 01/08/20 at 00:12; Status DC Guaifenesin (Robitussin) 200 mg PRN Q4HRS PRN PO COUGH; Start 01/07/20 at 22:30 Lorazepam (Ativan) 0.5 mg PRN Q4HRS PRN PO ANXIETY / AGITATION; Start 01/07/20 at 22:30 Enoxaparin Sodium (Lovenox 40mg Syringe) 40 mg Q24H SQ Last administered on 01/08/20at 01:40; Start 01/07/20 at 22:30 Amlodipine Besylate (Norvasc) 5 mg DAILY PO ; Start 01/08/20 at 09:00 Bupropion HCl (Wellbutrin) 100 mg BID PO ; Start 01/08/20 at 09:00 Acetaminophen/ Hydrocodone Bitart (Lortab 5/325) 1 tab PRN Q6HRS PRN PO PAIN; Start 01/07/20 at 22:30; Status UNV Acetaminophen/ Hydrocodone Bitart (Lortab 5/325) 1 tab PRN Q6HRS PRN PO PAIN; Start 01/07/20 at 22:30 Prednisone (Prednisone) 10 mg DAILY PO ; Start 01/08/20 at 09:00 Simvastatin (Zocor) 20 mg HS PO ; Start 01/08/20 at 09:00 Non-Formulary Medication (Albuterol Sulfate (Albuterol Sulfate Conc Neb Soln)) 1 vial Q4HRS PRN NEB SHORTNESS OF BREATH; Start 01/07/20 at 22:30; Status UNV Non-Formulary Medication (Budesonide (Pulmicort Flexhaler)) 2 puff BID IH ; Start 01/08/20 at 09:00; Status UNV Lorazepam (Ativan) 0.5 mg BID PO ; Start 01/08/20 at 09:00 Doxycycline Hyclate (Vibra-Tab) 100 mg BID PO ; Start 01/08/20 at 09:00 Lisinopril (Prinivil) 40 mg DAILY PO ; Start 01/08/20 at 09:00 Metoprolol Succinate (Toprol Xl) 200 mg DAILY PO ; Start 01/08/20 at 09:00 Olanzapine (ZyPREXA) 20 mg DAILY PO ; Start 01/08/20 at 09:00 Olanzapine (ZyPREXA) 20 mg QHS PO ; Start 01/08/20 at 21:00 Non-Formulary Medication (Prednisone ) 1 tab DAILY PO ; Start 01/08/20 at 09:00; Status UNV Morphine Sulfate (Morphine Sulfate) 4 mg 1X ONCE IV Last administered on 01/07/20at 22:31; Start 01/07/20 at 22:30; Stop 01/07/20 at 22:31; Status DC Budesonide (Pulmicort) 0.5 mg RTBID NEB Last administered on 01/08/20at 07:41; Start 01/08/20 at 08:00 Albuterol Sulfate (Ventolin Neb Soln) 2.5 mg PRN Q4HRS PRN NEB SHORTNESS OF BREATH; Start 01/08/20 at 00:15 Active Scripts Active Albuterol Sulfate Conc Neb Soln (Albuterol Sulfate) 2.5 Mg/0.5 Ml Vial.neb 1 Vial NEB Q4HRS PRN Doxycycline Hyclate 100 Mg Tablet.dr 1 Tab PO BID Prednisone 50 Mg Tablet 1 Tab PO DAILY [place] 5-325 Tablet (Acetaminophen/Hydrocodone Bitart) 1 Each Tablet 1 Tab PO PRN Q6HRS PRN Prednisone (Prednisone) 10 Mg Tablet 10 Mg PO UD Take 3 tablets daily for 3 days, then take 2 tablets daily for 3 days, then take 1 tablet daily for 3 days, then stop. Azithromycin Tablet (Azithromycin) 250 Mg Tablet 250 Mg PO DAILY Proair Hfa (Albuterol Sulfate) 8.5 Gm Hfa.aer.ad 8.5 Gm IH BID66 Pulmicort Flexhaler (Budesonide) 180 Mcg Aer.pow.ba 2 Puff IH BID Reported Lisinopril 40 Mg Tablet 40 Mg PO DAILY Amlodipine Besylate 5 Mg Tablet 5 Mg PO DAILY Metoprolol Succinate ( Xl ) (Metoprolol Succinate) 200 Mg Tab.er.24h 1 Tab PO DAILY Hydrocodone-Apap 5-325 (Hydrocodone Bit/Acetaminophen) 1 Each Tablet 1 Tab PO PRN Q6HRS PRN Zyprexa (Olanzapine) 20 Mg Tablet 1 Tab PO QHS Clorazepate Dipotassium 3.75 Mg Tablet 3.75 Mg PO BID Simvastatin 20 Mg Tablet 20 Mg PO DAILY Olanzapine 20 Mg Tablet 20 Mg PO DAILY Bupropion Hcl 100 Mg Tablet 100 Mg PO BID ROS: Review of Systems Review of System REVIEW OF SYSTEMS: GENERAL: Denies weakness SKIN: No bruising, hair changes or rashes. EYES: No blurred, double or loss of vision. NOSE AND THROAT: No history of nosebleeds, hoarseness or sore throat. HEART: No history of palpitations, chest pain or shortness of breath on exertion. LUNGS: Denies cough, hemoptysis, wheezing or shortness of breath. GASTROINTESTINAL: Denies changes in appetite, nausea, vomiting, diarrhea or constipation. GENITOURINARY: No history of frequency, urgency, hesitancy or nocturia. NEUROLOGIC: Denies history of numbness, tingling, or tremor. PSYCHIATRIC: No history of panic, anxiety or depression. ENDOCRINE: No history of heat or cold intolerance, polyuria or polydipsia. EXTREMITIES: Complains of shoulder pain and clavicular pain after falling Physical Exam: Vital Signs: Vital Signs Date Time Temp Pulse Resp B/P (MAP) Pulse Ox O2 Delivery O2 Flow Rate FiO2 01/08/20 11:00 98.6 94 16 90/56 (67) 97 Room Air 98.6 01/08/20 08:00 2.0 Physcial Exam: GEN: No apparent distress. Alert and oriented HEENT: Normal cephalic, atraumatic, external auditory canals are patent EYES: Extraocular muscles are intact, pupil are equally round and reactive to light and accommodation MUSCULOSKELETAL: Well developed , well nourished, good range of motion ENDOCRINE: No thyromegaly was palpated LYMPHATICS: No cervical chain or axillary nodes were noted HEMATOPOIETIC: No bruising NECK: Supple, no JVD, no thyromegaly was noted LUNGS: Clear to auscultation in all lung munguia without rhonchi or wheezing HEART: RRR, S!, S2 present. Peripheral pulses intact, no obvious murmurs noted ABDOMEN: Soft, nontender. Positive bowel sounds, no organomegaly, normal bowel sounds EXTREMITIES: Without clubbing, cyanosis, or edema. Pedal pulses intact. Negative Homans sign NEUROLOGIC: Normal speech and tone. A&O x 3, moves all extremities, no obvious focal deficits PSYCHIATRIC: Normal affect, normal mood. Stable SKIN: No ulcerations or rashes, good skin turgor, no jaundice VASCULAR: Good capillary refill, neurovascular bundle appears to be intact Labs: Labs: Laboratory Tests Test 01/07/20 21:00 01/08/20 08:09 White Blood Count 9.5 x10^3/uL (4.0-11.0) 7.7 x10^3/uL (4.0-11.0) Red Blood Count 3.87 x10^6/uL (3.50-5.40) 3.65 x10^6/uL (3.50-5.40) Hemoglobin 11.9 g/dL (12.0-15.5) 11.3 g/dL (12.0-15.5) Hematocrit 34.4 % (36.0-47.0) 33.6 % (36.0-47.0) Mean Corpuscular Volume 89 fL (79-100) 92 fL (79-100) Mean Corpuscular Hemoglobin 31 pg (25-35) 31 pg (25-35) Mean Corpuscular Hemoglobin Concent 35 g/dL (31-37) 34 g/dL (31-37) Red Cell Distribution Width 13.5 % (11.5-14.5) 13.6 % (11.5-14.5) Platelet Count 281 x10^3/uL (140-400) 247 x10^3/uL (140-400) Neutrophils (%) (Auto) 70 % (31-73) 64 % (31-73) Lymphocytes (%) (Auto) 15 % (24-48) 16 % (24-48) Monocytes (%) (Auto) 13 % (0-9) 18 % (0-9) Eosinophils (%) (Auto) 2 % (0-3) 1 % (0-3) Basophils (%) (Auto) 0 % (0-3) 1 % (0-3) Neutrophils # (Auto) 6.7 x10^3/uL (1.8-7.7) 4.9 x10^3/uL (1.8-7.7) Lymphocytes # (Auto) 1.4 x10^3/uL (1.0-4.8) 1.2 x10^3/uL (1.0-4.8) Monocytes # (Auto) 1.3 x10^3/uL (0.0-1.1) 1.4 x10^3/uL (0.0-1.1) Eosinophils # (Auto) 0.2 x10^3/uL (0.0-0.7) 0.1 x10^3/uL (0.0-0.7) Basophils # (Auto) 0.0 x10^3/uL (0.0-0.2) 0.0 x10^3/uL (0.0-0.2) Sodium Level 130 mmol/L (136-145) Potassium Level 4.2 mmol/L (3.5-5.1) Chloride Level 100 mmol/L (98-107) Carbon Dioxide Level 22 mmol/L (21-32) Anion Gap 8 (6-14) Blood Urea Nitrogen 11 mg/dL (7-20) Creatinine 0.5 mg/dL (0.6-1.0) Estimated GFR (Cockcroft-Gault) 124.2 Glucose Level 89 mg/dL (70-99) Calcium Level 7.5 mg/dL (8.5-10.1) Laboratory Tests Test 01/07/20 21:00 01/08/20 08:09 White Blood Count 9.5 x10^3/uL (4.0-11.0) 7.7 x10^3/uL (4.0-11.0) Red Blood Count 3.87 x10^6/uL (3.50-5.40) 3.65 x10^6/uL (3.50-5.40) Hemoglobin 11.9 g/dL (12.0-15.5) 11.3 g/dL (12.0-15.5) Hematocrit 34.4 % (36.0-47.0) 33.6 % (36.0-47.0) Mean Corpuscular Volume 89 fL (79-100) 92 fL (79-100) Mean Corpuscular Hemoglobin 31 pg (25-35) 31 pg (25-35) Mean Corpuscular Hemoglobin Concent 35 g/dL (31-37) 34 g/dL (31-37) Red Cell Distribution Width 13.5 % (11.5-14.5) 13.6 % (11.5-14.5) Platelet Count 281 x10^3/uL (140-400) 247 x10^3/uL (140-400) Neutrophils (%) (Auto) 70 % (31-73) 64 % (31-73) Lymphocytes (%) (Auto) 15 % (24-48) 16 % (24-48) Monocytes (%) (Auto) 13 % (0-9) 18 % (0-9) Eosinophils (%) (Auto) 2 % (0-3) 1 % (0-3) Basophils (%) (Auto) 0 % (0-3) 1 % (0-3) Neutrophils # (Auto) 6.7 x10^3/uL (1.8-7.7) 4.9 x10^3/uL (1.8-7.7) Lymphocytes # (Auto) 1.4 x10^3/uL (1.0-4.8) 1.2 x10^3/uL (1.0-4.8) Monocytes # (Auto) 1.3 x10^3/uL (0.0-1.1) 1.4 x10^3/uL (0.0-1.1) Eosinophils # (Auto) 0.2 x10^3/uL (0.0-0.7) 0.1 x10^3/uL (0.0-0.7) Basophils # (Auto) 0.0 x10^3/uL (0.0-0.2) 0.0 x10^3/uL (0.0-0.2) Sodium Level 130 mmol/L (136-145) Potassium Level 4.2 mmol/L (3.5-5.1) Chloride Level 100 mmol/L (98-107) Carbon Dioxide Level 22 mmol/L (21-32) Anion Gap 8 (6-14) Blood Urea Nitrogen 11 mg/dL (7-20) Creatinine 0.5 mg/dL (0.6-1.0) Estimated GFR (Cockcroft-Gault) 124.2 Glucose Level 89 mg/dL (70-99) Calcium Level 7.5 mg/dL (8.5-10.1) Images: Images Shoulder fracture and clavicular fracture Plan Consult orthopedics PRN pain meds Home meds DVT prophylaxis Full code FRANKO KIM III DO Jan 08, 2020 11:48
[2020-01-08] MEDS: buPROPion 100 MG TABLET PO SCH ×2 (12:20→21:13)
[2020-01-08 12:47] LABS: % BANDS 4 % (0-9); % EOS 1 % (0-5); % LYMPHS 23 % (24-48); % MONOS 11 % (0-10); % SEGS 61 % (35-66); PLT ESTIMATE ADEQUATE (ADEQUATE)
[2020-01-08] MEDS ORDERED: ACETAMINOPHEN 500 MG TABLET PO PRN (17:15)
[2020-01-08] MEDS: HYDROcodone/APAP 5/325MG 1 TAB TABLET PO PRN ×2 (17:33→21:13)
[2020-01-09] MEDS: ENOXAPARIN 40 MG/0.4 ML SYRINGE. SQ SCH (00:36)
[2020-01-09 03:00] VITALS: BP 118/64
[2020-01-09 07:00] VITALS: BP 124/73
[2020-01-09] MEDS: BUDESONIDE 0.5 MG/2 ML NEBU. NEB SCH (07:29)
[2020-01-09] MEDS: HYDROcodone/APAP 5/325MG 1 TAB TABLET PO PRN ×2 (07:43→12:28)
[2020-01-09] MEDS: LORazepam 0.5 MG TABLET PO SCH (09:22)
[2020-01-09] MEDS: DOXYCYCLINE HYCLATE 100 MG TABLET PO SCH (09:22)
[2020-01-09] MEDS: amLODIPine BESYLATE 5 MG TABLET PO SCH (09:23)
[2020-01-09] MEDS: buPROPion 100 MG TABLET PO SCH (09:23)
[2020-01-09] MEDS: predniSONE 10 MG TABLET PO SCH (09:23)
[2020-01-09] MEDS: METOPROLOL SUCC 24HR ER 100 MG TAB.ER.24H. PO SCH (09:23)
[2020-01-09] MEDS: LISINOPRIL 20 MG TABLET PO SCH (09:23)
--- NOTE | 2020-01-09 10:22 | NUR ---
DOLLY following. Discussed with RN, pt not having surgery. PT/OT ordered. DOLLY will continue to follow for discharge planning needs. Addendum: 01/09/20 at 1215 by NILESH ALBERTO Home health discharge orders. DOLLY met with pt (no isolation precautions at the time), pt agreeable to [facility], would like the same company she had when she left [facility] another admission. DOLLY looked in previous admissions, pt was discharged with [facility]. Tommy Kemp RN to meet with pt today prior to discharge. DOLLY will continue to follow. RN notified. Addendum: 01/09/20 at 1520 by NILESH ALBERTO Pt accepted with [facility].
[2020-01-09 11:00] VITALS: BP 122/76
--- NOTE | 2020-01-09 11:27 | SNU/HH DC ---
DISCHARGE WITH HOME HEALTH DISCHARGE INFORMATION: Final Diagnosis: Problems Medical Problems: (1) Closed left humeral fracture Status: Acute (2) Fall down stairs Status: Acute (3) Need for Tdap vaccination Status: Acute Condition on Discharge: Stable CODE STATUS: Code Status: Full HOME HEALTH: Face to Face: I certify this patient is under my care and that I, or a nurse practitioner or physician's business office assistant working with me, had a face to face encounter that meets the physician face to face encounter requirements with this patient on []. Medical Complications: Other (Fall with right clavicle fracture and left humerus fracture postop day 2) Correction For: Assess/Skilled Observatio RN For Eval/Treatment: Yes Physical Therapy For: Evalulation/Treatment Speech Language Pathology For: Evaluation/Treatment Home Health Aide For: Self-care [employer] For: Community Resources Pt Meets Homebound Status: Unsteady balance w/ amb, POST DISCHARGE ORDERS: Activity Instructions for Disc: Activity as tolerated Weight Bearing Status after Di: As tolerated Bathing Instructions: Shower-keep dressing dry DIET AFTER DISCHARGE: Cardiac Wound/Incision Care: Ice to area for comfort CHECKS AFTER DISCHARGE: Checks after discharge: Check blood press - daily TREATMENT/EQUIPMENT ORDERS: Adaptive Equipment Issued: Walker Discharge Respiratory Equipmen: Oxygen CERTIFICATION STATEMENT: Certification Statement: Certification Statement: Based on the above finding, I certify that this patient is confined to the home and needs intermittent [facility] care, physical therapy and/or speech therapy, or continues to need occupational therapy.~ This patient is under my care, and I have initiated the establishment of the plan of care.~ This patient will be followed by myself or a community physician who will periodically review the plan of care. Home Meds Active Scripts Albuterol Sulfate (ALBUTEROL SULFATE CONC NEB SOLN) 2.5 Mg/0.5 Ml Vial.neb, 1 VIAL NEB Q4HRS PRN for SHORTNESS OF BREATH, #60 VIAL 1 Refill Prov:DONNA PRICE MD 07/09/19 Doxycycline Hyclate (DOXYCYCLINE HYCLATE) 100 Mg Tablet.dr, 1 TAB PO BID, #20 TAB Prov:DONNA PRICE MD 07/09/19 Prednisone (PREDNISONE) 50 Mg Tablet, 1 TAB PO DAILY, #5 TAB Prov:DONNA PRICE MD 07/09/19 Hydrocodone/Apap 5-325 (NORCO 5-325 TABLET) 1 Each Tablet, 1 TAB PO PRN Q6HRS PRN for PAIN, #14 TAB 0 Refills Prov:JIM VANESSA SPORTS BOOK WRITER 05/03/18 Prednisone (PREDNISONE ) 10 Mg Tablet, 10 MG PO UD for PREDNISONE TAPER, #18 TAB 0 Refills Take 3 tablets daily for 3 days, then take 2 tablets daily for 3 days, then take 1 tablet daily for 3 days, then stop. Prov:AIME WALKER MD 11/13/16 Azithromycin (AZITHROMYCIN TABLET) 250 Mg Tablet, 250 MG PO DAILY, #5 TAB Prov:AIME WALKER MD 11/13/16 Albuterol Sulfate (Proair Hfa) 8.5 Gm Hfa.aer.ad, 8.5 GM IH BID66, #1 / Prov:UDAY BROWN MD 08/18/16 Budesonide (PULMICORT FLEXHALER) 180 Mcg Aer.pow.ba, 2 PUFF IH BID, #1 INHALER 6 Refills Prov:UDAY BROWN MD 08/18/16 Reported Medications Lisinopril (Lisinopril) 40 Mg Tablet, 40 MG PO DAILY for hypertension, TAB 08/05/19 Amlodipine Besylate (AMLODIPINE BESYLATE) 5 Mg Tablet, 5 MG PO DAILY for hypertension, TAB 08/05/19 Metoprolol Succinate (METOPROLOL SUCCINATE ( XL )) 200 Mg Tab.er.24h, 1 TAB PO DAILY for hypertension, #30 TAB 5 Refills 08/05/19 Hydrocodone Bit/Acetaminophen (HYDROCODONE-APAP 5-325 ) 1 Each Tablet, 1 TAB PO PRN Q6HRS PRN for PAIN, TAB 0 Refills 11/11/16 Olanzapine (ZYPREXA) 20 Mg Tablet, 1 TAB PO QHS, #30 TAB 11/11/16 Clorazepate Dipotassium (CLORAZEPATE DIPOTASSIUM) 3.75 Mg Tablet, 3.75 MG PO BID 05/19/16 Simvastatin (SIMVASTATIN) 20 Mg Tablet, 20 MG PO DAILY for FOR CHOLESTEROL, #30 TAB 0 Refills 05/19/16 Olanzapine (OLANZAPINE) 20 Mg Tablet, 20 MG PO DAILY, TAB 05/19/16 Bupropion Hcl (BUPROPION HCL) 100 Mg Tablet, 100 MG PO BID 05/19/16 FRANKO KIM III DO Jan 09, 2020 11:27
--- NOTE | 2020-01-09 12:12 | PDOC ---
[employer] PROGRESS NOTE Date of Service DOS: DATE: 01/09/20 TIME: 12:06 Chief Complaint Chief Complaint Right clavicular fracture, Left humerus fracture History of Present Illness History of Present Illness 01/09/2020 Patient seen and examined Patient in NAD Discussed with RN Chart reviewed No surgery recommended Hope to discharge to home health today Vitals/I&O Vitals/I&O: Vital Signs Date Time Temp Pulse Resp B/P (MAP) Pulse Ox O2 Delivery O2 Flow Rate FiO2 01/09/20 11:00 98.0 100 18 122/76 (91) 98 Room Air 98.0 01/09/20 08:00 2.0 I & O 01/08/20 01/08/20 01/09/20 15:00 23:00 07:00 Intake Total 0 ml 450 ml Balance 0 ml 450 ml Physical Exam General: Alert, Oriented X3, Cooperative, moderate distress Heart: Regular rate Lungs: Crackles, Other Extremities: No clubbing, No cyanosis, Normal pulses Skin: No rashes, Other (Multiple skin tears over the left forearm.) Review of Systems Review of Systems: Denies weakness Denies fatigue Assessment and Plan Assessmemt and Plan Problems Medical Problems: (1) Closed left humeral fracture Status: Acute (2) Fall down stairs Status: Acute (3) Need for Tdap vaccination Status: Acute Shoulder fracture and clavicular fracture Plan PRN pain meds Home meds DVT prophylaxis Full code Hope to discharge to home health today Comment Review of Relevant I have reviewed the following items luis angel (where applicable) has been applied. Medications: Current Medications Medications (Trade) Dose Ordered Sig/Marianne Route PRN Reason Start Time Stop Time Status Last Admin Dose Admin Olanzapine (ZyPREXA) 20 mg QHS PO 01/08/20 21:00 01/08/20 22:04 Acetaminophen/ Hydrocodone Bitart (Lortab 5/325) 1 tab PRN Q4HRS PRN PO PAIN 01/08/20 17:15 01/09/20 07:43 FRANKO KIM III DO Jan 09, 2020 12:12
--- NOTE | 2020-01-09 12:20 | DS ---
DATE OF DISCHARGE: ADMISSION DIAGNOSIS: Fall with right clavicle fracture and left humerus fracture. DISCHARGE DIAGNOSIS: Resolving humerus and clavicle fracture. CONSULTS: Orthopedics. PROCEDURES: None. HOSPITAL COURSE: The patient is a pleasant 64-year-old female who fell. She suffered a right clavicle fracture and left humerus fracture. I did consult Orthopedics. No surgery has been required. Today, I saw and examined her, she is at her baseline. We are going to discharge with home health. DISPOSITION: Home with home health. ACTIVITY: As tolerated. DIET: Low sodium. MEDICATIONS: Please see the MRAD. TOTAL TIME: 34 minutes. ANAHIL bIis KIM DO DR: HEATHER/blu JOB#: [id number] / [id number]
[2020-01-09 15:00] VITALS: BP 102/55
--- NOTE | 2020-01-09 15:03 | NUR ---
Discharge instructions and belongings reviewed with patient, verbalized understanding. Patient will be escorted out via wheelchair by Elder GAN.
== END 2020-01-09 15:09 | disposition home health service (06) | DRG 563 ==
LOC: ER 20:29 → 4 NORTH 23:23 → OBSVTOIN 23:23
PROVIDERS: ADMIT Internal Medicine; ATTEND Internal Medicine
DX: S42.031A Displaced fracture of lateral end of right clavicle, initial encounter for closed fracture (principal); S42.212A Unspecified displaced fracture of surgical neck of left humerus, initial encounter for closed fracture; E78.00 Pure hypercholesterolemia, unspecified; E78.5 Hyperlipidemia, unspecified; E87.6 Hypokalemia; F17.210 Nicotine dependence, cigarettes, uncomplicated; I10 Essential (primary) hypertension; W10.9XXA Fall (on) (from) unspecified stairs and steps, initial encounter; Y92.009 Unspecified place in unspecified non-institutional (private) residence as the place of occurrence of the external cause; Z82.49 Family history of ischemic heart disease and other diseases of the circulatory system; Z86.73 Personal history of transient ischemic attack (TIA), and cerebral infarction without residual deficits; Z82.5 Family history of asthma and other chronic lower respiratory diseases; Z90.710 Acquired absence of both cervix and uterus; F32.9 Major depressive disorder, single episode, unspecified; F41.9 Anxiety disorder, unspecified; Z88.8 Allergy status to other drugs, medicaments and biological substances; Z79.899 Other long term (current) drug therapy; Y93.89 Activity, other specified; Y99.8 Other external cause status; Z90.49 Acquired absence of other specified parts of digestive tract
CPT/HCPCS: 36415; 73000; 73030; 73060; 80048; 85007; 85025; 90471; 90715; 94640; 94760; 96361; 96374; 96375; 96376; 99285; J1650; J2270; J2405; J7030; J7512; 97535-GO; G0378; J7626

== ENCOUNTER → 2020-03-08 | Outpatient (CLI) | payer MEDICARE ==
[~2020-03-08] MED LIST changes: +AMLO-186 PO; -AMLO5TAB10 PO
--- NOTE | 2020-03-08 15:32 | RAD ---
CHEST CT WITHOUT CONTRAST CLINICAL INDICATIONS: Lung nodule follow-up. TECHNIQUE: Noncontrast helical CT scanning of the chest was performed. Without IV contrast, the sensitivity to detect organ pathology is decreased. PQRS compliance Statement One or more of the following individualized dose reduction techniques were utilized for this study: 1. Automated exposure control 2. Adjustment of the mA and/or kV according to patient size 3. Use of iterative reconstruction technique COMPARISON: January 28, 2018. October 31, 2018. FINDINGS: No enlarging thoracic lymphadenopathy is evident. No focal aneurysmal dilatation of the thoracic aorta is seen. Calcified atheromatous disease of the coronary arteries is seen. The heart size is normal. Bilateral saline breast implants are apparent. Again seen is chronic scarring or atelectasis with bronchiectasis involving the anterior medial aspect of the lingula and the right middle lobe. The atelectasis has improved. Again seen is chronic scarring of the right lower lobe which has not changed significantly. No new lung consolidation or new lung nodule is evident. No pleural effusion or pneumothorax is seen. The proximal bronchial tree is patent. No adrenal mass is seen. There is air seen within the biliary tree of the liver consistent with a sphincterotomy. There is subacute fracture of the lateral aspect of the right clavicle. A fracture of the upper proximal left humerus is seen. Compression fracture of T5 is again evident and is unchanged. Healing fractures of the lateral aspect of the right second and third ribs and the anterolateral aspect of the right seventh rib are seen. IMPRESSION: Appearing atelectasis of chronic bronchiectasis of the right middle lobe and lingula of the left upper lobe. No new consolidative lung infiltrate. Chronic scarring of the right lower lobe. Calcified atheromatous disease of the coronary arteries. Proximal left humerus fracture. Healing fractures of the right clavicle and right rib cage. Stable T5 compression fracture. Electronically signed by: Jack Samson MD (03/08/2020 3:29 PM) [id number]
== END ==
LOC: CT 11:00
PROVIDERS: ATTEND Internal Medicine Pulmonary Disease
DX: R91.1 Solitary pulmonary nodule (principal); J98.11 Atelectasis; I25.10 Atherosclerotic heart disease of native coronary artery without angina pectoris; S42.292A Other displaced fracture of upper end of left humerus, initial encounter for closed fracture; S22.41XD Multiple fractures of ribs, right side, subsequent encounter for fracture with routine healing; X58.XXXA Exposure to other specified factors, initial encounter; X58.XXXD Exposure to other specified factors, subsequent encounter; Y93.89 Activity, other specified; Y92.89 Other specified places as the place of occurrence of the external cause; Y99.8 Other external cause status
CPT/HCPCS: 71250

== ENCOUNTER 2020-07-01 11:08 | Emergency (ER) | payer MEDICARE ==
[~2020-07-01] VITALS: Ht 160 cm; Wt 51.0 kg
[~2020-07-01 11:08] MED LIST changes: -LISI-338 PO; +LISI-517 PO; -LISI40TA2 PO; +LISI40TA6 PO
[2020-07-01] MEDS ORDERED: HYDROcodone/APAP 5/325MG 1 TAB TABLET PO ONE (12:15)
--- NOTE | 2020-07-01 12:16 | PHYS DOC ---
Past Medical History Past Medical History: Anxiety, Asthma, COPD, Depression, High Cholesterol, Hypertension, Stroke, Other Additional Past Medical Histor: R HIP FX Past Medical History Osteoporosis Past Surgical History: Hysterectomy, Tonsillectomy, Other Additional Past Surgical Histo: bilat. breast surgery, removed fibroids; concrete on spine; right hip Smoking Status: Current Every Day Smoker Alcohol Use: None Drug Use: None General Adult EDM: Chief Complaint: RIB PAIN HPI: HPI: Patient is a 65-year-old female who presents to the ED with complaints of rib pain after a mechanical fall. She states her fall occurred 2 days ago when she tripped over her shoes. She recalls the events of the fall, she did not hit her head or lose consciousness. She is not currently on any blood thinners. She is now complaining of left-sided inferior rib pain and difficulty with deep breat winnie. She denies any aggravating or alleviating factors. She denies any other injury. Review of Systems: Review of Systems: Constitutional: Denies fever or chills Eyes: Denies redness or eye pain HENT: Denies nasal congestion or sore throat Respiratory: Denies cough or shortness of breath Cardiovascular: Reports left lateral chest/rib pain; denies palpitations GI: Denies abdominal pain, nausea, or vomiting : Denies dysuria or hematuria Musculoskeletal: Denies back pain or joint pain Integument: Denies rash or skin lesions Neurologic: Denies headache, focal weakness or sensory changes Complete systems were reviewed and found to be within normal limits, except as documented in this note. Current Medications: Current Medications Medications (Trade) Dose Ordered Sig/Marianne Start Time Stop Time Status Last Admin Dose Admin Acetaminophen/ Hydrocodone Bitart (Lortab 5/325) 1 tab 1X ONCE 07/01/20 12:15 07/01/20 12:16 Allergies: Allergies: Allergies Coded Allergies Type Severity Reaction Last Updated Verified haloperidol Allergy Intermediate makes neck tighten so she can't move head 02/05/14 Yes Physical Exam: PE: Constitutional: Well developed, well nourished, no acute distress, non-toxic appearance HENT: Normocephalic, atraumatic Eyes: Conjunctiva normal, no discharge Neck: Normal range of motion, no tenderness, supple Lungs & Thorax: No respiratory distress, equal chest rise and fall, left lateral chest wall pain Abdomen: Soft, no tenderness Skin: Warm, dry, no erythema, no rash Back: No tenderness, no CVA tenderness Extremities: No tenderness, ROM intact, no edema Neurologic: Alert and oriented X 3, no focal deficits noted Psychologic: Affect normal, judgment normal Current Patient Data: Vital Signs: Vital Signs Date Time Temp Pulse Resp B/P (MAP) Pulse Ox O2 Delivery O2 Flow Rate FiO2 07/01/20 11:52 98.1 88 18 136/71 (92) 98 Room Air 98.1 EKG: EKG: [] Radiology/Procedures: Radiology/Procedures: PROCEDURE: CT CHEST WO CONTRAST PQRS Compliance Statement: One or more of the following individualized dose reduction techniques were utilized for this examination: 1. Automated exposure control 2. Adjustment of the mA and/or kV according to patient size 3. Use of iterative reconstruction technique CT THORAX WO Clinical Indication: Reason: left chest wall pain / Spl. Instructions: / History: Comparison: CT chest without contrast, March 08, 2020. TECHNIQUE: Helical CT imaging of the chest is performed without IV contrast. Findings: Visualized thyroid is symmetric. There are bilateral breast implants, there are right capsular calcifications. Atherosclerotic thoracic aorta. The great vessels are normal caliber. There is three-vessel coronary artery disease. Cardiac size is normal, no pericardial effusion. There is tiny hiatal hernia. There is no pleural abnormality. There is no opacity of the central airways. There is centrilobular emphysema. Chronic atelectasis or scarring in the medial right middle lobe is mildly larger. Posterior right lower lobe atelectasis or scarring is unchanged. Scarring or atelectasis in the anterior lingula is slightly larger. Linear scarring in the medial left lower lobe is unchanged. Cholecystectomy. Old compression fractures of the T3, T4, T5 vertebral bodies are stable. No acute displaced rib fracture is identified. IMPRESSION: 1. Atelectasis or scarring in the medial right middle lobe and lingula is mildly larger. 2. Centrilobular emphysema. Electronically signed by: Froilan James MD (07/01/2020 1:22 PM) [facility] Course & Med Decision Making: Course & Med Decision Making Patient is a 65-year-old female presenting with rib pain. Plan to assess for rib fracture with CT chest, treat pain, and encourage use of incentive spirometry. Pertinent Imaging studies reviewed. (See chart for details) CT without acute process. Incentive spirometry provided with education. Patient stable for discharge with outpatient follow-up with PCP. Discussed findings and plan with patient, who acknowledges understanding and agreement. Pooja Disclaimer: Pooja Disclaimer: This electronic medical record was generated, in whole or in part, using a voice recognition dictation system. Departure Departure Impression: Primary Impression: Chest wall contusion Qualified Codes: S20.212A - Contusion of left front wall of thorax, initial encounter Disposition: 01 DC HOME SELF CARE/HOMELESS Condition: STABLE Referrals: MELY ALMONTE (PCP) Patient Instructions: Chest Contusion, [id number], Incentive Spirometer Scripts Hydrocodone Bit/Acetaminophen (HYDROCODONE-APAP 5-325 ) 1 Tab Tablet 0.5-1 TAB PO PRN Q6HRS PRN for PAIN, #14 TAB 0 Refills Prov: BRENDA REAL DO 07/01/20 BRENDA REAL DO Jul 01, 2020 12:16
--- NOTE | 2020-07-01 13:24 | RAD ---
PQRS Compliance Statement: One or more of the following individualized dose reduction techniques were utilized for this examinat ion: 1. Automated exposure control 2. Adjustment of the mA and/or kV according to patient size 3. Use of iterative reconstruction technique CT THORAX WO Clinical Indication: Reason: left chest wall pain / Spl. Instructions: / History: Comparison: CT chest without contrast, March 08, 2020. TECHNIQUE: Helical CT imaging of the chest is performed without IV contrast. Findings: Visualized thyroid is symmetric. There are bilateral breast implants, there are right capsular calcif ications. Atherosclerotic thoracic aorta. The great vessels are normal caliber. There is three-vessel coronary artery disease. Cardiac size is normal, no pericardial effusion. There is tiny hiatal herni a. There is no pleural abnormality. There is no opacity of the central airways. There is centrilobular e mphysema. Chronic atelectasis or scarring in the medial right middle lobe is mildly larger. Posterior right lower lobe atelectasis or scarring is unchanged. Scarring or atelectasis in the anterior lingu la is slightly larger. Linear scarring in the medial left lower lobe is unchanged. Cholecystectomy. Old compression fractures of the T3, T4, T5 vertebral bodies are stable. No acute displaced rib fract ure is identified. IMPRESSION: 1. Atelectasis or scarring in the medial right middle lobe and lingula is mildly larger. 2. Centrilobular emphysema. Electronically signed by: Froilan James MD (07/01/2020 1:22 PM) [facility]
[2020-07-01] MEDS ORDERED: HYDR-2761 PO (13:32)
[2020-07-01 13:45] VITALS: BP 122/74
== END 2020-07-01 13:45 | disposition home or self-care (01) ==
LOC: ER 11:08
DX: S20.212A Contusion of left front wall of thorax, initial encounter (principal); J44.9 Chronic obstructive pulmonary disease, unspecified; E78.00 Pure hypercholesterolemia, unspecified; I10 Essential (primary) hypertension; F41.9 Anxiety disorder, unspecified; F17.200 Nicotine dependence, unspecified, uncomplicated; Z86.73 Personal history of transient ischemic attack (TIA), and cerebral infarction without residual deficits; W18.09XA Striking against other object with subsequent fall, initial encounter; Y93.89 Activity, other specified; Y92.89 Other specified places as the place of occurrence of the external cause; Y99.9 Unspecified external cause status
CPT/HCPCS: 71250; 99284-25

== ENCOUNTER 2020-07-06 10:30 | Emergency (ER) | payer MEDICARE ==
[~2020-07-06] VITALS: Ht 160 cm; Wt 51.0 kg
[2020-07-06 10:35] VITALS: BP 138/85
[2020-07-06] MEDS ORDERED: HYDROcodone/APAP 7.5/325MG 1 TAB TABLET PO ONE (11:30)
--- NOTE | 2020-07-06 11:35 | RAD ---
INDICATION: Reason: FALL. RIGHT WRIST PAIN / Spl. Instructions: / History: COMPARISON: None. IMPRESSION: Right wrist: 3 views obtained. Degenerative changes of the wrist. Angulation lucency at the distal ra dius extending through the metaphysis which can be seen with a mildly displaced fracture. Electronically signed by: Fortunato Waggoner MD (07/06/2020 11:32 AM) [id number]
[2020-07-06] MEDS ORDERED: HYDR-2759 PO (11:45)
--- NOTE | 2020-07-06 11:47 | ED.ADGEN ---
Past Medical History Past Medical History: Anxiety, Asthma, COPD, Depression, High Cholesterol, Hypertension, Stroke, Other Additional Past Medical Histor: R HIP FX, LEFT HUMERUS FX Past Surgical History: Hysterectomy, Tonsillectomy, Other Additional Past Surgical Histo: bilat. breast surgery, removed fibroids; concrete on spine; right hip Smoking Status: Current Every Day Smoker Alcohol Use: None Drug Use: None General Adult EDM: Chief Complaint: WRIST PAIN HPI: HPI: Patient is a 65 year old female coming in for right wrist pain and swelling. Patient states she is trying to have her chair and she got her foot caught and fell onto her right arm. No other injuries, no head injuries loss of consciousness. No previous injuries to her wrist. Patient is right-handed. No open wounds, patient states she otherwise has been well and does not take anticoagulants Review of Systems: Review of Systems: All other systems within normal limits except for as noted in the HPI Current Medications: Current Medications Medications (Trade) Dose Ordered Sig/Marianne Start Time Stop Time Status Last Admin Dose Admin Acetaminophen/ Hydrocodone Bitart (Lortab 7.5/325) 1 tab 1X ONCE 07/06/20 11:30 07/06/20 11:31 DC Allergies: Allergies: Allergies Coded Allergies Type Severity Reaction Last Updated Verified haloperidol Allergy Intermediate makes neck tighten so she can't move head 02/05/14 Yes Physical Exam: PE: Constitutional: Well developed, well nourished, no acute distress, non-toxic appearance. [] HENT: Normocephalic, atraumatic, bilateral external ears normal, nose normal. [] Eyes: PERRLA, conjunctiva normal, no discharge. [] Neck: No rigidity, supple, no stridor. [] Cardiovascular: Regular rate and rhythm, brisk cap refill [] Lungs & Thorax: Non labored symmetric respirations, no tachypnea or respiratory distress [] Abdomen: Soft, nondistended. Skin: Warm, dry, no erythema, no rash. [] Back: Unremarkable Extremities: No deformities, range of motion grossly intact, no lower extremity edema. Right upper extremity, mild tenderness on shoulder humerus to elbow, range of motion intact. Swelling of radial aspect of distal forearm. No deformities of hand, no snuffbox tenderness, median, radial, ulnar, AIN, PIN nerves intact distal to injury. [] Neurologic: Alert and oriented X 3, no focal deficits noted. [] Psychologic: Affect normal, judgement normal, mood normal. [] Current Patient Data: Vital Signs: Vital Signs Date Time Temp Pulse Resp B/P (MAP) Pulse Ox O2 Delivery O2 Flow Rate FiO2 07/06/20 10:35 97.5 103 18 138/85 (102) 97 Room Air 97.5 EKG: EKG: [] Heart Score: Risk Factors: Risk Factors: DM, Current or recent (<one month) smoker, HTN, HLP, family history of CAD, obesity. Risk Scores: Score 0 - 3: 2.5% MACE over next 6 weeks - Discharge Home Score 4 - 6: 20.3% MACE over next 6 weeks - Admit for Clinical Observation Score 7 - 10: 72.7% MACE over next 6 weeks - Early Invasive Strategies Radiology/Procedures: Radiology/Procedures: INDICATION: Reason: FALL. RIGHT WRIST PAIN / Spl. Instructions: / History: COMPARISON: None. IMPRESSION: Right wrist: 3 views obtained. Degenerative changes of the wrist. Angulation lucency at the distal radius extending through the metaphysis which can be seen with a mildly displaced fracture.[] Course & Med Decision Making: Course & Med Decision Making Pertinent Labs and Imaging studies reviewed. (See chart for details) [] Dragon Disclaimer: Dragon Disclaimer: This electronic medical record was generated, in whole or in part, using a voice recognition dictation system. Departure Departure Impression: Primary Impression: Fracture of right distal radius Disposition: 01 DC HOME SELF CARE/HOMELESS Condition: STABLE Referrals: [facility] Patient Instructions: Cast or Splint Care Additional Instructions: Take MiraLAX or stool softener while taking hydrocodone pain medications to avoid constipation. Call orthopedic office to schedule follow-up appointment next week. Scripts Hydrocodone/Acetaminophen (Hydrocodone-Acetamin 5-325 mg) 1 Each Tablet 1 EACH PO PRN Q6-8HRS PRN for PAIN for 5 Days, #15 TAB Prov: RAMAN JOSÉ MD 07/06/20 RAMAN JOSÉ MD Jul 06, 2020 11:46
== END 2020-07-06 12:29 | disposition home or self-care (01) ==
LOC: ER 10:30
DX: S52.501A Unspecified fracture of the lower end of right radius, initial encounter for closed fracture (principal); J44.9 Chronic obstructive pulmonary disease, unspecified; E78.00 Pure hypercholesterolemia, unspecified; I10 Essential (primary) hypertension; F17.200 Nicotine dependence, unspecified, uncomplicated; Z86.73 Personal history of transient ischemic attack (TIA), and cerebral infarction without residual deficits; Z88.8 Allergy status to other drugs, medicaments and biological substances; W18.39XA Other fall on same level, initial encounter; Y93.89 Activity, other specified; Y92.89 Other specified places as the place of occurrence of the external cause; Y99.8 Other external cause status
CPT/HCPCS: 29125; 73110; 99284

== ENCOUNTER → 2021-03-19 | Outpatient (CLI) | payer MEDICARE ==
[~2021-03-19] MED LIST changes: +HYDR-2759 PO; -LISI-517 PO; +LISI5TAB15 PO
--- NOTE | 2021-03-19 15:06 | KCIC ---
INDICATION : Routine Screening. COMPARISON: No comparison is available. TECHNIQUE: Standard mammogram screening views of the bilateral breasts. Implant displaced MLO views w ere also obtained. CAD was utilized. FINDINGS: The breasts are heterogenous density. Bilateral breast implants are identified. The right breast imp lant has a densely calcified capsule. Implant displaced MLO views were obtained but unable to obtain implant displaced CC views secondary to compressed tissue within the region. This is a very limited e xam secondary to lack of implant displaced views as well as compressed tissue adjacent to the implant s bilaterally. IMPRESSION: BI-RADS Category 2: Benign findings. Bilateral breast implants are identified with densely calcified capsule on the right. The examination is limited for evaluation of a breast mass secondary to lack of implant displaced views as well as compressed breast tissue surrounding the bilateral breast implant . The patient was placed into the recall system with a suggested recall date for follow up imaging. Mammography is the most sensitive method for finding small breast cancers, but it does not detect the m all and is not a substitute for careful clinical examination. A negative mammogram does not negate a clinically suspicious finding and should not result in delay in biopsying a clinically suspicious abnormality. Electronically signed by: Fortunato Waggoner MD (03/19/2021 3:04 PM) [id number]
--- NOTE | 2021-03-19 17:36 | KCIC ---
INDICATION: Screening for osteopenia/osteoporosis. Reason: POST MENOPAUSAL / Spl. Instructions: / H istory: COMPARISON: None. TECHNIQUE: Bone densitometry was performed through the forearm and proximal femur. IMPRESSION: Forearm: BMD: 0.31 T-Score: -4.9 Range: Osteoporotic Proximal Femur: BMD: 0.53 T-Score: -3.4 Range: Osteoporotic World Health Organization Criteria for Bone Density: T-Score: > -1.0: Normal Range < -1.0 to -2.5: Osteopenic Range < -2.5: Osteoporotic Range Electronically signed by: Fortunato Waggoner MD (03/19/2021 5:33 PM) [id number]
== END ==
LOC: KCIC MAMMO 13:42
PROVIDERS: ATTEND Family Medicine
DX: Z12.31 Encounter for screening mammogram for malignant neoplasm of breast (principal); M81.8 Other osteoporosis without current pathological fracture; Z78.0 Asymptomatic menopausal state
CPT/HCPCS: 77067; 77080; 77081